=== PATIENT | female | born 1935 | race Caucasian/White ===

== ENCOUNTER 2024-02-26 11:09 | Inpatient (IN) ==
--- OUTSIDE RECORDS SUMMARY | 2024-02-26 11:12 | External Medical Summary | Summary of Care ---
Author Name Unknown Organization [facility] Address [address] [address] Phone [phone] Care Team Providers [facility] Representative Name Role Phone Vik Davies DO Primary Care Provider Reason for Visit * Reason Comments Follow Up Encounter Details Date Type Department Care Team (Late st Contact Info) Description 02/23/2024 10:00 AM EST Office Visit Otolaryngology [facility] [address] [place] [address] Hesham Liu DO [address] [place] [phone] Bilateral impacted cerumen [H61.23]* Allergies Active Allergy Reactions Criticality Noted Date Comments Ciprofloxacin Nausea/vomiting 11/10/2015 Adalimumab Other (Please comment) 09/15/2016 Cellulitis in face- needed hospitalized Sulfa Antibiotics 07/19/2023 documented as of this encounter (statuses as of 02/23/2024) Medications ONETOUCH ULTRA BLUE STRP Test once daily. 0 7 Active Blood Glucose Monitoring Suppl (ONETOUCH ULTRA 2) w/Device KIT daily. 0 7 Active nystatin (NYSTOP) 191969 UNIT/GM powder As needed 2 8 Active Prevail Adj Underwear Large by miscellaneous route Use as directed Active Premarin 0.625 MG/GM Vaginal Cream (Estrogens Conjugated) Apply 0.5 g topically to affected area at bedtime. Three times per week. 42.5 g 6 3 Active Additional Information Patient not taking.Reported on 01/31/2024 Carvedilol 6.25 MG Oral Tablet (Coreg)Indicat ions:HTN, goal below 140/90 Take 1 Tablet by mouth in the morning and 1 Tablet before bedtime. 180 Tablet 3 4 Active Aspirin 81 MG Oral Tablet Delayed Release Take 1 Tablet by mouth in the morning and 1 Tablet before bedtime. 90 Tablet 3 4 Active Additional Information Patient taking differently:81 mg OralDaily(AM), Reported on 10/25/2023 Multivitamin Women 50+ Oral Tablet Take 1 Tablet by mouth every morning. Active Folic Acid 1 MG Oral Tablet Take 1 Tablet by mouth in the morning. In the morning.. 90 Tablet 3 4 Active predniSONE 5 MG Oral Tablet (Deltasone) Take 0.5 Tablets by mouth in the morning and 0.5 Tablets before bedtime. one pill each day. 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 90 Tablet 3 4 Active Methotrexate Sodium 2.5 MG Oral TabletIndicati ons:Rheumatoid arthritis involving multiple sites with positive rheumatoid factor (HCC) TAKE 4 TABLETS BY MOUTH ONCE A WEEK 52 Tablet 1 4 Active Trospium Chloride 20 MG Oral Tablet (Sanctura) Take 1 Tablet by mouth in the morning. 4 Active Furosemide 20 MG Oral Tablet (Lasix) Take 1 tablet alternating with 2 tablets every other day. 120 Tablet 5 4 Active documented as of this encounter (statuses as of 02/23/2024) Active Problems Problem Noted Date Diagnosed Date Localized edema 05/24/2023 Chronic kidney disease, stage 3b 03/21/2023 Overview: Per CKD protocol Type 2 diabetes mellitus wit h stage 3b chronic kidney disease 02/21/2023 Overview: Per CKD protocol History of 2019 novel coronavirus disease (COVID -19) 10/13/2021 Mixed incontinence 07/13/2021 Calculus of kidney 07/13/2021 Urinary tract infection due to Proteus 2 Renal cyst, acquired 07/13/2021 Trigger finger, right little finger 04/13/2021 Nonrheumatic mitral valve regurgitation 08/19/19 21 Statin intolerance 08/18/2020 Dyslipidemia, goal LDL below 70 08/18/2020 Rheumatoid arthritis involvi ng multiple sites with positive rheumatoid factor 02/02/2017 Vitamin D deficiency 02/02/2017 Encounter for long-term (current) use of medicat ions 10/28/2016 Generalized osteoarthritis 10/28/2016 CAD (coronary artery disease) Overview (10/28/2016): s/p stent Diabetes HTN, goal below 140/90 GERD (gastroesophageal reflux disease) documented as of this encounter (statuses as of 02/23/2024) Resolved Problems Problem Noted Date Diagnosed Date Resolved Date Diabetes mellitus with stage 3 chronic kidney disease 01/17/2023 02/24/2023 Overview: Per CKD protocol Rheumatoid arthritis involving multiple sites 10/29/19 17 02/02/2017 Kidney disease, chronic, sta ge III (GFR 30-59 ml/min) 01/20/2023 Overview: Per CKD protocol documented as of this encounter (statuses as of 02/23/2024) Immunizations Name Administration Dates Next Due COVID-19 mRNA, LNP-s, No Pre serve, 2-Dose Series (Moderna) 03/25/2021,06/17/2020,05/13/2020 Pneumococcal Conjugate Vacc, 13 Valent (Prevnar) 05/23/2017 RSV Vac., Recomb, Adjuvant, PF,0.5 Ml (Arexvy) 04/20/2023 Season Influenza, Quad, PF, Adjuvanted, 65+ Yrs, IM (FLUAD) 01/25/2023,01/15/2022 Seasonal Influenza Vac., MDV , IM, 0.5 mL (Fluzone) 01/28/2021,01/14/2021,01/05/2020,2018,01/20/2018,01/09/2018,02/09/2017,1 Seasonal Influenza, High Dos e, Trivalent, PF, IM (Fluzone HD) 01/05/2020,01/12/2017 Seasonal Influenza, Quadriva lent Hd, 65+ Yrs 01/28/2021 Seasonal Influenza, Recombin ant, RIV4, PF, (Flublock) 01/24/2019,01/20/2018 Seasonal Influenza, Trivalen t, Adjuvanted, 65+ YRS, PF, (Fluad) 1936 TDAP (age 10 and older)(Boostrix) 09/21/2023 Zoster Vaccine Recombinant (Shingrix) 04/25/2020 ,02/22/2020 documented as of this encounter Social History Tobacco Use Types Packs/Day Years Used Date Smoking Tobacco: Never Smokeless Tobacco: Never Alcohol Use Standard Drinks/Week Comments No 0 (1 standard drink = 0.6 oz pur e alcohol) PHQ-2 Answer Date Recorded PHQ Adult Total Score 0 09/21/2023 Comments No Sex and Gender Information Value Date Recorded Sex Assigned at Female 09/28/2022 9:33 AM EDT Legal Sex Female 6:04 AM EST Gender Identity Female 09/28/2022 9:33 AM EDT Sexual Orientation Straight 09/28/2022 9: 33 AM EDT documented as of this encounter Last Filed Vital Signs Vital Sign Reading Time Taken Comments Blood Pressure - - Pulse - - Temperature - - Respiratory Rate - - Oxygen Saturation - - Inhaled Oxygen Concentration - - Weight - - Height 152.4 cm (5') 02/23/2024 9:22 AM EST Body Mass Index - - documented in this encounter Progress Notes * Hesham Liu, - 02/23/2024 10:44 AM EST Otolaryngology Head and Neck Surgery 02/23/2024 HPI: patient comes in today for check of her ears. She was seen at the emergency department for an unrelated reason and they noted cerumen impactions. She states she has had decreased hearing for about a month since she had COVID-19. 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) Vitamin D deficiency Nonrheumatic mitral valve regurgitation Statin intolerance Dyslipidemia, goal LDL below 70 Trigger finger, right little finger Mixed incontinence Calculus of kidney Urinary tract infection due to Proteus Renal cyst, acquired History of 2019 novel coronavirus disease (COVID-19) 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) Chronic kidney disease, stage 3b (HCC) Localized edema Past Medical History: Diagnosis Date Arthritis CAD (coronary artery disease) s/p stent Diabetes (HCC) GERD (gastroesophageal reflux disease) Hyperlipidemia Hypertension Kidney disease, chronic, stage III (GFR 30-59 ml/min) ([facility]) Past Surgical History: Procedure Laterality Date ARTHO,SHOUL,W/ROTATOR CUFF CARDIAC STENT PLACEMENT, ATHERECTOMY, 1 VESSEL DELIVERY x 3 COLONOSCOPY, DIAGNOSTIC (RECTUM) 09/15/2016 hyperplastic polyp, diverticulosis/COLONOSCOPY FLEXIBLE PROXIMAL DIAGNOSTIC performed by Luda Armendariz DO at ENDOSCOPY [facility] EGD, FLEXIBLE, DIAGNOSTIC 09/15/2016 gastric ulcers, reflux esophagitis/ESOPHAGOGASTRODUODENOSCOPY (EGD), FLEXIBLE, TRANSORAL, DIAGNOSTIC performed by Luda Armendariz DO at ENDOSCOPY [facility] INJECT DX/THER SUBSTANCE INTERLAMINAR LUMBAR/SACRAL W IMAGE GUIDE 01/20/2017 INJECTION SPINE LUMBAR OR SACRAL performed by Estiven Abbasi DO at OR [facility] INJECT DX/THER SUBSTANCE INTERLAMINAR LUMBAR/SACRAL W IMAGE GUIDE 02/10/2017 INJECTION SPINE LUMBAR OR SACRAL performed by Estiven Abbasi DO at OR [facility] LAPAROSCOPY; CHOLECYSTECTOMY NECK SPINE FUSION (C1-C2) W/GRAFT PARTIAL HYSTERECTOMY SPINAL FUSION, LUMBAR, COMBINED Medications Current Outpatient Medications Medication Sig Dispense Refill Coffee and PowerUCH ULTRA BLUE STRP Test once daily. 0 Blood Glucose Monitoring Suppl (CrambuTOUCH ULTRA 2) w/Device KIT daily. 0 nystatin (NYSTOP) 533397 UNIT/GM powder As needed 2 Prevail Adj Underwear Large by miscellaneous route Use as directed Premarin 0.625 MG/GM Vaginal Cream (Estrogens Conjugated) Apply 0.5 g topically to affected area atbedtime. Three times per week. (Patient not taking: Reported on 01/31/2024) 42.5 g 6 Carvedilol 6.25 MG Oral Tablet (Coreg) Take 1 Tablet by mouth in the morning and 1 Tablet before bedtime. 180 Tablet 3 Aspirin 81 MG Oral Tablet Delayed Release Take 1 Tablet by mouth in the morning and 1 Tablet beforebedtime. (Patient taking differently: Take 1 Tablet by mouth in the morning.) 90 Tablet 3 Multivitamin Women 50+ Oral Tablet Take 1 Tablet by mouth every morning. Folic Acid 1 MG Oral Tablet Take 1 Tablet by mouth in the morning. In the morning.. 90 Tablet 3 predniSONE 5 MG Oral Tablet (Deltasone) Take 0.5 Tablets by mouth in the morning and 0.5 Tablets before bedtime. one pill each day. (Patient taking differently: Take 1 Tablet by mouth in the morning.one pill each day.) 180 Tablet 0 Donepezil HCl 5 MG Oral Tablet (Aricept) Take by mouth daily with the largest meal of the day. 90 Tablet 3 Methotrexate Sodium 2.5 MG Oral Tablet TAKE 4 TABLETS BY MOUTH ONCE A WEEK 52 Tablet 1 Trospium Chloride 20 MG Oral Tablet (Sanctura) Take 1 Tablet by mouth in the morning. Furosemide 20 MG Oral Tablet (Lasix) Take 1 tablet alternating with 2 tablets every other day. 120 Tablet 5 No current facility-administered medications for this visit. Allergies Review of patient's allergies indicates: Allergen Reactions Ciprofloxacin Nausea/vomiting Humira [Adalimumab] Other (Please comment) Cellulitis in face- needed hospitalized Sulfa Antibiotics Family History Family History Problem Relation Name Age of Onset Other (Other) Mother brain bleed after fall Heart disease Father Cancer Sister breast Arthritis Son Arthritis Daughter Social History Social History Tobacco Use Smoking status: Never Smokeless tobacco: Never Substance Use Topics Alcohol use: No Vaping/E-Cigarette Use Vaping/E-Cigarette Use Never User Vaping/E-Cigarette Substances Vaping/E-Cigarette Devices Review of Systems Negative for constitutional, eyes, cardiac, pulmonary, hepatic, renal, digestive, hematologic, epileptic, syncopal, musculo-skeletal, mental health, integumentary, hypertensive, lipid, arthritic, diabetic, thyroid, or neurologic disorders (except as listed in the PMH and Problem List). Physical Examination: Ht 1.524 m (5') | BMI 37.42 kg/m | BSA 1.92 m PHYSICAL EXAM General: This is a healthy appearing female who appears her stated age. The patient is alert and appropriately verbally conversant without hoarseness. Face: The face was inspected and no cutaneous masses or lesions were visualized. There was no erythema or edema noted. Facial movement was symmetric without weakness. No skin lesions were detected. There was no sinus tenderness elicited. The parotid and submandibular glands were normal to palpation. Eyes: Extra-ocular muscle function was intact. No nystagmus was observed. Pupils were equal. Cranial Nerves: Cranial nerves II, III, IV, and were noted to be intact via extra-ocular muscle movement testing. Cranial nerve VII noted to be intact and symmetric by facial movement. Nose: Examination of the nose revealed no masses, polyps, mucopus, or other lesion. The nasal septum was non-obstructing. The turbinates were without abnormality. Ears: Examination of the ears revealed that the auricles were normally formed with no lesions. The external auditory canals were cleaned of any obstructing cerumen. The tympanic membranes were intactand freely mobile to pneumatoscopy. There are no significant retraction pockets. There is no inflammation visualized. No effusions are seen. Procedure: In order to assess ears in further detail, the patient was brought to the microscope room and the ears were evaluated under the operating microscope. The findings are as noted in the above physical exam. Procedure: Cerumen removal Attention directed to the right ear. Under danny-microscopic guidance the impacted cerumen was removed with a suction atraumatically. The tympanic membrane was intact and the middle ear was healthy appearing. The same procedure was performed on the other side. Patient tolerated the procedure well. Assessment: 88-year-old female with bilateral cerumen impactions Plan: - cerumen removed as above. - Follow-up p.r.n. I spent a total of 30 minutes on the date of service in preparation, delivery, and documentation ofthe care provided to the above patient, excluding any time spent on the performance of any procedures or separately billable services. Hesham Liu DO, [facility], Department of Otolaryngology-Head and Neck Surgery [facility], [place] 02/23/2024 10:45 AM documented in this encounter Nursing Notes * Sigrid Seay LPN - 02/23/2024 9:23 AM EST Chief Complaint Patient presents with Follow Up Patient presents today for cerumen removal. Pt states she had covid last month and since then she'sbeen having difficulty hearing. She denies any ear pain or ear drainage. documented in this encounter Plan of Treatment Upcoming Encounters Date Type Department Care Team (Late st Contact Info) Description 02/28/2024 10:00 AM EST Cardiac Studies Cardiac Studies, [facility] [address] [facility] [place] [address] 02/28/2024 1:00 PM EST Imaging Vascular Lab, [facility] [address] [facility], [place] [address] [facility] [place] [address] 02/28/2024 2:00 PM EST Imaging Vascular Lab, [facility] 2nd Floor, [place] [address] [facility] [place] [address] 02/29/2024 1:45 PM EST Office Visit Orthopaedics [facility] [address] [place] [address] Sondra Odonnell MD [address] [place] [address] 03/12/2024 2:30 PM EST Office Visit Cardiology, [facility] [address] [place] [address] Raquel Marquez PA-C [address] [place] [address] 03/22/2024 1:40 PM EST Office Visit Family Practice [facility] [address] [place] [address] Vik Davies DO [address] [place] [address] 07/19/2024 9:00 AM EDT Office Visit Rheumatology [facility] [address] [place] [address] Rubén Zheng MD [address] [place] [address] Health Maintenance Due Date Last Done Comments Adult Wellness Visit 2002 Pneumococcal Vaccine: 65+ Years (2 of 2 - PPSV23 or PCV20) 07/18/2017 05/23/2017 COVID-19 Vaccine ( season) 2023 03/25/2021, 06/17/2020, 05/13/2020 Influenza Vaccine (FLU shot) (#1) 2023 01/25/2023, 01/15/2022, 01/28/2021, Additional history exists CKD PHOS USE SMARTSET 15477 01/14/2024 01/13/2023, 0 06/17/2014 Albumin/Creatinine Ratio 01/15/2024 023, 08/14/2018, 06/03/2017, Additional history exists HbA1c 06/17/2024 12/19/2023, 08/0 11/2023, 01/13/2023, Additional history exists Diabetic Eye Exam 07/24/2024 07/25/2023, , 01/24/2023, Additional history exists Depression Screening 09/20/2024 09/21/2023 Diabetic Foot Exam 09/20/2024 09/21/2023 CKD HGB USE SMARTSET 45496 02/12/202502/12, 02/13/2024, 11/17/2023, Additional history exists DXA Scan 10/20/2028 10/20/2021, 10/20/2021 DTap/Tdap Vaccines (2 - Td or Tdap) 09/20/2033 09/21/2023 Zoster Vaccines Completed 04/25/2020, 02/22/2020 HPV (Gardasil) Vaccine Aged Out No lo nger eligible based on patient's age to complete this topic Hepatitis B Vaccine Aged Out No longe r eligible based on patient's age to complete this topic MENINGOCOCCAL (MENACTRA/MENVEO) Aged Out No longer eligible based on patient's age to complete this topic documented as of this encounter Medical Devices Not on filedocumented as of this encounter Visit Diagnoses Diagnosis Bilateral impacted cerumen [H61.23]- Primary Impacted cerumen documented in this encounter Advance Directives Documents on File Type Date Recorded 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
--- OUTSIDE RECORDS SUMMARY | 2024-02-26 11:12 | External Medical Summary | Summary of Care ---
Author Name Unknown Organization [facility] Address [address] [place] [address] Phone [phone] Care Team Providers Care Rail Track Maintainer Name Role Phone Samson Vik Liuabiel Primary Care Provider Encounter Details Date Type Department Care Team (Latest Contact Info) Description 02/23/2024 10:30 AM EST Office Visit Audiology [facility] [address] [place] [address] Ayala Alamo Au.D. [address] [place] [address] Sensorineural hearing loss, bilateral* Allergies Active Allergy Reactions Criticality Noted Date Comments Ciprofloxacin Nausea/vomiting 11/10/2015 Adalimumab Other (Please comment) 09/15/2016 Cellulitis in face- needed hospitalized Sulfa Antibiotics 07/19/2023 documented as of this encounter (statuses as of 02/23/2024) Medications ONETOUCH ULTRA BLUE STRP Test once daily. 0 7 Active Blood Glucose Monitoring Suppl (ONETOUCH ULTRA 2) w/Device KIT daily. 0 7 Active nystatin (NYSTOP) 183004 UNIT/GM powder As needed 2 8 Active [...] AM EDT documented as of this encounter Progress Notes * Ayala Alamo Au.D. - 02/23/2024 9:54 AM EST Images from the original note were not included. Audiologic evaluation was completed on referral from Otolaryngology clinic. Tympanometry 42746 Right: WNL for static admittance, tympanometric peak pressure, equivalent volume, and tympanic width("Type A") Left: WNL for static admittance, tympanometric peak pressure, equivalent volume, and tympanic width("Type A") Standard audiometric testing 03086 ABSD insert earphones Good reliability Right: sensorineural hearing loss Left: sensorineural hearing loss Speech recognition thresholds were consistent with hearing thresholds. Word recognition scores, obtained via monitored live voice were: right 92%, left 88% Milena Sheehan, CCC-A 02/23/2024 9:54 AM Scan: audiogram, tympanograms documented in this encounter Plan of Treatment Upcoming Encounters Date Type Department Care Team (Late st Contact Info) Description 02/28/2024 10:00 AM EST Cardiac Studies Cardiac Studies, [facility] [address] [place] [address] 02/28/2024 1:00 PM EST Imaging Vascular Lab, [facility] [address] [facility], [place] [address] [facility] [facility] [place] [address] 02/28/2024 2:00 PM EST Imaging Vascular Lab, [facility] [address] [facility], [place] [address] [facility] [facility] [address] 02/29/2024 1:45 PM EST Office Visit Orthopaedics [facility] [address] [place] [address] Sondra Odonnell MD [address] [place] [address] 03/12/2024 2:30 PM EST Office Visit Cardiology, [facility] [address] [place] [address] Raquel Marquez PA-C [address] [place] [address] 03/22/2024 1:40 PM EST Office Visit Family Practice [facility] [address] [place] [address] Vik Davies DO [address] [place] [address] 07/19/2024 9:00 AM EDT Office Visit Rheumatology [facility] [address] [place], [place] [address] Rubén Zheng MD [address] [place] [address] Health Maintenance Due Date Last Done Comments Adult Wellness Visit 2002 Pneumococcal Vaccine: 65+ Years (2 of 2 - PPSV23 or PCV20) 07/18/2017 05/23/2017 COVID-19 Vaccine ( season) 2023 03/25/2021, 06/17/2020, 05/13/2020 Influenza Vaccine (FLU shot) (#1) 2023 01/25/2023, 01/15/2022, 01/28/2021, Additional history exists CKD PHOS USE SMARTSET 92578 01/14/2024 01/13/2023, 0 06/17/2014 Albumin/Creatinine Ratio 01/15/2024 023, 08/14/2018, 06/03/2017, Additional history exists HbA1c 06/17/2024 12/19/2023, 08/0 11/2023, 01/13/2023, Additional history exists Diabetic Eye Exam 07/24/2024 07/25/2023, , 01/24/2023, Additional history exists Depression Screening 09/20/2024 09/21/2023 Diabetic Foot Exam 09/20/2024 09/21/2023 CKD HGB USE SMARTSET 59950 02/12/202502/12, 02/13/2024, 11/17/2023, Additional history exists DXA [...] Not on filedocumented as of this encounter Procedures Procedure Name Priority Date/Time Associated Diagnosis Comments AUDIOMETRIC RESULT 02/23/2024 documented in this encounter Results * AUDIOMETRIC RESULT (02/23/2024) 02/23/2024 us Ayala Abbott [facility] Final Resul t documented in this encounter Visit Diagnoses Diagnosis Sensorineural hearing loss, bilateral- Primary documented in this encounter Advance Directives Documents on File Type Date Recorded Patient Universal Grinder Tool Expl anation Advance Directives and Living Will 12/18/2013 LIVING WILL Power of Air Brake Worker 12/18/2013 POWER OF A TTORNEY DURABLE HEALTH CARE POA Care Teams Rail Track Maintainer Relationship Specialty Start Date End Date Vik Davies DO [address] [place] [address] PCP - General Family Medicine 01/13/23 documented as of this encounter
--- OUTSIDE RECORDS SUMMARY | 2024-02-26 11:13 | External Medical Summary ---
Author Name Unknown Address Unknown Organization K01:LABORATORY [facility] [place] - [address] [place] [address] [address] Laboratory Report Ordering Provider Test Date Status JACKY LIGHT 02/13/2024 14:24:07 Final Reference ranges are for iker nts without prior surgery. Some reference ranges and other method performance specifications have not been established for this fluid. The test results must be integrated into the clinical context for interpretation.

Slide being held for pathologist review.
Observation Date Value Abnormality Reference (Units ) Status Color of Body fluid 02/13/2024 14:24:07 Yellow Straw, Yellow, Colorless Final Clarity of Body fluid 02/13/2024 14:24:07 Clear Clear Final Leukocytes [#/volume] in Synovial fluid 02/13/2024 14:24:07 1351 Above high normal 0-180 (cells/uL) Final Erythrocytes [#/volume] in Synovial fluid 02/13/2024 14:24:07 623 <2000 (cells/uL) Final Performing Location [facility]ORY [facility] [place] - [address] [place] [address]
--- OUTSIDE RECORDS SUMMARY | 2024-02-26 11:13 | External Medical Summary | Summary of Care ---
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 Name Role Phone Vik Davies Primary Care Provider Reason for Visit * Reason Onset Date Comments Test Results 02/14/2024 Encounter Details Date Type Department Care Team (Late st Contact Info) Description 02/14/2024 Telephone Cardiology, [facility] [address] [place] [address] Raquel Marquez, LIBBY [address] [place] [phone] Test Results Allergies Active Allergy Reactions Criticality Noted Date Comments Ciprofloxacin Nausea/vomiting 11/10/2015 Adalimumab Other (Please comment) 09/15/2016 Cellulitis in face- needed hospitalized Sulfa Antibiotics 07/19/2023 documented as of this encounter (statuses as of 02/14/2024) Medications Medication Sig Dispensed Refills Start Date End Date Status ONETOUCH ULTRA BLUE STRP Test once daily. 0 01/10/2017 Active Blood Glucose Monitoring Suppl (ONETOUCH ULTRA 2) w/Device KIT daily. 0 01/10/2017 Active nystatin (NYSTOP) 616042 UNIT/GM powder As needed 2 05/23/2017 Active Prevail Adj Underwear Large by miscellaneous route Use as directed Active Premarin 0.625 MG/GM Vaginal Cream (Estrogens Conjugated) Apply 0.5 g topically to affected area at bedtime. Three times per week. 42.5 g 6 10/25/2022 Active Additional Information Patient not taking.Reported on 01/31/2024 Carvedilol 6.25 MG Oral Tablet (Coreg)Indication s:HTN, goal below 140/90 Take 1 Tablet by mouth in the morning and 1 Tablet before bedtime. 180 Tablet 3 04/15/2023 Active Aspirin 81 MG Oral Tablet Delayed Release Take 1 Tablet by mouth in the morning and 1 Tablet before bedtime. 90 Tablet 3 04/15/2023 Active Additional Information Patient taking differently:81 mg OralDaily(AM), Reported on 10/25/2023 Multivitamin Women 50+ Oral Tablet Take 1 Tablet by mouth every morning. Active Folic Acid 1 MG Oral Tablet Take 1 Tablet by mouth in the morning. In the morning.. 90 Tablet 3 07/19/2023 Active predniSONE 5 MG Oral Tablet (Deltasone) Take 0.5 Tablets by mouth in the morning and 0.5 Tablets before bedtime. one pill each day. 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 90 Tablet 3 10/10/2023 Active Methotrexate Sodium 2.5 MG Oral TabletIndications :Rheumatoid arthritis involving multiple sites with positive rheumatoid factor (HCC) TAKE 4 TABLETS BY MOUTH ONCE A WEEK 52 Tablet 1 12/07/2023 Active Trospium Chloride 20 MG Oral Tablet (Sanctura) Take 1 Tablet by mouth in the morning. 10/24/2023 Active Furosemide 20 MG Oral Tablet (Lasix) Take 1 tablet alternating with 2 tablets every other day. 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 CAD (coronary artery disease) Overview: s/p stent Diabetes HTN, goal below 140/90 GERD (gastroesophageal reflux disease) documented as of this encounter (statuses as of 02/14/2024) Resolved Problems Problem Noted Date Diagnosed Date Resolved Date Diabetes mellitus with stage 3 chronic kidney disease 01/17/2023 02/24/2023 Overview: Per CKD protocol Rheumatoid arthritis involving multiple sites 10/29/19 17 02/02/2017 Kidney disease, chronic, sta ge III (GFR 30-59 ml/min) 01/20/2023 Overview: Per CKD protocol documented as of this encounter (statuses as of 02/14/2024) Immunizations Name Administration Dates Next Due COVID-19 mRNA, LNP-s, No Pre serve, 2-Dose Series (Moderna) 03/25/2021,06/17/2020,05/13/2020 Pneumococcal Conjugate Vacc, 13 Valent (Prevnar) 05/23/2017 RSV Vac., Recomb, Adjuvant, PF,0.5 Ml (Arexvy) 04/20/2023 Seasonal Influenza Vac., MDV , IM, 0.5 mL (Fluzone) 01/28/2021,01/14/2021,01/05/2020,2018,01/20/2018,01/09/2018,02/09/2017,1 Seasonal Influenza, High Dos e, Trivalent, PF, IM (Fluzone HD) 01/05/2020,01/12/2017 Seasonal Influenza, Quadriva lent Hd, 65+ Yrs 01/28/2021 Seasonal Influenza, Recombin ant, RIV4, PF, (Flublock) 01/24/2019,01/20/2018 TDAP (age 10 and older)(Boostrix) 09/21/2023 Zoster Vaccine Recombinant (Shingrix) 04/25/2020 ,02/22/2020 documented as of this encounter Social History Tobacco Use Types Packs/Day Years Used Date Smoking Tobacco: Never Smokeless Tobacco: Never Alcohol Use Standard Drinks/Week Comments No 0 (1 standard drink = 0.6 oz pur e alcohol) PHQ-2 Answer Date Recorded PHQ Adult Total Score 0 09/21/2023 Utilities Answer Date Recorded Do you have trouble paying y our heating, water, or electric bill? (Adult - for ages 18 years and over) Not on file 09/27/2023 Is your family able to pay t he heat, water, or electric bill? (Household - for ages 0-17 years) Not on file 09/27/2023 Does your family have access to good internet? (Household - for ages 0-17 years) Not on file 09/27/2023 Social Connections Answer Date Recorded How often do you feel lonely or isolated from those around you? (Adult - for ages 18 years and over) Not on file 09/27/2023 Sex and Gender Information Value Date Recorded Sex Assigned at Female 09/28/2022 9:33 AM EDT Gender Identity Female 09/28/2022 9:33 AM EDT Sexual Orientation Straight 09/28/2022 9: 33 AM EDT Job Start Date Occupation Industry Not on file Not on file Not on file documented as of this encounter Miscellaneous Notes * Telephone Encounter - Marcia Olivera CMA - 02/14/2024 8:23 AM EST My g sent. * Telephone Encounter - Marcia Olivera CMA - 02/14/2024 8:22 AM EST ----- Message from Raquel Marquez sent at 02/13/2024 5:13 PM EST ----- Labs are stable. See how swelling is doing since increasing her diuretic several weeks ago? documented in this encounter Plan of Treatment Upcoming Encounters Date Type Department Care Team (Late st Contact Info) Description 02/28/2024 10:00 AM EST Cardiac Studies Card[facility], [facility] [address] [place] [address] 02/28/2024 1:00 PM EST Imaging Vascular Lab, [facility] [place] [address] [facility] [place] [address] 02/28/2024 2:00 PM EST Imaging Vascular Lab, [facility] [place] [address] [facility] [place] [address] 02/29/2024 1:45 PM EST Office Visit Orthopaedics [facility] [address] [place] [address] Sondra Odonnell MD [address] [place] [phone] 03/12/2024 2:30 PM EST Office Visit Cardiology, [facility] [address] [place] [address] Raquel Marquez PA-C [address] [place] [address] 03/22/2024 1:40 PM EST Office Visit Family Practice [facility] [address] [place] [address] Vik Davies DO [address] [place] [address] 07/19/2024 9:00 AM EDT Office Visit Rheumatology [facility] [address] [place] [address] Rubén Zheng MD [address] [place] [address] Health Maintenance Due Date Last Done Comments Adult Wellness Visit 2002 Pneumococcal Vaccine: 65+ Years (2 of 2 - PPSV23 or PCV20) 07/18/2017 05/23/2017 COVID-19 Vaccine ( season) 2023 03/25/2021, 06/17/2020, 05/13/2020 Influenza Vaccine (FLU shot) (#1) 2023 01/25/2023, 01/15/2022, 01/28/2021, Additional history exists CKD PHOS USE SMARTSET 80125 01/14/2024 01/13/2023, 0 06/17/2014 Albumin/Creatinine Ratio 01/15/2024 023, 08/14/2018, 06/03/2017, Additional history exists HbA1c 06/17/2024 12/19/2023, 08/0 11/2023, 01/13/2023, Additional history exists Diabetic Eye Exam 07/24/2024 07/25/2023, , 01/24/2023, Additional history exists Depression Screening 09/20/2024 09/21/2023 Diabetic Foot Exam 09/20/2024 09/21/2023 CKD HGB USE SMARTSET 93140 02/12/202502/12, 02/13/2024, 11/17/2023, Additional history exists DXA [...] Not on filedocumented as of this encounter Advance Directives Documents on File Type Date Recorded 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
--- OUTSIDE RECORDS SUMMARY | 2024-02-26 11:13 | External Medical Summary | Summary of Care ---
Author Name Unknown Organization [facility] [address] [address] Phone [phone] Care Team Providers Care Top Lift Scourer Name Role Phone Davies Vik Liuabiel Primary Care Provider Reason for Referral * Precert (Diagnostic Medical) (Within 10 days (routine)) - Authorized Specialty Diagnoses / Procedures Referred By Contac t Referred To Contact Cardiac Studies Diagnoses Leg edema, left Peripheral venous insufficiency Coronary artery disease involving [place] coronary artery of [place] heart without angina pectoris Statin intolerance Localized edema Procedures ECHO, COMPLETE (2D), TRANS-THORACIC Raquel Marquez PA-C [address] [place] [id number] Referral ID Status Reason Start Date Expiration Date V isits Requested Visits Authorized [id number] Authorized Precert 01/31/2024 999 999 Reason for Visit * Reason Comments Follow Up Encounter Details Date Type Department Care Team (Late st Contact Info) Description 01/31/2024 9:00 AM EDT Office Visit Cardiology, [facility] [address] [place] [address] Raquel Marquez PA-C [address] [place] [phone] Leg edema, left*; Peripheral venous insufficiency; Coronary artery disease involving [place] coronary artery of [place] heart without angina pectoris; Statin intolerance; Localized edema Allergies Active Allergy Reactions Criticality Noted Date Comments Ciprofloxacin Nausea/vomiting 11/10/2015 Adalimumab Other (Please comment) 09/15/2016 Cellulitis in face- needed hospitalized Sulfa Antibiotics 07/19/2023 documented as of this encounter (statuses as of 02/08/2024) Medications Medication Sig Dispensed Refills Start Date End Date Status OcscTOUCH ULTRA BLUE STRP Test once daily. 0 7 Active Blood Glucose Monitoring Suppl (OcscTOUCH ULTRA 2) w/Device KIT daily. 0 7 Active nystatin (NYSTOP) 335065 UNIT/GM powder As needed 2 8 Active [...] other day. 120 Tablet 5 4 Active Ipratropium North (ATROVENT) 0.03 % nasal spray Administer 2 Sprays into each nostril 2 times a day as needed for Rhinitis. 30 mL 3 9 01/31/20 24 Discontinued(End of Procedure) Furosemide 20 MG Oral Tablet (Lasix) Take 1 tablet every other morning. May take an additional tablet as needed for increased swelling. 90 Tablet 5 4 01/31/20 24 Discontinued Doxycycline Hyclate 100 MG Oral Capsule Take 1 Capsule by mouth in the morning and 1 Capsule before bedtime. 4 01/31/20 24 Discontinued(End of Procedure) documented as of this encounter (statuses as of 02/08/2024) Active Problems Problem Noted Date Diagnosed Date [...] as of this encounter (statuses as of 02/08/2024) Resolved Problems Problem Noted Date Diagnosed Date Resolved Date Diabetes mellitus with stage 3 chronic kidney disease 01/17/2023 02/24/2023 Overview: Per CKD protocol Rheumatoid arthritis involving multiple sites 10/29/19 17 02/02/2017 Kidney disease, chronic, sta ge III (GFR 30-59 ml/min) 01/20/2023 Overview: Per CKD protocol documented as of this encounter (statuses as of 02/08/2024) Immunizations Name Administration Dates Next Due COVID-19 [...] Date Smoking Tobacco: Never Smokeless Tobacco: Never Tobacco Cessation:Counseling Given: Not Answered Alcohol Use Standard Drinks/Week Comments No 0 [...] on file documented as of this encounter Last Filed Vital Signs Vital Sign Reading Time Taken Comments Blood Pressure 134/70 01/31/2024 8:55 AM EDT Pulse 68 01/31/2024 8:55 AM EDT Temperature - - Respiratory Rate 16 01/31/2024 8:55 AM EDT Oxygen Saturation - - Inhaled Oxygen Concentration - - Weight 86.9 kg (191 lb 8 oz) 01/31/2024 8:55 AM EDT Height - - Body Mass Index 37.4 09/28/2022 2:44 PM EDT documented in this encounter Patient Instructions * Patient Instructions* Raquel Marquez PA-C - 01/31/2024 9:27 AM EDT Increase furosemide to 20 mg - 1 tablet daily, alternating with 2 tablets every other day Blood work in 2 weeks documented in this encounter Progress Notes * Raquel Marquez PA-C - 01/31/2024 9:01 AM EDT Images from the original note were not included. Cardiology F/U: CC: CAD; HTN; Dyslipidemia with statin intolerance; History of Present Illness The patient is an 88-year-old female here today for routine Cardiology follow- up. Last clinic evaluation approximately 3 months ago with the undersigned. She is here today with her and son, who was a prior RN for [facility]. She presents with persistent left leg edema and recent recovery from a severe COVID-19 infection. The COVID-19 infection was severe enough to warrant two emergency room visits and an urgent care visit due to severe coughing and difficulty breathing, particularly at night. The patient was treated with an antibiotic for lung congestion. Despite completing the antibiotic course, the patient continues to experience significant nasal drainage at night, which has been somewhat alleviated with [id number] Jacklyn. The patient's left leg edema is significantly worse than the right, with the swelling even reachingthe knee at times. 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 An orthopedic consultation is scheduled for February. Despite increasing the dose of Lasix, the left leg edema has not improved. She had a venous duplex about 1 month ago that was negative but edema is worse now. The patient has been prescribed Trospium by the urologist to manage urinary leakage. However, thereare concerns that this medication may be causing fluid retention, exacerbating the leg edema. The patient has been taking this medication once daily for the past few days, instead of the prescribed twice daily, due to these concerns. No worsening swelling since initiation however. The patient's blood pressure is well-controlled on current medications, and she has a history of mild bradycardia, which is stable. No dizziness reported. No chest pain reported. History includes: Coronary artery disease with prior stent to the RCA in 2007. She underwent repeat cath in 2011 which demonstrated 40% proximal RCA stenosis, patent stent to the mid RCA, 40% mid RCA stenosis, 30% midLAD stenosis, and 30% proximal diagonal 1 stenosis. Medical management recommended. Hypertension dyslipidemia with multiple statin intolerances, intolerant to Zetia and declined PCSK9 inhib. chronic RA on immunosuppressive therapy with methotrexate and prednisone CKD stage III Mild bradycardia, limiting beta darell dose Review of Systems: See HPI for pertinent positives. All others negative, other than those noted in HPI. Past Medical History: Patient Active Problem List Diagnosis CAD (coronary [...] disease, stage 3b (HCC) Localized edema Past Surgical History: Procedure Laterality Date ARTHO,SHOUL,W/ROTATOR CUFF CARDIAC STENT PLACEMENT, ATHERECTOMY, 1 VESSEL DELIVERY x 3 COLONOSCOPY, DIAGNOSTIC (RECTUM) 09/15/2016 hyperplastic polyp, diverticulosis/COLONOSCOPY FLEXIBLE PROXIMAL DIAGNOSTIC performed by Luda Armendariz DO at ENDOSCOPY [facility] EGD, FLEXIBLE, DIAGNOSTIC 09/15/2016 gastric ulcers, reflux esophagitis/ESOPHAGOGASTRODUODENOSCOPY (EGD), FLEXIBLE, TRANSORAL, DIAGNOSTIC performed by Luda Armendariz DO at ENDOSCOPY [facility] INJECT DX/THER SUBSTANCE INTERLAMINAR LUMBAR/SACRAL W IMAGE GUIDE 01/20/2017 INJECTION SPINE LUMBAR OR SACRAL performed by Estiven Abbasi, DO at OR [facility] INJECT DX/THER SUBSTANCE INTERLAMINAR LUMBAR/SACRAL W IMAGE GUIDE 02/10/2017 INJECTION SPINE LUMBAR OR SACRAL performed by Estiven Abbasi, at OR [facility] LAPAROSCOPY; CHOLECYSTECTOMY NECK SPINE FUSION (C1-C2) W/GRAFT PARTIAL HYSTERECTOMY SPINAL FUSION, LUMBAR, COMBINED Family History: Family History Problem Relation Name Age of Onset Other (Other) Mother brain bleed after fall Heart disease Father Cancer Sister breast Arthritis Son Arthritis Daughter Social History: Social History Tobacco Use Smoking status: Never Smokeless tobacco: Never Vaping Use Vaping status: Never Used Substance Use Topics Alcohol use: No Drug use: No Allergies: Ciprofloxacin, Humira [adalimumab], and Sulfa antibiotics Medications: Current Outpatient Medications Medication Sig Dispense Refill nystatin (NYSTOP) 088504 UNIT/GM powder As needed 2 Prevail Adj Underwear Large by miscellaneous route Use as directed Carvedilol 6.25 MG Oral Tablet (Coreg) Take [...] tablets every other day. 120 Tablet 5 Vannevar TechnologyUCH ULTRA BLUE STRP Test once daily. 0 Blood Glucose Monitoring Suppl (Vannevar TechnologyUCH ULTRA 2) w/Device KIT daily. 0 Premarin 0.625 MG/GM Vaginal Cream (Estrogens Conjugated) Apply 0.5 g topically to affected area atbedtime. Three times per week. (Patient not taking: Reported on 01/31/2024) 42.5 g 6 No current facility-administered medications for this visit. OBJECTIVE/PHYSICAL EXAMINATION: BP 134/70 (BP Site: Left Arm, BP Position: Sitting, BP Cuff Size: Large) | Pulse 68 | Resp 16 | Wt 86.9 kg (191 lb 8 oz) | BMI 37.40 kg/m | BSA 1.92 m Wt Readings from Last 3 Encounters: 01/31/24 86.9 kg (191 lb 8 oz) 01/02/24 85.3 kg (188 lb 1.9 oz) 10/25/23 86.4 kg (190 lb 8 oz) General: no acute distress and stated age Eyes: conjunctiva are pink and non-injected, sclera clear Neck: normal jugular venous pulse, no hepatojugular reflux Chest: normal shape and normal respiratory effort Lungs: clear to auscultation and percussion Cardiac Exam: regular heart sounds, no murmurs, rubs, or gallops Abdomen: abdomen soft, non-tender, no abnormal masses and no hepatosplenomegaly Musculoskeletal: no gait disturbance, no weakness Extremities: 2+ L LE edema, 1+ right Neuro: grossly normal exam Psych: appropriate affect and insight. Data Venous duplex at [facility] reviewed from Jan 14, 2024 - Negative for DVT ZIO report reviewed dated December 28, 2022: Patient had a min HR of 44 bpm, max HR of 132 bpm, and avg HR of 59 bpm. Predominant underlying rhythm was Sinus Rhythm. First Degree AV Block was present. 7 Supraventricular Tachycardia runs occurred, the run with the fastest interval lasting 5 beats with a max rate of 132 bpm, the longest lasting9 beats with an avg rate of 92 bpm. Some episodes of Supraventricular Tachycardia may be possible Atrial Tachycardia with variable block. Isolated SVEs were rare (<1.0%), SVE Couplets were rare (<1.0%), and SVE Triplets were rare (<1.0%). Isolated VEs were rare (<1.0%, 50), VE Triplets were rare (<1.0%, 1), and no VE Couplets were present. Ventricular Trigeminy was present. No patient marker or diary entry submitted Impression: Sinus bradycardia, average rate 59 beats per minute with brief runs of atrial tachycardia. No pauses or profound Jason arrhythmias Echo report reviewed from [facility] dated Dec 2022: Carotid duplex report reviewed from [facility] dated Dec 2022: IMPRESSION: 1. Atherosclerosis without hemodynamically significant stenosis. 2. Normal antegrade vertebral flow bilaterally. EKG performed July 2022: Sinus rhythm with 1st degree AV block Otherwise normal ECG When compared with ECG of 31-JUL-2021 14:00, No significant change was found EKG performed July 2021: Sinus rhythm with 1st degree AV block Otherwise normal ECG When compared with ECG of 28-JUL-2020 11:01, No significant change was found Carotid duplex report reviewed dated July 2021: Impression: Right carotid artery duplex examination indicates evidence of less than 50% stenosis of the internal carotid artery. Left carotid artery duplex examination indicates evidence of less than 50% stenosis of the internalcarotid artery. Echocardiogram report reviewed dated May 2019: LV size is normal with concentric LVH. Ejection fraction 60% consistent with normal LV systolic function. No wall motion abnormalities. Normal RV size and function. Normal left atrial size and normal right atrial size. Thickened mitral valve with mitral annular calcification and mild MR. Tri leaflet aortic valve without significant regurgitation or stenosis. Mild TR. No pericardial effusion. No pulmonary hypertension. Aortic root is normal ascending aorta is normal. Latest Reference Range & Units 01/13/23 15:16 Triglycerides <=174 mg/dL 136 Cholesterol <200 mg/dL 163 Non-HDL Cholesterol <=159 mg/dL 124 HDL Cholesterol >49 mg/dL 39 (L) LDL Cholesterol <=129 mg/dL 97 (L): Data is abnormally low Latest Reference Range & Units 11/17/23 11:20 SODIUM 135 - 146 mmol/L 142 POTASSIUM 3.5 - 5.1 mmol/L 4.0 CHLORIDE 98 - 107 mmol/L 103 CO2 22 - 32 mmol/L 29 BUN 6 - 20 mg/dL 27 (H) CREATININE 0.5 - 1.0 mg/dL 1.5 (H) EGFR >=60 mL/min 35 (L) ANION GAP 7 - 15 mmol/L 10 GLUCOSE 70 - 120 mg/dL 115 CALCIUM 8.4 - 10.2 mg/dL 9.3 Protein 6.0 - 8.3 g/dL 6.2 Estimated Average Glucose <126 mg/dL 151 (H) (H): Data is abnormally high (L): Data is abnormally low Assessment & Plan Left Lower Extremity Edema Noted significant left lower extremity edema, worse than the right. Also, noted severe arthritis inthe left knee which may be contributing to the swelling. -Order venous insufficiency ultrasound and repeat DVT ultrasound for left lower extremity. -Increase Lasix to 20 mg 1 tablet alternating with 2 tablets every other day. -Check renal function and electrolytes in 2 weeks after Lasix adjustment. Urinary Incontinence Recently started on a new anticholinergic medication for urinary incontinence. Concern for possiblefluid retention due to the medication. -Continue the new anticholinergic medication once daily and monitor for worsening edema. Coronary Artery Disease Stable, on aspirin and carvedilol. Intolerant to statins. -Continue aspirin and carvedilol. No changes to current regimen. General Health Maintenance / Follow up Plans -Order repeat echocardiogram to assess cardiac function with increased LE edema. -Follow up after imaging and lab results are available. Patient Instructions Increase furosemide to 20 mg - 1 tablet daily, alternating with 2 tablets every other day Blood work in 2 weeks Patient is being evaluated in the cardiology office for ongoing care/risk management for Edema; HTN; CAD; dyslipidemia I spent a total of 30 minutes on the date of service in preparation, delivery, and documentation ofthe care provided to Adrianna Narayan excluding any time spent in the performance of separately billed services. The patient agrees to the above plan and will call with additional questions or concerns. ER with all emergencies advised. Check-out note: Schedule 2 vascular scans Blood work in 2 weeks Print instructions 6 week f/u Raquel Marquez PA-C Department of Cardiology Text in this note was generated using an ambient documentation service. I discussed the use of a device to record and summarize our discussion today. All persons present during the encounter consented to its use. This chart was completed in part utilizing [employer] Speech Voice Recognition Software. Grammatical errors, random word insertions, prounoun errors, and incomplete sentences are an occasional consequence of this system due to software limitations, ambient noise, and hardware issues. Any formal questions or concerns about the content, text, or information contained within the body of this dictation should be directly addressed to the provider for clarification. documented in this encounter Nursing Notes * Shelly Chase CMA - 01/31/2024 9:08 AM EDT Examination Room: 1 Name: Adrianna Narayan Date of : (1935). Reason for Visit: 3M f/u Interim Hospitalization(s): [facility] ED 01/06 & 01/13 COVID Problems/Concerns: LLE, increased sweating Chest Pain/SOB: denies [facility] Discussed: Not applicable [facility] is a way you can talk to your provider online through e-mail. Would you like to sign up? I can activate it for you? ALREADY ACTIVE Patient was instructed to not get up on the exam table until directed and assisted by their provider; patient is to remain seated in the chair/ wheelchair/ exam table for fall prevention and safety reasons. Patient is aware to have assistance to step down off exam table with personnel. Patient voiced full comprehension of instructions. documented in this encounter Plan of Treatment Upcoming Encounters Date Type Department Care Team (Late st Contact Info) Description 02/13/2024 1:00 PM EST Office Visit Orthopaedics [facility] [address] [place] [phone] Sondra Odonnell MD [address] [place] [address] 02/28/2024 10:00 AM EST Cardiac Studies Cardiac Studies, [facility] [address] [facility] [place] [address] 02/28/2024 1:00 PM EST Imaging Vascular Lab, [facility] [place] [address] 02/28/2024 2:00 PM EST Imaging Vascular Lab, [facility] 2[facility] [place] [address] [facility] [place] [address] 03/12/2024 2:30 PM EST Office Visit Cardiology, [facility] [address] [place] [address] Raquel Marquez, LIBBY [address] [place] [address] 03/22/2024 1:40 PM EST Office Visit Family Practice [facility] [address] [place] [address] Vik Davies DO [address] [place] [address] 07/19/2024 9:00 AM EDT Office Visit Rheumatology [address] [place] [address] Rubén Zheng MD [address] [place] [address] [place] [address] Scheduled Orders Name Type Priority Associated Diagnoses Orde r Schedule VASC DUPLEX VENOUS UE UNILAT Medical Imaging Routine Leg edema, left Peripheral venous insufficiency Expected: 01/31/2024, Expires: 03/02/2025 VASC DUPLEX VENOUS INSUFFICIENCY COMPLETE BILAT LE Medical Imaging Routine Leg edema, left Peripheral venous insufficiency Expected: 01/31/2024, Expires: 03/02/2025 BASIC METABOLIC PANEL Lab Routine Leg edema, left Peripheral venous insufficiency Coronary artery disease involving [place] coronary artery of [place] heart without angina pectoris Statin intolerance Localized edema Expected: 01/31/2024, Expires: 01/30/2025 ECHO, COMPLETE (2D), TRANS-THORACIC Echocardiology Routine Leg edema, left Peripheral venous insufficiency Coronary artery disease involving [place] coronary artery of [place] heart without angina pectoris Statin intolerance Localized edema Expected: 01/31/2024 (Approximate), Expires: 03/02/2026 Health Maintenance Due Date Last Done Comments Adult Wellness Visit 2002 Pneumococcal Vaccine: 65+ Years (2 of 2 - PPSV23 or PCV20) 07/18/2017 05/23/2017 COVID-19 Vaccine ( season) 2023 03/25/2021, 06/17/2020, 05/13/2020 Influenza Vaccine (FLU shot) (#1) 2023 01/25/2023, 01/15/2022, 01/28/2021, Additional history exists CKD PHOS USE SMARTSET 32372 01/14/2024 01/13/2023, 0 06/17/2014 Albumin/Creatinine Ratio 01/15/2024 023, 08/14/2018, 06/03/2017, Additional history exists HbA1c 06/17/2024 12/19/2023, 08/0 11/2023, 01/13/2023, Additional history exists Diabetic Eye Exam 07/24/2024 07/25/2023, , 01/24/2023, Additional history exists Depression Screening 09/20/2024 09/21/2023 Diabetic Foot Exam 09/20/2024 09/21/2023 CKD HGB USE SMARTSET 95596 11/16/202411/16, 11/17/2023, 07/19/2023, Additional history exists DXA Scan 10/20/2028 10/20/2021, [...] as of this encounter Visit Diagnoses Diagnosis Leg edema, left- Primary Edema Peripheral venous insufficiency Unspecified venous (peripheral) insufficiency Coronary artery disease involving [place] coronary artery of [place] heart without angina pectoris Statin intolerance Other drug allergy Localized edema Edema documented in this encounter Advance Directives Documents on File Type Date Recorded 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
--- OUTSIDE RECORDS SUMMARY | 2024-02-26 11:13 | External Medical Summary | Summary of Care ---
Author Name Unknown Organization [facility] [address] [address] Phone [phone] Care Team Providers Care Economic Development Coordinator Name Role Phone Vik Davies Primary Care Provider Encounter Details Date Type Department Care Team (Late st Contact Info) Description 02/17/2024 Telephone Otolaryngology [facility] [address] [place] [phone] Hesham Liu DO [address] [place] [address] Allergies Active Allergy Reactions Criticality Noted Date Comments Ciprofloxacin Nausea/vomiting 11/10/2015 Adalimumab Other (Please comment) 09/15/2016 Cellulitis in face- needed hospitalized Sulfa Antibiotics 07/19/2023 documented as of this encounter (statuses as of 02/17/2024) Medications ONETOUCH ULTRA BLUE STRP Test once daily. 0 7 Active Blood Glucose Monitoring Suppl (ONETOUCH ULTRA 2) w/Device KIT daily. 0 7 Active nystatin (NYSTOP) 507963 UNIT/GM powder As needed 2 8 Active [...] as of this encounter (statuses as of 02/17/2024) Active Problems Problem Noted Date Diagnosed Date [...] as of this encounter (statuses as of 02/17/2024) Resolved Problems Problem Noted Date Diagnosed Date Resolved Date Diabetes mellitus with stage 3 chronic kidney disease 01/17/2023 02/24/2023 Overview: Per CKD protocol Rheumatoid arthritis involving multiple sites 10/29/19 17 02/02/2017 Kidney disease, chronic, sta ge III (GFR 30-59 ml/min) 01/20/2023 Overview: Per CKD protocol documented as of this encounter (statuses as of 02/17/2024) Immunizations Name Administration Dates Next Due COVID-19 [...] years and over) Not on file 09/27/2023 Comments No Sex and Gender Information Value Date Recorded Sex Assigned at Female 09/28/2022 9:33 AM EDT Legal Sex Female 6:04 AM EST Gender Identity Female 09/28/2022 9:33 AM EDT Sexual Orientation Straight 09/28/2022 9: 33 AM EDT documented as of this encounter Miscellaneous Notes * Telephone Encounter - Edna Noriega LPN - 02/17/2024 12:11 PM EST Created in error documented in this encounter Plan of Treatment Upcoming Encounters Date Type Department Care Team (Late st Contact Info) Description 02/23/2024 10:00 AM EST Office Visit Otolaryngology [facility] [address] [place] [phone] Hesham Liu, [address] [place] [id number] 02/28/2024 10:00 AM EST Cardiac Studies Cardiac Studies, [facility] [address] [place] [address] 02/28/2024 1:00 PM EST Imaging Vascular Lab, [facility] 2nd Floor, [place] [address] [facility] [place] [address] 02/28/2024 2:00 PM EST Imaging Vascular Lab, [facility] 2nd Floor, [place] [address] [facility] [place] [address] 02/29/2024 1:45 PM EST Office Visit Orthopaedics [facility] [address] [place] [address] Sondra Odonnell MD [address] [place] [phone] 03/12/2024 2:30 PM EST Office Visit Cardiology, [facility] [address] [facility] [facility] [place] [address] Raquel Marquez PA-C [address] [place] [address] 03/22/2024 1:40 PM EST Office Visit Family Practice [facility] [address] [place] [phone] Vik Davies DO [address] [place] [address] 07/19/2024 9:00 AM EDT [address] [place] [address] Rubén Zheng MD [address] [place] [address] Health Maintenance Due Date Last Done Comments Adult Wellness Visit 2002 Pneumococcal Vaccine: 65+ Years (2 of 2 - PPSV23 or PCV20) 07/18/2017 05/23/2017 COVID-19 Vaccine ( season) 2023 03/25/2021, 06/17/2020, 05/13/2020 Influenza Vaccine (FLU shot) (#1) 2023 01/25/2023, 01/15/2022, 01/28/2021, Additional history exists CKD PHOS USE SMARTSET 88026 01/14/2024 01/13/2023, 0 06/17/2014 Albumin/Creatinine Ratio 01/15/2024 023, 08/14/2018, 06/03/2017, Additional history exists HbA1c 06/17/2024 12/19/2023, 08/0 11/2023, 01/13/2023, Additional history exists Diabetic Eye Exam 07/24/2024 07/25/2023, , 01/24/2023, Additional history exists Depression Screening 09/20/2024 09/21/2023 Diabetic Foot Exam 09/20/2024 09/21/2023 CKD HGB USE SMARTSET 21493 02/12/202502/12, 02/13/2024, 11/17/2023, Additional history exists DXA [...] Documents on File Type Date Recorded 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
--- OUTSIDE RECORDS SUMMARY | 2024-02-26 11:13 | External Medical Summary ---
Author Name Unknown Address Unknown Organization [facility] [address] [place] [address] Laboratory Report Ordering Provider Test Date Status MAIK BRIGGS 02/13/2024 12:27:56 Final Observation Date Value Abnormality Reference (Units ) Status BUN 02/13/2024 12:27:56 31 Above high normal 6-20 (mg/dL) Final Creatinine 02/13/2024 12:27:56 1.5 Above high normal 0.5-1.0 (mg/dL) Final Glomerular filtration rate/1.73 sq M.predicted [Volume Rate/Area] in Serum, Plasma or Blood by Creatinine-based formula (CKD-EPI) 02/13/2024 12:27:56 34 Below low normal >=60 (mL/min) Final eGFR is calculated based on the CKD-EPI 2020 equation. Sodium 02/13/2024 12:27:56 140 135-146 (m mol/L) Final Potassium 02/13/2024 12:27:56 3.8 3.5-5.1 (m mol/L) Final Cl 02/13/2024 12:27:56 100 98-107 (mm ol/L) Final CO2 02/13/2024 12:27:56 28 22-32 (mmo l/L) Final Anion gap 02/13/2024 12:27:56 12 7-15 (mmol /L) Final Glucose 02/13/2024 12:27:56 283 Above high normal 70 -120 (mg/dL) Final Albumin 02/13/2024 12:27:56 3.6 Below low normal 3.8 -5.0 (g/dL) Final AST (Aspartate aminotransferase) 02/13/2024 12:27:56 26 10-35 (U/L) Fin al Alk Phos 02/13/2024 12:27:56 122 35-130 (U/ L) Final Bilirubin, Total 02/13/2024 12:27:56 0.5 <=1 .2 (mg/dL) Final Calcium 02/13/2024 12:27:56 9.3 8.4-10.2 ( mg/dL) Final Protein 02/13/2024 12:27:56 6.2 6.0-8.3 (g /dL) Final ALT (Alanine aminotransferase) 02/13/2024 12:27:56 20 10-35 (U/L) Jaquan monson Performing Location [facility] [address] [place] [address]
--- OUTSIDE RECORDS SUMMARY | 2024-02-26 11:13 | External Medical Summary ---
Author Name Unknown Address Unknown Organization : Laboratory Report Ordering Provider Test Date Status KULDEEPJACKY JENKINS 02/13/2024 14:24:07 Final Observation Date Value Abnormality Reference (Units ) Status Source 02/13/2024 14:24:07 SEE BELOW Final SYNOVIAL FLUID Borrelia sp DNA [Identifier] in Specimen by ROSY with probe detection 02/13/2024 14:24:07 Not Detected Not Detected Final BORRELIA SPP DNA, QL MISC COMMENT 02/13/2024 14:24:07 SEE BELOW Final The Code of Heavenly, Articl e 1 of Chapter 5 of Title
32.1, section 32.1- 137.06, requires that the following
language must be included on every Lyme disease test
report issued by a [place] laboratory:
Patients undergoing a Lyme disease test should be
aware that Lyme disease tests vary and may produce
results that are inaccurate. This means a patient may
not be able to rely on a positive or negative result.
Health care providers are encouraged to discuss Lyme
disease test results with the patient for whom the test
was ordered.
For additional information, please refer to
https://education.Purfresh.EvolveMol/faq/xky479
(This link is being provided for informational/
educational purposes only.)
This test was developed and its analytical performance
characteristics have been determined by [facility] [place], [place]. It has
not been cleared or approved by the U.S. Food and Drug
Administration. This assay has been validated pursuant
to the CLIA regulations and is used for clinical
purposes.

Test Performed at:
[facility]
[address] [facility]
[place] [address]
Etienne Morrissey M.D., Ph.D.,Director of Laboratories Performing Location
--- OUTSIDE RECORDS SUMMARY | 2024-02-26 11:13 | External Medical Summary | Summary of Care ---
Author Name Unknown Organization [facility] Address [address] [facility] [address] Phone [phone] Care Team Providers Care Test Engineering Intern Name Role Phone Bharath Daviesclifton Liuabiel Primary Care Provider Reason for Visit * Reason Comments NEW PATIENT L knee pain, no inju ry noted, swelling from knee to ankle. Xrays in Epic * Evaluate & Treat - Unlimited Visits (Within 10 days (routine)) - Authorized Specialty Diagnoses / Procedures Referred By Contalessandra t Referred To Contact Sports Medicine / Orthopedics Diagnoses Chronic pain of left knee Jesica Sanchez MD [address] [place] [address] Referral ID Status Reason Start Date Expiration Date Visits Requested Visits Authorized [id number] Authorized Specialty Services Required [phone] Encounter Details Date Type Department Care Team (Latest Contact Info) Description 02/13/2024 1:00 PM EST Office Visit Orthopaedics [facility] [address] [address] Sondra Odonnell MD [address] [address] Primary osteoarthritis of left knee*; Effusion of left knee; Chronic pain of left knee [M25.562, G89.29] Allergies Active Allergy Reactions Criticality Noted Date Comments Ciprofloxacin Nausea/vomiting 11/10/2015 Adalimumab Other (Please comment) 09/15/2016 Cellulitis in face- needed hospitalized Sulfa Antibiotics 07/19/2023 documented as of this encounter (statuses as of 02/13/2024) Medications Medication Sig Dispensed Refills Start Date End Date Status ONETOUCH ULTRA BLUE STRP Test once daily. 0 01/10/2017 Active Blood Glucose Monitoring Suppl (Beam.TOUCH ULTRA 2) w/Device KIT daily. 0 01/10/2017 Active nystatin (NYSTOP) 983912 UNIT/GM powder As needed 2 05/23/2017 Active [...] as of this encounter (statuses as of 02/13/2024) Active Problems Problem Noted Date Diagnosed Date [...] as of this encounter (statuses as of 02/13/2024) Resolved Problems Problem Noted Date Diagnosed Date Resolved Date Diabetes mellitus with stage 3 chronic kidney disease 01/17/2023 02/24/2023 Overview: Per CKD protocol Rheumatoid arthritis involving multiple sites 10/29/19 17 02/02/2017 Kidney disease, chronic, sta ge III (GFR 30-59 ml/min) 01/20/2023 Overview: Per CKD protocol documented as of this encounter (statuses as of 02/13/2024) Immunizations Name Administration Dates Next Due COVID-19 [...] - - Weight 86.9 kg (191 lb 9.3 oz) 02/13/2024 12:54 PM EST Height 152.4 cm (5') 02/13/2024 12:54 PM EST Body Mass Index 37.42 02/13/2024 12:54 PM EST documented in this encounter Progress Notes * Sondra Odonnell MD - 02/13/2024 2:43 PM EST Adrianna Narayan is a 88 year old female who [facility] Consult requested by Jesica Sanchez MD. Adrianna Narayan is here with his/her son History: Chief Complaint Patient presents with NEW PATIENT L knee pain, no injury noted, swelling from knee to ankle. Xrays in [facility] Nursing Notes: Julia Funes, Student 02/13/24 1256 Sign at exiting of workspace Chief Complaint Patient presents with NEW PATIENT L knee pain, no injury noted, swelling from knee to ankle. Adrianna Narayan reports that left knee pain has been present for several weeks. A couple of weeks ago the knee was red and visibly swollen. Since then has had some swelling of the lower leg with some weeping of serous fluid. Is being worked up through Cardiology for cause of swelling in her Lasix dose was recently increased but her left leg is significantly more swollen than the right. She did have a couple of visits recently to [facility] related to a COVID infection that caused significant cough and shortness of breath. The ER visits were reviewed and she did have a duplex performed of the left lower extremity on 01/13 that was negative. No locking catching or giving way. No prior injuries or surgeries. Does see Dr. Monk for RA Review of systems: All others negative except those noted above in HPI. Review of patient's allergies indicates: Allergen Reactions Ciprofloxacin Nausea/vomiting Humira [Adalimumab] Other (Please comment) Cellulitis in face- needed hospitalized Sulfa Antibiotics Current Outpatient Medications Medication Sig Dispense Refill UNXUCH ULTRA BLUE STRP Test once daily. 0 Blood Glucose Monitoring Suppl (Beam.TOUCH ULTRA 2) w/Device KIT daily. 0 nystatin (NYSTOP) 781828 UNIT/GM powder As needed 2 Prevail Adj [...] No current facility-administered medications for this visit. Past Medical History: Diagnosis Date Arthritis CAD (coronary artery disease) s/p stent Diabetes ([facility]) GERD (gastroesophageal reflux disease) Hyperlipidemia Hypertension Kidney disease, chronic, stage III (GFR 30-59 ml/min) ([facility]) Patient Active Problem List Diagnosis CAD (coronary artery disease) Diabetes ([facility]) HTN, goal below 140/90 GERD (gastroesophageal reflux [...] performed by Luda Armendariz DO at ENDOSCOPY [facility] EGD, FLEXIBLE, DIAGNOSTIC 09/15/2016 gastric ulcers, reflux esophagitis/ESOPHAGOGASTRODUODENOSCOPY (EGD), FLEXIBLE, TRANSORAL, DIAGNOSTIC performed by Luda Armendariz DO at ENDOSCOPY [facility] INJECT DX/THER SUBSTANCE INTERLAMINAR LUMBAR/SACRAL W IMAGE GUIDE 01/20/2017 INJECTION SPINE LUMBAR OR SACRAL performed by Estiven Abbasi, DO at OR [facility] INJECT DX/THER SUBSTANCE INTERLAMINAR LUMBAR/SACRAL W IMAGE GUIDE 02/10/2017 INJECTION SPINE LUMBAR OR SACRAL performed by Estiven Abbasi, at OR [facility] LAPAROSCOPY; CHOLECYSTECTOMY NECK SPINE FUSION (C1-C2) W/GRAFT PARTIAL HYSTERECTOMY SPINAL FUSION, LUMBAR, COMBINED Social History Socioeconomic History Marital status: Spouse name: Not on file Number of children: Not on file Years of education: Not on file Highest education level: Not on file Occupational History Not on file Tobacco Use Smoking status: Never Smokeless tobacco: Never Vaping Use Vaping status: Never Used Substance and Sexual Activity Alcohol use: No Drug use: No Sexual activity: Not Currently Other Topics Concern Not on file Social History Narrative Not on file Social Determinants of Health Financial Resource Strain: Not on file Food Insecurity: Not on file Transportation Needs: Not on file Social Connections: Unknown (09/27/2023) Social Connections How often do you feel lonely or isolated from those around you? (Adult - for ages 18 years and over): Not on file Housing Stability: Not on file Family History Problem Relation Name Age of Onset Other (Other) Mother brain bleed after fall Heart disease Father Cancer Sister breast Arthritis Son Arthritis Daughter Family History; none relevant to today's HPI Objective: Physical Exam Filed Vitals: 02/13/24 1254 Weight: 86.9 kg (191 lb 9.3 oz) Height: 1.524 m (5') Estimated body mass index is 37.42 kg/m as calculated from the following: Height as of this encounter: 1.524 m (5'). Weight as of this encounter: 86.9 kg (191 lb 9.3 oz). General: generally well-nourished, overweight, and in no acute distress HEENT: normocephalic, atraumatic, sclera anicteric. Psych: mood and affect normal , cooperative Card: Peripheral pulses: normal in affected extremity (s) Resp: equal chest rise, non-tachypneic, non-labored breathing Skin: no rash, normal Neuro: Sensation: normal on affected extremity (s) MSK: Gait/station/stance: Nonantalgic but very unsteady arrived to the office visit in a wheelchair but had difficulty standing from a seated position of the yet into her chair Knee Exam, Bilateral Inspection: No obvious deformity, no redness, warmth, bruising, abrasion. Palpation: tenderness to palpation circumferentially around the knee seemingly focus along the joint line ROM: Flexion/Neutral/Extension: L - 110/0/0, R - 110/0/0 Popliteal Angle (Hamstring Flexibility): 30 Bilateral Strength: R- Strength: Extension - 5/5 Flexion - 5/5 L - Strength: Extension - 5/5 Flexion - 5/5 quadriceps tone is poor Radiology (I have personally reviewed the following films): X-rays performed 01/02/2024 personally reviewed. Agree with Radiology interpretation of [id number] osteoarthritis with fairly preserved joint spaces. Assessment and Plan: ICD-10-CM 1. Primary osteoarthritis of left knee M17.12 2. Effusion of left knee M25.462 88-year-old female seen today for evaluation of left knee pain and swelling and left leg swelling. She does have a fairly significant left knee effusion today. Recommended aspiration for pain relief and also help with diagnosis given that she did have some redness and warmth to the area recently. Risks benefits alternatives were reviewed and written and verbal consent was obtained. See procedure note below. We will send the fluid for analysis to rule out any infection or other cause prior to proceeding with injection. Recommend that she continue with workup for her left lower extremity swelling as she does not have any evidence of Buchanan cyst and I do not suspect that the left knee swelling is causing her leg swelling. She did have a recent duplex done at [facility] in January that was negative. She was another 1 scheduled for February 27. We will temporarily scheduleher for a steroid injection on the as long as that ultrasound is negative for DVT. The above assessment and plan were discussed at length. All questions were answered, and the patient expressed understanding. Sondra Odonnell MD Primary Care Sports Medicine [facility] Orthopaedics [facility] [address] [facility] [address] PROCEDURE NOTE: KNEE ASPIRATION/INJECTION Laterality: Left Time out: Prior to aspiration and injection, a time out was called to confirm the administration of appropriate medicine, patient name, procedure and confirm to the best of our ability and knowledge the presence of any necessary risks and benefits. Patient verbalized understanding. Ultrasound utilized to guide injection. During the procedure, the needle was visualized in plane and was advanced with continuous ultrasound guidance to the appropriate anatomical landmark as described in the procedure. Ultrasound required due to patient size (obese) Sterile technique applied using gloves, chlorhexadine, and alcohol swabs. Ethyl chloride spray for local anesthetic. Knee aspirated at superior-lateral recess using 1.5 inch, 18 gauge needle. 34 mL of straw-colored fluid aspirated. Knee not injected. Patient tolerated procedure with no significant bleeding or adverse reaction. Patient instructed to call or return to clinic for fever, warmth, unusual redness at injection sitefor potential infection. Patient also advised regarding post-procedural pain. Sondra Odonnell MD Sports Medicine Primary Care Orthopaedics [facility] [address] [facility] [address] documented in this encounter Nursing Notes * Julia Funes, Student - 02/13/2024 12:56 PM EST Chief Complaint Patient presents with NEW PATIENT L knee pain, no injury noted, swelling from knee to ankle. documented in this encounter Plan of Treatment Upcoming Encounters Date Type Department Care Team (Late st Contact Info) Description 02/28/2024 10:00 AM EST Cardiac Studies Cardiac Studies, [facility] [address] [place] [address] 02/28/2024 1:00 PM EST Imaging Vascular Lab, [facility] 2nd Floor, [place] [address] [address] 02/28/2024 2:00 PM EST Imaging Vascular Lab, [facility] 2nd [facility], [place] [address] [place] [address] 02/29/2024 1:45 PM EST Office Visit Orthopaedics [facility] [address] [place] [address] Sondra Odonnell MD [address] [place] [address] 03/12/2024 2:30 PM EST Office Visit Cardiology, [facility] [address] [place] [address] Raquel Marquez PA-C [address] [place] [address] 03/22/2024 1:40 PM EST Office Visit Family Practice [facility] [address] [place] [address] Vik Davies DO [address] [place] [address] 07/19/2024 9:00 AM EDT Office Visit Rheumatology [address] [place] [address] Rubén Zheng MD [address] [place] [address] [place] [address] Pending Results Name Type Priority Associated Diagnoses Date /Time BORRELIA SPECIES (LYME) DNA REAL TIME PCR, QUALITATIVE Lab Routine Primary osteoarthritis of left knee Effusion of left knee 02/13/2024 2:24 PM EST CELL COUNT WITH DIFFERENTIAL, SYNOVIAL FLUID Lab Routine Primary osteoarthritis of left knee Effusion of left knee 02/13/2024 2:24 PM EST CRYSTAL ANALYSIS, BODY FLUID Lab Routine Primary osteoarthritis of left knee Effusion of left knee 02/13/2024 2:24 PM EST PROTEIN, BODY FLUID Lab Routine Primary osteoarthritis of left knee Effusion of left knee 02/13/2024 2:24 PM EST GLUCOSE, BODY FLUID Lab Routine Primary osteoarthritis of left knee Effusion of left knee 02/13/2024 2:24 PM EST CULTURE, SYNOVIAL FLUID, AEROBIC AND ANAEROBIC Lab Routine Primary osteoarthritis of left knee Effusion of left knee 02/13/2024 2:24 PM EST CELL COUNT, SYNOVIAL FLUID Lab Routine Primary osteoarthritis of left knee Effusion of left knee 02/13/2024 2:24 PM EST MANUAL DIFFERENTIAL, SYNOVIAL FLUID Lab Routine Primary osteoarthritis of left knee Effusion of left knee 02/13/2024 2:24 PM EST Scheduled Orders Name Type Priority Associated Diagnoses Orde r Schedule BORRELIA SPECIES (LYME) DNA REAL TIME PCR, QUALITATIVE Lab Routine Primary osteoarthritis of left knee Effusion of left knee Expected: 02/13/2024, Expires: 02/12/2025 CELL COUNT WITH DIFFERENTIAL, SYNOVIAL FLUID Lab Routine Primary osteoarthritis of left knee Effusion of left knee Expected: 02/13/2024, Expires: 02/12/2025 CRYSTAL ANALYSIS, BODY FLUID Lab Routine Primary osteoarthritis of left knee Effusion of left knee Expected: 02/13/2024, Expires: 02/12/2025 PROTEIN, BODY FLUID Lab Routine Primary osteoarthritis of left knee Effusion of left knee Expected: 02/13/2024, Expires: 02/12/2025 GLUCOSE, BODY FLUID Lab Routine Primary osteoarthritis of left knee Effusion of left knee Expected: 02/13/2024, Expires: 02/12/2025 CULTURE, SYNOVIAL FLUID, AEROBIC AND ANAEROBIC Lab Routine Primary osteoarthritis of left knee Effusion of left knee Expected: 02/13/2024, Expires: 02/12/2025 Health Maintenance Due Date Last Done Comments Adult Wellness Visit 2002 Pneumococcal Vaccine: 65+ Years (2 of 2 - PPSV23 or PCV20) 07/18/2017 05/23/2017 COVID-19 Vaccine (4 - season) 2023 03/25/2021, 06/17/2020, 05/13/2020 Influenza Vaccine (FLU shot) (#1) 2023 01/25/2023, 01/15/2022, 01/28/2021, Additional history exists CKD PHOS USE SMARTSET 91587 01/14/2024 01/13/2023, 0 06/17/2014 Albumin/Creatinine Ratio 01/15/2024 023, 08/14/2018, 06/03/2017, Additional history exists HbA1c 06/17/2024 12/19/2023, 08/0 11/2023, 01/13/2023, Additional history exists Diabetic Eye Exam 07/24/2024 07/25/2023, , 01/24/2023, Additional history exists Depression Screening 09/20/2024 09/21/2023 Diabetic Foot Exam 09/20/2024 09/21/2023 CKD HGB USE SMARTSET 12043 02/12/202502/12, 02/13/2024, 11/17/2023, Additional history exists DXA [...] as of this encounter Visit Diagnoses Diagnosis Primary osteoarthritis of left knee- Primary Primary localized osteoarthrosis, lower leg Effusion of left knee Effusion of lower leg joint Chronic pain of left knee [M25.562, G89.29] Pain in joint, lower leg documented in this encounter Advance Directives Documents on File Type Date Recorded Patient Rig Manager Expl anation Advance Directives and Living Will 12/18/2013 LIVING WILL Power of Ladle Liner Helper 12/18/2013 POWER OF A TTORNEY DURABLE HEALTH CARE POA Care Teams Test Engineering Intern Relationship Specialty Start Date End Date Vik Davies DO [address] [place] [address] PCP - General Family Medicine 01/13/23 documented as of this encounter
--- OUTSIDE RECORDS SUMMARY | 2024-02-26 11:13 | External Medical Summary ---
Author Name Unknown Address Unknown Organization K01:[facility] - [address] [facility] [address] Laboratory Report Ordering Provider Test Date Status JACKY LIGHT 02/13/2024 14:24:07 Final Reference ranges are for iker nts without prior surgery. Some reference ranges and other method performance specifications have not been established for this fluid. The test results must be integrated into the clinical context for interpretation. Observation Date Value Abnormality Reference (Units ) Status SYNC TOTAL NUCLEATED CELLS, SYNOVIAL 02/13/2024 14:24:07 1351 (cells/uL) Final Segmented neutrophils/100 leukocytes in Synovial fluid 02/13/2024 14:24:07 61 Above high normal 0-25 (%) Final Lymphocytes/100 leukocytes in Synovial fluid 02/13/2024 14:24:07 5 0-78 (%) Final Monocytes/100 leukocytes in Synovial fluid 02/13/2024 14:24:07 32 0-71 (%) Final Synovial lining cells/100 cells in Synovial fluid 02/13/2024 14:24:07 3 (%) Final SEGMENTED NEUTROPHILS (1000/UG) IN SYNOVIAL FLUID ABS 02/13/2024 14:24:07 824.11 (cells/uL) Final LYMPHOCYTES (1000/UG) IN SYNOVIAL FLUID ABS 02/13/2024 14:24:07 67.55 (cells/uL) Final MONOCYTES(1000/UG) IN SYNOVIAL FLUID ABS 02/13/2024 14:24:07 432.32 (cells/uL) Final LINING CELLS IN SYNOVIAL ABS 02/13/2024 14:24:07 40.53 (cells/uL) Final Performing Location [facility] - [address] [place] [address] [place] [address]
--- OUTSIDE RECORDS SUMMARY | 2024-02-26 11:13 | External Medical Summary | Summary of Care ---
Author Name Unknown Organization [facility] Address [address] [address] Phone [phone] Care Team Providers Care Hvac Project Engineer Name Role Phone Bharath Daviesclifton Liuabiel Primary [...] left knee Jesica Sanchez MD [address] [place] [address] Referral ID Status Reason Start Date Expiration Date Visits Requested Visits Authorized [id number] Authorized Specialty Services Required [phone] Encounter Details Date Type Department Care Team (Latest Contact Info) Description 02/13/2024 1:00 PM EST Office Visit Orthopaedics [facility] [address] [address] Sondra Odonnell MD [address] [address] Primary osteoarthritis of left knee*; Effusion of [...] 0 01/10/2017 Active Blood Glucose Monitoring Suppl (Tulip RetailTOUCH ULTRA 2) w/Device KIT daily. 0 01/10/2017 Active nystatin (NYSTOP) 829949 UNIT/GM powder As needed 2 05/23/2017 Active [...] old female who [facility]. Consult requested by Jesica Sanchez MD. Adrianna Narayan is here with his/her son History: Chief Complaint Patient presents with NEW PATIENT L knee pain, no injury noted, swelling from knee to ankle. Xrays in [facility] Nursing Notes: Julia Funes, Student 02/13/24 1256 [...] have a couple of visits recently to [facility] related to a COVID infection that [...] Current Outpatient Medications Medication Sig Dispense Refill ConcentraUCH ULTRA BLUE STRP Test once daily. 0 Blood Glucose Monitoring Suppl (Tulip RetailTOUCH ULTRA 2) w/Device KIT daily. 0 nystatin (NYSTOP) 843710 UNIT/GM powder As needed 2 Prevail Adj [...] CAD (coronary artery disease) s/p stent Diabetes ([facility]) GERD (gastroesophageal reflux disease) Hyperlipidemia Hypertension Kidney disease, chronic, stage III (GFR 30-59 ml/min) ([facility]) Patient Active Problem List Diagnosis CAD (coronary artery disease) Diabetes ([facility]) HTN, goal below 140/90 GERD (gastroesophageal reflux [...] performed by Luda Armendariz DO at ENDOSCOPY [facility] EGD, FLEXIBLE, DIAGNOSTIC 09/15/2016 gastric ulcers, reflux [...] personally reviewed. Agree with Radiology interpretation of [id number] osteoarthritis with fairly preserved joint spaces. Assessment [...] did have a recent duplex done at [facility] in January that was negative. She was another 1 scheduled for February 27. We will temporarily scheduleher for a steroid injection on the as long as that ultrasound is negative for DVT. The above assessment and plan were discussed at length. All questions were answered, and the patient expressed understanding. Sondra Odonnell MD Primary Care Sports Medicine [facility] Orthopaedics [facility] [address] [facility] [address] PROCEDURE NOTE: KNEE ASPIRATION/INJECTION Laterality: Left Time [...] Odonnell MD Sports Medicine Primary Care Orthopaedics [facility] [address] [facility] [address] documented in this encounter Nursing Notes * Julia Funes, Student - 02/13/2024 12:56 PM EST Chief Complaint Patient presents with NEW PATIENT L knee pain, no injury noted, swelling from knee to ankle. documented in this encounter Plan of Treatment Upcoming Encounters Date Type Department Care Team (Late st Contact Info) Description 02/28/2024 10:00 AM EST Cardiac Studies Cardiac Studies, [facility] [address] [place] [address] 02/28/2024 1:00 PM EST Imaging Vascular Lab, [facility] 2nd Floor, [place] [address] [facility] [place] [address] 02/28/2024 2:00 PM EST Imaging Vascular Lab, [facility] 2nd [facility], [place] [address] [place] [address] 02/29/2024 1:45 PM EST Office Visit Orthopaedics [facility] [address] [place] [address] Sondra Odonnell MD [address] [place] [address] 03/12/2024 2:30 PM EST Office Visit Cardiology, [facility] [address] [place] [address] Raquel Marquez PA-C [address] [place] [address] 03/22/2024 1:40 PM EST Office Visit Family Practice [facility] [address] [place] [address] Vik Davies DO [address] [place] [address] 07/19/2024 9:00 AM EDT Office Visit Rheumatology [address] [place] [address] Rubén Zheng MD [address] [place] [address] [place] [address] Pending Results Name Type Priority Associated Diagnoses [...] Additional history exists CKD PHOS USE SMARTSET 86300 01/14/2024 01/13/2023, 0 06/17/2014 Albumin/Creatinine Ratio 01/15/2024 023, 08/14/2018, 06/03/2017, Additional history exists HbA1c 06/17/2024 12/19/2023, 08/0 11/2023, 01/13/2023, Additional history exists Diabetic Eye Exam 07/24/2024 07/25/2023, , 01/24/2023, Additional history exists Depression Screening 09/20/2024 09/21/2023 Diabetic Foot Exam 09/20/2024 09/21/2023 CKD HGB USE SMARTSET 70238 02/12/202502/12, 02/13/2024, 11/17/2023, Additional history exists DXA [...] Documents on File Type Date Recorded Patient Quality Process Auditor Expl anation Advance Directives and Living Will 12/18/2013 LIVING WILL Power of Supervisor White Sugar 12/18/2013 POWER OF A TTORNEY DURABLE HEALTH CARE POA Care Teams Hvac Project Engineer Relationship Specialty Start Date End Date Vik Davies DO [address] [place] [address] PCP - General Family Medicine 01/13/23 documented as of this encounter
--- OUTSIDE RECORDS SUMMARY | 2024-02-26 11:13 | External Medical Summary ---
Author Name Unknown Address Unknown Organization K01:[facility] [place] [address] [place] [address] Laboratory Report Ordering Provider Test Date Status JACKY LIGHT 02/13/2024 14:24:07 Final Observation Date Value Abnormality Reference (Units) Status Color of Body fluid 02/13/2024 14:24:07 Yellow Straw, Yellow, Colorless Final Clarity of Body fluid 02/13/2024 14:24:07 Clear Clear Final Crystals, Synovial Fluid 02/13/2024 14:24:07 Few Calcium Pyrophosphate Dihydrate Crystals Present Abnormal No Crystals Present Final Crystals, Synovial Fluid 02/13/2024 14:24:07 Few Calcium Pyrophosphate Dihydrate Crystals Present Abnormal No Crystals Present Final CELLULAR LOCATION OF CRYSTALS 02/13/2024 14:24:07 Intracellular Crystals Present Abnormal No Crystals Present Final Performing Location [facility] [place] [address] [place] [address]
--- OUTSIDE RECORDS SUMMARY | 2024-02-26 11:13 | External Medical Summary ---
Author Name Unknown Address Unknown Organization K01:[facility] [place] [address] [facility] [address] Laboratory Report Ordering Provider Test Date Status JACKY LIGHT 02/13/2024 14:24:07 Final Synovial fluid Observation Date Value Abnormality Reference (Units ) Status Protein, Body Fluid 02/13/2024 14:24:07 3.4 (g/dL) Final The reference interval(s) an d other method performance specifications may not be available for this body fluid. Comparison of this result with the concentration in the blood, serum, or plasma is recommended. The test result must be integrated into the clinical context for interpretation.

Please refer to test catalog ([email or web address]_[email or web address]) for additional interpretive information.

This test was developed and its performance characteristics determined by [employer]. It has not been cleared or approved by the US Food and Drug Administration. Performing Location [facility] [place] [address] [facility] [address]
--- OUTSIDE RECORDS SUMMARY | 2024-02-26 11:13 | External Medical Summary | Summary of Care ---
Author Name Unknown Organization [facility] Address [address] [address] Phone [phone] Care Team Providers Care Horologist Apprentice Name Role Phone Samson Vik Liuabiel Primary Care Provider Reason for Visit * Reason Comments Outpatient Testing Encounter Details Date Type Department Care Team (Late st Contact Info) Description 02/13/2024 12:20 PM EST Laboratory Laboratory, [facility] [address] [facility] [phone] [facility] [address] [place] [address] Rheumatoid arthritis involving multiple sites with positive rheumatoid factor (HCC); Chronic kidney disease, stage 3b (HCC); Encounter for long-term (current) use of medications; Leg edema, left; Peripheral venous insufficiency; Coronary artery disease involving [facility] ir[place] coronary artery of [facility] heart without angina pectoris; Statin intolerance; Localized [...] KIT daily. 0 01/10/2017 Active nystatin (NYSTOP) 266188 UNIT/GM powder As needed 2 05/23/2017 Active [...] on file documented as of this encounter Plan of Treatment Upcoming Encounters Date Type Department Care Team (Late st Contact Info) Description 02/13/2024 1:00 PM EST Office Visit Orthopaedics [facility] [address] [place] [address] Sondra Odonnell MD [address] [place] [address] Arrived 02/28/2024 10:00 AM EST Cardiac Studies Card[facility] Studies, [facility] [place] [address] 02/28/2024 1:00 PM EST Imaging Vascular Lab, [facility] 2nd Floor, [place] [address] [facility] [place] [address] 02/28/2024 2:00 PM EST Imaging Vascular Lab, [facility] 2nd [facility], [place] [address] [place] [address] 03/12/2024 2:30 PM EST Office Visit Cardiology, [facility] [address] 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, stage 3b (HCC) Encounter for long-term (current) use of medications 02/13/2024 12:27 PM EST Health Maintenance Due Date Last Done Comments Adult Wellness Visit 2002 Pneumococcal Vaccine: 65+ Years (2 of 2 - PPSV23 or PCV20) 07/18/2017 05/23/2017 COVID-19 Vaccine (4 - season) 2023 03/25/2021, 06/17/2020, 05/13/2020 Influenza Vaccine (FLU shot) (#1) 2023 01/25/2023, 01/15/2022, 01/28/2021, Additional history exists CKD PHOS USE SMARTSET 11158 01/14/2024 01/13/2023, 0 06/17/2014 Albumin/Creatinine Ratio 01/15/2024 023, 08/14/2018, 06/03/2017, Additional history exists HbA1c 06/17/2024 12/19/2023, 08/0 11/2023, 01/13/2023, Additional history exists Diabetic Eye Exam 07/24/2024 07/25/2023, , 01/24/2023, Additional history exists Depression Screening 09/20/2024 09/21/2023 Diabetic Foot Exam 09/20/2024 09/21/2023 CKD HGB USE SMARTSET 96788 11/16/202402/12, 02/13/2024, 11/17/2023, Additional history exists DXA Scan [...] Procedure Name Priority Date/Time Associated Diagnosis Comments DIFFERENTIAL, AUTOMATED Routine 02/13/2024 12:27 PM EST 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, stage 3b (HCC) Encounter for long-term (current) use of medications CBC Routine 02/13/2024 12:27 PM EST 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, stage 3b (HCC) Encounter for long-term (current) use of medications CBC Routine 02/13/2024 12:27 PM EST 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, stage 3b (HCC) Encounter for long-term (current) use of medications documented in this encounter Results * (ABNORMAL) DIFFERENTIAL, AUTOMATED (02/13/2024 12:27 PM EST) Pathologist [facility] WBC 8.04 4.00 - 10.80 K/uL 02/13/2024 12:40 PM EST [facility] [place] Neutrophils % 75.9(H) 40.0 - 75.0 % 02/13/2024 12:40 PM EST [facility] [place] [facility]10 Lymphocytes % 19.4 18.0 - 42.0 % 02/13/2024 12:40 PM EST [facility] [place] [facility] Monocytes % 3.4 1.0 - 11.0 % 02/13/2024 12:40 PM EST [facility] [place] [facility]10 Eosinophils % 1.2 0.0 - 6.0 % 02/13/2024 12:40 PM EST [facility] [place] [facility]10 Basophils % 0.1 0.0 - 2.0 % 02/13/2024 12:40 PM EST [facility] [place] [facility]10 Absolute Neutrophils 6.10 1.80 - 7.70 K/uL 02/13/2024 12:40 PM EST [facility] [place] [facility]10 Absolute Lymphocytes 1.56 1.00 - 4.80 K/ul 02/13/2024 12:40 PM EST [facility] [place] [facility] Absolute Monocytes 0.27 0.00 - 1.10 K/uL 02/13/2024 12:40 PM EST [facility] [place] [facility]10 Absolute Eosinophils 0.10 0.00 - 0.70 K/uL 02/13/2024 12:40 PM EST [facility] [place] [facility]10 Absolute Basophils 0.01 0.00 - 0.20 K/uL 02/13/2024 12:40 PM EST [facility] [place] [facility]10 Blood Venous blood specimen / Unknown Venipuncture / Unknown 02/13/2024 12:27 PM EST 02/13/2024 12:27 PM EST Rubén Zheng MD LAB BLOOD ORDERABLE S [facility] [place] [facility] [address] [place] [address] * (ABNORMAL) CBC (02/13/2024 12:27 PM EST) WBC 8.04 4.00 - 10.80 K/uL 02/13/2024 12:[address] [facility] RBC 3.52 3.85 - 5.15 M/uL 02/13/2024 12:[address] [facility] HGB 11.6(L) 12.0 - 15.3 g/dL 02/13/2024 12:[address] [facility] HCT 35.5(L) 36.0 - 45.2 % 02/13/2024 12:[address] [facility] MCV 100.9 81.5 - 97.5 fL 02/13/2024 12:40 PM EST [facility] [place] [facility] MCH 33.0 27.0 - 34.0 pg 02/13/2024 12:40 PM EST [facility] [place] [facility] MCHC 32.7 32.0 - 36.0 g/dL 02/13/2024 12:40 PM EST [facility] [place] [facility]10 RDW 16.5 11.5 - 15.5 % 02/13/2024 12:40 PM EST [facility] [place] [facility]10 PLT 152 140 - 400 K/uL 02/13/2024 12:40 PM EST [facility] [place] [facility]10 MPV 9.4 6.6 - 11.1 fL 02/13/2024 12:40 PM EST LAB[facility]ATORY [place] 57-10 Blood Venous blood specimen / Unknown Venipuncture / Unknown 02/13/2024 12:27 PM EST 02/13/2024 12:27 PM EST Rubén Zheng MD LAB BLOOD ORDERABLE S LAB[facility] [place] 57-10 [address] [place] [address] documented in this encounter Visit Diagnoses Diagnosis 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 michael ira coronary artery of [facility]. michael ira heart without angina pectoris Statin intolerance Other drug allergy Localized edema Edema documented in this encounter Advance Directives Documents on File Type Date Recorded Patient Hands Parter Expl anation Advance Directives and Living Will 12/18/2013 LIVING WILL Power of Manager Etl 12/18/2013 POWER OF A [facility]TORNEY [facility] POA Care Teams Horologist Apprentice Relationship Specialty Start Date End Date Vik Davies DO [address] [place] [address] PCP - General Family Medicine 01/13/23 documented as of this encounter
--- OUTSIDE RECORDS SUMMARY | 2024-02-26 11:13 | External Medical Summary | Summary of Care ---
Author Name Unknown Organization [facility] Address [address] [facility] [place] [address] Phone [phone] Care Team Providers Care Gravel Screener Name Role Phone Vik Daviesabiel Primary Care Provider Encounter Details Date Type Department Care Team (Late st Contact Info) Description 02/07/2024 Orders Only PATIENT PORTAL DO NOT DELETE THIS DEPT USED BY [place] [id number] Allergies Active Allergy Reactions Criticality Noted Date Comments Ciprofloxacin Nausea/vomiting 11/10/2015 Adalimumab Other (Please comment) 09/15/2016 Cellulitis in face- needed hospitalized Sulfa Antibiotics 07/19/2023 documented as of this encounter (statuses as of 02/07/2024) Medications Medication Sig Dispensed Refills Start Date End Date Status ONETOUCH ULTRA BLUE STRP Test once daily. 0 01/10/2017 Active Blood Glucose Monitoring Suppl (ONETOUCH ULTRA 2) w/Device KIT daily. 0 01/10/2017 Active nystatin (NYSTOP) 522514 UNIT/GM powder As needed 2 05/23/2017 Active [...] as of this encounter (statuses as of 02/07/2024) Active Problems Problem Noted Date Diagnosed Date [...] as of this encounter (statuses as of 02/07/2024) Resolved Problems Problem Noted Date Diagnosed Date Resolved Date Diabetes mellitus with stage 3 chronic kidney disease 01/17/2023 02/24/2023 Overview: Per CKD protocol Rheumatoid arthritis involving multiple sites 10/29/19 17 02/02/2017 Kidney disease, chronic, sta ge III (GFR 30-59 ml/min) 01/20/2023 Overview: Per CKD protocol documented as of this encounter (statuses as of 02/07/2024) Immunizations Name Administration Dates Next Due COVID-19 [...] 02/13/2024 1:00 PM EST Office Visit Orthopaedics [facility] [address] [place] [address] Sondra Odonnell MD [address] [place] [address] 02/28/2024 10:00 AM EST Cardiac Studies Cardiac Studies, [facility] [address] [place] [address] 02/28/2024 1:00 PM EST Imaging Vascular Lab, [facility] 2nd [facility] [place] [address] [place] [address] 02/28/2024 2:00 PM EST Imaging Vascular Lab, [facility] 2nd [facility] [place] [address] [place] [address] 03/12/2024 2:30 PM EST Office Visit Cardiology, [facility] [address] [place] [address] Raquel Marquez, [place] [address] [place] [address] 03/22/2024 1:40 PM EST Office Visit Family Practice [facility] [address] [place] [address] Vik Davies DO [address] [facility] [place] [address] 07/19/2024 9:00 AM EDT Office Visit Rheumatology [address] [place], [place] [address] Rubén Zheng MD [address] [place] [address], [place] [address] Health Maintenance Due Date Last Done Comments Adult Wellness Visit 2002 Pneumococcal Vaccine: 65+ Years (2 of 2 - PPSV23 or PCV20) 07/18/2017 05/23/2017 COVID-19 Vaccine ( season) 2023 03/25/2021, 06/17/2020, 05/13/2020 Influenza Vaccine (FLU shot) (#1) 2023 01/25/2023, 01/15/2022, 01/28/2021, Additional history exists CKD PHOS USE SMARTSET 82199 01/14/2024 01/13/2023, 0 06/17/2014 Albumin/Creatinine Ratio 01/15/2024 023, 08/14/2018, 06/03/2017, Additional history exists HbA1c 06/17/2024 12/19/2023, 08/0 11/2023, 01/13/2023, Additional history exists Diabetic Eye Exam 07/24/2024 07/25/2023, , 01/24/2023, Additional history exists Depression Screening 09/20/2024 09/21/2023 Diabetic Foot Exam 09/20/2024 09/21/2023 CKD HGB USE SMARTSET 44141 11/16/202411/16, 11/17/2023, 07/19/2023, Additional history exists DXA [...] Documents on File Type Date Recorded Patient Photovoltaic Fabrication Technician Expl anation Advance Directives and Living Will 12/18/2013 LIVING WILL Power of Adobe Cq Developer 12/18/2013 POWER OF A TTORNEY DURABLE HEALTH CARE POA Care Teams Gravel Screener Relationship Specialty Start Date End Date Vik Davies DO [address] [place] [address] PCP - General Family Medicine 01/13/23 documented as of this encounter
--- OUTSIDE RECORDS SUMMARY | 2024-02-26 11:13 | External Medical Summary | Summary of Care ---
Author Name Unknown Organization [facility] Address [address] [facility] [place] [address] Phone [phone] Care Team Providers Care Air Crew Member Name Role Phone Samson Vik Liuabiel Primary Care Provider Encounter Details Date Type Department Care Team (Latest Contact Info) Description 02/23/2024 10:30 AM EST Office Visit Audiology [facility] [address] [place] [address] Ayala Alamo Au.D. [address] [place] [address] Sensorineural hearing loss, bilateral* Allergies Active Allergy Reactions Criticality Noted Date Comments Ciprofloxacin Nausea/vomiting 11/10/2015 Adalimumab Other (Please comment) 09/15/2016 Cellulitis in face- needed hospitalized Sulfa Antibiotics 07/19/2023 documented as of this encounter (statuses as of 02/23/2024) Medications ONETOUCH ULTRA BLUE STRP Test once daily. 0 7 Active Blood Glucose Monitoring Suppl (ONETOUCH ULTRA 2) w/Device KIT daily. 0 7 Active nystatin (NYSTOP) 048257 UNIT/GM powder As needed 2 8 Active [...] completed on referral from Otolaryngology clinic. Tympanometry 95127 Right: WNL for static admittance, tympanometric peak pressure, equivalent volume, and tympanic width("Type A") Left: WNL for static admittance, tympanometric peak pressure, equivalent volume, and tympanic width("Type A") Standard audiometric testing 58365 ABSD insert earphones Good reliability Right: sensorineural [...] 10:00 AM EST Cardiac Studies Cardiac Studies, [facility] [address] [place] [address] 02/28/2024 1:00 PM EST Imaging Vascular Lab, [facility] 2nd [facility] [place] [address] [facility] [address] 02/28/2024 2:00 PM EST Imaging Vascular Lab, [facility] 2nd [facility] [place] [address] [facility] [address] 02/29/2024 1:45 PM EST Office Visit Orthopaedics [facility] [address] [place] [address] Sondra Odonnell MD [address] [place] [address] 03/12/2024 2:30 PM EST Office Visit Cardiology, [facility] [address] [place] [address] Raquel Marquez PA-C [address] [place] [address] 03/22/2024 1:40 PM EST Office Visit Family Practice [facility] [address] [place] [address] Vik Davies DO [address] [place] [address] 07/19/2024 9:00 AM EDT Office Visit Rheumatology [facility] [address] [place], [place] [address] Rubén Zheng MD [address] [place] [address] Health Maintenance Due Date Last Done Comments Adult Wellness Visit 2002 Pneumococcal Vaccine: 65+ Years (2 of 2 - PPSV23 or PCV20) 07/18/2017 05/23/2017 COVID-19 Vaccine ( season) 2023 03/25/2021, 06/17/2020, 05/13/2020 Influenza Vaccine (FLU shot) (#1) 2023 01/25/2023, 01/15/2022, 01/28/2021, Additional history exists CKD PHOS USE SMARTSET 21147 01/14/2024 01/13/2023, 0 06/17/2014 Albumin/Creatinine Ratio 01/15/2024 023, 08/14/2018, 06/03/2017, Additional history exists HbA1c 06/17/2024 12/19/2023, 08/0 11/2023, 01/13/2023, Additional history exists Diabetic Eye Exam 07/24/2024 07/25/2023, , 01/24/2023, Additional history exists Depression Screening 09/20/2024 09/21/2023 Diabetic Foot Exam 09/20/2024 09/21/2023 CKD HGB USE SMARTSET 49693 02/12/202502/12, 02/13/2024, 11/17/2023, Additional history exists DXA [...] Documents on File Type Date Recorded Patient Local Telephone Operator Expl anation Advance Directives and Living Will 12/18/2013 LIVING WILL Power of Fast Food Team Member 12/18/2013 POWER OF A TTORNEY DURABLE HEALTH CARE POA Care Teams Air Crew Member Relationship Specialty Start Date End Date Vik Davies DO [address] [place] [address] PCP - General Family Medicine 01/13/23 documented as of this encounter
--- OUTSIDE RECORDS SUMMARY | 2024-02-26 11:13 | External Medical Summary ---
Author Name Unknown Address Unknown Organization K01:[facility] [place] - Formerly named [facility] [address] [facility] [address] Laboratory Report Ordering Provider Test Date Status JACKY LIGHT 02/13/2024 14:24:07 Final Synovial fluid Observation Date Value Abnormality Reference (Units ) Status Glucose, Body Fluid 02/13/2024 14:24:07 255 (mg/dL) Final The reference interval(s) an d other method performance specifications may not be available for this body fluid. Comparison of this result with the concentration in the blood, serum, or plasma is recommended. The test result must be integrated into the clinical context for interpretation.

Please refer to test catalog ([email or web address]/body_fluids.cfm) for additional interpretive information.

This test was developed and its performance characteristics determined by [employer]. It has not been cleared or approved by the US Food and Drug Administration. Performing Location LABOR[facility]ORY [facility] [place] - [address] [facility] [address]
--- OUTSIDE RECORDS SUMMARY | 2024-02-26 11:13 | External Medical Summary | Summary of Care ---
Author Name Unknown Organization [facility] Address [address] [facility] [place] [address] Phone [phone] Care Team Providers Care Ocular Pathologist Name Role Phone Vik Davies DO Primary Care Provider Reason for Visit * Reason Onset Date Comments Animal Bite 02/15/2024 Cat bite Encounter Details Date Type Department Care Team (Late st Contact Info) Description 02/15/2024 Telephone Family Practice [facility] [address] [place] [address] Vik Davies DO [address] [facility] [place] [address] Animal Bite (Cat bite) Allergies Active Allergy Reactions Criticality Noted Date Comments Ciprofloxacin Nausea/vomiting 11/10/2015 Adalimumab Other (Please comment) 09/15/2016 Cellulitis in face- needed hospitalized Sulfa Antibiotics 07/19/2023 documented as of this encounter (statuses as of 02/15/2024) Medications Medication Sig Dispensed Refills Start Date End Date Status ONETOUCH ULTRA BLUE STRP Test once daily. 0 01/10/2017 Active Blood Glucose Monitoring Suppl (ONETOUCH ULTRA 2) w/Device KIT daily. 0 01/10/2017 Active nystatin (NYSTOP) 139628 UNIT/GM powder As needed 2 05/23/2017 Active [...] as of this encounter (statuses as of 02/15/2024) Active Problems Problem Noted Date Diagnosed Date [...] as of this encounter (statuses as of 02/15/2024) Resolved Problems Problem Noted Date Diagnosed Date Resolved Date Diabetes mellitus with stage 3 chronic kidney disease 01/17/2023 02/24/2023 Overview: Per CKD protocol Rheumatoid arthritis involving multiple sites 10/29/19 17 02/02/2017 Kidney disease, chronic, sta ge III (GFR 30-59 ml/min) 01/20/2023 Overview: Per CKD protocol documented as of this encounter (statuses as of 02/15/2024) Immunizations Name Administration Dates Next Due COVID-19 [...] encounter Miscellaneous Notes * Telephone Encounter - Sophie Lester LPN - 02/15/2024 1:08 PM EST Myg message sent. Ok per daughter since she check's pts myg messages. * Telephone Encounter - Rashaun Lei MD - 02/15/2024 11:27 AM EST Go to urgent care due to the complexity of the situation please. * Telephone Encounter - Sophie Lester LPN - 02/15/2024 10:34 AM EST Ok to send myg message, because daughter watches her mother's myg messages. Thanks * Telephone Encounter - Sophie Lester LPN - 02/15/2024 10:30 AM EST Daughter comes over from surgical center, mother was bit by her house cat, and now already edematous leg is now red, more swollen and painful. UTD on TDAP, but she thinks maybe she should have abx. Itold her that she she take her to urgent care, she will have her brother do that, BUT wanted me to ask if possible if an abx could be sent in. She wanted to try. documented in this encounter Plan of Treatment Upcoming Encounters Date Type Department Care Team (Late st Contact Info) Description 02/28/2024 10:00 AM EST Cardiac Studies Cardiac Studies, [address] [place] [address] 02/28/2024 1:00 PM EST Imaging Vascular Lab, [facility] 2nd [facility], [address] [place] [address] 02/28/2024 2:00 PM EST Imaging Vascular Lab, [facility] 2nd [facility], [place] [address] [place] [address] 02/29/2024 1:45 PM EST Office Visit Orthopaedics [address] [place] [address] Sondra Odonnell MD [address] [place] [address] 03/12/2024 2:30 PM EST Office Visit Cardiology, [facility] [address] [place] [address] Raquel Marquez PA-C [address] [place] [address] 03/22/2024 1:40 PM EST Office Visit Family Practice [facility] [place] [address] Vik Davies DO [address] [place] [address] 07/19/2024 9:00 AM EDT Office Visit Rheumatology [place] [id number] [place] [address] Rubén Zheng MD [facility] [place] [address] Health Maintenance Due Date Last Done Comments Adult Wellness Visit 2002 Pneumococcal Vaccine: 65+ Years (2 of 2 - PPSV23 or PCV20) 07/18/2017 05/23/2017 COVID-19 Vaccine ( season) 2023 03/25/2021, 06/17/2020, 05/13/2020 Influenza Vaccine (FLU shot) (#1) 2023 01/25/2023, 01/15/2022, 01/28/2021, Additional history exists CKD PHOS USE SMARTSET 01731 01/14/2024 01/13/2023, 0 06/17/2014 Albumin/Creatinine Ratio 01/15/2024 023, 08/14/2018, 06/03/2017, Additional history exists HbA1c 06/17/2024 12/19/2023, 08/0 11/2023, 01/13/2023, Additional history exists Diabetic Eye Exam 07/24/2024 07/25/2023, , 01/24/2023, Additional history exists Depression Screening 09/20/2024 09/21/2023 Diabetic Foot Exam 09/20/2024 09/21/2023 CKD HGB USE SMARTSET 74816 02/12/202502/12, 02/13/2024, 11/17/2023, Additional history exists DXA [...] Documents on File Type Date Recorded Patient 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
--- OUTSIDE RECORDS SUMMARY | 2024-02-26 11:13 | External Medical Summary | Summary of Care ---
Author Name Unknown Organization [facility] Address [address] [facility] [address] Phone [phone] Care Team Providers Care Breakdown Man Name Role Phone Vik Davies DO Primary Care Provider Encounter Details Date Type Department Care Team (Late st Contact Info) Description 02/20/2024 Abstract Family Practice [facility] [address] [facility] [place] [address] Kendal Reddy LPN Allergies Active Allergy Reactions Criticality Noted Date Comments Ciprofloxacin Nausea/vomiting 11/10/2015 Adalimumab Other (Please comment) 09/15/2016 Cellulitis in face- needed hospitalized Sulfa Antibiotics 07/19/2023 documented as of this encounter (statuses as of 02/20/2024) Medications ONETOUCH ULTRA BLUE STRP Test once daily. 0 7 Active Blood Glucose Monitoring Suppl (ONETOUCH ULTRA 2) w/Device KIT daily. 0 7 Active nystatin (NYSTOP) 086809 UNIT/GM powder As needed 2 8 Active [...] as of this encounter (statuses as of 02/20/2024) Active Problems Problem Noted Date Diagnosed Date [...] as of this encounter (statuses as of 02/20/2024) Resolved Problems Problem Noted Date Diagnosed Date Resolved Date Diabetes mellitus with stage 3 chronic kidney disease 01/17/2023 02/24/2023 Overview: Per CKD protocol Rheumatoid arthritis involving multiple sites 10/29/19 17 02/02/2017 Kidney disease, chronic, sta ge III (GFR 30-59 ml/min) 01/20/2023 Overview: Per CKD protocol documented as of this encounter (statuses as of 02/20/2024) Immunizations Name Administration Dates Next Due COVID-19 [...] AM EDT documented as of this encounter Plan of Treatment Upcoming Encounters Date Type Department Care Team (Late st Contact Info) Description 02/23/2024 10:00 AM EST Office Visit Otolaryngology [address] [place] [address] Hesham Liu, DO [address] [place] [address] 02/28/2024 10:00 AM EST Cardiac Studies Cardiac Studies, [facility] [address] [place] [address] 02/28/2024 1:00 PM EST Imaging Vascular Lab, [facility] 2nd Floor, [place] [address] [place] [address] 02/28/2024 2:00 PM EST Imaging Vascular Lab, [facility] 2nd [facility], [place] [address] [place] [place] [address] 02/29/2024 1:45 PM EST Office Visit Orthopaedics [facility] [address] [place] [address] Sondra Odonnell MD [address] [place] [address] 03/12/2024 2:30 PM EST Office Visit Cardiology, [facility] [address] [place] [address] Raquel Marquez PA-C [address] [place] [address] 03/22/2024 1:40 PM EST Office Visit Family Practice [facility] [address] [place] [place] [address] Vik Davies, DO [address] [place] [place] [address] 07/19/2024 9:00 AM EDT Office Visit Rheumatology [address] [place], [place] [address] Rubén Zheng MD [address] [place] [address] [place] [address] Health Maintenance Due Date Last Done Comments Adult Wellness Visit 2002 Pneumococcal Vaccine: 65+ Years (2 of 2 - PPSV23 or PCV20) 07/18/2017 05/23/2017 COVID-19 Vaccine (4 - season) 2023 03/25/2021, 06/17/2020, 05/13/2020 Influenza Vaccine (FLU shot) (#1) 2023 01/25/2023, 01/15/2022, 01/28/2021, Additional history exists CKD PHOS USE SMARTSET 78575 01/14/2024 01/13/2023, 0 06/17/2014 Albumin/Creatinine Ratio 01/15/2024 023, 08/14/2018, 06/03/2017, Additional history exists HbA1c 06/17/2024 12/19/2023, 08/0 11/2023, 01/13/2023, Additional history exists Diabetic Eye Exam 07/24/2024 07/25/2023, , 01/24/2023, Additional history exists Depression Screening 09/20/2024 09/21/2023 Diabetic Foot Exam 09/20/2024 09/21/2023 CKD HGB USE SMARTSET 80915 02/12/202502/12, 02/13/2024, 11/17/2023, Additional history exists DXA [...] Documents on File Type Date Recorded Patient Operating Engineer Apprentice Expl anation Advance Directives and Living Will 12/18/2013 LIVING WILL Power of Bus Repair Supervisor 12/18/2013 POWER OF A TTORNEY DURABLE HEALTH CARE POA Care Teams Breakdown Man Relationship Specialty Start Date End Date Vik Davies DO [address] [place] [address] PCP - General Family Medicine 01/13/23 documented as of this encounter
--- OUTSIDE RECORDS SUMMARY | 2024-02-26 11:13 | External Medical Summary ---
Author Name Unknown Address Unknown Organization [facility] [address] [place] [address] Laboratory Report Ordering Provider Test Date Status MAIK BRIGGS 02/13/2024 12:27:56 Final Observation Date Value Abnormality Reference (Units ) Status SYNC LEUKOCYTES IN BLOOD BY AUTOMATED COUNT 02/13/2024 12:27:56 8.04 4.00-10.80 (K/uL) Final Segs 02/13/2024 12:27:56 75.9 Above high normal 40.0-75.0 (%) Final Lymphs % 02/13/2024 12:27:56 19.4 18.0-42.0 (%) Final Monos 02/13/2024 12:27:56 3.4 1.0-11.0 (%) Final Eosinophils 02/13/2024 12:27:56 1.2 0.0-6.0 (%) Final Basos 02/13/2024 12:27:56 0.1 0.0-2.0 (%) Final Absolute Segs 02/13/2024 12:27:56 6.10 1.80-7.70 (K/uL) Final Lymphs, absolute 02/13/2024 12:27:56 1.56 1.00-4.80 (K/ul) Final Monos, Abs 02/13/2024 12:27:56 0.27 0.00-1.10 (K/uL) Final Eos, Abs 02/13/2024 12:27:56 0.10 0.00-0.70 (K/uL) Final Basos, Abs 02/13/2024 12:27:56 0.01 0.00-0.20 (K/uL) Final Performing Location [facility] [place] [address]
--- OUTSIDE RECORDS SUMMARY | 2024-02-26 11:13 | External Medical Summary ---
Author Name Unknown Address Unknown Organization [facility] [place] [address] [place] [address] Laboratory Report Ordering Provider Test Date Status MAIK BRIGGS 02/13/2024 12:27:56 Final Observation Date Value Abnormality Reference (Units ) Status WBC, Total 02/13/2024 12:27:56 8.04 4.00-10.8 0 (K/uL) Final RBC 02/13/2024 12:27:56 3.52 3.85-5.15 (M/uL) Final Hemoglobin 02/13/2024 12:27:56 11.6 Below low normal 12 .0-15.3 (g/dL) Final HCT 02/13/2024 12:27:56 35.5 Below low normal 36. 0-45.2 (%) Final MCV 02/13/2024 12:27:56 100.9 81.5-97.5 (fL) Final MCH 02/13/2024 12:27:56 33.0 27.0-34.0 (pg) Final MCHC 02/13/2024 12:27:56 32.7 32.0-36.0 (g/dL) Final RDW 02/13/2024 12:27:56 16.5 11.5-15.5 (%) Final Platelets 02/13/2024 12:27:56 152 140-400 (K /uL) Final MPV 02/13/2024 12:27:56 9.4 6.6-11.1 ( fL) Final Performing Location [facility] [place] [address] [place] [address]
[2024-02-26 11:52] LABS: Basophils # (auto) 0.01 K/uL (0.00-0.20); Basophils % (auto) 0.1 %; Eosinophils # (auto) 0.03 K/uL (0.00-0.50); Eosinophils % (auto) 0.4 %; Hematocrit (blood only) 36.3 % (37.0-47.0); Hemoglobin 11.9 g/dl (12.0-16.0); Immature Granulocytes # (auto) 0.04 K/uL (0.01-0.20); Immature Granulocytes % (auto) 0.5 %; Lymphocytes # (auto) 1.63 K/uL (1.20-3.40); Lymphocytes % (auto) 19.9 %; Mean Corpuscular Hemoglobin 32.3 pg (25.0-34.0); Mean Corpuscular Hgb Conc 32.8 g/dL (32.0-36.0); Mean Corpuscular Volume 98.6 fL (80.0-100.0); Mean Platelet Volume 9.9 fL (9.4-12.4); Monocytes # (auto) 0.22 K/uL (0.11-0.59); Monocytes % (auto) 2.7 %; Neutrophils # (auto) 6.26 K/uL (1.40-6.50); Neutrophils % (auto) 76.4 %; Platelet Count 167 K/uL (130-400); RDW Coefficient of Variation 16.5 % (11.5-14.5); RDW Standard Deviation 58.5 fL (36.4-46.3); Red Blood Count 3.68 M/uL (4.20-5.40); White Blood Count 8.19 K/ul (4.8-10.8)
--- NOTE | 2024-02-26 11:55 | Emergency Department Note ---
Impression & Plan Closed hip fracture, Femoral fracture ED Provider Note NAME: MAGDALENO PERALTA AGE: 88 SEX: F : 1935 ARRIVES VIA: Ambulance INFORMANT: Patient, ED PROVIDER(S): Deanne Manzanares MD CHIEF COMPLAINT: Fall HPI: This is a 88-year-old female presenting after a fall. Patient states she was cleaning up after her cat when she was attempting to bend for. She think she fell backward and or onto her right side. She felt a "pop "of her right hip. She is concerned that she may have fractured her hip. She does take Plavix. Also she states she had no head trauma, chest pain abdominal pain ROS: See above HPI for pertinent positives & negatives. A total of 10 systems reviewed and were otherwise negative. PAST MEDICAL HISTORY: See Below PAST SURGICAL HISTORY: See Below FAMILY HISTORY: See Below SOCIAL HISTORY: See Below HOME MEDICATIONS: See Below ALLERGIES: See Below VITALS: See Below PHYSICAL EXAMINATION: General: resting comfortably in no acute distress Head: Normocephalic and atraumatic Eyes: Normal inspection, extraocular muscles intact Ear, nose, throat: Normal external exam Neck: Normal range of motion Respiratory: lungs clear to auscultation bilaterally Cardiovascular: Regular rate/rhythm, no murmur GI: , soft nontender abdomen Extremities: nontender, moves all extremities, R hip pain with range of motion Neuro: The patient awake and alert, appropriately conversive, no focal deficits, symmetric faces Skin: Warm, dry, and intact MEDICAL DECISION MAKING: This is an 88-year-old female presenting after a fall. Will do x-ray of the hip to rule out hip fracture. She does have pain in this region. Will do a chest x-ray for screening purposes both with blood work. -hip x-ray as Independently interpreted by me reveals femoral fracture, displaced, angulated on right -Chest Xray independently interpreted by me showing no pneumothorax, focal opacity, or pleural effusions. -Bloodwork is reviewed showing no significant leukocytosis, anemia, electrolyte or creatinine abnormality -Patient will require admission at this time. Will admit to hospitalist service. -Will give pain control at this time due to uncontrolled pain given IV Dilaudid. Differential diagnosis: Right hip fracture, pelvic fracture ER treatment provided: See below Independent History obtained from: Son including, other family Diagnostics interpreted by me: ECG: None Cardiac Monitoring: An order was placed for continuous cardiac monitoring. The monitor shows a rate of 68 with sinus rhythm. Laboratory studies: As stated above and show below. Imaging studies: See below. Past Med/Surg History Problem List (Updated 02/26/24 @ 19:04 by Deanne Manzanares MD) Femoral fracture (Acute) Closed hip fracture (Acute) Type 2 diabetes mellitus with stage 3 chronic kidney disease, without long-term current use of insulin Fall at home Hip fracture, right COVID-19 (Acute) Kidney stones Urgency incontinence Anemia Encounter for pre-operative examination Local edema Calculus of distal right ureter (Acute) Acute UTI (urinary tract infection) (Acute) HTN (hypertension) Diabetes mellitus History of UTI Syncope CAD (coronary artery disease) [facility] Rheumatoid arthritis Medical History Severe sepsis Hydronephrosis of right kidney Transaminitis Acute kidney injury superimposed on chronic kidney disease Nausea & vomiting Incontinence History of syncope admission [facility] 12/2022. DM type 2 (diabetes mellitus, type 2) HTN (hypertension) Surgical History History of umbilical hernia repair History of hysterectomy History of cervical spinal surgery History of back surgery hardware present History of bladder surgery History of cardiac catheterization "several years ago" -- [facility] -- 1 stent per son's report. H/O section x 3 Family History Other Coronary heart disease Diabetes Social History Smoking Status: Never smoker Tobacco Type: Cigarettes Second Hand Exposure: Yes (hx); Do You Dip or Chew Tobacco: No; Hx Alcohol Use: No Hx Substance Use: No Preferred Language: Greek Communication Ability: Effective Machine Joint Cutter Required: No Beliefs That Will Affect Care: None Current Living Situation: Spouse Feels Safe at Home: Yes Assistive Devices: Cane, Denture - Upper, Denture - Lower, Glasses and Walker Allergies Allergies Allergy/AdvReac Type Severity Reaction Status Date / Time adalimumab [From Humira] Allergy Unknown Verified 02/26/24 14:53 Sulfa (Sulfonamide Allergy Unknown Verified 02/26/24 14:53 Antibiotics) Home Meds Home Medications Medication Instructions Recorded Confirmed aspirin 81 mg capsule 81 mg PO QAM 12/24/22 02/26/24 folic acid 1 mg tablet 1 mg PO QAM 12/24/22 02/26/24 multivitamin 1 tab PO QAM 03/01/23 02/26/24 carvedilol 6.25 mg tablet 0 mg PO BID 02/26/24 02/26/24 donepezil 5 mg tablet 5 mg PO QAM 02/26/24 02/26/24 furosemide 20 mg tablet See Rx Instructions .Route .COMPLEX 02/26/24 02/26/24 mupirocin 2 % topical ointment 1 applic topical TID 02/26/24 02/26/24 prednisone 5 mg tablet 5 mg PO QAM 02/26/24 02/26/24 Previous Rx's Medication Instructions Recorded trospium 20 mg tablet 20 mg PO BID #180 tabs 01/24/24 Results & Data (ED) Vital Signs Vital Signs - 24 hr 02/26/24 11:30 02/26/24 12:46 02/26/24 12:58 Pulse Rate 72 68 Pulse Rate [Right Brachial] 68 Pulse Rhythm Regular Pulse Rhythm [Right Brachial] Regular Pulse Strength Normal Pulse Strength [Right Brachial] Normal Respiratory Rate 20 18 Respiratory Effort / Characteristics Non-Labored Non-Labored Respiratory Depth Normal Normal Respiratory Pattern Regular Blood Pressure 182/79 H Blood Pressure [Right Arm] 170/82 H Blood Pressure Mean 113 Blood Pressure Mean [Right Arm] 111 Blood Pressure Position Lying Blood Pressure Position [Right Arm] Lying Pulse Oximetry 99 96 Oxygen Delivery Method Room Air Room Air Sepsis Recent Fever Within 48 Hours No Sepsis New/Unexplained Change in Mental Status No Sepsis Action Taken by Nursing No Action Required 02/26/24 14:00 02/26/24 15:32 02/26/24 16:00 Pulse Rate 66 Pulse Rate [Right Brachial] 73 69 Pulse Rhythm Pulse Rhythm [Right Brachial] Regular Regular Pulse Strength Pulse Strength [Right Brachial] Normal Normal Respiratory Rate 18 18 Respiratory Effort / Characteristics Non-Labored Non-Labored Respiratory Depth Normal Normal Respiratory Pattern Regular Regular Blood Pressure Blood Pressure [Right Arm] 139/81 127/66 Blood Pressure Mean Blood Pressure Mean [Right Arm] 100 86 Blood Pressure Position Blood Pressure Position [Right Arm] Lying Lying Pulse Oximetry 94 96 Oxygen Delivery Method Room Air Room Air Sepsis Recent Fever Within 48 Hours Sepsis New/Unexplained Change in Mental Status Sepsis Action Taken by Nursing 02/26/24 18:00 Pulse Rate Pulse Rate [Right Brachial] 68 Pulse Rhythm Pulse Rhythm [Right Brachial] Regular Pulse Strength Pulse Strength [Right Brachial] Normal Respiratory Rate 18 Respiratory Effort / Characteristics Non-Labored Respiratory Depth Normal Respiratory Pattern Regular Blood Pressure Blood Pressure [Right Arm] 140/73 Blood Pressure Mean Blood Pressure Mean [Right Arm] 95 Blood Pressure Position Blood Pressure Position [Right Arm] Lying Pulse Oximetry 96 Oxygen Delivery Method Room Air Sepsis Recent Fever Within 48 Hours Sepsis New/Unexplained Change in Mental Status Sepsis Action Taken by Nursing Laboratory Data 02/26/24 11:20 02/26/24 11:20 Lab Results 02/26/24 Range/Units 11:20 WBC 8.19 (4.8-10.8) K/ul RBC 3.68 L (4.20-5.40) M/uL Hgb 11.9 L (12.0-16.0) g/dl Hct 36.3 L (37.0-47.0) % MCV 98.6 (80.0-100.0) fL MCH 32.3 (25.0-34.0) pg MCHC 32.8 (32.0-36.0) g/dL RDW Std Deviation 58.5 H (36.4-46.3) fL RDW Coeff of Prudence 16.5 H (11.5-14.5) % Plt Count 167 (130-400) K/uL MPV 9.9 (9.4-12.4) fL Immature Gran % (Auto) 0.5 % Neut % (Auto) 76.4 % Lymph % (Auto) 19.9 % [place] % (Auto) 2.7 % Eos % (Auto) 0.4 % Baso % (Auto) 0.1 % Neut # (Auto) 6.26 (1.40-6.50) K/uL Lymph # (Auto) 1.63 (1.20-3.40) K/uL [place] # (Auto) 0.22 (0.11-0.59) K/uL Eos # (Auto) 0.03 (0.00-0.50) K/uL Baso # (Auto) 0.01 (0.00-0.20) K/uL Immature Gran # (Auto) 0.04 (0.01-0.20) K/uL Sodium 139 (136-145) mmol/L Potassium 3.5 (3.5-5.1) mmol/L Chloride 101 (98-107) mmol/L Carbon Dioxide 30 (21-32) mmol/L Anion Gap 8 (3-11) BUN 27 H (6-23) mg/dl Creatinine 1.40 H (0.6-1.2) mg/dl Est Cr Clr Drug Dosing Not Reportable eGFR 36.41 BUN/Creatinine Ratio 19.3 (10-20) Glucose 210 H (70-99(Fasting)) mg/dl Calcium 9.2 (8.6-10.3) mg/dl Administered Medications Discontinued Medications Hydromorphone HCl (Hydromorphone Inj 0.5 Mg/0.5 Ml Syr) 0.5 mg IV NOW STA Stop: 02/26/24 14:36 Last Admin: 02/26/24 14:40 Dose: 0.5 mg Documented By: MIGUE Acetaminophen (Ofirmev) 1,000 mg in 100 mls @ 400 mls/hr IV NOW STA Stop: 02/26/24 12:33 Last Infusion: 02/26/24 12:43 Dose: Infused Documented By: Admin: 02/26/24 12:27 Dose: 400 mls/hr Documented By: TERESO Imaging Data Radiologist's Impression: Chest X-Ray 02/26/24 11:36 XR chest 1V portable HISTORY: 88 years-old Female Screening acute chest pain status post fall COMPARISON: 01/14/2024 TECHNIQUE: AP view of the chest FINDINGS: Cardiomediastinal and hilar silhouettes appear normal. Atherosclerosis of the aorta. No pneumothorax, pleural effusion or airspace consolidation. Degenerative changes of the shoulders and line. IMPRESSION: No acute process of the chest. ACT 112: Negative or not required by law. The above report was generated using voice recognition software. It may contain grammatical, syntax or spelling errors. Electronically signed by: Bartolo Samuel M.D. 02/26/2024 1:38 PM Hip/Pelvis X-Ray 02/26/24 11:36 XR hip RT 2V w pelvis HISTORY: 88 years-old Female Hip pain, R acute right hip pain status post fall COMPARISON: CT 02/03/2023 TECHNIQUE: AP view of the pelvis with 2 views the right hip FINDINGS: Moderate osteoarthritis of the hips. Lumbar spinal fusion hardware. There is an acute fracture of the proximal right femur which probably involves the subtrochanteric distribution with possible intertrochanteric extension. There is apex lateral angulation with mild comminution and displacement of 4 cm medially. IMPRESSION: Acute displaced and angulated right femoral fracture as above. ACT 112: Negative or not required by law. The above report was generated using voice recognition software. It may contain grammatical, syntax or spelling errors. Electronically signed by: Bartolo Samuel M.D. 02/26/2024 1:36 PM Discharge Plan Visit Data Chief Complaint: Fall Stated Complaint: FALL, HIP PAIN ED Provider: Deanne Manzanares Discharge Problem: Closed hip fracture, Femoral fracture Forms Stand Alone Forms: [facility] [employer] Prescriptions Prescriptions: No Action trospium 20 mg tablet 20 mg PO BID Qty: 180 2RF Rx Instructions: administer on an empty stomach folic acid 1 mg Tablet 1 mg PO QAM aspirin 81 mg Capsule 81 mg PO QAM multivitamin Tablet 1 tab PO QAM carvedilol 6.25 mg tablet 0 mg PO BID Rx Instructions: Pt says she takes this medication, but showing last filled 09/2023 x90 day supply: Original Directions 6.25mg by mouth twice daily donepezil 5 mg tablet 5 mg PO QAM prednisone 5 mg tablet 5 mg PO QAM mupirocin 2 % ointment 1 applic TOPICAL TID Rx Instructions: Start Date 02/15/24 x14 day supply furosemide 20 mg tablet See Rx Instructions .ROUTE .COMPLEX Rx Instructions: Alternate 20mg between 40mg every other day in the mornings. As of 02/26/24: Pt took 40mg by mouth in the morning Referrals Referrals: Vik Davies, [Primary Care Provider] -
[2024-02-26 12:13] LABS: Anion Gap 8 (3-11); BUN Creatinine Ratio 19.3 (10-20); Blood Urea Nitrogen 27 mg/dl (6-23); Calcium 9.2 mg/dl (8.6-10.3); Carbon Dioxide 30 mmol/L (21-32); Chloride 101 mmol/L (98-107); Glucose 210 mg/dl (70-99(Fasting)); Potassium 3.5 mmol/L (3.5-5.1); Sodium 139 mmol/L (136-145)
[2024-02-26] MEDS: ACETAMINOPHEN 1,000 MG/100 ML VIAL IV STA (12:27)
--- NOTE | 2024-02-26 13:36 | History & Physical Report ---
Date of Service February 26, 2024 Assessment & Plan (1) Hip fracture, right: Plan: N.p.o. after midnight Orthopedics has been consulted Plan is for operative repair tomorrow Hold aspirin (2) Fall at home: Plan: Will need PT and OT consults Care management consult (3) Type 2 diabetes mellitus with stage 3 chronic kidney disease, without long- term current use of insulin: Plan: Sliding scale insulin Trend glucoses Last hemoglobin C A1c was 6.9 in the office on 12/19/2023 (4) HTN (hypertension): Plan: Follow blood pressures Continue carvedilol Patient is on Lasix for increased swelling in her left lower extremity. She states that is helping (5) CAD (coronary artery disease): Plan: Resume aspirin postop (6) Rheumatoid arthritis: Plan: She continues on low-dose prednisone. Follows with Dr. Monk in rheumatology She takes methotrexate 2.5 mg tablets 4 by mouth once a week Plan VTE prophylaxis: SCDs and per surgical team postop Patient is a full code Total time spent in the admission process and care planning for this patient was 77 minutes. History of Present Illness Chief Complaint: Fall, right hip Pain Primary Care Provider: Vik Davies DO Adrianna Narayan is an 88-year-old female with a significant medical hx of RA, DMII with stage 3a CKD, HLD, HTN, GERD, CAD, Stain intolerance and Vi D deficiency who presents post fall at home. Patient states she was cleaning up after her cat when she was attempting to bend forward. She thinks she fell backward and or onto her right side. She felt a "pop "of her right hip. She has an acute displaced and angulated right femoral fracture. Ortho has been notified and plan is for OR tomorrow. She denies head trauma or loss of consciousness with the fall. No visual disturbances. Allergies Allergy/AdvReac Type Severity Reaction Status Date / Time adalimumab [From Humira] Allergy Unknown Verified 02/26/24 14:53 Sulfa (Sulfonamide Allergy Unknown Verified 02/26/24 14:53 Antibiotics) Home Medications Medication Instructions Recorded Confirmed Type aspirin 81 mg capsule 81 mg PO QAM 12/24/22 02/26/24 History folic acid 1 mg tablet 1 mg PO QAM 12/24/22 02/26/24 History multivitamin 1 tab PO QAM 03/01/23 02/26/24 History trospium 20 mg tablet 20 mg PO BID #180 tabs 01/24/24 02/26/24 Rx carvedilol 6.25 mg tablet 0 mg PO BID 02/26/24 02/26/24 History donepezil 5 mg tablet 5 mg PO QAM 02/26/24 02/26/24 History furosemide 20 mg tablet See Rx Instructions .Route .COMPLEX 02/26/24 02/26/24 History mupirocin 2 % topical ointment 1 applic topical TID 02/26/24 02/26/24 History prednisone 5 mg tablet 5 mg PO QAM 02/26/24 02/26/24 History Past Med/Surg History Problem List (Updated 02/26/24 @ 13:43 by Juan Lau DO) Type 2 diabetes mellitus with stage 3 chronic kidney disease, without long-term current use of insulin Fall at home Hip fracture, right COVID-19 (Acute) Kidney stones Urgency incontinence Anemia Encounter for pre-operative examination Local edema Calculus of distal right ureter (Acute) Acute UTI (urinary tract infection) (Acute) HTN (hypertension) Diabetes mellitus History of UTI Syncope CAD (coronary artery disease) [facility] [place] Cardiology Rheumatoid arthritis Medical History (Updated 02/26/24 @ 13:43 by Juan Lau DO) Severe sepsis Hydronephrosis of right kidney Transaminitis Acute kidney injury superimposed on chronic kidney disease Nausea & vomiting Incontinence History of syncope admission [facility] 12/2022. DM type 2 (diabetes mellitus, type 2) HTN (hypertension) Surgical History History of umbilical hernia repair History of hysterectomy History of cervical spinal surgery History of back surgery hardware present History of bladder surgery History of cardiac catheterization "several years ago" -- [facility] -- 1 stent per son's report. H/O section x 3 Family History Other Coronary heart disease Diabetes Social History Smoking Status: Never smoker Tobacco Type: Cigarettes Second Hand Exposure: Yes (hx); Do You Dip or Chew Tobacco: No; Hx Alcohol Use: No Hx Substance Use: No Preferred Language: Greek Communication Ability: Effective Order Booker Required: No Beliefs That Will Affect Care: None Current Living Situation: Spouse Feels Safe at Home: Yes Assistive Devices: Cane, Denture - Upper, Denture - Lower, Glasses and Walker Review of Systems Review of Systems: Constitutional- no fever; Eyes- no acute visual changes ENT- no sinus drainage; no pharyngitis Pulmonary- no cough, no wheezing, no shortness of breath Cardiac- no chest pain, no palpitations, no orthopnea, no dependent edema GI- no nausea, no vomiting, no diarrhea, no melena, no hematochezia - no dysuria, no hematuria Musculoskeletal-has obvious pain in the right hip Hematologic- no unusual bruising, no unusual bleeding Lymphatics- no adenopathy Neuro- no headaches, no focal neurologic symptoms Psych- no anxiety, no depression Physical Exam Physical Exam: General- adult elderly female seen at bedside. Her spouse is present. Head- atraumatic Eyes- PERRL, EOMI, anicteric ENT- oropharynx clear Neck- supple, no JVD, no adenopathy, no thyromegaly; carotids +2/2, no bruits appreciated Lungs- clear to auscultation and percussion Heart- regular rhythm; no murmur, no gallop, no rub appreciated Abdomen- normal bowel sounds, soft, nontender, no masses or hepatosplenomegaly Extremities- no pretibial edema, no calf tenderness; right lower extremity externally rotated Neuro- alert, oriented x 3; PERRL, EOMI; no facial palsy; no dysarthria; Skin- warm & dry Results & Data Results & Data Vital Signs (Past 12 Hours) Vital Signs Pulse Resp BP Pulse Ox O2 Del Method 02/26/24 12:46 68 20 182/79 H 99 Room Air 02/26/24 11:30 72 Diagnostic Findings Laboratory Results WBC 8.19 K/ul (4.8-10.8) 02/26/24 11:20 RBC 3.68 M/uL (4.20-5.40) L 02/26/24 11:20 Hgb 11.9 g/dl (12.0-16.0) L 02/26/24 11:20 Hct 36.3 % (37.0-47.0) L 02/26/24 11:20 MCV 98.6 fL (80.0-100.0) 11/17/24 11:20 MCH 32.3 pg (25.0-34.0) 02/26/24 11:20 MCHC 32.8 g/dL (32.0-36.0) 02/26/24 11:20 RDW Std Deviation 58.5 fL (36.4-46.3) H 02/26/24 11:20 RDW Coeff of Prudence 16.5 % (11.5-14.5) H 02/26/24 11:20 Plt Count 167 K/uL (130-400) 02/26/24 11:20 MPV 9.9 fL (9.4-12.4) 02/26/24 11:20 Immature Gran % (Auto) 0.5 % 02/26/24 11:20 Neut % (Auto) 76.4 % 02/26/24 11:20 Lymph % (Auto) 19.9 % 02/26/24 11:20 Troup % (Auto) 2.7 % 02/26/24 11:20 Eos % (Auto) 0.4 % 02/26/24 11:20 Baso % (Auto) 0.1 % 02/26/24 11:20 Neut # (Auto) 6.26 K/uL (1.40-6.50) 02/26/24 11:20 Lymph # (Auto) 1.63 K/uL (1.20-3.40) 02/26/24 11:20 Troup # (Auto) 0.22 K/uL (0.11-0.59) 02/26/24 11:20 Eos # (Auto) 0.03 K/uL (0.00-0.50) 02/26/24 11:20 Baso # (Auto) 0.01 K/uL (0.00-0.20) 02/26/24 11:20 Immature Gran # (Auto) 0.04 K/uL (0.01-0.20) 02/26/24 11:20 Sodium 139 mmol/L (136-145) 02/26/24 11:20 Potassium 3.5 mmol/L (3.5-5.1) 02/26/24 11:20 Chloride 101 mmol/L (98-107) 02/26/24 11:20 Carbon Dioxide 30 mmol/L (21-32) 02/26/24 11:20 Anion Gap 8 (3-11) 02/26/24 11:20 BUN 27 mg/dl (6-23) H 02/26/24 11:20 Creatinine 1.40 mg/dl (0.6-1.2) H 02/26/24 11:20 Est Cr Clr Drug Dosing Not Reportable 02/26/24 11:20 eGFR 36.41 02/26/24 11:20 BUN/Creatinine Ratio 19.3 (10-20) 02/26/24 11:20 Glucose 210 mg/dl (70-99(Fasting)) H 02/26/24 11:20 Calcium 9.2 mg/dl (8.6-10.3) 02/26/24 11:20 Impressions Chest X-Ray 02/26/24 11:36 XR chest 1V portable HISTORY: 88 years-old Female Screening acute chest pain status post fall COMPARISON: 01/14/2024 TECHNIQUE: AP view of the chest FINDINGS: Cardiomediastinal and hilar silhouettes appear normal. Atherosclerosis of the aorta. No pneumothorax, pleural effusion or airspace consolidation. Degenerative changes of the shoulders and line. IMPRESSION: No acute process of the chest. ACT 112: Negative or not required by law. The above report was generated using voice recognition software. It may contain grammatical, syntax or spelling errors. Electronically signed by: Bartolo Samuel M.D. 02/26/2024 1:38 PM Hip/Pelvis X-Ray 02/26/24 11:36 XR hip RT 2V w pelvis HISTORY: 88 years-old Female Hip pain, R acute right hip pain status post fall COMPARISON: CT 02/03/2023 TECHNIQUE: AP view of the pelvis with 2 views the right hip FINDINGS: Moderate osteoarthritis of the hips. Lumbar spinal fusion hardware. There is an acute fracture of the proximal right femur which probably involves the subtrochanteric distribution with possible intertrochanteric extension. There is apex lateral angulation with mild comminution and displacement of 4 cm medially. IMPRESSION: Acute displaced and angulated right femoral fracture as above. ACT 112: Negative or not required by law. The above report was generated using voice recognition software. It may contain grammatical, syntax or spelling errors. Electronically signed by: Bartolo Samuel M.D. 02/26/2024 1:36 PM
--- NOTE | 2024-02-26 13:39 | XRay Report ---
XR chest 1V portable HISTORY: 88 years-old Female Screening acute chest pain status post fall COMPARISON: 01/14/2024 TECHNIQUE: AP view of the chest FINDINGS: Cardiomediastinal and hilar silhouettes appear normal. Atherosclerosis of the aorta. No pneumothorax, pleural effusion or airspace consolidation. Degenerative changes of the shoulders and line. IMPRESSION: No acute process of the chest. ACT 112: Negative or not required by law. The above report was generated using voice recognition software. It may contain grammatical, syntax o r spelling errors. Electronically signed by: Bartolo Samuel M.D. 02/26/2024 1:38 PM
[2024-02-26] MEDS: HYDROmorphone INJ 0.5 MG/0.5 ML SYR IV STA (14:40)
--- NOTE | 2024-02-26 18:45 | Orthopedic Consultation ---
Date of Service February 26, 2024 Assessment & Plan (1) Hip fracture, right: 88-year-old female with multiple medical comorbidities including some chronic venous stasis changes and lymphedema in the left leg with a right displaced inner troches/subtroches fracture. Plan: The patient has been admitted by the medicine service. She can be medically optimized. The plan will be IM nailing likely tomorrow with medically optimized for the risks Mente this procedure explained to the patient she understands. Will use thigh-high teds and SCDs for DVT prophylaxis and then postoperative aspirin probably. (2) Type 2 diabetes mellitus with stage 3 chronic kidney disease, without long- term current use of insulin: (3) Local edema: (4) HTN (hypertension): (5) Diabetes mellitus: (6) Rheumatoid arthritis: History of Present Illness Reason for Consultation: . Right hip/femur fracture. Requesting Physician: . . Patient is an 88-year-old female who sustained a mechanical fall earlier today. She had acute onset of leg pain and was unable to ambulate. Brought to emergency room where x-rays of displacing her troches/subtalar fracture. She is being mated by the medicine service. Were consulted for evaluation. No significant pre-existing hip pain. Allergies Allergy/AdvReac Type Severity Reaction Status Date / Time adalimumab [From Humira] Allergy Unknown Verified 02/26/24 14:53 Sulfa (Sulfonamide Allergy Unknown Verified 02/26/24 14:53 Antibiotics) Home Medications Medication Instructions Recorded Confirmed Type aspirin 81 mg capsule 81 mg PO QAM 12/24/22 02/26/24 History folic acid 1 mg tablet 1 mg PO QAM 12/24/22 02/26/24 History multivitamin 1 tab PO QAM 03/01/23 02/26/24 History trospium 20 mg tablet 20 mg PO BID #180 tabs 01/24/24 02/26/24 Rx carvedilol 6.25 mg tablet 0 mg PO BID 02/26/24 02/26/24 History donepezil 5 mg tablet 5 mg PO QAM 02/26/24 02/26/24 History furosemide 20 mg tablet See Rx Instructions .Route .COMPLEX 02/26/24 02/26/24 History mupirocin 2 % topical ointment 1 applic topical TID 02/26/24 02/26/24 History prednisone 5 mg tablet 5 mg PO QAM 02/26/24 02/26/24 History Past Med/Surg History Problem List Type 2 diabetes mellitus with stage 3 chronic kidney disease, without long-term current use of insulin Fall at home Hip fracture, right COVID-19 (Acute) Kidney stones Urgency incontinence Anemia Encounter for pre-operative examination Local edema Calculus of distal right ureter (Acute) Acute UTI (urinary tract infection) (Acute) HTN (hypertension) Diabetes mellitus History of UTI Syncope CAD (coronary artery disease) [facility] Cardiology Rheumatoid arthritis Medical History Severe sepsis Hydronephrosis of right kidney Transaminitis Acute kidney injury superimposed on chronic kidney disease Nausea & vomiting Incontinence History of syncope admission [facility] 12/2022. DM type 2 (diabetes mellitus, type 2) HTN (hypertension) Surgical History History of umbilical hernia repair History of hysterectomy History of cervical spinal surgery History of back surgery hardware present History of bladder surgery History of cardiac catheterization "several years ago" -- [facility] -- 1 stent per son's report. H/O section x 3 Family History Other Coronary heart disease Diabetes Social History Smoking Status: Never smoker Tobacco Type: Cigarettes Second Hand Exposure: Yes (hx); Do You Dip or Chew Tobacco: No; Hx Alcohol Use: No Hx Substance Use: No Preferred Language: Cape Verdean Communication Ability: Effective Skip Loader Required: No Beliefs That Will Affect Care: None Current Living Situation: Spouse Feels Safe at Home: Yes Assistive Devices: Cane, Denture - Upper, Denture - Lower, Glasses and Walker Review of Systems All systems reviewed & are unremarkable except as noted in HPI & below. Physical Exam . Physical examination reveals a pleasant elderly female. She is lying in bed looks reasonably comfortable. Examination of the right leg reveals to be slightly shortened. Really not much rotation. She is got no knee effusion. She does have pain with any type of leg motion. She does have some diffuse edema and venous stasis changes distally the left leg actually worse than the right. She is neurologically intact. Results & Data Results & Data Laboratory Results . Diagnostic Findings . X-rays of right femur reviewed. Shows a right displaced and or troches/subtroches fracture. PG Care Time/CCT Total # of Minutes Spent Total Time Spent with Patient: Total time spent is greater than 50% in coordination of care (as documented) at patient's floor/unit and/or counseling patient: Coding Level of Care Code 87201 IN/OBS CONSULT LVL 5,80M (57 - DECISION FOR SURGERY) Diagnoses Hip fracture, right S72.001A Type 2 diabetes mellitus with stage 3 chronic kidney disease, without long-term current use of insulin E11.22; N18.30 Local edema R60.0 HTN (hypertension) I10 Diabetes mellitus E11.9 Rheumatoid arthritis M06.9
[2024-02-26] MEDS ORDERED: GLUCAGON FOR INJ 1 MG VIAL SQ PRN (19:14)
[2024-02-26] MEDS ORDERED: DEXTROSE 50% 50 ML SYRINGE IV PRN (19:14)
[2024-02-26] MEDS ORDERED: GLUCOSE 40% GEL 15 GM TUBE PO PRN (19:14)
[2024-02-26] MEDS ORDERED: GLUCOSE 10 TAB/TUBE PO PRN (19:14)
[2024-02-26] MEDS ORDERED: CARBOHYDRATES FOR HYPOGLYCEMIA PO PRN (19:14)
[2024-02-26] MEDS: HYDROmorphone INJ 0.5 MG/0.5 ML SYR IV PRN (19:36)
[2024-02-26] MEDS: INSULIN ASPART PER UNIT CHARGE SC SCH (19:54)
[2024-02-26] MEDS: MUPIROCIN 2% OINT 22 GM TUBE TOP SCH (19:55)
[2024-02-26] MEDS: carvediloL 6.25 MG TAB PO SCH (19:55)
[2024-02-26] MEDS: ACETAMINOPHEN 325 MG TAB PO SCH (20:03)
[2024-02-26] MEDS: MELATONIN 3 MG TAB PO PRN (20:03)
[2024-02-27 07:52] LABS: Estimated Average Glucose 166 mg/dl; Hemoglobin A1C 7.4 % (4.5-5.6)
[2024-02-27 07:59] LABS: Hematocrit (blood only) 31.9 % (37.0-47.0); Hemoglobin 10.3 g/dl (12.0-16.0); Mean Corpuscular Hemoglobin 32.1 pg (25.0-34.0); Mean Corpuscular Hgb Conc 32.3 g/dL (32.0-36.0); Mean Corpuscular Volume 99.4 fL (80.0-100.0); Mean Platelet Volume 9.8 fL (9.4-12.4); Platelet Count 150 K/uL (130-400); RDW Coefficient of Variation 16.4 % (11.5-14.5); Red Blood Count 3.21 M/uL (4.20-5.40); White Blood Count 8.93 K/ul (4.8-10.8)
[2024-02-27] MEDS: DONEPEZIL HCL 5 MG TAB PO SCH (08:12)
[2024-02-27] MEDS: FUROSEMIDE 20 MG TAB PO SCH (08:12)
[2024-02-27] MEDS: FOLIC ACID 1 MG TAB PO SCH (08:12)
[2024-02-27] MEDS: OXYBUTYNIN CHLORIDE XL 5 MG TABCR PO SCH (08:13)
[2024-02-27] MEDS: MULTIVITAMIN TAB PO SCH (08:13)
[2024-02-27] MEDS: predniSONE 5 MG TAB PO SCH (08:14)
[2024-02-27 08:16] LABS: BUN Creatinine Ratio 18.7 (10-20); Calcium 9.2 mg/dl (8.6-10.3); Creatinine Clr Calc Pharmacy 30.2 ml/min; Potassium 3.7 mmol/L (3.5-5.1)
--- NOTE | 2024-02-27 09:10 | History & Physical Bridge Note ---
Date of Service February 27, 2024 History & Physical Bridge Note I have examined the patient, reviewed the History & Physical and in the interval since the performance of the History & Physical I have noted the following changes of clinical significance: no changes noted
[2024-02-27] MEDS ORDERED: fentaNYL citrate PF 100 MCG/2 ML VIAL IV PRN (09:11)
[2024-02-27] MEDS ORDERED: ONDANSETRON INJ 2 MG/ML 2 ML VIAL IV PRN (09:11)
[2024-02-27] MEDS ORDERED: ATROPINE SULFATE 0.1 MG/ML 10ML SYR IV PRN (09:11)
[2024-02-27] MEDS ORDERED: ePHEDrine sulfate 50 MG/ML AMP IV PRN (09:11)
--- NOTE | 2024-02-27 09:15 | Anesthesiology Consultation ---
Date of Service February 27, 2024 Assessment & Plan (1) Encounter for pre-operative examination: Chart Review Chart Review: Acceptable Risk for Surgery and Patient NOT seen in Pre Admission Testing Consults Requested none History Surgery Operation Date: 02/27/24 13:35 Proposed Procedures p Right Long Troch Nail - Rubén Sanders, Height/Weight Height: 5 ft 1 in Weight: 90 kg Allergies Allergy/AdvReac Type Severity Reaction Status Date / Time ciprofloxacin [From Cipro] Allergy Unknown Verified 02/27/24 09:05 adalimumab [From Humira] Allergy Unknown Verified 02/27/24 09:05 Sulfa (Sulfonamide Allergy Unknown Verified 02/27/24 09:05 Antibiotics) Medications Home Medications Medication Instructions Recorded Confirmed Last Taken aspirin 81 mg capsule 81 mg PO QAM 12/24/22 02/26/24 02/26/24 folic acid 1 mg tablet 1 mg PO QAM 12/24/22 02/26/24 02/26/24 multivitamin 1 tab PO QAM 03/01/23 02/26/24 02/26/24 trospium 20 mg tablet 20 mg PO BID #180 tabs 01/24/24 02/26/24 02/26/24 carvedilol 6.25 mg tablet 0 mg PO BID 02/26/24 02/26/24 02/26/24 donepezil 5 mg tablet 5 mg PO QAM 02/26/24 02/26/24 02/26/24 furosemide 20 mg tablet See Rx Instructions .Route .COMPLEX 02/26/24 02/26/24 02/26/24 mupirocin 2 % topical ointment 1 applic topical TID 02/26/24 02/26/24 02/26/24 prednisone 5 mg tablet 5 mg PO QAM 02/26/24 02/26/24 02/26/24 Active Medications Generic Name Dose Route Start Last Admin Trade Name Freq PRN Reason Stop Dose Admin Acetaminophen 650 mg 02/26/24 21:00 02/27/24 08:16 Acetaminophen 325 Mg Tab PO 03/27/24 20:59 650 mg TID KRISTINE Administration Carvedilol 6.25 mg 02/26/24 21:00 02/27/24 08:11 Carvedilol 6.25 Mg Tab PO 03/27/24 20:59 6.25 mg BID KRISTINE Administration Donepezil HCl 5 mg 02/27/24 09:00 02/27/24 08:12 Donepezil Hcl 5 Mg Tab PO 03/28/24 08:59 5 mg QAM KRISTINE Administration Folic Acid 1 mg 02/27/24 09:00 02/27/24 08:12 Folic Acid 1 Mg Tab PO 03/28/24 08:59 1 mg QAM KRISTINE Administration Furosemide 20 mg 02/27/24 09:00 02/27/24 08:12 Furosemide 20 Mg Tab PO 03/28/24 08:59 20 mg Q48H KRISTINE Administration Hydromorphone HCl 0.5 mg 02/26/24 20:00 02/27/24 02:31 Hydromorphone Inj 0.5 Mg/0.5 Ml Syr IV 03/11/24 19:59 0.5 mg Q6H PRN Administration Pain Insulin Aspart 0 units 02/26/24 19:21 02/27/24 08:31 Insulin Aspart Per Unit Charge SC 03/27/24 19:20 Not Given ACHS KRISTINE Melatonin 3 mg 02/26/24 19:14 02/26/24 20:03 Melatonin 3 Mg Tab PO 03/27/24 19:13 3 mg HS PRN Administration Insomnia Multivitamins 1 tab 02/27/24 09:00 02/27/24 08:13 Multivitamin Tab PO 03/28/24 08:59 1 tab QAM KRISTINE Administration Mupirocin 1 appln 02/26/24 21:00 02/27/24 08:13 Mupirocin 2% Oint 22 Gm Tube TOP 03/27/24 20:59 1 appln TID KRISTINE Administration Oxybutynin Chloride 5 mg 02/27/24 09:00 02/27/24 08:13 Oxybutynin Chloride Xl 5 Mg Tabcr PO 03/28/24 08:59 5 mg DAILY KRISTINE Administration Protocol Prednisone 5 mg 02/27/24 09:00 02/27/24 08:14 Prednisone 5 Mg Tab PO 03/28/24 08:59 5 mg QAM KRISTINE Administration NPO Date Last Intake of Fluids: 02/26/24 Time Last Intake of Fluids: 18:00 Date Last Intake of Solids: 02/26/24 Time Last Intake of Solids: 17:00 Past Medical History Medical History (Updated 02/27/24 @ 09:14 by Júnior Randle MD) Hydronephrosis of right kidney Transaminitis Acute kidney injury superimposed on chronic kidney disease Nausea & vomiting Incontinence History of syncope admission [facility] 12/2022. DM type 2 (diabetes mellitus, type 2) HTN (hypertension) Past Family History Family History Other Coronary heart disease Diabetes Past Surgical History Surgical History History of umbilical hernia repair History of hysterectomy History of cervical spinal surgery History of back surgery hardware present History of bladder surgery History of cardiac catheterization "several years ago" -- [facility] -- 1 stent per son's report. H/O section x 3 Social History Smoking Status: Never smoker Do You Dip or Chew Tobacco: No Hx Alcohol Use: No Hx Substance Use: No substance use type: does not use Physical Exam Vital Signs Last Vital Signs Temp 36.9 C 02/27/24 09:07 Pulse 70 02/27/24 09:07 Resp 16 02/27/24 09:07 BP 182/70 H 02/27/24 09:07 Pulse Ox 97 02/27/24 09:07 O2 Del Method Room Air 02/27/24 09:07 Testing Laboratory Results 02/27/24 07:41 02/27/24 07:41 Hemoglobin A1c 7.4 % (4.5-5.6) H 02/26/24 11:20 Blood Type O Negative 02/26/24 18:31 Antibody Screen NEGATIVE 02/26/24 18:31 02/27/24 08:24 POC Glucose 150 H coags 01/14/24: pt 10.9, inr 1, ptt 24 Electrocardiogram Date: 01/14/24 DICTATED BY: Dami Linton MD Test Reason : Blood Pressure : */* mmHG Vent. Rate : 69 BPM Atrial Rate : 69 BPM P-R Int : 232 ms QRS Dur : 104 ms QT Int : 414 ms P-R-T Axes : 41 -7 0 degrees QTcB Int : 443 ms Sinus rhythm with 1st degree A-V block Minimal voltage criteria for LVH, may be normal variant ( Greg product ) Borderline ECG When compared with ECG of 07-Jan-2024 03:37, Criteria for Septal infarct are no longer Present Nonspecific T wave abnormality now evident in Inferior leads Confirmed by Dami Linton ([id number]) on 01/14/2024 10:41:20 AM Chest X-Ray Date: 02/26/24 XR chest 1V portable HISTORY: 88 years-old Female Screening acute chest pain status post fall COMPARISON: 01/14/2024 TECHNIQUE: AP view of the chest FINDINGS: Cardiomediastinal and hilar silhouettes appear normal. Atherosclerosis of the aorta. No pneumothorax, pleural effusion or airspace consolidation. Degenerative changes of the shoulders and line. IMPRESSION: No acute process of the chest. Echocardiogram Date: 12/26/23 LV cavity is small Moderate LVH LV wall motion is normal EF 60-65% Grade 1 DD No Mild MR No pulmonary hypertension Other Testing Carotid dopplers: US carotid doppler BI CLINICAL HISTORY: 87 years-old Female with syncope. COMPARISON: None TECHNIQUE: Multiple real time sonographic images of the carotid bifurcations were obtained assessing rubalcava scale, color Doppler and spectral wave form appearance FINDINGS: RIGHT CAROTID: The peak systolic velocity measurements in the right ICA is 66 cm/sec. The end diastolic velocity measured 16 cm/sec. The ICA to CCA ratio measured 1.1 which correlates with a stenosis of 0-50%. Moderate atherosclerotic plaque. LEFT CAROTID: The peak systolic velocity measured within the left ICA is 65 cm/sec. The end diastolic velocity measured 11 cm/sec. The ICA to CCA ratio measured 1.0 which correlates with a stenosis of 0-50%. Moderate atherosclerotic plaque. There is normal antegrade vertebral flow bilaterally. IMPRESSION: 1. Atherosclerosis without hemodynamically significant stenosis. 2. Normal antegrade vertebral flow bilaterally.
[2024-02-27] MEDS ORDERED: BUPIVACAINE 0.5 % 5 MG/1 ML PF 10ML VIAL ONE (09:48)
[2024-02-27] MEDS: LACTATED RINGER'S 1,000 ML IV SCH (10:08)
[2024-02-27] MEDS ORDERED: fentaNYL citrate PF 100 MCG/2 ML VIAL ONE ×2 (10:11→12:13)
[2024-02-27] MEDS ORDERED: PHENYLEPHRINE HCL 10 MG/ML VIAL ONE (10:14)
[2024-02-27] MEDS ORDERED: PROPOFOL IV EMULSION 10 MG/ML 20 ML VIAL IV ONE (10:14)
[2024-02-27] MEDS ORDERED: LIDOCAINE 2% 2 ML VIAL/AMP(20MG/ML) INFIL ONE (10:14)
[2024-02-27] MEDS ORDERED: ONDANSETRON INJ 2 MG/ML 2 ML VIAL ONE (10:14)
[2024-02-27] MEDS ORDERED: ROCURONIUM BROMIDE 10 MG/ML 5 ML VIAL IV ONE (10:14)
[2024-02-27] MEDS: ceFAZolin 2000MG 2,000 MG/15 ML SYR IV ONE (10:25)
[2024-02-27] MEDS ORDERED: ALBUTEROL HFA 8 GM INHALER INH ONE (10:47)
[2024-02-27] MEDS ORDERED: SUGAMMADEX SODIUM 200 MG/2 ML VIAL IV ONE (11:25)
[2024-02-27] MEDS ORDERED: ePHEDrine sulfate 50 MG/5 ML SYR ONE (11:25)
--- NOTE | 2024-02-27 12:27 | Operative Report ---
PG Post Operative Report Pre & Post Diagnosis Operation Date: 02/27/24 13:35 Pre-Op Diagnosis: Right subtrochanteric hip fracture Post-Op Diagnosis: Right subtrochanteric hip fracture I identified the patient and participated in the time-out.: Yes Procedure Operation Date: 02/27/24 13:35 Actual Procedures p Right Long Troch Nail(Right) - Rubén Sanders DO Surgeon Rubén Sanders DO Software Development Coordinator Veronica Rose PA-C Estimated Blood Loss 300 Findings Consistent with Post-Op Diagnosis Specimens None Description of Procedure On February 27, 2024 Adrianna was brought in from her hospital room to the preoperative holding area. The operative extremity identified and signed. She is given a preoperative antibiotic. She was taken back the operating room and transferred to the fracture table. She was put under general anesthesia. The right leg was then brought out to traction. Fluoroscopic imaging was done to try to reduce the fracture. Given her large BMI and the character of the fracture, I was unable to get it reduced in a closed fashion. The right hip was then prepped and draped sterile fashion. A timeout was done. The patient and the operative extremity was properly identified. A longitudinal incision was made over the greater trochanter. Dissection was taken down through the fascia. The IT band was identified and split. The fracture was then identified and 2 clamps were placed around the fracture to hold it reduced. Appropriate reduction of the fracture was checked on orthogonal fluoroscopic images. Once the fracture was properly reduced, a guidepin was placed at the tip of the greater trochanter and sent down the femoral canal. Appropriate placement was checked on fluoroscopy. A 17 mm ope levy reamer was used to open the canal. A ball-tipped guidewire was then placed down the canal up to the knee. Sequential reaming up to a size 11.5 reamer was done. A 320 mm x 10 mm Synthes TFN nail was then impacted into place. Appropriate placement was checked on fluoroscopy. A cannula was advanced to the lateral cortex of the femur for the helical blade. A guidepin was placed in the center center position of the femoral head. The lateral cortex was drilled and the helical blade was drilled. The final size 75 mm helical blade was then impacted into place. The screw was then locked. The outrigger was removed. 2 distal locking screws then placed using a perfect ohogamiut technique. All clamps were removed. The large incision was then irrigated with pulse lavage. The deep fascia was closed with #1 Vicryl. The deep fat layer was closed with #1 Vicryl. Skin was closed with 2-0 Vicryl and j luis. She was then placed in a soft dressing. She was then extubated and transferred to a hospital bed. She was taken to the postanesthesia care unit in stable condition. She tolerated the procedure well. Veronica Rose PA-C, was present for the entire procedure. He was critical for patient positioning, prepping, draping, retraction exposure, wound closure and application of sterile dressing. I attest to the content of the Intraoperative Record and any orders documented therein. Any exceptions are noted below.
[2024-02-27] MEDS: BUPIVACAINE/EPINEPHRINE 0.25% 1:200,000 30 ML VIAL ONE (13:03)
--- NOTE | 2024-02-27 13:35 | Fluoroscopy Report ---
FL femur RT 2V CLINICAL HISTORY: RIGHT LONG TROCHNAIL COMPARISON STUDY: Pelvis and right hip radiograph February 26, 2024. FLUOROSCOPY TIME: 2 minutes and 21 seconds. Ka,r: 35.65 mGy FLUOROSCOPIC IMAGES: 6 FINDINGS: Fluoroscopy was provided during open reduction and internal fixation of the subtrochanteric right femoral fracture with possible intertrochanteric extension. Trochanteric nail is in place. Fra cture alignment appears near anatomic. Hardware is intact. IMPRESSION: Fluoroscopy provided during open reduction and internal fixation of the right femoral fr acture. ACT 112: Negative or not required by law. Electronically signed by: Jose Fritz M.D. 02/27/2024 1:34 PM
--- NOTE | 2024-02-27 14:38 | XRay Report ---
XR femur RT 2V routine HISTORY: 88 years-old Female Post-Operative implant position acute fracture of the right femur COMPARISON: 02/26/2024 TECHNIQUE: 2 views of the right femur FINDINGS: Status post placement of an intertrochanteric nail with medullary brennan fixating the acute proximal rig ht femoral fracture, now with near anatomic alignment. 7 mm posterior displacement on the lateral vie w. Lateral skin j luis with expected postoperative soft tissue swelling and deep tissue air. IMPRESSION: Improved alignment of the proximal femoral fracture status post ORIF. ACT 112: Negative or not required by law. The above report was generated using voice recognition software. It may contain grammatical, syntax o r spelling errors. Electronically signed by: Bartolo Samuel M.D. 02/27/2024 2:36 PM
[2024-02-27] MEDS: ONDANSETRON INJ 2 MG/ML 2 ML VIAL IV PRN (15:30)
--- NOTE | 2024-02-27 15:41 | Anesthesiology Progress Note ---
Date of Service February 27, 2024 Anesthesia Post Procedure Vital Signs Vital Signs: Temp Pulse Pulse Pulse Resp BP BP 02/27/24 15:15 73 18 120/68 02/27/24 14:45 71 16 116/72 02/27/24 14:00 36.7 C 72 19 136/72 02/27/24 13:55 72 12 147/74 H 02/27/24 13:45 70 17 147/84 H 02/27/24 13:35 69 12 143/75 H 02/27/24 13:26 36.0 C L 71 14 126/67 02/27/24 09:07 36.9 C 70 16 182/70 H 02/27/24 07:52 36.7 C 70 13 157/78 H 02/27/24 07:25 36.6 C 69 16 154/78 H 02/26/24 19:14 36.6 C 67 18 198/93 H 02/26/24 18:00 68 18 140/73 02/26/24 16:00 69 18 127/66 Pulse Ox O2 Del Method O2 Flow Rate 02/27/24 15:15 94 Room Air 02/27/24 14:45 95 Room Air 02/27/24 14:00 94 Room Air 0 02/27/24 13:55 95 Room Air 0 02/27/24 13:45 100 Oxymask 4 02/27/24 13:35 100 Oxymask 4 02/27/24 13:26 100 Oxymask 8 02/27/24 09:07 97 Room Air 02/27/24 07:52 97 Room Air 02/27/24 07:25 96 Room Air 02/26/24 19:14 98 Room Air 02/26/24 18:00 96 Room Air 02/26/24 16:00 96 Room Air Pain Intensity Right Neck: Pain Intensity: 3 Right Hip: Pain Intensity: 4 Transfer of Care Handoff Completed per policy Notes Mental Status: alert / awake / arousable and participated in evaluation Patient Amnestic to Procedure: Yes Nausea / Vomiting: adequately controlled Pain: adequately controlled Airway Patency, RR, SpO2: stable & adequate BP & HR: stable & adequate Hydration State: stable & adequate Anesthetic Complications: no major complications apparent and Pt Satisfied with anesthetic care
[2024-02-27] MEDS: ceFAZolin 2,000 MG/15 ML IV PUSH IV ONE (15:49)
[2024-02-27] MEDS: COUGH DROP (SUGAR FREE) LOZ 24 LOZ/1 BOX BUCCAL STA (15:51)
--- NOTE | 2024-02-27 16:09 | Cardiology Consultation ---
Date of Consultation February 27, 2024 Assessment & Plan (1) Fall at home: (2) Hip fracture, right: (3) Edema of left lower extremity: (4) Pseudogout: (5) ASCVD (arteriosclerotic cardiovascular disease): (6) HTN (hypertension): (7) Dyslipidemia, goal LDL below 70: Plan Resume Aspirin 81 mg/day when able. Continue carvedilol and furosemide Outpatient venous insufficiency evaluation and resting echocardiography Supervising Physician Co-Signing Physician Notes Attending attestation: Case reviewed with the advanced practitioner. I have personally performed a history and physical examination on the patient. I have reviewed the advanced practitioner's documentation on the date of service referenced in note, and I agree with, and take responsibility for the plan of care. Stephen Raya, DO History of Present Illness Reason for Consultation: "Per family request." Requesting Physician: Dr. Shaila Johnston Attending Physician: Shaila Johnston MD History of Present Illness Adrianna Narayan is a very pleasant 88-year-old female who was cleaning up after her cat when she suffered a mechanical fall, hearing a pop in her right hip on February 26, 2024. Imaging revealed an acute displaced and angulated right femoral fracture with patient undergoing nailing by Dr. Sanders on February 27, 2024 without cardiopulmonary complication. Patient evaluated postoperatively with , son, and [id number] at bedside. Patient notably nauseated with emesis on evaluation. Son, and RN, notes recent issues with left lower extremity peripheral edema. She has a history of severe arthritis of the left knee with recent orthopedic evaluation revealing a left knee effusion, analysis revealing pseudogout. Steroid injection pending. Son notes plans for venous duplex to evaluate for DVT and resting echocardiography to assess heart function. Recent titration of furosemide to 20 mg one day alternating with 40 mg the next day in January 2024 has resulted in some improvement. More recently, earlier this month, patient was bitten by her house cat on the left lower extremity and was treated at urgent care with a 7-day course of doxycycline. No fevers or chills. No chest pain. No palpitations. No new or worsening shortness of breath. No orthopnea or PND. No syncope. Problem List: Coronary artery disease with prior stent to the RCA in 2007. She underwent repeat cath in 2011 which demonstrated 40% proximal RCA stenosis, patent stent to the mid RCA, 40% mid RCA stenosis, 30% mid LAD stenosis, and 30% proximal diagonal 1 stenosis. Medical management recommended. Hypertension Dyslipidemia with multiple statin intolerances, intolerant to Zetia, declining PCSK9 inhibitor therapy. Type 2 diabetes mellitus Stage III chronic kidney disease Chronic RA on immunosuppressive therapy with methotrexate and prednisone CKD stage III Mild bradycardia, limiting beta darell dose GERD Family History: Positive for CAD in father. Social History: Never smoker. No significant alcohol. No illegal drug use. . Son Jesse is a longstanding registered nurse and EMT. Allergies Allergy/AdvReac Type Severity Reaction Status Date / Time ciprofloxacin [From Cipro] Allergy Unknown Verified 02/27/24 09:05 adalimumab [From Humira] Allergy Unknown Verified 02/27/24 09:05 Sulfa (Sulfonamide Allergy Unknown Verified 02/27/24 09:05 Antibiotics) Home Medications Medication Instructions Recorded Confirmed Type aspirin 81 mg capsule 81 mg PO QAM 12/24/22 02/26/24 History folic acid 1 mg tablet 1 mg PO QAM 12/24/22 02/26/24 History multivitamin 1 tab PO QAM 03/01/23 02/26/24 History trospium 20 mg tablet 20 mg PO BID #180 tabs 01/24/24 02/26/24 Rx carvedilol 6.25 mg tablet 0 mg PO BID 02/26/24 02/26/24 History donepezil 5 mg tablet 5 mg PO QAM 02/26/24 02/26/24 History furosemide 20 mg tablet See Rx Instructions .Route .COMPLEX 02/26/24 02/26/24 History mupirocin 2 % topical ointment 1 applic topical TID 02/26/24 02/26/24 History prednisone 5 mg tablet 5 mg PO QAM 02/26/24 02/26/24 History Patient History Medical History Hydronephrosis of right kidney Transaminitis Acute kidney injury superimposed on chronic kidney disease Nausea & vomiting Incontinence History of syncope admission [facility] 12/2022. DM type 2 (diabetes mellitus, type 2) HTN (hypertension) Surgical History History of umbilical hernia repair History of hysterectomy History of cervical spinal surgery History of back surgery hardware present History of bladder surgery History of cardiac catheterization "several years ago" -- [facility] -- 1 stent per son's report. H/O section x 3 Family History Other Coronary heart disease Diabetes Social History Smoking Status: Never smoker Tobacco Type: Cigarettes Second Hand Exposure: Yes (hx); Do You Dip or Chew Tobacco: No; Hx Alcohol Use: No Hx Substance Use: No Preferred Language: Comoran Communication Ability: Effective Bilingual Office Assistant Required: No Beliefs That Will Affect Care: None Current Living Situation: Spouse Current Living Situation Comment: [place] Feels Safe at Home: Yes Assistive Devices: Cane and Walker Review of Systems Review of Systems: Complete Review of Systems is as stated above, negative, or noncontributory. Physical Exam Physical Exam: General: A&Ox3. NAD. HENT: Normocephalic. Atraumatic. Eyes: PER. Conjunctiva pink, sclera clear. Neck: Carotid bruits. No JVD. Heart: RRR. No murmur. No rub. Lungs: Clear to auscultation anteriorly. Abdomen: +BS. Soft. Nontender. No masses or organomegaly. Taylor catheter in place Extremities: 1+ left lower extremity edema. No clubbing. No cyanosis Limited neurological examination is without focal deficits. Pulses: Posterior tibial=1/4. Results & Data Vital Signs (Past 12 Hours) Vital Signs Temp Pulse Pulse Pulse Resp BP BP 02/27/24 15:15 73 18 120/68 02/27/24 14:45 71 16 116/72 02/27/24 14:00 36.7 C 72 19 136/72 02/27/24 13:55 72 12 147/74 H 02/27/24 13:45 70 17 147/84 H 02/27/24 13:35 69 12 143/75 H 02/27/24 13:26 36.0 C L 71 14 126/67 02/27/24 09:07 36.9 C 70 16 182/70 H 02/27/24 07:52 36.7 C 70 13 157/78 H 02/27/24 07:25 36.6 C 69 16 154/78 H Pulse Ox O2 Del Method O2 Flow Rate 02/27/24 15:15 94 Room Air 02/27/24 14:45 95 Room Air 02/27/24 14:00 94 Room Air 0 02/27/24 13:55 95 Room Air 0 02/27/24 13:45 100 Oxymask 4 02/27/24 13:35 100 Oxymask 4 02/27/24 13:26 100 Oxymask 8 02/27/24 09:07 97 Room Air 02/27/24 07:52 97 Room Air 02/27/24 07:25 96 Room Air Laboratory Results CBC 02/27/24 Range/Units 07:41 WBC 8.93 (4.8-10.8) K/ul RBC 3.21 L (4.20-5.40) M/uL Hgb 10.3 L (12.0-16.0) g/dl Hct 31.9 L (37.0-47.0) % Plt Count 150 (130-400) K/uL Comprehensive Metabolic Panel 02/27/24 Range/Units 07:41 Sodium 138 (136-145) mmol/L Potassium 3.7 (3.5-5.1) mmol/L Chloride 101 (98-107) mmol/L Carbon Dioxide 33 H (21-32) mmol/L BUN 25 H (6-23) mg/dl Creatinine 1.34 H (0.6-1.2) mg/dl Glucose 161 H (70-99(Fasting)) mg/dl Calcium 9.2 (8.6-10.3) mg/dl Intake and Output 02/27/24 02/27/24 02/27/24 06:59 14:59 22:59 Intake Total 600 / 600 Output Total 800 / 800 300 / 300 Balance -800 / -700 300 / 300 Intake: IV 0 / 0 Lactated Ringer's 1,000 ml @ 15 0 / 0 mls/hr IV .Q24H [facility] Rx#: [id number] IV Perioperative 600 / 600 Output: Estimated Blood Loss 300 / 300 Urine Amount (Catheter) 800 / 800 Taylor/Indwelling 800 / 800 Other: Other Intake Source npo Weight 90 kg Patient Weight 02/28/24 06:59 Weight 90 kg Diagnostic Findings Telemetry: Nonmonitored bed.
--- NOTE | 2024-02-27 16:27 | Hospitalist Progress Note ---
Date of Service February 27, 2024 Assessment & Plan (1) Edema of left lower extremity: (2) Femoral fracture: (3) Closed hip fracture: Plan Adrianna Narayan is an 88-year-old female with a significant medical hx of RA, DMII with stage 3a CKD, HLD, HTN, GERD, CAD, Statin intolerance and Vit D deficiency who presents post fall at home and was noted to have an acute displaced and angulated right femoral fracture. She is s/p nailing on 02/27/24 with orthopedic surgery. Acute R Femoral Fracture s/p Right Long Troch Nail on 02/27/24 with orthopedic surgery PRN pain control and nausea control Per ortho for DVT prophylaxis, pt currently on Eliquis PT/OT when able, will likely require acute rehab Follow post op H/H Appreciate further recs from Orthopedic Surgery CAD HTN Hyperlipidemia Lower extremity edema Family requesting evaluation by Cardiology Cardiology consulted, appreciate recs DMII On chronic steroid use ISS while hospitalized Continue to monitor Continue other home meds as ordered Diet: HH/DMII DVT prophylaxis: On Eliquis Dispo: PT/OT for further recs once medically stable Admission and Anticipated Discharge Date Admission Date: February 26, 2024 Subjective patient was seen in the p.m. after her surgery was having some nausea not relieved by Zofran, had not yet gotten any Phenergan Per nursing due to nausea has not been able to eat yet Review of Systems Review of Systems: All systems reviewed & are unremarkable except as noted in Subjective Physical Exam Physical Exam: General: Alert, oriented. No acute distress at the time of exam Psych: Appropriate mood and affect Neuro: difficulty with movements in the bed HEENT: NC/AT CV: RRR Resp: Breath sounds clear bilaterally, no increased effort of breathing Abdomen: Soft, nontender Extremities: edema in L>R extremities bilaterally. Results & Data Results & Data Vital Signs (Past 12 Hours) Vital Signs Temp Pulse Pulse Pulse Resp BP BP 02/27/24 16:16 36.7 C 67 16 109/64 02/27/24 15:15 73 18 120/68 02/27/24 14:45 71 16 116/72 02/27/24 14:00 36.7 C 72 19 136/72 02/27/24 13:55 72 12 147/74 H 02/27/24 13:45 70 17 147/84 H 02/27/24 13:35 69 12 143/75 H 02/27/24 13:26 36.0 C L 71 14 126/67 02/27/24 09:07 36.9 C 70 16 182/70 H 02/27/24 07:52 36.7 C 70 13 157/78 H 02/27/24 07:25 36.6 C 69 16 154/78 H Pulse Ox O2 Del Method O2 Flow Rate 02/27/24 16:16 95 Room Air 02/27/24 15:15 94 Room Air 02/27/24 14:45 95 Room Air 02/27/24 14:00 94 Room Air 0 02/27/24 13:55 95 Room Air 0 02/27/24 13:45 100 Oxymask 4 02/27/24 13:35 100 Oxymask 4 02/27/24 13:26 100 Oxymask 8 02/27/24 09:07 97 Room Air 02/27/24 07:52 97 Room Air 02/27/24 07:25 96 Room Air Diagnostic Findings Chest X-Ray 02/26/24 11:36 XR chest 1V portable HISTORY: 88 years-old Female Screening acute chest pain status post fall COMPARISON: 01/14/2024 TECHNIQUE: AP view of the chest FINDINGS: Cardiomediastinal and hilar silhouettes appear normal. Atherosclerosis of the aorta. No pneumothorax, pleural effusion or airspace consolidation. Degenerative changes of the shoulders and line. IMPRESSION: No acute process of the chest. ACT 112: Negative or not required by law. The above report was generated using voice recognition software. It may contain grammatical, syntax or spelling errors. Electronically signed by: Bartolo Samuel M.D. 02/26/2024 1:38 PM Hip/Pelvis X-Ray 02/26/24 11:36 XR hip RT 2V w pelvis HISTORY: 88 years-old Female Hip pain, R acute right hip pain status post fall COMPARISON: CT 02/03/2023 TECHNIQUE: AP view of the pelvis with 2 views the right hip FINDINGS: Moderate osteoarthritis of the hips. Lumbar spinal fusion hardware. There is an acute fracture of the proximal right femur which probably involves the subtrochanteric distribution with possible intertrochanteric extension. There is apex lateral angulation with mild comminution and displacement of 4 cm medially. IMPRESSION: Acute displaced and angulated right femoral fracture as above. ACT 112: Negative or not required by law. The above report was generated using voice recognition software. It may contain grammatical, syntax or spelling errors. Electronically signed by: Bartolo Samuel M.D. 02/26/2024 1:36 PM Femur X-Ray 02/27/24 00:00 FL femur RT 2V CLINICAL HISTORY: RIGHT LONG TROCHNAIL COMPARISON STUDY: Pelvis and right hip radiograph February 26, 2024. FLUOROSCOPY TIME: 2 minutes and 21 seconds. Ka,r: 35.65 mGy FLUOROSCOPIC IMAGES: 6 FINDINGS: Fluoroscopy was provided during open reduction and internal fixation of the subtrochanteric right femoral fracture with possible intertrochanteric extension. Trochanteric nail is in place. Fracture alignment appears near anatomic. Hardware is intact. IMPRESSION: Fluoroscopy provided during open reduction and internal fixation of the right femoral fracture. ACT 112: Negative or not required by law. Electronically signed by: Jose Fritz M.D. 02/27/2024 1:34 PM Femur X-Ray 02/27/24 13:20 XR femur RT 2V routine HISTORY: 88 years-old Female Post-Operative implant position acute fracture of the right femur COMPARISON: 02/26/2024 TECHNIQUE: 2 views of the right femur FINDINGS: Status post placement of an intertrochanteric nail with medullary brennan fixating the acute proximal right femoral fracture, now with near anatomic alignment. 7 mm posterior displacement on the lateral view. Lateral skin j luis with expected postoperative soft tissue swelling and deep tissue air. IMPRESSION: Improved alignment of the proximal femoral fracture status post ORIF. ACT 112: Negative or not required by law. The above report was generated using voice recognition software. It may contain grammatical, syntax or spelling errors. Electronically signed by: Bartolo Samuel M.D. 02/27/2024 2:36 PM
[2024-02-27] MEDS: PROMETHAZINE 6.25 MG/50.25 ML BAG IV PRN (17:32)
[2024-02-27] MEDS: ceFAZolin 2000MG 2,000 MG/15 ML SYR IV SCH (20:45)
[2024-02-27] MEDS: APIXABAN 2.5 MG TAB PO SCH (20:46)
--- NOTE | 2024-02-28 06:01 | Orthopedic Progress Note ---
Date of Service February 28, 2024 Assessment & Plan (1) Status post open reduction with internal fixation of fracture: Overall she is doing fairly well. She is not having too much pain in the right hip. She can be weightbearing as tolerated on the right hip. She will be seen by physical therapy today. She is on Eliquis 2.5 mg twice a day. Will likely keep her on that for 4 to 6 weeks depending on her mobility level. She is orthopedically stable for discharge when medically ready. Full orthopedic dis charge instructions were placed in the discharge summary. Sofia Rodas was seen and examined at bedside this morning. Overall she is doing fairly well. She is not having too much pain in the right hip. She has not been out of bed yet. She has no complaints.. Review of Systems All systems reviewed & are unremarkable except as noted in HPI & below. Physical Exam On physical exam of the right hip, the dressing is clean and dry. Her leg is out full extension. She has active dorsiflexion plantarflexion of her right ankle.. Results & Data Results & Data Laboratory Results . Diagnostic Findings Postoperative x-rays of the right hip show the implant to be in good alignment. The fracture is well reduced.. PG Care Time/CCT Total # of Minutes Spent Total Time Spent with Patient: Total time spent is greater than 50% in coordination of care (as documented) at patient's floor/unit and/or counseling patient: Coding Level of Care Code 64476 Post Operative Follow-Up Diagnoses Status post open reduction with internal fixation of fracture Z98.890; Z87.81
[2024-02-28 06:57] LABS: Hematocrit (blood only) 24.7 % (37.0-47.0); Hemoglobin 8.2 g/dl (12.0-16.0); Mean Corpuscular Hemoglobin 32.5 pg (25.0-34.0); Mean Corpuscular Hgb Conc 33.2 g/dL (32.0-36.0); Nucleated RBC # (auto) 0.02 K/uL (0.00-0.12); Nucleated RBC % (auto) 0.1 %; Platelet Count 150 K/uL (130-400); RDW Coefficient of Variation 16.3 % (11.5-14.5); RDW Standard Deviation 57.1 fL (36.4-46.3); Red Blood Count 2.52 M/uL (4.20-5.40); White Blood Count 14.13 K/ul (4.8-10.8)
[2024-02-28 07:22] LABS: BUN Creatinine Ratio 16.9 (10-20); Calcium 8.6 mg/dl (8.6-10.3); Creatinine Clr Calc Pharmacy 19.6 ml/min; Magnesium 1.7 mg/dl (1.7-2.4); Phosphorus 5.2 mg/dl (2.5-4.9); Potassium 4.3 mmol/L (3.5-5.1)
[2024-02-28] MEDS: FUROSEMIDE 40 MG TAB PO SCH (08:12)
[2024-02-28] MEDS ORDERED: FUROSEMIDE 20 MG TAB PO SCH (09:00)
[2024-02-28] MEDS: ACETAMINOPHEN 1,000 MG/100 ML VIAL IV SCH (10:47)
[2024-02-28] MEDS: LIDOCAINE 5% 1 PATCH TD SCH (10:54)
[2024-02-28] MEDS: SODIUM CHLORIDE 0.9% 500 ML IV SCH (11:26)
--- NOTE | 2024-02-28 12:34 | Hospitalist Progress Note ---
Date of Service February 28, 2024 Assessment & Plan (1) Edema of left lower extremity: (2) Femoral fracture: (3) Closed hip fracture: Plan Adrianna Narayan is an 88-year-old female with a significant medical hx of RA, DMII with stage 3a CKD, HLD, HTN, GERD, CAD, Statin intolerance and Vit D deficiency who presents post fall at home and was noted to have an acute displaced and angulated right femoral fracture. She is s/p nailing on 02/27/24 with orthopedic surgery. Acute R Femoral Fracture s/p Right Long Troch Nail on 02/27/24 with orthopedic surgery PRN pain control and nausea control Per ortho for DVT prophylaxis, pt currently on Eliquis PT/OT when able, will likely require acute rehab Follow post op H/H Appreciate further recs from Orthopedic Surgery Acute on Chronic Kidney Disease Patient with history of stage III CKD Creatinine 1.4 on admission to 1.34 to 2.07 on 02/27 Discussed with Nephrology and Cardiology on 02/27, appreciate recs -holding home Lasix -500mls of NSS Continue to monitor Nausea and vomiting Chronic issue Notes phenergan works better than zofran Consider further workup if persistent Fluids as noted above for one 500mls NSS bag. Sacral ulcer wound care consult CAD HTN Hyperlipidemia Lower extremity edema Family requesting evaluation by Cardiology Cardiology consulted, appreciate recs DMII On chronic steroid use ISS while hospitalized Continue to monitor Continue other home meds as ordered Diet: HH/DMII DVT prophylaxis: On Eliquis Dispo: PT/OT for further recs once medically stable Admission and Anticipated Discharge Date Admission Date: February 26, 2024 Results & Data Results & Data Vital Signs (Past 12 Hours) Vital Signs Temp Pulse Resp BP BP Pulse Ox O2 Del Method 02/28/24 11:03 36.8 C 74 16 111/62 96 Room Air 02/28/24 07:21 37.1 C 77 18 140/63 96 Room Air 02/28/24 02:58 36.8 C 61 18 115/67 93 Room Air
--- NOTE | 2024-02-28 13:13 | Nephrology Consultation ---
Date of Consultation February 28, 2024 Assessment & Plan (1) Acute kidney injury superimposed on chronic kidney disease: nonoliguric stage 1 PRISCA on CKD 3B, baseline creatinine mid ones. came in better than baseline but POD 1, creat up to 2.1. no nsaids, no iv contrast, no hemodynamic instability. did have customary OP lasix dose. orhtostatic sx /w standing. -agree w/ 500 mL NS and holding diuretics -will send UACM for completeness -daily bmp -continue nsaid and IV con for CT avoidance appreciate consult will follow with you. care coordinated multiple times w/ Dr Johnston via tiger text re volume status, diuretics, plans of care; we are in agreement. History of Present Illness Reason for Consultation: Prisca on CKD, need for diuretic Requesting Physician: Dr Johnston Attending Physician: Shaila Johnston MD History of Present Illness 88 y/o F whom I'm asked to see for PRISCA on CKD and diuretic advice was admitted 04/27 with a R hip fracture, s/p operative repair 02/26. PMH rheumatoid arthritis on chronic prednisone, DM2, CAD, CKD3B, HTN, HL, GERD; also w/ nephrolithiasis hx. Baseline creatinine is 1.5, follows for CKD w/ PCP. Follows w/ [facility] for stones. Follows w/ [facility] rheum for RA; s/p R knee tap 02/12 d/t chronic L knee/ LLE edema. Fluid analysis c/w pseudogout. Did also have course of Doxy earlier this month for catbite LLE. her presenting creatinine was 1.4 on 02/25 and 1.3 next day; this AM bumped to 2.1. takes lasix alternating 20 and 40 mg doses on alternate days and has had one dose of each. Cardiology evaluated the pt earlier today and noted orthostatic sx (reported while working w/ PT) > lasix was held and pt receiving 500 mL NS. Son, BERA, at bedside. Pt denies f/c, n/v, tolerating po well; no bm yet but +flatus adn no abd pain, no sob, no orthopnea; no chest pain or palpitations. R hip pain has been well controlled reasonably. she has chronic LLE edema which has improved since arrival w/ SCDs. Allergies Allergy/AdvReac Type Severity Reaction Status Date / Time ciprofloxacin [From Cipro] Allergy Unknown Verified 02/27/24 09:05 adalimumab [From Humira] Allergy Unknown Verified 02/27/24 09:05 Sulfa (Sulfonamide Allergy Unknown Verified 02/27/24 09:05 Antibiotics) Home Medications Medication Instructions Recorded Confirmed Type aspirin 81 mg capsule 81 mg PO QAM 12/24/22 02/26/24 History folic acid 1 mg tablet 1 mg PO QAM 12/24/22 02/26/24 History multivitamin 1 tab PO QAM 03/01/23 02/26/24 History trospium 20 mg tablet 20 mg PO BID #180 tabs 01/24/24 02/26/24 Rx carvedilol 6.25 mg tablet 0 mg PO BID 02/26/24 02/26/24 History donepezil 5 mg tablet 5 mg PO QAM 02/26/24 02/26/24 History furosemide 20 mg tablet See Rx Instructions .Route .COMPLEX 02/26/24 02/26/24 History mupirocin 2 % topical ointment 1 applic topical TID 02/26/24 02/26/24 History prednisone 5 mg tablet 5 mg PO QAM 02/26/24 02/26/24 History Patient History Medical History Hydronephrosis of right kidney Transaminitis Acute kidney injury superimposed on chronic kidney disease Nausea & vomiting Incontinence History of syncope admission [facility] 12/2022. DM type 2 (diabetes mellitus, type 2) HTN (hypertension) Surgical History History of umbilical hernia repair History of hysterectomy History of cervical spinal surgery History of back surgery hardware present History of bladder surgery History of cardiac catheterization "several years ago" -- [facility] -- 1 stent per son's report. H/O section x 3 Family History Other Coronary heart disease Diabetes Social History Smoking Status: Never smoker Tobacco Type: Cigarettes Second Hand Exposure: Yes (hx); Do You Dip or Chew Tobacco: No; Hx Alcohol Use: No Hx Substance Use: No Preferred Language: Omani Communication Ability: Effective Analytics Director Required: No Beliefs That Will Affect Care: None Current Living Situation: Spouse Current Living Situation Comment: [place] Feels Safe at Home: Yes Assistive Devices: Cane and Walker Review of Systems 2 Review of Systems: All systems reviewed & are unremarkable except as noted in HPI & below Physical Exam 2 Constitutional: well developed (lying in bed, HOB 30 degrees), well nourished, + frail appearing and cooperative; no acute distress Eyes: EOM intact bilaterally ENMT: Mouth: + dry oral mucous membranes Neck: no nuchal rigidity Respiratory: normal respiratory effort Auscultation: + diminished lung sounds ((ant exam)) Cardiovascular: Rate/Rhythm: regular rate and regular rhythm Extremities: + edema (2+ L pedal) Gastrointestinal (Abdomen): Inspection/Auscultation: normal bowel sounds P ercussion/Palpation: abdomen soft; abdomen nontender Musculoskeletal: Extremities: strength 5/5 throughout Skin: no rashes, warm and dry (R hip surg dressing c/d/i) Neurologic: gee, fluent speech, no tremor Psychiatric: Orientation: alert, oriented to person, oriented to place and cooperative Speech: normal rate/rhythm/volume of speech Results & Data Vital Signs (Past 12 Hours) Vital Signs Temp Pulse Resp BP BP Pulse Ox O2 Del Method 02/28/24 11:03 36.8 C 74 16 111/62 96 Room Air 02/28/24 07:21 37.1 C 77 18 140/63 96 Room Air 02/28/24 02:58 36.8 C 61 18 115/67 93 Room Air Laboratory Results 02/28/24 06:39 02/28/24 06:39
--- NOTE | 2024-02-28 13:52 | Cardiology Progress Note ---
Date of Service February 28, 2024 Assessment & Plan (1) Fall at home: (2) Hip fracture, right: (3) Edema of left lower extremity: (4) Pseudogout: (5) ASCVD (arteriosclerotic cardiovascular disease): (6) HTN (hypertension): (7) Dyslipidemia, goal LDL below 70: Plan Case discussed with Hospitalist earlier today. Furosemide held. Fluid/volume resuscitation recommended. Supplement magnesium. Recheck labs in AM Admission and Anticipated Discharge Date Admission Date: February 26, 2024 Supervising Physician Co-Signing Physician Notes Attending attestation: Case reviewed with the advanced practitioner. I have personally performed a history and physical examination on the patient. I have reviewed the advanced practitioner's documentation on the date of service referenced in note, and I agree with, and take responsibility for the plan of care. Stephen Raya, DO Subjective Patient seen and examined. Chart, medications, telemetry reviewed. Family (, son (RN), [id number]) at bedside. Nauseated. Feels weak and near syncopal when attempting to stand. AM labs with a hemoglobin of 8.2 (previously 10.3) and a creatinine of 2.07 (previously 1.34) Review of Systems Review of Systems: Complete Review of Systems is as stated above, negative, or noncontributory. Physical Exam Physical Exam: General: Pale. HENT: Normocephalic. Atraumatic. Eyes: PER. Conjunctiva pink, sclera clear. Neck: No JVD. Heart: RRR, 70 bpm. No murmur. Lungs: Clear to auscultation anteriorly. Abdomen: +BS. Soft. Nontender. No masses or organomegaly. Taylor catheter in place Extremities: Chronically with left lower extremity edema, much less today as compared to yesterday. No clubbing. No cyanosis Limited neurological examination is without focal deficits. Pulses: Posterior tibial=1/4. Results & Data Vital Signs (Past 12 Hours) Vital Signs Temp Pulse Resp BP BP Pulse Ox O2 Del Method 02/28/24 11:03 36.8 C 74 16 111/62 96 Room Air 02/28/24 07:21 37.1 C 77 18 140/63 96 Room Air 02/28/24 02:58 36.8 C 61 18 115/67 93 Room Air Laboratory Results CBC 02/28/24 Range/Units 06:39 WBC 14.13 H (4.8-10.8) K/ul RBC 2.52 L (4.20-5.40) M/uL Hgb 8.2 L (12.0-16.0) g/dl Hct 24.7 L (37.0-47.0) % Plt Count 150 (130-400) K/uL Comprehensive Metabolic Panel 02/28/24 Range/Units 06:39 Sodium 137 (136-145) mmol/L Potassium 4.3 (3.5-5.1) mmol/L Chloride 98 (98-107) mmol/L Carbon Dioxide 30 (21-32) mmol/L BUN 35 H (6-23) mg/dl Creatinine 2.07 H D (0.6-1.2) mg/dl Glucose 191 H (70-99(Fasting)) mg/dl Calcium 8.6 (8.6-10.3) mg/dl Intake and Output 02/27/24 02/28/24 02/28/24 22:59 06:59 14:59 Intake Total 50.25 / 650.25 100.000 / 100.000 Output Total 275 / 575 Balance 50.25 / 75.25 -275 / 75.25 100.000 / 100.000 Intake: IV 50.25 / 50.25 100.000 / 100.000 Acetaminophen 1,000 mg In 100 100.000 / 100.000 ml @ 400 mls/hr IV Q8H KRISTINE Rx#: [id number] Promethazine 6.25 mg In 50.25 50.25 / 50.25 ml @ 201 mls/hr IV Q6H PRN Rx#: [id number] Output: Urine Amount (Catheter) 275 / 275 Taylor/Indwelling 275 / 275
[2024-02-28] MEDS: MAGNESIUM SULFATE / D5W 1 GM/100 ML BAG IV SCH (14:15)
[2024-02-28 15:35] LABS: Appearance Urine Clear (Clear); Bilirubin Urine Negative (Negative); Blood Urine Negative (Negative); Color Urine Yellow; Glucose Urine UA Negative (Negative); Ketones Urine Negative (Negative); Leukocyte Esterase Urine Negative (Negative); Nitrite Urine Negative (Negative); Protein Urine Negative (Negative); Specific Gravity Urine 1.008 (1.000-1.030); Urobilinogen Urine Negative (Negative)
[2024-02-29] MEDS: HYDROmorphone INJ 0.5 MG/0.5 ML SYR IV PRN (06:11)
[2024-02-29 06:44] LABS: Hematocrit (blood only) 20.2 % (37.0-47.0); Hemoglobin 6.8 g/dl (12.0-16.0); Mean Corpuscular Hemoglobin 32.7 pg (25.0-34.0); Mean Corpuscular Hgb Conc 33.7 g/dL (32.0-36.0); Mean Corpuscular Volume 97.1 fL (80.0-100.0); Nucleated RBC # (auto) 0.03 K/uL (0.00-0.12); Nucleated RBC % (auto) 0.2 %; Platelet Count 142 K/uL (130-400); RDW Coefficient of Variation 16.6 % (11.5-14.5); Red Blood Count 2.08 M/uL (4.20-5.40); White Blood Count 12.14 K/ul (4.8-10.8)
[2024-02-29 07:08] LABS: BUN Creatinine Ratio 20.8 (10-20); Calcium 8.2 mg/dl (8.6-10.3); Creatinine Clr Calc Pharmacy 18.7 ml/min; Magnesium 2.2 mg/dl (1.7-2.4); Potassium 3.8 mmol/L (3.5-5.1)
[2024-02-29] MEDS ORDERED: SODIUM CHLORIDE 0.9% 100 ML IV PRN (07:09)
[2024-02-29] MEDS ORDERED: SODIUM CHLORIDE 0.9% 50 ML IV PRN (07:09)
--- NOTE | 2024-02-29 07:11 | Communication Note ---
Date of Service: February 29, 2024 Notified of a.m. hemoglobin of 6.8 from 8.2 yesterday. No overt bleeding as per RN. AP Postop anemia Transfuse PRBC to maintain hemoglobin of at least 8 given history CAD Hold Eliquis for now until H&H stable FOBT
[2024-02-29] MEDS: ACETAMINOPHEN 500 MG TAB PO SCH (10:46)
--- NOTE | 2024-02-29 11:06 | Nephrology Progress Note ---
Date of Service February 29, 2024 Assessment & Plan (1) Acute kidney injury superimposed on chronic kidney disease: Plan: nonoliguric stage 1 PRISCA on CKD 3B, baseline creatinine mid ones. came in better than baseline but POD 1, creat up to 2.1 > 2.2 today. no nsaids, no iv contrast, no hemodynamic instability. did have customary OP lasix dose 02/27. orhtostatic sx /w standing 02/27 and had 1/2 L NS. UACM w/o e/o infection or inflammation. hold second unit pRBC > check CXR, hgb and then reeeval need -daily bmp -cont to hold diuretics but would give if doing 2nd unit of blood 20 mg IV lasix > so ordered -continue nsaid and IV con for CT avoidance care coordinated multiple times in person and by phone w/ Dr Marilynn gardner volume status, diuretics, transfusion plan, renal function; we are in agreement. (2) Anemia: Plan: hgb down to 6.8 today from 8.2 yesterday ; getting pRBC; hemodynamically stable; platelets ok >defer to primary service to evaluate further for bleed source >>favor holding off after one unit to reevaluate need for 2nd unit > pt at risk for volume overload; >>suggest lasix 20 mg IV as above Admission and Anticipated Discharge Date Admission Date: February 26, 2024 Subjective hgb dropped overnight; no clear reason. getting pRBC; BP maintained no sob, no chest pain; no source of bleeding; son , DIL, bedside; RLE edema improving Review of Systems 2 Review of Systems: All systems reviewed & are unremarkable except as noted in Subjective Physical Exam 2 Constitutional: well developed (lying in bed, HOB 30 degrees), well nourished, + frail appearing and cooperative; no acute distress Eyes: EOM intact bilaterally ENMT: Mouth: + dry oral mucous membranes Neck: no nuchal rigidity Respiratory: normal respiratory effort Auscultation: + diminished lung sounds and + crackles (L anterior but not posterior) Cardiovascular: Rate/Rhythm: regular rate and regular rhythm Extremities: + edema (trace prox L) Gastrointestinal (Abdomen): Inspection/Auscultation: normal bowel sounds P ercussion/Palpation: abdomen soft; abdomen nontender Musculoskeletal: Extremities: strength 5/5 throughout Skin: no rashes, warm and dry (R hip surg dressing c/d/i) Psychiatric: Orientation: alert, oriented to person, oriented to place and cooperative Speech: normal rate/rhythm/volume of speech Results & Data Vital Signs (Past 12 Hours) Vital Signs Temp Pulse Pulse Resp BP BP Pulse Ox 02/29/24 10:41 36.8 C 66 17 108/61 95 02/29/24 10:16 36.6 C 70 17 124/51 L 97 02/29/24 09:46 36.6 C 68 16 115/64 99 02/29/24 09:31 36.6 C 74 18 103/55 L 94 02/29/24 09:29 36.8 C 68 18 110/63 97 02/29/24 09:18 36.8 C 72 18 116/50 L 97 02/29/24 09:15 36.9 C 70 16 120/61 96 02/29/24 07:09 37.0 C 70 16 105/61 95 O2 Del Method 02/29/24 10:41 02/29/24 10:16 02/29/24 09:46 02/29/24 09:31 02/29/24 09:29 02/29/24 09:18 02/29/24 09:15 02/29/24 07:09 Room Air Laboratory Results 02/29/24 05:25 02/29/24 05:25
--- NOTE | 2024-02-29 12:02 | Cardiology Progress Note ---
Date of Service February 29, 2024 Assessment & Plan (1) Fall at home: (2) Hip fracture, right: (3) Edema of left lower extremity: (4) Pseudogout: (5) ASCVD (arteriosclerotic cardiovascular disease): (6) HTN (hypertension): (7) Dyslipidemia, goal LDL below 70: Plan Agree with transfusion of pRBCs. Continue to hold Furosemide. Continue carvedilol. Admission and Anticipated Discharge Date Admission Date: February 26, 2024 Supervising Physician Co-Signing Physician Notes Attending attestation: Case reviewed with the advanced practitioner. I have personally performed a history and physical examination on the patient. I have reviewed the advanced practitioner's documentation on the date of service referenced in note, and I agree with, and take responsibility for the plan of care. Stephen Raya, DO Subjective Patient seen and examined. Chart, medications, telemetry reviewed. Family (, son (RN), daughter, [id number]) at bedside. Pain with movement. Nausea has improved. No chest pain, palpitations, shortness of breath, orthopnea, or PND, fevers, or chills. Last bowel movement was the day of admission. Passing gas. Hemoglobin 6.8 g/dL, receiving the first unit of pRBC's at present. Review of Systems Review of Systems: Complete Review of Systems is as stated above, negative, or noncontributory. Physical Exam Physical Exam: General: Alert and oriented. In good spirits. Improved complexion. HENT: Normocephalic. Atraumatic. Eyes: PER. Conjunctiva pink, sclera clear. Neck: No JVD. Heart: RRR, 64 bpm. No murmur. Lungs: Clear to auscultation anteriorly. Abdomen: +BS. Taylor catheter in place Extremities: Chronically with left lower extremity edema, mild. No clubbing. No cyanosis Limited neurological examination is without focal deficits. Results & Data Vital Signs (Past 12 Hours) Vital Signs Temp Pulse Pulse Resp BP BP Pulse Ox 02/29/24 11:11 36.8 C 66 17 105/60 96 02/29/24 10:41 36.8 C 66 17 108/61 95 02/29/24 10:16 36.6 C 70 17 124/51 L 97 02/29/24 09:46 36.6 C 68 16 115/64 99 02/29/24 09:31 36.6 C 74 18 103/55 L 94 02/29/24 09:29 36.8 C 68 18 110/63 97 02/29/24 09:18 36.8 C 72 18 116/50 L 97 02/29/24 09:15 36.9 C 70 16 120/61 96 02/29/24 07:09 37.0 C 70 16 105/61 95 O2 Del Method 02/29/24 11:11 02/29/24 10:41 02/29/24 10:16 02/29/24 09:46 02/29/24 09:31 02/29/24 09:29 02/29/24 09:18 02/29/24 09:15 02/29/24 07:09 Room Air Laboratory Results CBC 02/29/24 Range/Units 05:25 WBC 12.14 H (4.8-10.8) K/ul RBC 2.08 L (4.20-5.40) M/uL Hgb 6.8 L* (12.0-16.0) g/dl Hct 20.2 L* (37.0-47.0) % Plt Count 142 (130-400) K/uL Comprehensive Metabolic Panel 02/29/24 Range/Units 05:25 Sodium 135 L (136-145) mmol/L Potassium 3.8 (3.5-5.1) mmol/L Chloride 100 (98-107) mmol/L Carbon Dioxide 27 (21-32) mmol/L BUN 45 H (6-23) mg/dl Creatinine 2.16 H (0.6-1.2) mg/dl Glucose 184 H (70-99(Fasting)) mg/dl Calcium 8.2 L (8.6-10.3) mg/dl Intake and Output 02/28/24 02/29/24 02/29/24 22:59 06:59 14:59 Intake Total 800 / 1000.000 100 / 1000.000 0 / 0 Output Total 625 / 1525 650 / 1525 Balance 175 / -525.000 -550 / -525.000 0 / 0 Intake: IV 800 / 1000.000 100 / 1000.000 Acetaminophen 1,000 mg In 100 100 / 300.000 100 / 300.000 ml @ 400 mls/hr IV Q8H KRISTINE Rx#: [id number] Magnesium Sulfate / D5w 1 gm In 200 / 200 100 ml @ 50 mls/hr IV Q2H KRISTINE Rx#:[id number] Sodium Chloride 0.9% 500 ml @ 500 / 500 80 mls/hr IV .Q6H15M KRISTINE Rx#: [id number] Intake (Blood Product) Amt 0 / 0 Packed Cells, Leukoreduced 0 / 0 Unit [id number] Output: Urine Amount (Catheter) 625 / 1525 650 / 1525 Taylor/Indwelling 625 / 1525 650 / 1525
[2024-02-29] MEDS: PANTOprazole 40 MG TAB PO SCH (12:59)
[2024-02-29 14:49] LABS: Hematocrit (blood only) 24.4 % (37.0-47.0); Hemoglobin 8.3 g/dl (12.0-16.0)
--- NOTE | 2024-02-29 15:13 | XRay Report ---
XR chest 1V portable CLINICAL HISTORY: HF pt w/ some crackles L anterior just got pRBC COMPARISON STUDY: Chest radiograph February 26, 2024. FINDINGS: Lung volumes are normal. Lungs are clear. There is no pneumothorax or pleural effusion. Mil d cardiomegaly is unchanged. Mediastinal contours are normal. There is no evidence for pulmonary gabi a. IMPRESSION: No acute cardiopulmonary findings. No evidence for pulmonary edema. ACT 112: Negative or not required by law. Electronically signed by: Jose Fritz M.D. 02/29/2024 3:11 PM
[2024-02-29] MEDS: FUROSEMIDE INJ 20 MG/2 ML VIAL IV ONE (16:56)
[2024-02-29] MEDS: POLYETHYLENE (MIRALAX) 17 GM PACK PO SCH (21:23)
[2024-02-29] MEDS: SENNA 8.6 MG TAB PO SCH (21:23)
--- NOTE | 2024-03-01 04:49 | Hospitalist Progress Note ---
Date of Service February 29, 2024 Assessment & Plan (1) Edema of left lower extremity: (2) Femoral fracture: (3) Closed hip fracture: Plan Adrianna Narayan is an 88-year-old female with a significant medical hx of RA, DMII with stage 3a CKD, HLD, HTN, GERD, CAD, Statin intolerance and Vit D deficiency who presents post fall at home and was noted to have an acute displaced and angulated right femoral fracture. She is s/p nailing on 02/27/24 with orthopedic surgery. Acute R Femoral Fracture s/p Right Long Troch Nail on 02/27/24 with orthopedic surgery PRN pain control and nausea control Per ortho for DVT prophylaxis, pt currently on Eliquis PT/OT when able, will likely require acute rehab Follow post op H/H Appreciate further recs from Orthopedic Surgery Acute blood loss anemia, postoperative - post-op Hgb 6.8 this AM, 1 unit of pRBC ordered by gómez -Dany on hold Acute on Chronic Kidney Disease Patient with history of stage III CKD Creatinine 1.4 on admission to 1.34 to 2.07 on 02/27 Discussed with Nephrology and Cardiology on 02/27, appreciate recs -holding home Lasix Continue to monitor Nausea and vomiting Chronic issue Notes phenergan works better than zofran Consider further workup if persistent improved now Sacral ulcer wound care consult CAD HTN Hyperlipidemia Lower extremity edema Family requesting evaluation by Cardiology Cardiology consulted, appreciate recs DMII On chronic steroid use ISS while hospitalized Continue to monitor Continue other home meds as ordered Diet: HH/DMII DVT prophylaxis: On Eliquis Dispo: PT/OT for further recs once medically stable Admission and Anticipated Discharge Date Admission Date: February 26, 2024 Subjective Pt seen laying in bed in NAD, family present at the bedside Hgb 6.8, 1 unit of pRBC ordered by gómez Overall pt is feeling well, has some hip pain post surgery No fever, chills, chest pain, shortness of breath, abd. pain + constipation Review of Systems Review of Systems: All systems reviewed & are unremarkable except as noted in Subjective Physical Exam Physical Exam: General: obese, elderly F in NAD HEENT: NC/AT CV: RRR Resp: Breath sounds clear bilaterally, no increased effort of breathing Abdomen: Soft, nontender, obese, + umb. hernia Extremities: edema in L>R extremities bilaterally. Neuro: awake, alert, oriented, speech fluent, answers appropriately, moves extremities Psych: Appropriate mood and affect Results & Data Results & Data Vital Signs (Past 12 Hours) Vital Signs Temp Pulse Resp BP Pulse Ox O2 Del Method Room Air 02/29/24 21:22 37.6 C H 75 18 137/71 97 Room Air Laboratory Results 02/29/24 02/29/24 02/29/24 Range/Units 20:29 16:22 14:35 WBC (4.8-10.8) K/ul RBC (4.20-5.40) M/uL Hgb 8.3 L (12.0-16.0) g/dl Hct 24.4 L (37.0-47.0) % MCV (80.0-100.0) fL MCH (25.0-34.0) pg MCHC (32.0-36.0) g/dL RDW Std Deviation (36.4-46.3) fL RDW Coeff of Prudence (11.5-14.5) % Plt Count (130-400) K/uL MPV (9.4-12.4) fL Absolute Nucleated RBC (0.00-0.12) K/uL Nucleated RBC % (auto) % Sodium (136-145) mmol/L Potassium (3.5-5.1) mmol/L Chloride (98-107) mmol/L Carbon Dioxide (21-32) mmol/L Anion Gap (3-11) BUN (6-23) mg/dl Creatinine (0.6-1.2) mg/dl Est Cr Clr Drug Dosing ml/min eGFR BUN/Creatinine Ratio (10-20) Glucose (70-99(Fasting)) mg/dl POC Glucose 203 H 189 H (70-99) mg/dl Calcium (8.6-10.3) mg/dl Phosphorus (2.5-4.9) mg/dl Magnesium (1.7-2.4) mg/dl Blood Type Blood Type Recheck Antibody Screen Crossmatch 02/29/24 02/29/24 02/29/24 Range/Units 11: 07:21 05:25 WBC 12.14 H (4.8-10.8) K/ul RBC 2.08 L (4.20-5.40) M/uL Hgb 6.8 L* (12.0-16.0) g/dl Hct 20.2 L* (37.0-47.0) % MCV 97.1 (80.0-100.0) fL MCH 32.7 (25.0-34.0) pg MCHC 33.7 (32.0-36.0) g/dL RDW Std Deviation 57.0 H (36.4-46.3) fL RDW Coeff of Prudence 16.6 H (11.5-14.5) % Plt Count 142 (130-400) K/uL MPV 10.0 (9.4-12.4) fL Absolute Nucleated RBC 0.03 (0.00-0.12) K/uL Nucleated RBC % (auto) 0.2 % Sodium 135 L (136-145) mmol/L Potassium 3.8 (3.5-5.1) mmol/L Chloride 100 (98-107) mmol/L Carbon Dioxide 27 (21-32) mmol/L Anion Gap 8 (3-11) BUN 45 H (6-23) mg/dl Creatinine 2.16 H (0.6-1.2) mg/dl Est Cr Clr Drug Dosing 18.7 ml/min eGFR 21.64 BUN/Creatinine Ratio 20.8 H (10-20) Glucose 184 H (70-99(Fasting)) mg/dl POC Glucose 222 H 200 H (70-99) mg/dl Calcium 8.2 L (8.6-10.3) mg/dl Phosphorus 4.0 D (2.5-4.9) mg/dl Magnesium 2.2 (1.7-2.4) mg/dl Blood Type Blood Type Recheck O Negative Antibody Screen Crossmatch 02/26/24 Range/Units 18:31 WBC (4.8-10.8) K/ul RBC (4.20-5.40) M/uL Hgb (12.0-16.0) g/dl Hct (37.0-47.0) % MCV (80.0-100.0) fL MCH (25.0-34.0) pg MCHC (32.0-36.0) g/dL RDW Std Deviation (36.4-46.3) fL RDW Coeff of Prudence (11.5-14.5) % Plt Count (130-400) K/uL MPV (9.4-12.4) fL Absolute Nucleated RBC (0.00-0.12) K/uL Nucleated RBC % (auto) % Sodium (136-145) mmol/L Potassium (3.5-5.1) mmol/L Chloride (98-107) mmol/L Carbon Dioxide (21-32) mmol/L Anion Gap (3-11) BUN (6-23) mg/dl Creatinine (0.6-1.2) mg/dl Est Cr Clr Drug Dosing ml/min eGFR BUN/Creatinine Ratio (10-20) Glucose (70-99(Fasting)) mg/dl POC Glucose (70-99) mg/dl Calcium (8.6-10.3) mg/dl Phosphorus (2.5-4.9) mg/dl Magnesium (1.7-2.4) mg/dl Blood Type O Negative Blood Type Recheck Antibody Screen NEGATIVE Crossmatch See Detail Medications Administered Current Inpatient Medications Acetaminophen (Acetaminophen 500 Mg Tab) 1,000 mg PO Q8H [facility] Stop: 03/30/24 10:59 Last Admin: 03/01/24 02:20 Dose: 1,000 mg Apixaban (Apixaban 2.5 Mg Tab) 2.5 mg PO BID [facility] Stop: 03/28/24 20:59 Last Admin: 02/28/24 21:17 Dose: 2.5 mg Carvedilol (Carvedilol 6.25 Mg Tab) 6.25 mg PO BID [facility] Stop: 03/27/24 20:59 Last Admin: 02/29/24 21:24 Dose: 6.25 mg Dextrose (Dextrose 50% 50 Ml Syringe) 25 - 50 ml IV UD PRN; Protocol PRN Reason: Hypoglycemia Protocol Stop: 03/27/24 19:13 Donepezil HCl (Donepezil Hcl 5 Mg Tab) 5 mg PO QAM [facility] Stop: 03/28/24 08:59 Last Admin: 02/29/24 08:31 Dose: 5 mg Folic Acid (Folic Acid 1 Mg Tab) 1 mg PO QAM [facility] Stop: 03/28/24 08:59 Last Admin: 02/29/24 08:31 Dose: 1 mg Furosemide (Furosemide 20 Mg Tab) 20 mg PO Q48H [facility] Stop: 03/28/24 08:59 Last Admin: 02/27/24 08:12 Dose: 20 mg Furosemide (Furosemide 40 Mg Tab) 40 mg PO Q48H [facility] Stop: 03/29/24 08:59 Last Admin: 02/28/24 08:12 Dose: 40 mg Glucagon (Glucagon For Inj 1 Mg Vial) 1 mg SQ UD PRN; Protocol PRN Reason: Hypoglycemia Protocol Stop: 03/27/24 19:13 Glucose (Glucose 40% Gel 15 Gm Tube) 15 - 30 gm PO UD PRN; Protocol PRN Reason: Hypoglycemia Protocol Stop: 03/27/24 19:13 Glucose (Glucose 10 Tab/Tube) 4 - 8 tab PO UD PRN; Protocol PRN Reason: Hypoglycemia Protocol Stop: 03/27/24 19:13 Hydromorphone HCl (Hydromorphone Inj 0.5 Mg/0.5 Ml Syr) 0.25 mg IV Q4H PRN PRN Reason: Pain Stop: 03/11/24 19:59 Last Admin: 02/29/24 06:11 Dose: 0.25 mg Promethazine HCl (Phenergan) 6.25 mg in 50.25 mls @ 201 mls/hr IV Q6H PRN PRN Reason: Nausea And Vomiting Stop: 03/28/24 16:21 Last Infusion: 02/27/24 18:15 Dose: Infused Insulin Aspart (Insulin Aspart Per Unit Charge) 0 units SC ACHS [facility] Stop: 03/27/24 19:20 Last Admin: 02/29/24 21:24 Dose: 3 units Lidocaine (Lidocaine 5% 1 Patch) 1 patch TD QAM [facility] Stop: 03/29/24 10:44 Last Admin: 02/29/24 08:36 Dose: Not Given Magnesium Hydroxide (Magnesium Hydroxide Susp 30 Ml Udc) 30 ml PO Q6H PRN PRN Reason: Constipation Stop: 03/27/24 19:13 Melatonin (Melatonin 3 Mg Tab) 3 mg PO HS PRN PRN Reason: Insomnia Stop: 03/27/24 19:13 Last Admin: 02/29/24 21:23 Dose: 3 mg Methotrexate (Methotrexate Sodium 2.5 Mg Tab) 2.5 mg PO Fr@0900 [facility] Stop: 04/01/24 08:59 Miscellaneous (Carbohydrates For Hypoglycemia ) 15 - 30 gm PO UD PRN PRN Reason: Hypoglycemia Protocol Stop: 03/27/24 19:13 Miscellaneous (Remove Lidoderm Patch) 1 each N/A DAILY@2100 [facility] Stop: 03/29/24 20:59 Last Admin: 02/29/24 21:27 Dose: 1 each Multivitamins (Multivitamin Tab) 1 tab PO QAM [facility] Stop: 03/28/24 08:59 Last Admin: 02/29/24 08:31 Dose: 1 tab Mupirocin (Mupirocin 2% Oint 22 Gm Tube) 1 appln TOP TID [facility] Stop: 03/27/24 20:59 Last Admin: 02/29/24 21:24 Dose: 1 appln Ondansetron HCl (Ondansetron Inj 2 Mg/Ml 2 Ml Vial) 4 mg IV Q6H PRN PRN Reason: Nausea Stop: 03/27/24 19:13 Last Admin: 02/27/24 15:30 Dose: 4 mg Oxybutynin Chloride (Oxybutynin Chloride Xl 5 Mg Tabcr) 5 mg PO DAILY [facility]; Protocol Stop: 03/28/24 08:59 Last Admin: 02/29/24 08:31 Dose: 5 mg Pantoprazole Sodium (Pantoprazole 40 Mg Tab) 40 mg PO BID [facility] Stop: 03/30/24 11:29 Last Admin: 02/29/24 21:23 Dose: 40 mg Polyethylene Glycol (Polyethylene (Miralax) 17 Gm Pack) 17 gm PO DAILY PRN PRN Reason: Constipation Stop: 03/27/24 19:13 Polyethylene Glycol (Polyethylene (Miralax) 17 Gm Pack) 17 gm PO DAILY [facility] Stop: 03/30/24 19:29 Last Admin: 02/29/24 21:23 Dose: 17 gm Prednisone (Prednisone 5 Mg Tab) 5 mg PO QAM [facility] Stop: 03/28/24 08:59 Last Admin: 02/29/24 08:31 Dose: 5 mg Sennosides (Senna 8.6 Mg Tab) 8.6 mg PO QAM [facility] Stop: 03/30/24 19:29 Last Admin: 02/29/24 21:23 Dose: 8.6 mg
[2024-03-01 07:29] LABS: Mean Corpuscular Hemoglobin 32.4 pg (25.0-34.0); Mean Corpuscular Hgb Conc 33.3 g/dL (32.0-36.0); Mean Corpuscular Volume 97.2 fL (80.0-100.0); Mean Platelet Volume 10.1 fL (9.4-12.4); Nucleated RBC # (auto) 0.02 K/uL (0.00-0.12); Nucleated RBC % (auto) 0.2 %; Platelet Count 110 K/uL (130-400); RDW Coefficient of Variation 18.1 % (11.5-14.5); Red Blood Count 2.47 M/uL (4.20-5.40); White Blood Count 9.12 K/ul (4.8-10.8)
[2024-03-01 07:51] LABS: BUN Creatinine Ratio 26.3 (10-20); Calcium 8.1 mg/dl (8.6-10.3); Creatinine Clr Calc Pharmacy 23.1 ml/min; Magnesium 2.1 mg/dl (1.7-2.4); Phosphorus 2.8 mg/dl (2.5-4.9); Potassium 4.1 mmol/L (3.5-5.1)
--- NOTE | 2024-03-01 10:41 | Cardiology Progress Note ---
Date of Service March 01, 2024 Assessment & Plan (1) Fall at home: (2) Hip fracture, right: (3) Edema of left lower extremity: (4) Pseudogout: (5) ASCVD (arteriosclerotic cardiovascular disease): (6) HTN (hypertension): (7) Dyslipidemia, goal LDL below 70: Plan Continue to hold Furosemide, will likely need to resume in 2-3 days Continue carvedilol. Increase activity as tolerated. ? transfer to inpatient rehab in 1-2 days Admission and Anticipated Discharge Date Admission Date: February 26, 2024 Supervising Physician Co-Signing Physician Notes Attending attestation: Case reviewed with the advanced practitioner. I have personally performed a history and physical examination on the patient. I have reviewed the advanced practitioner's documentation on the date of service referenced in note, and I agree with, and take responsibility for the plan of care. Stephen Raya, DO Subjective Patient seen and examined. Chart, medications, telemetry reviewed. and son at bedside. Up to the bedside chair. Tolerable pain with movement. No chest pain, pa lpitations, shortness of breath, orthopnea, or PND, fevers, or chills. Hemoglobin 8 g/dL following transfusion of one unit of pRBC's on 02/29/2024. Review of Systems Review of Systems: Complete Review of Systems is as stated above, negative, or noncontributory. Physical Exam Physical Exam: General: Alert and oriented. HENT: Normocephalic. Atraumatic. Eyes: PER. Conjunctiva pink, sclera clear. Neck: No JVD. Heart: RRR, 66 bpm. No murmur. Lungs: Clear to auscultation anteriorly. Abdomen: +BS. Taylor catheter in place Extremities: Minimal edema. Stasis changes. No clubbing. No cyanosis Limited neurological examination is without focal deficits. Results & Data Vital Signs (Past 12 Hours) Vital Signs Temp Pulse Resp BP Pulse Ox O2 Del Method 03/01/24 07:20 36.6 C 67 17 106/58 L 97 Room Air 03/01/24 02:04 Room Air Laboratory Results CBC 02/29/24 03/01/24 Range/Units 14:35 06:18 WBC 9.12 (4.8-10.8) K/ul RBC 2.47 L (4.20-5.40) M/uL Hgb 8.3 L 8.0 L (12.0-16.0) g/dl Hct 24.4 L 24.0 L (37.0-47.0) % Plt Count 110 L (130-400) K/uL Comprehensive Metabolic Panel 03/01/24 Range/Units 06:18 Sodium 137 (136-145) mmol/L Potassium 4.1 (3.5-5.1) mmol/L Chloride 103 (98-107) mmol/L Carbon Dioxide 29 (21-32) mmol/L BUN 46 H (6-23) mg/dl Creatinine 1.75 H D (0.6-1.2) mg/dl Glucose 186 H (70-99(Fasting)) mg/dl Calcium 8.1 L (8.6-10.3) mg/dl Intake and Output 02/29/24 03/01/24 03/01/24 22:59 06:59 14:59 Intake Total 300 / 300 Output Total / 1750 / 1750 Balance -700 / -1450 -400 / -1450 Intake: Oral 300 / 300 Output: Urine Amount (Catheter) 1749 700 / 175 Taylor/Indwelling 1749 / 175
--- NOTE | 2024-03-01 12:37 | Nephrology Progress Note ---
Date of Service March 01, 2024 Assessment & Plan (1) Acute kidney injury superimposed on chronic kidney disease: Plan: improving nonoliguric stage 1 PRISCA on CKD 3B, baseline creatinine mid ones. came in better than baseline but POD 1, creat up to 2.1 > 2.2 > 1.8 today. no nsaids, no iv contrast, no hemodynamic instability. did have customary OP lasix dose 02/27. orhtostatic sx /w standing 02/27 and had 1/2 L NS. UACM w/o e/o infection or inflammation. -daily bmp -cont to hold diuretics and may be able to resume in 24-48 hrs -continue nsaid and IV con for CT avoidance care coordinated w/ Dr Subramanian and ZAMZAM Harris re volume status, diuretics, renal function; we are in agreement. (2) Anemia: Plan: hgb down to 6.8 02/28 from 8.2 >> back up to 8 after pRBC hemodynamically stable; platelets ok >defer to primary service to evaluate further for bleed source >>no furhter pRBC needed today ;did have lasix 20 m g IV post trnasfusion Admission and Anticipated Discharge Date Admission Date: February 26, 2024 Subjective did steps to day w/ PT and sat in chair for a few hours. denies sob. quite tired after PT; feels edema remains improved Review of Systems 2 Review of Systems: All systems reviewed & are unremarkable except as noted in Subjective Physical Exam 2 Constitutional: well developed (lying in bed, HOB 30 degrees), well nourished, + frail appearing and cooperative; no acute distress Eyes: EOM intact bilaterally ENMT: Mouth: + dry oral mucous membranes Respiratory: normal respiratory effort Auscultation: + diminished lung sounds; no crackles (anterior exam) Cardiovascular: Rate/Rhythm: regular rate and regular rhythm Extremities: + edema (trace-1+ prox L) Gastrointestinal (Abdomen): Inspection/Auscultation: normal bowel sounds P ercussion/Palpation: abdomen soft; abdomen nontender Musculoskeletal: Extremities: strength 5/5 throughout Skin: no rashes, warm and dry (R hip surg dressing c/d/i) Psychiatric: Orientation: alert, oriented to person, oriented to place and cooperative Speech: normal rate/rhythm/volume of speech Results & Data Vital Signs (Past 12 Hours) Vital Signs Temp Pulse Resp BP Pulse Ox O2 Del Method 03/01/24 07:20 36.6 C 67 17 106/58 L 97 Room Air 03/01/24 02:04 Room Air Laboratory Results 03/01/24 06:18 03/01/24 06:18 Diagnostic Findings cxr yest > no edema
--- NOTE | 2024-03-02 07:11 | Hospitalist Progress Note ---
Date of Service March 01, 2024 Assessment & Plan (1) Edema of left lower extremity: (2) Femoral fracture: (3) Closed hip fracture: Plan Adrianna Narayan is an 88-year-old female with a significant medical hx of RA, DMII with stage 3a CKD, HLD, HTN, GERD, CAD, Statin intolerance and Vit D deficiency who presents post fall at home and was noted to have an acute displaced and angulated right femoral fracture. She is s/p nailing on 02/27/24 with orthopedic surgery. Acute R Femoral Fracture s/p Right Long Troch Nail on 02/27/24 with orthopedic surgery PRN pain control and nausea control Per ortho for DVT prophylaxis, pt on Eliquis - now on hold PT/OT when able, will likely require acute rehab Follow post op H/H Appreciate further recs from Orthopedic Surgery Acute blood loss anemia, postoperative - post-op Hgb 6.8, received 1 unit of pRBC -> current Hgb 8.0 -Eliquis on hold Acute on Chronic Kidney Disease Patient with history of stage III CKD Creatinine 1.4 on admission to 1.34 to 2.07 on 02/27 Discussed with Nephrology and Cardiology on 02/27, appreciate recs -holding home Lasix Continue to monitor Nausea and vomiting Chronic issue Notes phenergan works better than zofran Consider further workup if persistent improved now Sacral ulcer wound care consult CAD HTN Hyperlipidemia Lower extremity edema Family requested evaluation by Cardiology Cardiology consulted, appreciate recs DMII On chronic steroid use ISS while hospitalized Continue to monitor Continue other home meds as ordered Diet: HH/DMII DVT prophylaxis: Eliquis on hold, SCDs Dispo: PT/OT for further recs once medically stable Admission and Anticipated Discharge Date Admission Date: February 26, 2024 Subjective Pt seen sitting up in chair in NAD, daughter present at the bedside Hgb 6.8 yesterday, s/p 1 unit of pRBC , this AM Hgb 8.0, eliquis on hold Overall pt is feeling well, has some hip pain post surgery No fever, chills, chest pain, shortness of breath, abd. pain + constipation Review of Systems Review of Systems: All systems reviewed & are unremarkable except as noted in Subjective Physical Exam Physical Exam: General: obese, elderly F in NAD HEENT: NC/AT CV: RRR Resp: Breath sounds clear bilaterally, no increased effort of breathing Abdomen: Soft, nontender, obese, + umb. hernia Extremities: edema in L>R (per family been evaluated outpt), extremities bilaterally. Neuro: awake, alert, oriented, speech fluent, answers appropriately, moves extremities Psych: Appropriate mood and affect Results & Data Results & Data Vital Signs (Past 12 Hours) Vital Signs Temp Pulse Resp BP Pulse Ox O2 Del Method 03/01/24 20:38 36.9 C 67 15 146/73 H 98 Room Air Laboratory Results 03/01/24 03/01/24 03/01/24 Range/Units 20:35 16:21 11:41 WBC (4.8-10.8) K/ul RBC (4.20-5.40) M/uL Hgb (12.0-16.0) g/dl Hct (37.0-47.0) % MCV (80.0-100.0) fL MCH (25.0-34.0) pg MCHC (32.0-36.0) g/dL RDW Std Deviation (36.4-46.3) fL RDW Coeff of Prudence (11.5-14.5) % Plt Count (130-400) K/uL MPV (9.4-12.4) fL Absolute Nucleated RBC (0.00-0.12) K/uL Nucleated RBC % (auto) % Sodium (136-145) mmol/L Potassium (3.5-5.1) mmol/L Chloride (98-107) mmol/L Carbon Dioxide (21-32) mmol/L Anion Gap (3-11) BUN (6-23) mg/dl Creatinine (0.6-1.2) mg/dl Est Cr Clr Drug Dosing ml/min eGFR BUN/Creatinine Ratio (10-20) Glucose (70-99(Fasting)) mg/dl POC Glucose 176 H 246 H 298 H (70-99) mg/dl Calcium (8.6-10.3) mg/dl Phosphorus (2.5-4.9) mg/dl Magnesium (1.7-2.4) mg/dl 03/01/24 03/01/24 03/01/24 Range/Units 11:40 07:27 06:18 WBC 9.12 (4.8-10.8) K/ul RBC 2.47 L (4.20-5.40) M/uL Hgb 8.0 L (12.0-16.0) g/dl Hct 24.0 L (37.0-47.0) % MCV 97.2 (80.0-100.0) fL MCH 32.4 (25.0-34.0) pg MCHC 33.3 (32.0-36.0) g/dL RDW Std Deviation 60.0 H (36.4-46.3) fL RDW Coeff of Prudence 18.1 H (11.5-14.5) % Plt Count 110 L (130-400) K/uL MPV 10.1 (9.4-12.4) fL Absolute Nucleated RBC 0.02 (0.00-0.12) K/uL Nucleated RBC % (auto) 0.2 % Sodium 137 (136-145) mmol/L Potassium 4.1 (3.5-5.1) mmol/L Chloride 103 (98-107) mmol/L Carbon Dioxide 29 (21-32) mmol/L Anion Gap 5 (3-11) BUN 46 H (6-23) mg/dl Creatinine 1.75 H D (0.6-1.2) mg/dl Est Cr Clr Drug Dosing 23.1 ml/min eGFR 27.86 BUN/Creatinine Ratio 26.3 H (10-20) Glucose 186 H (70-99(Fasting)) mg/dl POC Glucose 309 H* 182 H (70-99) mg/dl Calcium 8.1 L (8.6-10.3) mg/dl Phosphorus 2.8 D (2.5-4.9) mg/dl Magnesium 2.1 (1.7-2.4) mg/dl Medications Administered Current Inpatient Medications Acetaminophen (Acetaminophen 500 Mg Tab) 1,000 mg PO Q8H [facility] Stop: 03/30/24 10:59 Last Admin: 03/02/24 02:09 Dose: 1,000 mg Apixaban (Apixaban 2.5 Mg Tab) 2.5 mg PO BID [facility] Stop: 03/28/24 20:59 Last Admin: 02/28/24 21:17 Dose: 2.5 mg Carvedilol (Carvedilol 6.25 Mg Tab) 6.25 mg PO BID [facility] Stop: 03/27/24 20:59 Last Admin: 03/01/24 21:53 Dose: 6.25 mg Dextrose (Dextrose 50% 50 Ml Syringe) 25 - 50 ml IV UD PRN; Protocol PRN Reason: Hypoglycemia Protocol Stop: 03/27/24 19:13 Donepezil HCl (Donepezil Hcl 5 Mg Tab) 5 mg PO QAM [facility] Stop: 03/28/24 08:59 Last Admin: 03/01/24 08:27 Dose: 5 mg Folic Acid (Folic Acid 1 Mg Tab) 1 mg PO QAM [facility] Stop: 03/28/24 08:59 Last Admin: 03/01/24 08:27 Dose: 1 mg Furosemide (Furosemide 20 Mg Tab) 20 mg PO Q48H [facility] Stop: 03/28/24 08:59 Last Admin: 02/27/24 08:12 Dose: 20 mg Furosemide (Furosemide 40 Mg Tab) 40 mg PO Q48H [facility] Stop: 03/29/24 08:59 Last Admin: 02/28/24 08:12 Dose: 40 mg Glucagon (Glucagon For Inj 1 Mg Vial) 1 mg SQ UD PRN; Protocol PRN Reason: Hypoglycemia Protocol Stop: 03/27/24 19:13 Glucose (Glucose 40% Gel 15 Gm Tube) 15 - 30 gm PO UD PRN; Protocol PRN Reason: Hypoglycemia Protocol Stop: 03/27/24 19:13 Glucose (Glucose 10 Tab/Tube) 4 - 8 tab PO UD PRN; Protocol PRN Reason: Hypoglycemia Protocol Stop: 03/27/24 19:13 Hydromorphone HCl (Hydromorphone Inj 0.5 Mg/0.5 Ml Syr) 0.25 mg IV Q4H PRN PRN Reason: Pain Stop: 03/11/24 19:59 Last Admin: 03/01/24 22:17 Dose: 0.25 mg Promethazine HCl (Phenergan) 6.25 mg in 50.25 mls @ 201 mls/hr IV Q6H PRN PRN Reason: Nausea And Vomiting Stop: 03/28/24 16:21 Last Infusion: 02/27/24 18:15 Dose: Infused Insulin Aspart (Insulin Aspart Per Unit Charge) 0 units SC ACHS [facility] Stop: 03/27/24 19:20 Last Admin: 03/01/24 21:51 Dose: 2 units Lidocaine (Lidocaine 5% 1 Patch) 1 patch TD QAM [facility] Stop: 03/29/24 10:44 Last Admin: 03/01/24 08:29 Dose: 1 patch Magnesium Hydroxide (Magnesium Hydroxide Susp 30 Ml Udc) 30 ml PO Q6H PRN PRN Reason: Constipation Stop: 03/27/24 19:13 Melatonin (Melatonin 3 Mg Tab) 3 mg PO HS PRN PRN Reason: Insomnia Stop: 03/27/24 19:13 Last Admin: 02/29/24 21:23 Dose: 3 mg Methotrexate (Methotrexate Sodium 2.5 Mg Tab) 2.5 mg PO Fr@0900 [facility] Stop: 04/01/24 08:59 Miscellaneous (Carbohydrates For Hypoglycemia ) 15 - 30 gm PO UD PRN PRN Reason: Hypoglycemia Protocol Stop: 03/27/24 19:13 Miscellaneous (Remove Lidoderm Patch) 1 each N/A DAILY@2100 [facility] Stop: 03/29/24 20:59 Last Admin: 03/01/24 22:00 Dose: Not Given Multivitamins (Multivitamin Tab) 1 tab PO QAM [facility] Stop: 03/28/24 08:59 Last Admin: 03/01/24 08:27 Dose: 1 tab Mupirocin (Mupirocin 2% Oint 22 Gm Tube) 1 appln TOP TID [facility] Stop: 03/27/24 20:59 Last Admin: 03/01/24 21:52 Dose: 1 appln Ondansetron HCl (Ondansetron Inj 2 Mg/Ml 2 Ml Vial) 4 mg IV Q6H PRN PRN Reason: Nausea Stop: 03/27/24 19:13 Last Admin: 02/27/24 15:30 Dose: 4 mg Oxybutynin Chloride (Oxybutynin Chloride Xl 5 Mg Tabcr) 5 mg PO DAILY [facility]; Protocol Stop: 03/28/24 08:59 Last Admin: 03/01/24 08:27 Dose: 5 mg Pantoprazole Sodium (Pantoprazole 40 Mg Tab) 40 mg PO BID [facility] Stop: 03/30/24 11:29 Last Admin: 03/01/24 21:53 Dose: 40 mg Polyethylene Glycol (Polyethylene (Miralax) 17 Gm Pack) 17 gm PO DAILY PRN PRN Reason: Constipation Stop: 03/27/24 19:13 Polyethylene Glycol (Polyethylene (Miralax) 17 Gm Pack) 17 gm PO DAILY [facility] Stop: 03/30/24 19:29 Last Admin: 03/01/24 08:32 Dose: 17 gm Prednisone (Prednisone 5 Mg Tab) 5 mg PO [facility] Stop: 03/28/24 08:59 Last Admin: 03/01/24 08:27 Dose: 5 mg Sennosides (Senna 8.6 Mg Tab) 8.6 mg PO [facility] Stop: 03/30/24 19:29 Last Admin: 03/01/24 08:32 Dose: 8.6 mg
--- NOTE | 2024-03-02 07:42 | Hospitalist Progress Note ---
Date of Service March 02, 2024 Assessment & Plan (1) Edema of left lower extremity: (2) Femoral fracture: (3) Closed hip fracture: Plan Adrianna Narayan is an 88-year-old female with a significant medical hx of RA, DMII with stage 3a CKD, HLD, HTN, GERD, CAD, Statin intolerance and Vit D deficiency who presents post fall at home and was noted to have an acute displaced and angulated right femoral fracture. She is s/p nailing on 02/27/24 with orthopedic surgery. Acute R Femoral Fracture Age-related osteoporosis with current pathologic fracture, right femur s/p Right Long Troch Nail on 02/27/24 with orthopedic surgery PRN pain control and nausea control Per ortho for DVT prophylaxis, pt on Eliquis - now on hold PT/OT , will likely require acute rehab Appreciate further recs from Orthopedic Surgery will obtain vit D level Acute blood loss anemia, postoperative - post-op Hgb 6.8, received 1 unit of pRBC -> Hgb 8.0 on 03/01 AM 03/02 Hgb 8.4, stable -> resume Eliquis Acute on Chronic Kidney Disease Patient with history of stage III CKD Creatinine 1.4 on admission to 1.34 to 2.07 on 02/27 Discussed with Nephrology and Cardiology on 02/27, appreciate recs -holding home Lasix, likely to resume tmrw Continue to monitor Nausea and vomiting Chronic issue Notes phenergan works better than zofran Consider further workup if persistent improved now Sacral ulcer wound care consult CAD HTN Hyperlipidemia Lower extremity edema Family requested evaluation by Cardiology Cardiology consulted, appreciate recs DMII On chronic steroid use ISS while hospitalized Continue to monitor Continue other home meds as ordered Diet: HH/DMII DVT prophylaxis: Eliquis on hold, SCDs Dispo: PT/OT for further recs once medically stable Admission and Anticipated Discharge Date Admission Date: February 26, 2024 Subjective Pt seen sitting up in chair in NAD Hgb stable this AM, will resume eliquis Overall pt is feeling well, but has some hip pain post surgery No fever, chills, chest pain, shortness of breath, abd. pain + constipation Pt first seen in the morning Family updated at the bedside in the afternoon Review of Systems Review of Systems: All systems reviewed & are unremarkable except as noted in Subjective Physical Exam Physical Exam: General: obese, elderly F in NAD HEENT: NC/AT CV: RRR Resp: Breath sounds clear bilaterally, no increased effort of breathing Abdomen: Soft, nontender, obese, + umb. hernia Extremities: trace LE edema b/l (significantly improved) Neuro: awake, alert, oriented, speech fluent, answers appropriately, moves extremities Psych: Appropriate mood and affect Results & Data Results & Data Vital Signs (Past 12 Hours) Vital Signs Temp Pulse Resp BP BP Pulse Ox O2 Del Method 03/02/24 07:18 36.9 C 71 16 142/85 H 97 Room Air 03/01/24 20:38 36.9 C 67 15 146/73 H 98 Room Air Laboratory Results 03/02/24 03/02/24 03/02/24 Range/Units 11:32 09:22 07:33 WBC 10.45 (4.8-10.8) K/ul RBC 2.65 L (4.20-5.40) M/uL Hgb 8.4 L (12.0-16.0) g/dl Hct 26.5 L (37.0-47.0) % MCV 100.0 (80.0-100.0) fL MCH 31.7 (25.0-34.0) pg MCHC 31.7 L (32.0-36.0) g/dL RDW Std Deviation 63.2 H (36.4-46.3) fL RDW Coeff of Prudence 18.6 H (11.5-14.5) % Plt Count 157 (130-400) K/uL MPV 10.0 (9.4-12.4) fL Absolute Nucleated RBC 0.02 (0.00-0.12) K/uL Nucleated RBC % (auto) 0.2 % Sodium 139 (136-145) mmol/L Potassium 4.4 (3.5-5.1) mmol/L Chloride 105 (98-107) mmol/L Carbon Dioxide 27 (21-32) mmol/L Anion Gap 7 (3-11) BUN 43 H (6-23) mg/dl Creatinine 1.68 H (0.6-1.2) mg/dl Est Cr Clr Drug Dosing 24.1 ml/min eGFR 29.26 BUN/Creatinine Ratio 25.6 H (10-20) Glucose 188 H (70-99(Fasting)) mg/dl POC Glucose 230 H 158 H (70-99) mg/dl Calcium 8.3 L (8.6-10.3) mg/dl Phosphorus 1.9 L (2.5-4.9) mg/dl Magnesium 2.0 (1.7-2.4) mg/dl Iron 35 (35-150) mcg/dl TIBC 199 L (250-450) mcg/dl Unsaturated IBC 164 (155-355) mcg/dl Transferrin % Sat 18 (15-50) % 03/01/24 03/01/24 Range/Units 20:35 16:21 WBC (4.8-10.8) K/ul RBC (4.20-5.40) M/uL Hgb (12.0-16.0) g/dl Hct (37.0-47.0) % MCV (80.0-100.0) fL MCH (25.0-34.0) pg MCHC (32.0-36.0) g/dL RDW Std Deviation (36.4-46.3) fL RDW Coeff of Prudence (11.5-14.5) % Plt Count (130-400) K/uL MPV (9.4-12.4) fL Absolute Nucleated RBC (0.00-0.12) K/uL Nucleated RBC % (auto) % Sodium (136-145) mmol/L Potassium (3.5-5.1) mmol/L Chloride (98-107) mmol/L Carbon Dioxide (21-32) mmol/L Anion Gap (3-11) BUN (6-23) mg/dl Creatinine (0.6-1.2) mg/dl Est Cr Clr Drug Dosing ml/min eGFR BUN/Creatinine Ratio (10-20) Glucose (70-99(Fasting)) mg/dl POC Glucose 176 H 246 H (70-99) mg/dl Calcium (8.6-10.3) mg/dl Phosphorus (2.5-4.9) mg/dl Magnesium (1.7-2.4) mg/dl Iron (35-150) mcg/dl TIBC (250-450) mcg/dl Unsaturated IBC (155-355) mcg/dl Transferrin % Sat (15-50) % Medications Administered Current Inpatient Medications Acetaminophen (Acetaminophen 500 Mg Tab) 1,000 mg PO Q8H [facility] Stop: 03/30/24 10:59 Last Admin: 03/02/24 12:08 Dose: 1,000 mg Apixaban (Apixaban 2.5 Mg Tab) 2.5 mg PO BID [facility] Stop: 03/28/24 20:59 Last Admin: 02/28/24 21:17 Dose: 2.5 mg Carvedilol (Carvedilol 6.25 Mg Tab) 6.25 mg PO BID [facility] Stop: 03/27/24 20:59 Last Admin: 03/02/24 07:48 Dose: 6.25 mg Dextrose (Dextrose 50% 50 Ml Syringe) 25 - 50 ml IV UD PRN; Protocol PRN Reason: Hypoglycemia Protocol Stop: 03/27/24 19:13 Donepezil HCl (Donepezil Hcl 5 Mg Tab) 5 mg PO QAM [facility] Stop: 03/28/24 08:59 Last Admin: 03/02/24 07:48 Dose: 5 mg Folic Acid (Folic Acid 1 Mg Tab) 1 mg PO QAM [facility] Stop: 03/28/24 08:59 Last Admin: 03/02/24 07:48 Dose: 1 mg Furosemide (Furosemide 20 Mg Tab) 20 mg PO Q48H [facility] Stop: 03/28/24 08:59 Last Admin: 02/27/24 08:12 Dose: 20 mg Furosemide (Furosemide 40 Mg Tab) 40 mg PO Q48H [facility] Stop: 03/29/24 08:59 Last Admin: 02/28/24 08:12 Dose: 40 mg Glucagon (Glucagon For Inj 1 Mg Vial) 1 mg SQ UD PRN; Protocol PRN Reason: Hypoglycemia Protocol Stop: 03/27/24 19:13 Glucose (Glucose 40% Gel 15 Gm Tube) 15 - 30 gm PO UD PRN; Protocol PRN Reason: Hypoglycemia Protocol Stop: 03/27/24 19:13 Glucose (Glucose 10 Tab/Tube) 4 - 8 tab PO UD PRN; Protocol PRN Reason: Hypoglycemia Protocol Stop: 03/27/24 19:13 Glycerin (Glycerin Adult 12 Supp/Box Supp) 1 supp [place] NOW ONE Stop: 03/02/24 15:38 Hydromorphone HCl (Hydromorphone Inj 0.5 Mg/0.5 Ml Syr) 0.25 mg IV Q4H PRN PRN Reason: Pain Stop: 03/11/24 19:59 Last Admin: 03/02/24 10:24 Dose: 0.25 mg Promethazine HCl (Phenergan) 6.25 mg in 50.25 mls @ 201 mls/hr IV Q6H PRN PRN Reason: Nausea And Vomiting Stop: 03/28/24 16:21 Last Infusion: 02/27/24 18:15 Dose: Infused Insulin Aspart (Insulin Aspart Per Unit Charge) 0 units SC ACHS [facility] Stop: 03/27/24 19:20 Last Admin: 03/02/24 12:09 Dose: 8 units Lidocaine (Lidocaine 5% 1 Patch) 1 patch TD QAM [facility] Stop: 03/29/24 10:44 Last Admin: 03/02/24 07:49 Dose: 1 patch Magnesium Hydroxide (Magnesium Hydroxide Susp 30 Ml Udc) 30 ml PO Q6H PRN PRN Reason: Constipation Stop: 03/27/24 19:13 Melatonin (Melatonin 3 Mg Tab) 3 mg PO HS PRN PRN Reason: Insomnia Stop: 03/27/24 19:13 Last Admin: 02/29/24 21:23 Dose: 3 mg Methotrexate (Methotrexate Sodium 2.5 Mg Tab) 2.5 mg PO Fr@0900 [facility] Stop: 04/01/24 08:59 Last Admin: 03/02/24 07:49 Dose: 2.5 mg Miscellaneous (Carbohydrates For Hypoglycemia ) 15 - 30 gm PO UD PRN PRN Reason: Hypoglycemia Protocol Stop: 03/27/24 19:13 Miscellaneous (Remove Lidoderm Patch) 1 each N/A DAILY@2100 [facility] Stop: 03/29/24 20:59 Last Admin: 03/01/24 22:00 Dose: Not Given Multivitamins (Multivitamin Tab) 1 tab PO QAM [facility] Stop: 03/28/24 08:59 Last Admin: 03/02/24 07:48 Dose: 1 tab Mupirocin (Mupirocin 2% Oint 22 Gm Tube) 1 appln TOP TID [facility] Stop: 03/27/24 20:59 Last Admin: 03/02/24 13:03 Dose: 1 appln Ondansetron HCl (Ondansetron Inj 2 Mg/Ml 2 Ml Vial) 4 mg IV Q6H PRN PRN Reason: Nausea Stop: 03/27/24 19:13 Last Admin: 03/02/24 10:24 Dose: 4 mg Oxybutynin Chloride (Oxybutynin Chloride Xl 5 Mg Tabcr) 5 mg PO DAILY [facility]; Protocol Stop: 03/28/24 08:59 Last Admin: 03/02/24 07:48 Dose: 5 mg Oxycodone HCl (Oxycodone Hcl Ir 5 Mg Tab (Immediate Release)) 5 mg PO Q4H PRN PRN Reason: Pain Stop: 03/16/24 10:32 Last Admin: 03/02/24 10:41 Dose: 5 mg Pantoprazole Sodium (Pantoprazole 40 Mg Tab) 40 mg PO BID [facility] Stop: 03/30/24 11:29 Last Admin: 03/02/24 07:48 Dose: 40 mg Polyethylene Glycol (Polyethylene (Miralax) 17 Gm Pack) 17 gm PO DAILY PRN PRN Reason: Constipation Stop: 03/27/24 19:13 Polyethylene Glycol (Polyethylene (Miralax) 17 Gm Pack) 17 gm PO DAILY [facility] Stop: 03/30/24 19:29 Last Admin: 03/02/24 07:49 Dose: 17 gm Prednisone (Prednisone 5 Mg Tab) 5 mg PO QAM [facility] Stop: 03/28/24 08:59 Last Admin: 03/02/24 07:48 Dose: 5 mg Sennosides (Senna 8.6 Mg Tab) 8.6 mg PO QAM [facility] Stop: 03/30/24 19:29 Last Admin: 03/02/24 07:53 Dose: 8.6 mg
[2024-03-02] MEDS: metHOTREXate sodium 2.5 MG TAB PO SCH (07:49)
[2024-03-02 10:07] LABS: Hematocrit (blood only) 26.5 % (37.0-47.0); Hemoglobin 8.4 g/dl (12.0-16.0); Mean Corpuscular Hemoglobin 31.7 pg (25.0-34.0); Mean Corpuscular Hgb Conc 31.7 g/dL (32.0-36.0); Nucleated RBC # (auto) 0.02 K/uL (0.00-0.12); Nucleated RBC % (auto) 0.2 %; Platelet Count 157 K/uL (130-400); RDW Coefficient of Variation 18.6 % (11.5-14.5); RDW Standard Deviation 63.2 fL (36.4-46.3); Red Blood Count 2.65 M/uL (4.20-5.40); White Blood Count 10.45 K/ul (4.8-10.8)
[2024-03-02 10:15] LABS: BUN Creatinine Ratio 25.6 (10-20); Calcium 8.3 mg/dl (8.6-10.3); Creatinine Clr Calc Pharmacy 24.1 ml/min; Phosphorus 1.9 mg/dl (2.5-4.9); Potassium 4.4 mmol/L (3.5-5.1)
--- NOTE | 2024-03-02 10:24 | Nephrology Progress Note ---
Date of Service March 02, 2024 Assessment & Plan (1) Acute kidney injury superimposed on chronic kidney disease: Plan: slowly improving nonoliguric stage 1 PRISCA on CKD 3B, baseline creatinine mid ones. came in better than baseline but POD 1, creat up to 2.1 > 2.2 > 1.8>1.7 today. no nsaids, no iv contrast, no hemodynamic instability. did have customary OP lasix dose 02/27. orthostatic sx /w standing 02/27 and had 1/2 L NS. UACM w/o e/o infection or inflammation. -daily bmp -suggest resume diuretics tomorrow or day after -continue nsaid and IV con for CT avoidance care coordinated w/ Dr Subramanian re volume status, diuretics, renal function, iron therapy indications; we are in agreement. will sign off no OP nephro f/u needed suggest PCP check BMP, CBC at hospital d/c visit >if pending transferrin saturation <25%, suggest IV iron 300 mg x 3 doses; would avoid po to minimize GI complications and pill burden here, though could consider (2) Anemia: Plan: hgb down to 6.8 02/28 from 8.2 >> back up to 8 after pRBC 1 unit; hemodynamically stable; platelets ok >defer to primary service to evaluate further for bleed source if needed >>added iron panel to today's labs Admission and Anticipated Discharge Date Admission Date: February 26, 2024 Subjective Complains of significant nausea and uncontrolled pain in her hip, though pain improved somewhat she tells me with moving from the chair to the bed. Tells me nursing has recently repositioned her. No shortness of breath. Continues to feel edema improved. Review of Systems 2 Review of Systems: All systems reviewed & are unremarkable except as noted in Subjective Physical Exam 2 Constitutional: well developed (lying in bed, HOB 30 degrees), well nourished, + acute distress (Resting quietly when I enter but mild distress with nausea), + frail appearing and cooperative Eyes: EOM intact bilaterally ENMT: Mouth: + dry oral mucous membranes Respiratory: normal respiratory effort Auscultation: + diminished lung sounds; no crackles (anterior exam) Cardiovascular: Rate/Rhythm: regular rate and regular rhythm Extremities: + edema (trace) Gastrointestinal (Abdomen): Inspection/Auscultation: normal bowel sounds P ercussion/Palpation: abdomen soft; abdomen nontender Musculoskeletal: Extremities: strength 5/5 throughout Skin: no rashes, warm and dry (R hip surg dressing c/d/i) Psychiatric: Orientation: alert, oriented to person, oriented to place and cooperative Speech: normal rate/rhythm/volume of speech Results & Data Vital Signs (Past 12 Hours) Vital Signs Temp Pulse Resp BP Pulse Ox O2 Del Method 03/02/24 07:18 36.9 C 71 16 142/85 H 97 Room Air Laboratory Results 03/02/24 09:22 03/02/24 09:22
[2024-03-02] MEDS: oxyCODONE HCL IR 5 MG TAB (IMMEDIATE RELEASE) PO PRN (10:41)
[2024-03-02] MEDS: APIXABAN 2.5 MG TAB PO ONE (12:13)
--- NOTE | 2024-03-02 16:40 | Orthopedic Progress Note ---
Date of Service March 02, 2024 Assessment & Plan (1) Status post open reduction with internal fixation of fracture: Overall she is doing fairly well. She is not having too much pain in the right hip. She has been trying to ambulate some with physical therapy. She is on Eliquis for DVT prophylaxis. She is orthopedically stable for discharge when medically ready. The nursing staff can do daily dry dressing changes. She will follow-up in our office in 2 weeks. Full orthopedic discharge instructions were placed in the discharge summary. Sofia Rodas was seen and examined at bedside this morning. Overall she is doing fairly well. She is not having too much pain in the right hip. She has been standing some with physical therapy. She has no other complaints.. Review of Systems All systems reviewed & are unremarkable except as noted in HPI & below. Physical Exam On physical exam of the right hip, the dressing has a little bit of ser osanguineous drainage. There is no signs of infection. Her leg lengths are equal.. Results & Data Results & Data Laboratory Results . Diagnostic Findings . PG Care Time/CCT Total # of Minutes Spent Total Time Spent with Patient: Total time spent is greater than 50% in coordination of care (as documented) at patient's floor/unit and/or counseling patient: Coding Level of Care Code 11399 Post Operative Follow-Up Diagnoses Status post open reduction with internal fixation of fracture Z98.890; Z87.81
[2024-03-02] MEDS: GLYCERIN ADULT 12 SUPP/BOX SUPP PR ONE (17:33)
[2024-03-03 07:30] LABS: Hematocrit (blood only) 25.8 % (37.0-47.0); Hemoglobin 8.2 g/dl (12.0-16.0); Mean Corpuscular Hemoglobin 31.7 pg (25.0-34.0); Mean Corpuscular Hgb Conc 31.8 g/dL (32.0-36.0); Mean Corpuscular Volume 99.6 fL (80.0-100.0); Mean Platelet Volume 9.7 fL (9.4-12.4); Platelet Count 159 K/uL (130-400); RDW Coefficient of Variation 18.6 % (11.5-14.5); RDW Standard Deviation 62.3 fL (36.4-46.3); Red Blood Count 2.59 M/uL (4.20-5.40); White Blood Count 9.02 K/ul (4.8-10.8)
[2024-03-03 07:59] LABS: BUN Creatinine Ratio 25.4 (10-20); Calcium 8.3 mg/dl (8.6-10.3); Creatinine Clr Calc Pharmacy 21.9 ml/min; Phosphorus 2.7 mg/dl (2.5-4.9); Potassium 4.8 mmol/L (3.5-5.1)
[2024-03-03] MEDS: IRON SUCROSE 300 MG in SODIUM CHLORIDE 0.9% 250 ML IV SCH (09:17)
--- NOTE | 2024-03-03 10:30 | Hospitalist Progress Note ---
Date of Service March 03, 2024 Assessment & Plan (1) Edema of left lower extremity: (2) Femoral fracture: (3) Closed hip fracture: Plan Adrianna Narayan is an 88-year-old female with a significant medical hx of RA, DMII with stage 3a CKD, HLD, HTN, GERD, CAD, Statin intolerance and Vit D deficiency who presents post fall at home and was noted to have an acute displaced and angulated right femoral fracture. She is s/p nailing on 02/27/24 with orthopedic surgery. Acute R Femoral Fracture Age-related osteoporosis with current pathologic fracture, right femur s/p Right Long Troch Nail on 02/27/24 with orthopedic surgery PRN pain control and nausea control Per ortho for DVT prophylaxis, pt on Eliquis - resumed, cont. PT/OT , will likely require acute rehab Appreciate further recs from Orthopedic Surgery Hypovitaminosis D vit D level 17.7 - start vit D supplement 50,000 unit weekly Acute blood loss anemia, postoperative - post-op Hgb 6.8, received 1 unit of pRBC -> Hgb 8.0 on 03/01 AM 03/02 Hgb 8.4, stable -> resumed Eliquis - hgb stable at 8.2 Acute on Chronic Kidney Disease Patient with history of stage III CKD Creatinine 1.4 on admission to 1.34 to 2.07 on 02/27 Discussed with Nephrology and Cardiology on 02/27, appreciate recs -holding home Lasix, likely to resume tmrw Continue to monitor Constipation - cont. bowel regimen, give suppository Nausea and vomiting Chronic issue Notes phenergan works better than zofran Consider further workup if persistent improved now Sacral ulcer wound care consult CAD HTN Hyperlipidemia Lower extremity edema Family requested evaluation by Cardiology Cardiology consulted, appreciate recs DMII On chronic steroid use ISS while hospitalized Continue to monitor Continue other home meds as ordered Diet: HH/DMII DVT prophylaxis: Antione Saenz Dispo: PT/OT for further recs once medically stable Admission and Anticipated Discharge Date Admission Date: February 26, 2024 Subjective Pt seen laying in bed in NAD, resting Family at the bedside, say she just took the pain pill Hgb stable this AM, will cont. eliquis No fever, chills, chest pain, shortness of breath, abd. pain + constipation will give IV iron, start vit. D supplement plan for rehab - [facility] possibly over the weekend Review of Systems Review of Systems: All systems reviewed & are unremarkable except as noted in Subjective Physical Exam Physical Exam: General: obese, elderly F in NAD HEENT: NC/AT CV: RRR Resp: Breath sounds clear bilaterally, no increased effort of breathing Abdomen: Soft, nontender, obese, + umb. hernia Extremities: trace LE edema b/l (significantly improved) Neuro: sleepy after taking pain med, speech fluent, answers appropriately, moves extremities Psych: Appropriate mood and affect Results & Data Results & Data Vital Signs (Past 12 Hours) Vital Signs Temp Pulse Resp BP Pulse Ox O2 Del Method 03/03/24 07:36 36.9 C 73 16 157/75 H 97 Room Air Laboratory Results 03/03/24 03/03/24 03/02/24 Range/Units 07:28 06:28 20:33 WBC 9.02 (4.8-10.8) K/ul RBC 2.59 L (4.20-5.40) M/uL Hgb 8.2 L (12.0-16.0) g/dl Hct 25.8 L (37.0-47.0) % MCV 99.6 (80.0-100.0) fL MCH 31.7 (25.0-34.0) pg MCHC 31.8 L (32.0-36.0) g/dL RDW Std Deviation 62.3 H (36.4-46.3) fL RDW Coeff of Prudence 18.6 H (11.5-14.5) % Plt Count 159 (130-400) K/uL MPV 9.7 (9.4-12.4) fL Sodium 139 (136-145) mmol/L Potassium 4.8 (3.5-5.1) mmol/L Chloride 105 (98-107) mmol/L Carbon Dioxide 27 (21-32) mmol/L Anion Gap 7 (3-11) BUN 47 H (6-23) mg/dl Creatinine 1.85 H (0.6-1.2) mg/dl Est Cr Clr Drug Dosing 21.9 ml/min eGFR 26.06 BUN/Creatinine Ratio 25.4 H (10-20) Glucose 136 H (70-99(Fasting)) mg/dl POC Glucose 148 H 143 H (70-99) mg/dl Calcium 8.3 L (8.6-10.3) mg/dl Phosphorus 2.7 (2.5-4.9) mg/dl Magnesium 2.0 (1.7-2.4) mg/dl Iron (35-150) mcg/dl TIBC (250-450) mcg/dl Unsaturated IBC (155-355) mcg/dl Transferrin % Sat (15-50) % 25-OH Vitamin D Total (30-100) ng/ml 03/02/24 03/02/24 03/02/24 Range/Units 16:27 15:40 11:32 WBC (4.8-10.8) K/ul RBC (4.20-5.40) M/uL Hgb (12.0-16.0) g/dl Hct (37.0-47.0) % MCV (80.0-100.0) fL MCH (25.0-34.0) pg MCHC (32.0-36.0) g/dL RDW Std Deviation (36.4-46.3) fL RDW Coeff of Prudence (11.5-14.5) % Plt Count (130-400) K/uL MPV (9.4-12.4) fL Sodium (136-145) mmol/L Potassium (3.5-5.1) mmol/L Chloride (98-107) mmol/L Carbon Dioxide (21-32) mmol/L Anion Gap (3-11) BUN (6-23) mg/dl Creatinine (0.6-1.2) mg/dl Est Cr Clr Drug Dosing ml/min eGFR BUN/Creatinine Ratio (10-20) Glucose (70-99(Fasting)) mg/dl POC Glucose 242 H 230 H (70-99) mg/dl Calcium (8.6-10.3) mg/dl Phosphorus (2.5-4.9) mg/dl Magnesium (1.7-2.4) mg/dl Iron (35-150) mcg/dl TIBC (250-450) mcg/dl Unsaturated IBC (155-355) mcg/dl Transferrin % Sat (15-50) % 25-OH Vitamin D Total 17.7 L (30-100) ng/ml 03/02/24 Range/Units 09:22 WBC (4.8-10.8) K/ul RBC (4.20-5.40) M/uL Hgb (12.0-16.0) g/dl Hct (37.0-47.0) % MCV (80.0-100.0) fL MCH (25.0-34.0) pg MCHC (32.0-36.0) g/dL RDW Std Deviation (36.4-46.3) fL RDW Coeff of Prudence (11.5-14.5) % Plt Count (130-400) K/uL MPV (9.4-12.4) fL Sodium (136-145) mmol/L Potassium (3.5-5.1) mmol/L Chloride (98-107) mmol/L Carbon Dioxide (21-32) mmol/L Anion Gap (3-11) BUN (6-23) mg/dl Creatinine (0.6-1.2) mg/dl Est Cr Clr Drug Dosing ml/min eGFR BUN/Creatinine Ratio (10-20) Glucose (70-99(Fasting)) mg/dl POC Glucose (70-99) mg/dl Calcium (8.6-10.3) mg/dl Phosphorus (2.5-4.9) mg/dl Magnesium (1.7-2.4) mg/dl Iron 35 (35-150) mcg/dl TIBC 199 L (250-450) mcg/dl Unsaturated IBC 164 (155-355) mcg/dl Transferrin % Sat 18 (15-50) % 25-OH Vitamin D Total (30-100) ng/ml Medications Administered Current Inpatient Medications Acetaminophen (Acetaminophen 500 Mg Tab) 1,000 mg PO Q8H [facility] Stop: 03/30/24 10:59 Last Admin: 03/03/24 03:40 Dose: 1,000 mg Apixaban (Apixaban 2.5 Mg Tab) 2.5 mg PO BID [facility] Stop: 03/28/24 20:59 Last Admin: 03/03/24 08:06 Dose: 2.5 mg Carvedilol (Carvedilol 6.25 Mg Tab) 6.25 mg PO BID [facility] Stop: 03/27/24 20:59 Last Admin: 03/03/24 08:06 Dose: 6.25 mg Dextrose (Dextrose 50% 50 Ml Syringe) 25 - 50 ml IV UD PRN; Protocol PRN Reason: Hypoglycemia Protocol Stop: 03/27/24 19:13 Donepezil HCl (Donepezil Hcl 5 Mg Tab) 5 mg PO QAM [facility] Stop: 03/28/24 08:59 Last Admin: 03/03/24 08:06 Dose: 5 mg Ergocalciferol (Ergocalciferol 1250 Mcg (50,000 Units) Cap) 1,250 mcg PO Q7D [facility] Stop: 04/02/24 09:59 Folic Acid (Folic Acid 1 Mg Tab) 1 mg PO QAM [facility] Stop: 03/28/24 08:59 Last Admin: 03/03/24 08:06 Dose: 1 mg Furosemide (Furosemide 20 Mg Tab) 20 mg PO Q48H [facility] Stop: 03/28/24 08:59 Last Admin: 02/27/24 08:12 Dose: 20 mg Furosemide (Furosemide 40 Mg Tab) 40 mg PO Q48H [facility] Stop: 03/29/24 08:59 Last Admin: 02/28/24 08:12 Dose: 40 mg Glucagon (Glucagon For Inj 1 Mg Vial) 1 mg SQ UD PRN; Protocol PRN Reason: Hypoglycemia Protocol Stop: 03/27/24 19:13 Glucose (Glucose 40% Gel 15 Gm Tube) 15 - 30 gm PO UD PRN; Protocol PRN Reason: Hypoglycemia Protocol Stop: 03/27/24 19:13 Glucose (Glucose 10 Tab/Tube) 4 - 8 tab PO UD PRN; Protocol PRN Reason: Hypoglycemia Protocol Stop: 03/27/24 19:13 Hydromorphone HCl (Hydromorphone Inj 0.5 Mg/0.5 Ml Syr) 0.25 mg IV Q4H PRN PRN Reason: Pain Stop: 03/11/24 19:59 Last Admin: 03/02/24 20:01 Dose: 0.25 mg Promethazine HCl (Phenergan) 6.25 mg in 50.25 mls @ 201 mls/hr IV Q6H PRN PRN Reason: Nausea And Vomiting Stop: 03/28/24 16:21 Last Infusion: 02/27/24 18:15 Dose: Infused Insulin Aspart (Insulin Aspart Per Unit Charge) 0 units SC ACHS [facility] Stop: 03/27/24 19:20 Last Admin: 03/03/24 08:11 Dose: 5 units Lidocaine (Lidocaine 5% 1 Patch) 1 patch TD QAM [facility] Stop: 03/29/24 10:44 Last Admin: 03/03/24 08:08 Dose: 1 patch Magnesium Hydroxide (Magnesium Hydroxide Susp 30 Ml Udc) 30 ml PO Q6H PRN PRN Reason: Constipation Stop: 03/27/24 19:13 Melatonin (Melatonin 3 Mg Tab) 3 mg PO HS PRN PRN Reason: Insomnia Stop: 03/27/24 19:13 Last Admin: 02/29/24 21:23 Dose: 3 mg Methotrexate (Methotrexate Sodium 2.5 Mg Tab) 2.5 mg PO Fr@0900 [facility] Stop: 04/01/24 08:59 Last Admin: 03/02/24 07:49 Dose: 2.5 mg Miscellaneous (Carbohydrates For Hypoglycemia ) 15 - 30 gm PO UD PRN PRN Reason: Hypoglycemia Protocol Stop: 03/27/24 19:13 Miscellaneous (Remove Lidoderm Patch) 1 each N/A DAILY@2100 [facility] Stop: 03/29/24 20:59 Last Admin: 03/02/24 20:31 Dose: 1 each Multivitamins (Multivitamin Tab) 1 tab PO QAM [facility] Stop: 03/28/24 08:59 Last Admin: 03/03/24 08:06 Dose: 1 tab Mupirocin (Mupirocin 2% Oint 22 Gm Tube) 1 appln TOP TID [facility] Stop: 03/27/24 20:59 Last Admin: 03/03/24 08:08 Dose: 1 appln Ondansetron HCl (Ondansetron Inj 2 Mg/Ml 2 Ml Vial) 4 mg IV Q6H PRN PRN Reason: Nausea Stop: 03/27/24 19:13 Last Admin: 03/02/24 10:24 Dose: 4 mg Oxybutynin Chloride (Oxybutynin Chloride Xl 5 Mg Tabcr) 5 mg PO DAILY [facility]; Protocol Stop: 03/28/24 08:59 Last Admin: 03/03/24 08:07 Dose: 5 mg Oxycodone HCl (Oxycodone Hcl Ir 5 Mg Tab (Immediate Release)) 5 mg PO Q4H PRN PRN Reason: Pain Stop: 03/16/24 10:32 Last Admin: 03/03/24 09:16 Dose: 5 mg Pantoprazole Sodium (Pantoprazole 40 Mg Tab) 40 mg PO BID [facility] Stop: 03/30/24 11:29 Last Admin: 03/03/24 08:07 Dose: 40 mg Polyethylene Glycol (Polyethylene (Miralax) 17 Gm Pack) 17 gm PO DAILY PRN PRN Reason: Constipation Stop: 03/27/24 19:13 Polyethylene Glycol (Polyethylene (Miralax) 17 Gm Pack) 17 gm PO DAILY [facility] Stop: 03/30/24 19:29 Last Admin: 03/03/24 08:07 Dose: 17 gm Prednisone (Prednisone 5 Mg Tab) 5 mg PO QAM [facility] Stop: 03/28/24 08:59 Last Admin: 03/03/24 08:07 Dose: 5 mg Sennosides (Senna 8.6 Mg Tab) 8.6 mg PO QAM [facility] Stop: 03/30/24 19:29 Last Admin: 03/03/24 08:06 Dose: 8.6 mg
[2024-03-03] MEDS: ERGOCALCIFEROL 1250 MCG (50,000 UNITS) CAP PO SCH (11:28)
[2024-03-03] MEDS: GLYCERIN ADULT 12 SUPP/BOX SUPP PR ONE (15:56)
[2024-03-04 06:25] LABS: Hematocrit (blood only) 24.9 % (37.0-47.0)
[2024-03-04] MEDS: MAGNESIUM HYDROXIDE SUSP 30 ML UDC PO PRN (06:28)
[2024-03-04 06:51] LABS: BUN Creatinine Ratio 27.6 (10-20); Calcium 8.3 mg/dl (8.6-10.3); Creatinine Clr Calc Pharmacy 26.6 ml/min; Potassium 4.8 mmol/L (3.5-5.1)
--- NOTE | 2024-03-04 07:37 | Hospitalist Progress Note ---
Date of Service March 04, 2024 Assessment & Plan (1) Edema of left lower extremity: (2) Femoral fracture: (3) Closed hip fracture: Plan Adrianna Narayan is an 88-year-old female with a significant medical hx of RA, DMII with stage 3a CKD, HLD, HTN, GERD, CAD, Statin intolerance and Vit D deficiency who presents post fall at home and was noted to have an acute displaced and angulated right femoral fracture. She is s/p nailing on 02/27/24 with orthopedic surgery. Acute R Femoral Fracture Age-related osteoporosis with current pathologic fracture, right femur s/p Right Long Troch Nail on 02/27/24 with orthopedic surgery PRN pain control and nausea control Per ortho for DVT prophylaxis, pt on Eliquis - resumed, cont. PT/OT , will likely require acute rehab Appreciate further recs from Orthopedic Surgery Hypovitaminosis D - vit D level 17.7 - vit D supplement 50,000 unit weekly Acute blood loss anemia, postoperative - post-op Hgb 6.8, received 1 unit of pRBC -> Hgb 8.0 on 03/01 AM 03/02 Hgb 8.4, stable -> resumed Eliquis - hgb stable at 8.2 Acute on Chronic Kidney Disease Patient with history of stage III CKD Creatinine 1.4 on admission to 1.34 to 2.07 on 02/27 Discussed with Nephrology and Cardiology on 02/27, appreciate recs -holding home Lasix, will resume Continue to monitor Constipation - cont. bowel regimen, give suppository Nausea and vomiting Chronic issue Notes phenergan works better than zofran Consider further workup if persistent improved now Sacral ulcer wound care consult CAD HTN Hyperlipidemia Lower extremity edema Family requested evaluation by Cardiology Cardiology consulted, appreciate recs DMII On chronic steroid use ISS while hospitalized Continue to monitor Continue other home meds as ordered Diet: HH/DMII DVT prophylaxis: Antione Saezn Dispo: PT/OT for further recs once medically stable Admission and Anticipated Discharge Date Admission Date: February 26, 2024 Subjective Pt seen laying in bed in NAD, resting at the bedside Hgb stable this AM, will cont. eliquis No fever, chills, chest pain, shortness of breath, abd. pain + constipation -> increase miralax to TID , give suppository gave IV iron yesterday, and started vit. D supplement plan for rehab - [facility] possibly tmrw Review of Systems Review of Systems: All systems reviewed & are unremarkable except as noted in Subjective Physical Exam Physical Exam: General: obese, elderly F in NAD HEENT: NC/AT CV: RRR Resp: Breath sounds clear bilaterally, no increased effort of breathing Abdomen: Soft, nontender, obese, + umb. hernia Extremities: trace LE edema b/l (significantly improved) Neuro: sleepy after taking pain med, speech fluent, answers appropriately, moves extremities Psych: Appropriate mood and affect Results & Data Results & Data Vital Signs (Past 12 Hours) Vital Signs Temp Pulse Resp BP BP Pulse Ox O2 Del Method 03/04/24 07:26 36.7 C 74 18 175/72 H 97 Room Air 03/03/24 20:05 36.7 C 69 18 170/76 H 99 Room Air Laboratory Results 03/04/24 03/04/24 03/03/24 Range/Units 07:33 06:00 21:01 Hgb 8.0 L (12.0-16.0) g/dl Hct 24.9 L (37.0-47.0) % Sodium 138 (136-145) mmol/L Potassium 4.8 (3.5-5.1) mmol/L Chloride 106 (98-107) mmol/L Carbon Dioxide 28 (21-32) mmol/L Anion Gap 4 (3-11) BUN 42 H (6-23) mg/dl Creatinine 1.52 H D (0.6-1.2) mg/dl Est Cr Clr Drug Dosing 26.6 ml/min eGFR 32.99 BUN/Creatinine Ratio 27.6 H (10-20) Glucose 126 H (70-99(Fasting)) mg/dl POC Glucose 167 H 171 H (70-99) mg/dl Calcium 8.3 L (8.6-10.3) mg/dl Phosphorus (2.5-4.9) mg/dl Magnesium (1.7-2.4) mg/dl 03/03/24 03/03/24 03/03/24 Range/Units 16:23 11:13 06:28 Hgb (12.0-16.0) g/dl Hct (37.0-47.0) % Sodium 139 (136-145) mmol/L Potassium 4.8 (3.5-5.1) mmol/L Chloride 105 (98-107) mmol/L Carbon Dioxide 27 (21-32) mmol/L Anion Gap 7 (3-11) BUN 47 H (6-23) mg/dl Creatinine 1.85 H (0.6-1.2) mg/dl Est Cr Clr Drug Dosing 21.9 ml/min eGFR 26.06 BUN/Creatinine Ratio 25.4 H (10-20) Glucose 136 H (70-99(Fasting)) mg/dl POC Glucose 199 H 182 H (70-99) mg/dl Calcium 8.3 L (8.6-10.3) mg/dl Phosphorus 2.7 (2.5-4.9) mg/dl Magnesium 2.0 (1.7-2.4) mg/dl Medications Administered Current Inpatient Medications Acetaminophen (Acetaminophen 500 Mg Tab) 1,000 mg PO Q8H [facility] Stop: 03/30/24 10:59 Last Admin: 03/04/24 03:57 Dose: Not Given Apixaban (Apixaban 2.5 Mg Tab) 2.5 mg PO BID [facility] Stop: 03/28/24 20:59 Last Admin: 03/03/24 20:56 Dose: 2.5 mg Carvedilol (Carvedilol 6.25 Mg Tab) 6.25 mg PO BID [facility] Stop: 03/27/24 20:59 Last Admin: 03/03/24 20:56 Dose: 6.25 mg Dextrose (Dextrose 50% 50 Ml Syringe) 25 - 50 ml IV UD PRN; Protocol PRN Reason: Hypoglycemia Protocol Stop: 03/27/24 19:13 Donepezil HCl (Donepezil Hcl 5 Mg Tab) 5 mg PO QAM [facility] Stop: 03/28/24 08:59 Last Admin: 03/03/24 08:06 Dose: 5 mg Ergocalciferol (Ergocalciferol 1250 Mcg (50,000 Units) Cap) 1,250 mcg PO Q7D [facility] Stop: 04/02/24 09:59 Last Admin: 03/03/24 11:28 Dose: 1,250 mcg Folic Acid (Folic Acid 1 Mg Tab) 1 mg PO QAM [facility] Stop: 03/28/24 08:59 Last Admin: 03/03/24 08:06 Dose: 1 mg Furosemide (Furosemide 20 Mg Tab) 20 mg PO Q48H [facility] Stop: 03/28/24 08:59 Last Admin: 02/27/24 08:12 Dose: 20 mg Furosemide (Furosemide 40 Mg Tab) 40 mg PO Q48H [facility] Stop: 03/29/24 08:59 Last Admin: 02/28/24 08:12 Dose: 40 mg Glucagon (Glucagon For Inj 1 Mg Vial) 1 mg SQ UD PRN; Protocol PRN Reason: Hypoglycemia Protocol Stop: 03/27/24 19:13 Glucose (Glucose 40% Gel 15 Gm Tube) 15 - 30 gm PO UD PRN; Protocol PRN Reason: Hypoglycemia Protocol Stop: 03/27/24 19:13 Glucose (Glucose 10 Tab/Tube) 4 - 8 tab PO UD PRN; Protocol PRN Reason: Hypoglycemia Protocol Stop: 03/27/24 19:13 Glycerin (Glycerin Adult 12 Supp/Box Supp) 1 supp IA NOW ONE Stop: 03/04/24 07:36 Hydromorphone HCl (Hydromorphone Inj 0.5 Mg/0.5 Ml Syr) 0.25 mg IV Q4H PRN PRN Reason: Pain Stop: 03/11/24 19:59 Last Admin: 03/03/24 15:54 Dose: 0.25 mg Promethazine HCl (Phenergan) 6.25 mg in 50.25 mls @ 201 mls/hr IV Q6H PRN PRN Reason: Nausea And Vomiting Stop: 03/28/24 16:21 Last Infusion: 02/27/24 18:15 Dose: Infused Insulin Aspart (Insulin Aspart Per Unit Charge) 0 units SC ACHS [facility] [place] Stop: 03/27/24 19:20 Last Admin: 03/03/24 21:23 Dose: 2 units Lidocaine (Lidocaine 5% 1 Patch) 1 patch TD QAM [facility] [place] Stop: 03/29/24 10:44 Last Admin: 03/03/24 08:08 Dose: 1 patch Magnesium Hydroxide (Magnesium Hydroxide Susp 30 Ml Udc) 30 ml PO Q6H PRN PRN Reason: Constipation Stop: 03/27/24 19:13 Last Admin: 03/04/24 06:28 Dose: 30 ml Melatonin (Melatonin 3 Mg Tab) 3 mg PO HS PRN PRN Reason: Insomnia Stop: 03/27/24 19:13 Last Admin: 02/29/24 21:23 Dose: 3 mg Methotrexate (Methotrexate Sodium 2.5 Mg Tab) 2.5 mg PO Fr@0900 [facility] [place] Stop: 04/01/24 08:59 Last Admin: 03/02/24 07:49 Dose: 2.5 mg Miscellaneous (Carbohydrates For Hypoglycemia ) 15 - 30 gm PO UD PRN PRN Reason: Hypoglycemia Protocol Stop: 03/27/24 19:13 Miscellaneous (Remove Lidoderm Patch) 1 each N/A DAILY@2100 [facility] [place] Stop: 03/29/24 20:59 Last Admin: 03/03/24 20:56 Dose: 1 each Multivitamins (Multivitamin Tab) 1 tab PO QAM [facility] [place] Stop: 03/28/24 08:59 Last Admin: 03/03/24 08:06 Dose: 1 tab Mupirocin (Mupirocin 2% Oint 22 Gm Tube) 1 appln TOP TID [facility] [place] Stop: 03/27/24 20:59 Last Admin: 03/03/24 20:55 Dose: Not Given Ondansetron HCl (Ondansetron Inj 2 Mg/Ml 2 Ml Vial) 4 mg IV Q6H PRN PRN Reason: Nausea Stop: 03/27/24 19:13 Last Admin: 03/02/24 10:24 Dose: 4 mg Oxybutynin Chloride (Oxybutynin Chloride Xl 5 Mg Tabcr) 5 mg PO DAILY [facility] [place]; Protocol Stop: 03/28/24 08:59 Last Admin: 03/03/24 08:07 Dose: 5 mg Oxycodone HCl (Oxycodone Hcl Ir 5 Mg Tab (Immediate Release)) 5 mg PO Q4H PRN PRN Reason: Pain Stop: 03/16/24 10:32 Last Admin: 03/03/24 19:22 Dose: 5 mg Pantoprazole Sodium (Pantoprazole 40 Mg Tab) 40 mg PO BID [facility] [place] Stop: 03/30/24 11:29 Last Admin: 03/03/24 20:56 Dose: 40 mg Polyethylene Glycol (Polyethylene (Miralax) 17 Gm Pack) 17 gm PO DAILY PRN PRN Reason: Constipation Stop: 03/27/24 19:13 Polyethylene Glycol (Polyethylene (Miralax) 17 Gm Pack) 17 gm PO TID [facility] [place] Stop: 04/03/24 08:59 Prednisone (Prednisone 5 Mg Tab) 5 mg PO QAM [facility] [place] Stop: 03/28/24 08:59 Last Admin: 03/03/24 08:07 Dose: 5 mg Sennosides ([facility]enna 8.6 Mg Tab) [facility] [place]: 03/30/24 19:29 Last Admin: 03/03/24 08:06 Dose: 8.6 mg
[2024-03-04] MEDS: POLYETHYLENE (MIRALAX) 17 GM PACK PO SCH (07:39)
[2024-03-04] MEDS: GLYCERIN ADULT 12 SUPP/BOX SUPP PR ONE (07:45)
[2024-03-05 06:06] LABS: Hematocrit (blood only) 24.9 % (37.0-47.0); Hemoglobin 7.9 g/dl (12.0-16.0)
[2024-03-05 06:33] LABS: BUN Creatinine Ratio 21.2 (10-20); Calcium 8.4 mg/dl (8.6-10.3); Creatinine Clr Calc Pharmacy 21.4 ml/min; Magnesium 2.1 mg/dl (1.7-2.4)
[2024-03-05] MEDS: IRON SUCROSE 300 MG in SODIUM CHLORIDE 0.9% 250 ML IV ONE (09:36)
[2024-03-05] MEDS: GLYCERIN ADULT 12 SUPP/BOX SUPP PR ONE (15:34)
--- NOTE | 2024-03-05 18:12 | Hospitalist Progress Note ---
Date of Service March 05, 2024 Assessment & Plan (1) Edema of left lower extremity: (2) Femoral fracture: (3) Closed hip fracture: Plan Adrianna Narayan is an 88-year-old female with a significant medical hx of RA, DMII with stage 3a CKD, HLD, HTN, GERD, CAD, Statin intolerance and Vit D deficiency who presents post fall at home and was noted to have an acute displaced and angulated right femoral fracture. She is s/p nailing on 02/27/24 with orthopedic surgery. Acute R Femoral Fracture Age-related osteoporosis with current pathologic fracture, right femur s/p Right Long Troch Nail on 02/27/24 with orthopedic surgery PRN pain control and nausea control Per ortho for DVT prophylaxis, pt on Eliquis - resumed, cont. PT/OT , will likely require acute rehab Appreciate further recs from Orthopedic Surgery Hypovitaminosis D - vit D level 17.7 - vit D supplement 50,000 unit weekly Acute blood loss anemia, postoperative - post-op Hgb 6.8, received 1 unit of pRBC -> Hgb 8.0 on 03/01 AM 03/02 Hgb 8.4, stable -> resumed Eliquis - hgb stable at 8.2 Acute on Chronic Kidney Disease Patient with history of stage III CKD Creatinine 1.4 on admission to 1.34 to 2.07 on 02/27 Discussed with Nephrology and Cardiology on 02/27, appreciate recs -held home Lasix, resumed Continue to monitor Constipation - cont. bowel regimen, including suppository - give relistor 6 (d/t renal function) - discussed w/ pharmacy Nausea and vomiting Chronic issue Notes phenergan works better than zofran Consider further workup if persistent improved now Sacral ulcer wound care consult CAD HTN Hyperlipidemia Lower extremity edema Family requested evaluation by Cardiology Cardiology consulted, appreciate recs DMII On chronic steroid use ISS while hospitalized Continue to monitor Continue other home meds as ordered Diet: HH/DMII DVT prophylaxis: Antione Saenz Dispo: PT/OT for further recs once medically stable Admission and Anticipated Discharge Date Admission Date: February 26, 2024 Subjective Pt seen laying in bed in NAD, resting Family at the bedside No fever, chills, chest pain, shortness of breath, abd. pain + persistent constipation -> will give relistor gave IV iron, and started vit. D supplement plan for rehab - [facility] possibly tmrw Review of Systems Review of Systems: All systems reviewed & are unremarkable except as noted in Subjective Physical Exam Physical Exam: General: obese, elderly F in NAD HEENT: NC/AT CV: RRR Resp: Breath sounds clear bilaterally, no increased effort of breathing Abdomen: Soft, nontender, obese, + umb. hernia Extremities: trace LE edema b/l (significantly improved) Neuro: awake, alert, oriented, answers appropriately, speech fluent, moves extremities Psych: Appropriate mood and affect Results & Data Results & Data Vital Signs (Past 12 Hours) Vital Signs Temp Pulse Resp BP Pulse Ox O2 Del Method 03/05/24 16:48 36.7 C 61 18 135/67 98 Room Air Laboratory Results 03/05/24 03/05/24 03/05/24 Range/Units 16:44 11:50 07:31 Hgb (12.0-16.0) g/dl Hct (37.0-47.0) % Sodium (136-145) mmol/L Potassium (3.5-5.1) mmol/L Chloride (98-107) mmol/L Carbon Dioxide (21-32) mmol/L Anion Gap (3-11) BUN (6-23) mg/dl Creatinine (0.6-1.2) mg/dl Est Cr Clr Drug Dosing ml/min eGFR BUN/Creatinine Ratio (10-20) Glucose (70-99(Fasting)) mg/dl POC Glucose 228 H 229 H 175 H (70-99) mg/dl Calcium (8.6-10.3) mg/dl Magnesium (1.7-2.4) mg/dl 03/05/24 03/04/24 Range/Units 05:37 20:30 Hgb 7.9 L (12.0-16.0) g/dl Hct 24.9 L (37.0-47.0) % Sodium 139 (136-145) mmol/L Potassium 5.0 (3.5-5.1) mmol/L Chloride 107 (98-107) mmol/L Carbon Dioxide 29 (21-32) mmol/L Anion Gap 3 (3-11) BUN 40 H (6-23) mg/dl Creatinine 1.89 H D (0.6-1.2) mg/dl Est Cr Clr Drug Dosing 21.4 ml/min eGFR 25.40 BUN/Creatinine Ratio 21.2 H (10-20) Glucose 133 H (70-99(Fasting)) mg/dl POC Glucose 166 H (70-99) mg/dl Calcium 8.4 L (8.6-10.3) mg/dl Magnesium 2.1 (1.7-2.4) mg/dl Medications Administered Current Inpatient Medications Acetaminophen (Acetaminophen 500 Mg Tab) 1,000 mg PO Q8H [facility] Stop: 03/30/24 10:59 Last Admin: 03/05/24 18:05 Dose: 1,000 mg Apixaban (Apixaban 2.5 Mg Tab) 2.5 mg PO BID [facility] Stop: 03/28/24 20:59 Last Admin: 03/05/24 09:32 Dose: 2.5 mg Carvedilol (Carvedilol 6.25 Mg Tab) 6.25 mg PO BID [facility] Stop: 03/27/24 20:59 Last Admin: 03/05/24 09:32 Dose: 6.25 mg Dextrose (Dextrose 50% 50 Ml Syringe) 25 - 50 ml IV UD PRN; Protocol PRN Reason: Hypoglycemia Protocol Stop: 03/27/24 19:13 Donepezil HCl (Donepezil Hcl 5 Mg Tab) 5 mg PO QAM [facility] Stop: 03/28/24 08:59 Last Admin: 03/05/24 09:32 Dose: 5 mg Ergocalciferol (Ergocalciferol 1250 Mcg (50,000 Units) Cap) 1,250 mcg PO Q7D [facility] Stop: 04/02/24 09:59 Last Admin: 03/03/24 11:28 Dose: 1,250 mcg Folic Acid (Folic Acid 1 Mg Tab) 1 mg PO QAM [facility] Stop: 03/28/24 08:59 Last Admin: 03/05/24 09:32 Dose: 1 mg Furosemide (Furosemide 20 Mg Tab) 20 mg PO Q48H [facility] Stop: 03/28/24 08:59 Last Admin: 02/27/24 08:12 Dose: 20 mg Furosemide (Furosemide 40 Mg Tab) 40 mg PO Q48H [facility] Stop: 03/29/24 08:59 Last Admin: 03/05/24 10:41 Dose: 40 mg Glucagon (Glucagon For Inj 1 Mg Vial) 1 mg SQ UD PRN; Protocol PRN Reason: Hypoglycemia Protocol Stop: 03/27/24 19:13 Glucose (Glucose 40% Gel 15 Gm Tube) 15 - 30 gm PO UD PRN; Protocol PRN Reason: Hypoglycemia Protocol Stop: 03/27/24 19:13 Glucose (Glucose 10 Tab/Tube) 4 - 8 tab PO UD PRN; Protocol PRN Reason: Hypoglycemia Protocol Stop: 03/27/24 19:13 Hydromorphone HCl (Hydromorphone Inj 0.5 Mg/0.5 Ml Syr) 0.25 mg IV Q4H PRN PRN Reason: Pain Stop: 03/11/24 19:59 Last Admin: 03/03/24 15:54 Dose: 0.25 mg Promethazine HCl (Phenergan) 6.25 mg in 50.25 mls @ 201 mls/hr IV Q6H PRN PRN Reason: Nausea And Vomiting Stop: 03/28/24 16:21 Last Infusion: 02/27/24 18:15 Dose: Infused Insulin Aspart (Insulin Aspart Per Unit Charge) 0 units SC ACHS [facility] Stop: 03/27/24 19:20 Last Admin: 03/05/24 17:22 Dose: 6 units Lidocaine (Lidocaine 5% 1 Patch) 1 patch TD QAM [facility] Stop: 03/29/24 10:44 Last Admin: 03/05/24 09:33 Dose: 1 patch Magnesium Hydroxide (Magnesium Hydroxide Susp 30 Ml Udc) 30 ml PO Q6H PRN PRN Reason: Constipation Stop: 03/27/24 19:13 Last Admin: 03/04/24 06:28 Dose: 30 ml Melatonin (Melatonin 3 Mg Tab) 3 mg PO HS PRN PRN Reason: Insomnia Stop: 03/27/24 19:13 Last Admin: 03/04/24 21:36 Dose: 3 mg Methotrexate (Methotrexate Sodium 2.5 Mg Tab) 2.5 mg PO Fr@0900 [facility] Stop: 04/01/24 08:59 Last Admin: 03/02/24 07:49 Dose: 2.5 mg Miscellaneous (Carbohydrates For Hypoglycemia ) 15 - 30 gm PO UD PRN PRN Reason: Hypoglycemia Protocol Stop: 03/27/24 19:13 Miscellaneous (Remove Lidoderm Patch) 1 each N/A DAILY@2100 [facility] Stop: 03/29/24 20:59 Last Admin: 03/04/24 21:47 Dose: 1 each Multivitamins (Multivitamin Tab) 1 tab PO QAM [facility] Stop: 03/28/24 08:59 Last Admin: 03/05/24 09:32 Dose: 1 tab Mupirocin (Mupirocin 2% Oint 22 Gm Tube) 1 appln TOP TID [facility] Stop: 03/27/24 20:59 Last Admin: 03/05/24 14:55 Dose: 1 appln Ondansetron HCl (Ondansetron Inj 2 Mg/Ml 2 Ml Vial) 4 mg IV Q6H PRN PRN Reason: Nausea Stop: 03/27/24 19:13 Last Admin: 03/04/24 10:11 Dose: 4 mg Oxybutynin Chloride (Oxybutynin Chloride Xl 5 Mg Tabcr) 5 mg PO DAILY [facility]; Protocol Stop: 03/28/24 08:59 Last Admin: 03/05/24 09:32 Dose: 5 mg Oxycodone HCl (Oxycodone Hcl Ir 5 Mg Tab (Immediate Release)) 5 mg PO Q4H PRN PRN Reason: Pain Stop: 03/16/24 10:32 Last Admin: 03/05/24 16:29 Dose: 5 mg Pantoprazole Sodium (Pantoprazole 40 Mg Tab) 40 mg PO BID [facility] Stop: 03/30/24 11:29 Last Admin: 03/05/24 09:32 Dose: 40 mg Polyethylene Glycol (Polyethylene (Miralax) 17 Gm Pack) 17 gm PO DAILY PRN PRN Reason: Constipation Stop: 03/27/24 19:13 Polyethylene Glycol (Polyethylene (Miralax) 17 Gm Pack) 17 gm PO TID [facility] Stop: 04/03/24 08:59 Last Admin: 03/05/24 14:55 Dose: 17 gm Prednisone (Prednisone 5 Mg Tab) 5 mg PO QAM [facility] Stop: 03/28/24 08:59 Last Admin: 03/05/24 09:32 Dose: 5 mg Sennosides (Senna 8.6 Mg Tab) 8.6 mg PO QAM [facility] Stop: 03/30/24 19:29 Last Admin: 03/05/24 10:01 Dose: 8.6 mg
[2024-03-05] MEDS: METHYLNALTREXONE BROMIDE 12 MG/0.6 ML VIAL SQ ONE (19:35)
--- NOTE | 2024-03-06 07:35 | Hospitalist Progress Note ---
Date of Service March 06, 2024 Assessment & Plan (1) Edema of left lower extremity: (2) Femoral fracture: (3) Closed hip fracture: Plan Adrianna Narayan is an 88-year-old female with a significant medical hx of RA, DMII with stage 3a CKD, HLD, HTN, GERD, CAD, Statin intolerance and Vit D deficiency who presents post fall at home and was noted to have an acute displaced and angulated right femoral fracture. She is s/p nailing on 02/27/24 with orthopedic surgery. Acute R Femoral Fracture Age-related osteoporosis with current pathologic fracture, right femur s/p Right Long Troch Nail on 02/27/24 with orthopedic surgery PRN pain control and nausea control Per ortho for DVT prophylaxis, pt on Eliquis - resumed, cont. PT/OT , will likely require acute rehab Appreciate further recs from Orthopedic Surgery + light drainage from incision - dressings with light yellow and green color noticed. No drainage noted directly at incision during my exam - Dr. Sanders (surgeon) notified and saw the pt this AM - started ppx abx As per his note: I did start her on cefadroxil twice a day and I gave her a prescription to continue it for 10 days after she is discharged. I just want to give a little bit of extra prophylaxis to make sure no infection occurs. She is orthopedically stable for discharge. She will follow-up orthopedics about 2 weeks from her date of surgery. Hypovitaminosis D - vit D level 17.7 - vit D supplement 50,000 unit weekly Acute blood loss anemia, postoperative - post-op Hgb 6.8, received 1 unit of pRBC -> Hgb 8.0 on 03/01 AM 03/02 Hgb 8.4, stable -> resumed Eliquis - hgb stable, currently at 8.5 Acute on Chronic Kidney Disease Patient with history of stage III CKD Creatinine 1.4 on admission to 1.34 to 2.07 on 02/27 Discussed with Nephrology and Cardiology on 02/27, appreciate recs -held home Lasix, resumed Continue to monitor Constipation - cont. bowel regimen, including suppository - 03/05 s/p relistor 6 (d/t renal function) - discussed w/ pharmacy - 03/06 will give tap water enema Nausea and vomiting Chronic issue Notes phenergan works better than zofran Consider further workup if persistent improved now Sacral ulcer wound care consult CAD HTN Hyperlipidemia Lower extremity edema Family requested evaluation by Cardiology Cardiology consulted, appreciate recs DMII On chronic steroid use ISS while hospitalized Continue to monitor Continue other home meds as ordered Diet: HH/DMII DVT prophylaxis: Antione Saenz Dispo: PT/OT for further recs once medically stable Admission and Anticipated Discharge Date Admission Date: February 26, 2024 Subjective Pt seen laying in bed in NAD, resting Family at the bedside No fever, chills, chest pain, shortness of breath, abd. pain + persistent constipation -> gave relistor yesterday, will give tap water enema gave IV iron, and started vit. D supplement plan for rehab - [facility] possibly tmrw Hgb stable + light drainage from incision - dressings with light yellow and green color noticed. No drainage noted directly at incision during my exam - Dr. Sanders (surgeon) notified and saw the pt this AM - started ppx abx Review of Systems Review of Systems: All systems reviewed & are unremarkable except as noted in Subjective Physical Exam Physical Exam: General: obese, elderly F in NAD HEENT: NC/AT CV: RRR Resp: Breath sounds clear bilaterally, no increased effort of breathing Abdomen: Soft, nontender, obese, + umb. hernia Extremities: trace LE edema b/l (significantly improved) Neuro: awake, alert, oriented, answers appropriately, speech fluent, moves extremities Psych: Appropriate mood and affect Results & Data Results & Data Vital Signs (Past 12 Hours) Vital Signs Temp Pulse Resp BP BP Pulse Ox O2 Del Method 03/06/24 07:23 36.8 C 68 16 127/72 96 Room Air 03/05/24 21:10 62 138/58 L Laboratory Results 03/06/24 03/06/24 03/06/24 Range/Units 11:42 09:08 07:50 WBC 9.88 (4.8-10.8) K/ul RBC 2.62 L (4.20-5.40) M/uL Hgb 8.5 L (12.0-16.0) g/dl Hct 26.8 L (37.0-47.0) % MCV 102.3 H (80.0-100.0) fL MCH 32.4 (25.0-34.0) pg MCHC 31.7 L (32.0-36.0) g/dL RDW Std Deviation 68.9 H (36.4-46.3) fL RDW Coeff of Prudence 19.6 H (11.5-14.5) % Plt Count 216 (130-400) K/uL MPV 9.3 L (9.4-12.4) fL Absolute Nucleated RBC 0.03 (0.00-0.12) K/uL Nucleated RBC % (auto) 0.3 % Sodium 136 (136-145) mmol/L Potassium 4.4 (3.5-5.1) mmol/L Chloride 103 (98-107) mmol/L Carbon Dioxide 27 (21-32) mmol/L Anion Gap 6 (3-11) BUN 41 H (6-23) mg/dl Creatinine 1.50 H D (0.6-1.2) mg/dl Est Cr Clr Drug Dosing 27.0 ml/min eGFR 33.52 BUN/Creatinine Ratio 27.3 H (10-20) Glucose 207 H (70-99(Fasting)) mg/dl POC Glucose 137 H 151 H (70-99) mg/dl Calcium 8.3 L (8.6-10.3) mg/dl Phosphorus 3.1 (2.5-4.9) mg/dl Magnesium 1.9 (1.7-2.4) mg/dl 03/05/24 03/05/24 Range/Units 19:59 16:44 WBC (4.8-10.8) K/ul RBC (4.20-5.40) M/uL Hgb (12.0-16.0) g/dl Hct (37.0-47.0) % MCV (80.0-100.0) fL MCH (25.0-34.0) pg MCHC (32.0-36.0) g/dL RDW Std Deviation (36.4-46.3) fL RDW Coeff of Prudence (11.5-14.5) % Plt Count (130-400) K/uL MPV (9.4-12.4) fL Absolute Nucleated RBC (0.00-0.12) K/uL Nucleated RBC % (auto) % Sodium (136-145) mmol/L Potassium (3.5-5.1) mmol/L Chloride (98-107) mmol/L Carbon Dioxide (21-32) mmol/L Anion Gap (3-11) BUN (6-23) mg/dl Creatinine (0.6-1.2) mg/dl Est Cr Clr Drug Dosing ml/min eGFR BUN/Creatinine Ratio (10-20) Glucose (70-99(Fasting)) mg/dl POC Glucose 187 H 228 H (70-99) mg/dl Calcium (8.6-10.3) mg/dl Phosphorus (2.5-4.9) mg/dl Magnesium (1.7-2.4) mg/dl Medications Administered Current Inpatient Medications Acetaminophen (Acetaminophen 500 Mg Tab) 1,000 mg PO Q8H KRISTINE Stop: 03/30/24 10:59 Last Admin: 03/06/24 03:20 Dose: 1,000 mg Apixaban (Apixaban 2.5 Mg Tab) 2.5 mg PO BID KRISTINE Stop: 03/28/24 20:59 Last Admin: 03/05/24 21:12 Dose: 2.5 mg Carvedilol (Carvedilol 6.25 Mg Tab) 6.25 mg PO BID KRISTINE Stop: 03/27/24 20:59 Last Admin: 03/05/24 21:11 Dose: 6.25 mg Dextrose (Dextrose 50% 50 Ml Syringe) 25 - 50 ml IV UD PRN; Protocol PRN Reason: Hypoglycemia Protocol Stop: 03/27/24 19:13 Donepezil HCl (Donepezil Hcl 5 Mg Tab) 5 mg PO QAM KRISTINE Stop: 03/28/24 08:59 Last Admin: 03/05/24 09:32 Dose: 5 mg Ergocalciferol (Ergocalciferol 1250 Mcg (50,000 Units) Cap) 1,250 mcg PO Q7D KRISTINE Stop: 04/02/24 09:59 Last Admin: 03/03/24 11:28 Dose: 1,250 mcg Folic Acid (Folic Acid 1 Mg Tab) 1 mg PO QAM KRISTINE Stop: 03/28/24 08:59 Last Admin: 03/05/24 09:32 Dose: 1 mg Furosemide (Furosemide 20 Mg Tab) 20 mg PO Q48H KRISTINE Stop: 03/28/24 08:59 Last Admin: 02/27/24 08:12 Dose: 20 mg Furosemide (Furosemide 40 Mg Tab) 40 mg PO Q48H KRISTINE Stop: 03/29/24 08:59 Last Admin: 03/05/24 10:41 Dose: 40 mg Glucagon (Glucagon For Inj 1 Mg Vial) 1 mg SQ UD PRN; Protocol PRN Reason: Hypoglycemia Protocol Stop: 03/27/24 19:13 Glucose (Glucose 40% Gel 15 Gm Tube) 15 - 30 gm PO UD PRN; Protocol PRN Reason: Hypoglycemia Protocol Stop: 03/27/24 19:13 Glucose (Glucose 10 Tab/Tube) 4 - 8 tab PO UD PRN; Protocol PRN Reason: Hypoglycemia Protocol Stop: 03/27/24 19:13 Hydromorphone HCl (Hydromorphone Inj 0.5 Mg/0.5 Ml Syr) 0.25 mg IV Q4H PRN PRN Reason: Pain Stop: 03/11/24 19:59 Last Admin: 03/03/24 15:54 Dose: 0.25 mg Promethazine HCl (Phenergan) 6.25 mg in 50.25 mls @ 201 mls/hr IV Q6H PRN PRN Reason: Nausea And Vomiting Stop: 03/28/24 16:21 Last Infusion: 02/27/24 18:15 Dose: Infused Insulin Aspart (Insulin Aspart Per Unit Charge) 0 units SC ACHS KRISTINE Stop: 03/27/24 19:20 Last Admin: 03/05/24 21:19 Dose: 2 units Lidocaine (Lidocaine 5% 1 Patch) 1 patch TD QAM KRISTINE Stop: 03/29/24 10:44 Last Admin: 03/05/24 09:33 Dose: 1 patch Magnesium Hydroxide (Magnesium Hydroxide Susp 30 Ml Udc) 30 ml PO Q6H PRN PRN Reason: Constipation Stop: 03/27/24 19:13 Last Admin: 03/04/24 06:28 Dose: 30 ml Melatonin (Melatonin 3 Mg Tab) 3 mg PO HS PRN PRN Reason: Insomnia Stop: 03/27/24 19:13 Last Admin: 03/04/24 21:36 Dose: 3 mg Methotrexate (Methotrexate Sodium 2.5 Mg Tab) 2.5 mg PO Fr@0900 KRISTINE Stop: 04/01/24 08:59 Last Admin: 03/02/24 07:49 Dose: 2.5 mg Miscellaneous (Carbohydrates For Hypoglycemia ) 15 - 30 gm PO UD PRN PRN Reason: Hypoglycemia Protocol Stop: 03/27/24 19:13 Miscellaneous (Remove Lidoderm Patch) 1 each N/A DAILY@2100 [facility] Stop: 03/29/24 20:59 Last Admin: 03/05/24 21:12 Dose: 1 each Multivitamins (Multivitamin Tab) 1 tab PO QAM [facility] Stop: 03/28/24 08:59 Last Admin: 03/05/24 09:32 Dose: 1 tab Ondansetron HCl (Ondansetron Inj 2 Mg/Ml 2 Ml Vial) 4 mg IV Q6H PRN PRN Reason: Nausea Stop: 03/27/24 19:13 Last Admin: 03/04/24 10:11 Dose: 4 mg Oxybutynin Chloride (Oxybutynin Chloride Xl 5 Mg Tabcr) 5 mg PO DAILY [facility]; Protocol Stop: 03/28/24 08:59 Last Admin: 03/05/24 09:32 Dose: 5 mg Oxycodone HCl (Oxycodone Hcl Ir 5 Mg Tab (Immediate Release)) 5 mg PO Q4H PRN PRN Reason: Pain Stop: 03/16/24 10:32 Last Admin: 03/05/24 16:29 Dose: 5 mg Pantoprazole Sodium (Pantoprazole 40 Mg Tab) 40 mg PO BID [facility] Stop: 03/30/24 11:29 Last Admin: 03/05/24 21:11 Dose: 40 mg Polyethylene Glycol (Polyethylene (Miralax) 17 Gm Pack) 17 gm PO DAILY PRN PRN Reason: Constipation Stop: 03/27/24 19:13 Polyethylene Glycol (Polyethylene (Miralax) 17 Gm Pack) 17 gm PO TID [facility] Stop: 04/03/24 08:59 Last Admin: 03/05/24 14:55 Dose: 17 gm Prednisone (Prednisone 5 Mg Tab) 5 mg PO QAM [facility] Stop: 03/28/24 08:59 Last Admin: 03/05/24 09:32 Dose: 5 mg Sennosides (Senna 8.6 Mg Tab) 8.6 mg PO QAM [facility] Stop: 03/30/24 19:29 Last Admin: 03/05/24 10:01 Dose: 8.6 mg
--- NOTE | 2024-03-06 07:59 | Orthopedic Progress Note ---
Date of Service March 06, 2024 Assessment & Plan (1) Status post open reduction with internal fixation of fracture: She can be weightbearing as tolerated on the right hip but I am not surprised it is taking her a little while to recover. It may be several weeks before she feels more comfortable putting full weight on it. With regards to her incision I see a little bit of drainage which is consistent with what I see from patient is on Eliquis. She needs to be on the Eliquis because she is not progressing with her ambulation quite yet. I did start her on cefadroxil twice a day and I gave her a prescription to continue it for 10 days after she is discharged. I just want to give a little bit of extra prophylaxis to make sure no infection occurs. She is orthopedically stable for discharge. She will follow-up orthopedics about 2 weeks from her date of surgery.. Full orthopedic discharge instructions were placed in the discharge summary. Sofia Rodas was seen and examined at bedside this morning. Unfortunately she is still struggling some with the right hip. She is having a lot of pain and she has been slow to ambulate. This is not unexpected. She is also having a little bit of sanguinous drainage from her incision. She has no other complaints.. Review of Systems All systems reviewed & are unremarkable except as noted in HPI & below. Physical Exam On physical exam of the right hip, the dressing was removed there is a little bit of sanguinous drainage from it. There is no signs of infection. This is the type of drainage I see from someone on Eliquis.. Results & Data Results & Data Laboratory Results . Diagnostic Findings . PG Care Time/CCT Total # of Minutes Spent Total Time Spent with Patient: Total time spent is greater than 50% in coordination of care (as documented) at patient's floor/unit and/or counseling patient: Coding Level of Care Code 43264 Post Operative Follow-Up Diagnoses Status post open reduction with internal fixation of fracture Z98.890; Z87.81
[2024-03-06 09:55] LABS: Hematocrit (blood only) 26.8 % (37.0-47.0); Hemoglobin 8.5 g/dl (12.0-16.0); Mean Corpuscular Hemoglobin 32.4 pg (25.0-34.0); Mean Corpuscular Hgb Conc 31.7 g/dL (32.0-36.0); Mean Corpuscular Volume 102.3 fL (80.0-100.0); Mean Platelet Volume 9.3 fL (9.4-12.4); Nucleated RBC # (auto) 0.03 K/uL (0.00-0.12); Nucleated RBC % (auto) 0.3 %; Platelet Count 216 K/uL (130-400); RDW Coefficient of Variation 19.6 % (11.5-14.5); RDW Standard Deviation 68.9 fL (36.4-46.3); Red Blood Count 2.62 M/uL (4.20-5.40); White Blood Count 9.88 K/ul (4.8-10.8)
[2024-03-06] MEDS: cefaDROXiL 500 MG CAP PO SCH (10:08)
--- NOTE | 2024-03-06 10:13 | XRay Report ---
KUB CLINICAL HISTORY: Persistent constipation. COMPARISON STUDY: CT of the abdomen and pelvis February 03, 2023. FINDINGS: Cholecystectomy clips, right femoral internal fixation hardware and lumbar spine decompress ion and fusion are incidentally noted. The bowel gas pattern is normal. There is a moderate amount of stool within the colon and rectum. IMPRESSION: 1. No evidence for a bowel obstruction. 2. Moderate amount of stool within the colon and rectum. ACT 112: Negative or not required by law. Electronically signed by: Jose Fritz M.D. 03/06/2024 10:12 AM
[2024-03-06 10:15] LABS: BUN Creatinine Ratio 27.3 (10-20); Calcium 8.3 mg/dl (8.6-10.3); Magnesium 1.9 mg/dl (1.7-2.4); Phosphorus 3.1 mg/dl (2.5-4.9); Potassium 4.4 mmol/L (3.5-5.1)
[2024-03-07] MEDS: POLYETHYLENE (MIRALAX) 17 GM PACK PO PRN (08:33)
--- NOTE | 2024-03-07 12:40 | Hospitalist Progress Note ---
Date of Service March 07, 2024 Assessment & Plan (1) Edema of left lower extremity: (2) Femoral fracture: (3) Closed hip fracture: Plan per Dr. Subramanian's notes with addendum: Adrianna Narayan is an 88-year-old female with a significant medical hx of RA, DMII with stage 3a CKD, HLD, HTN, GERD, CAD, Statin intolerance and Vit D deficiency who presents post fall at home and was noted to have an acute displaced and angulated right femoral fracture. She is s/p nailing on 02/27/24 with orthopedic surgery. Acute R Femoral Fracture Age-related osteoporosis with current pathologic fracture, right femur s/p Right Long Troch Nail on 02/27/24 with orthopedic surgery PRN pain control and nausea control Per ortho for DVT prophylaxis, pt on Eliquis - resumed, cont. PT/OT , will likely require acute rehab Appreciate further recs from Orthopedic Surgery + light drainage from incision - dressings with light yellow and green color noticed. No drainage noted directly at incision during my exam - Dr. Sanders (surgeon) notified and saw the pt this AM - started ppx abx As per his note: I did start her on cefadroxil twice a day and I gave her a prescription to continue it for 10 days after she is discharged. I just want to give a little bit of extra prophylaxis to make sure no infection occurs. She is orthopedically stable for discharge. She will follow-up orthopedics about 2 weeks from her date of surgery. - stable overall continue Cefadroxil Hypovitaminosis D - vit D level 17.7 - vit D supplement 50,000 unit weekly Acute blood loss anemia, postoperative - post-op Hgb 6.8, received 1 unit of pRBC -> Hgb 8.0 on 03/01 AM 03/02 Hgb 8.4, stable -> resumed Eliquis - hgb stable, currently at 8.5 Acute on Chronic Kidney Disease Patient with history of stage III CKD Creatinine 1.4 on admission to 1.34 to 2.07 on 02/27 Discussed with Nephrology and Cardiology on 02/27, appreciate recs -held home Lasix, resumed Continue to monitor Constipation - cont. bowel regimen, including suppository - 03/05 s/p relistor 6 (d/t renal function) - discussed w/ pharmacy - 03/06 will give tap water enema 03/07 fleet enema, lactulose ordered monitor closely Nausea and vomiting Chronic issue Notes phenergan works better than zofran Consider further workup if persistent 03/07 resolved Sacral ulcer wound care consult CAD HTN Hyperlipidemia Lower extremity edema Family requested evaluation by Cardiology Cardiology consulted, appreciate recs DMII On chronic steroid use ISS while hospitalized Continue to monitor Continue other home meds as ordered Diet: HH/DMII DVT prophylaxis: Antione Saenz Dispo: PT/OT for further recs once medically stable Admission and Anticipated Discharge Date Admission Date: February 26, 2024 Subjective ff up for s/p R hip surgery, etc seen resting in bed, comfortable states she feels fine overall denies pain over R hip no BM yet, but no abdominal pain, nausea no fever/chills no chest pain, dyspnea, palpitations, dizziness no other symptoms Review of Systems Review of Systems: all noted and negative except for above Physical Exam Physical Exam: General- oriented x 3, not in distress, speaks in sentences with no effort or accessory muscle use Eyes- anicteric Neck- no JVD Lungs- clear breath sounds bilaterally, no rales/wheezes Heart- normal rate, regular rhythm; no murmurs Abdomen- normal bowel sounds, nondistended, soft, nontender Extremities- no pretibial edema, no calf tenderness R hip: dressing in place, no bleeding/discharge no surrounding erythema/tenderness/warmth Neuro- alert, oriented x 3; no gross focal neurologic deficits Skin- warm & dry Results & Data Results & Data Vital Signs (Past 12 Hours) Vital Signs Temp Pulse Resp BP Pulse Ox O2 Del Method 03/07/24 07:20 Room Air 03/07/24 07:15 36.8 C 61 20 134/72 98 Room Air all noted and reviewed including below
[2024-03-07] MEDS ORDERED: LACTULOSE SYRUP 20 GM/30 ML UDC PO PRN (12:47)
[2024-03-07] MEDS: LACTULOSE SYRUP 20 GM/30 ML UDC PO ONE (13:45)
[2024-03-07] MEDS: SOD PHOSPHATE/SOD BIPHOSPHATE ENEMA 132 ML BTL PR STA (17:00)
[2024-03-07] MEDS: ACETAMINOPHEN 325 MG TAB PO SCH (18:35)
[2024-03-08] MEDS: traMADol HCL 50 MG TABLET PO STA (10:53)
--- NOTE | 2024-03-08 16:05 | Hospitalist Progress Note ---
Date of Service March 08, 2024 Assessment & Plan (1) Edema of left lower extremity: (2) Femoral fracture: (3) Closed hip fracture: Plan per Dr. Subramanian's notes with addendum: Adrianna Narayan is an 88-year-old female with a significant medical hx of RA, DMII with stage 3a CKD, HLD, HTN, GERD, CAD, Statin intolerance and Vit D deficiency who presents post fall at home and was noted to have an acute displaced and angulated right femoral fracture. She is s/p nailing on 02/27/24 with orthopedic surgery. Acute R Femoral Fracture Age-related osteoporosis with current pathologic fracture, right femur s/p Right Long Troch Nail on 02/27/24 with orthopedic surgery PRN pain control and nausea control Per ortho for DVT prophylaxis, pt on Eliquis - resumed, cont. PT/OT , will likely require acute rehab Appreciate further recs from Orthopedic Surgery + light drainage from incision - dressings with light yellow and green color noticed. No drainage noted directly at incision during my exam - Dr. Sanders (surgeon) notified and saw the pt this AM - started ppx abx As per his note: I did start her on cefadroxil twice a day and I gave her a prescription to continue it for 10 days after she is discharged. I just want to give a little bit of extra prophylaxis to make sure no infection occurs. She is orthopedically stable for discharge. She will follow-up orthopedics about 2 weeks from her date of surgery. - continue pain control- Tramadol PRN added, PT/OT continue Cefadroxil - awaiting acceptance to Acute Rehab Hypovitaminosis D - vit D level 17.7 - vit D supplement 50,000 unit weekly Acute blood loss anemia, postoperative - post-op Hgb 6.8, received 1 unit of pRBC -> Hgb 8.0 on 03/01 AM 03/02 Hgb 8.4, stable -> resumed Eliquis -> hgb stable, currently at 8.5 Acute on Chronic Kidney Disease Patient with history of stage III CKD Creatinine 1.4 on admission to 1.34 to 2.07 on 02/27 Discussed with Nephrology and Cardiology on 02/27, appreciate recs -held home Lasix, resumed Continue to monitor Constipation - cont. bowel regimen, including suppository - 11/25 s/p relistor 6 (d/t renal function) - discussed w/ pharmacy - 03/06 will give tap water enema 03/07 fleet enema, lactulose ordered monitor closely 03/08 (+) BM Nausea and vomiting Chronic issue Notes phenergan works better than zofran Consider further workup if persistent 03/07 resolved Sacral ulcer wound care consult CAD HTN Hyperlipidemia Lower extremity edema Family requested evaluation by Cardiology Cardiology consulted, appreciate recs DMII On chronic steroid use ISS while hospitalized Continue to monitor Continue other home meds as ordered Diet: HH/DMII DVT prophylaxis: Antione Saenz Dispo: PT/OT for further recs once medically stable Admission and Anticipated Discharge Date Admission Date: February 26, 2024 Subjective ff up for s/p R hip surgery, etc seen resting in chair having significant pain on the R hip- feels it is positional repositioned- pain seemed to have improved (+) BM yesterday and this morning no other new symptoms Review of Systems Review of Systems: all noted and negative except for above Physical Exam Physical Exam: General- oriented x 3, not in distress, speaks in sentences with no effort or accessory muscle use Eyes- anicteric Neck- no JVD Lungs- clear breath sounds bilaterally, no rales/wheezes Heart- normal rate, regular rhythm; no murmurs Abdomen- normal bowel sounds, nondistended, soft, nontender Extremities-R hip: dressing in place- no bleeding or discharge no pretibial edema, no calf tenderness Neuro- alert, oriented x 3; no gross focal neurologic deficits Skin- warm & dry Results & Data Results & Data Vital Signs (Past 12 Hours) Vital Signs Temp Pulse Resp BP Pulse Ox O2 Del Method 03/08/24 14:55 36.6 C 69 16 121/65 96 Room Air 03/08/24 07:24 36.6 C 65 16 121/67 96 Room Air all noted and reviewed including below
[2024-03-08 19:37] VITALS: O2SAT 98
[2024-03-08] MEDS: traMADol HCL 50 MG TABLET PO PRN (19:49)
--- NOTE | 2024-03-09 11:22 | Discharge Summary ---
Discharge Summary Date of Service March 09, 2024 Principal Dx & Hospital Course #1 = Principal Diagnosis (1) Edema of left lower extremity: (2) Femoral fracture: (3) Closed hip fracture: Plan per Dr. Subramanian's notes with addendum: Adrianna Narayan is an 88-year-old female with a significant medical hx of RA, DMII with stage 3a CKD, HLD, HTN, GERD, CAD, Statin intolerance and Vit D deficiency who presents post fall at home and was noted to have an acute displaced and angulated right femoral fracture. She is s/p nailing on 02/27/24 with orthopedic surgery. Acute R Femoral Fracture Age-related osteoporosis with current pathologic fracture, right femur s/p Right Long Troch Nail on 02/27/24 with orthopedic surgery PRN pain control and nausea control Per ortho for DVT prophylaxis, pt on Eliquis - resumed, cont. PT/OT , will likely require acute rehab Appreciate further recs from Orthopedic Surgery + light drainage from incision - dressings with light yellow and green color noticed. No drainage noted directly at incision during my exam - Dr. Sanders (surgeon) notified and saw the pt this AM - started ppx abx As per his note: I did start her on cefadroxil twice a day and I gave her a prescription to continue it for 10 days after she is discharged. I just want to give a little bit of extra prophylaxis to make sure no infection occurs. She is orthopedically stable for discharge. She will follow-up orthopedics about 2 weeks from her date of surgery. - continue pain control- Tramadol PRN added, PT/OT continue Cefadroxil x 7 more days - follow up with Ortho Dr. Rubén Sanders in 1 week transition to [facility] Hypovitaminosis D - vit D level 17.7 - vit D supplement 50,000 unit weekly Acute blood loss anemia, postoperative - post-op Hgb 6.8, received 1 unit of pRBC -> Hgb 8.0 on 03/01 AM 03/02 Hgb 8.4, stable -> resumed Eliquis -> hgb stable, currently at 8.5 Acute on Chronic Kidney Disease Patient with history of stage III CKD Creatinine 1.4 on admission to 1.34 to 2.07 on 02/27 Discussed with Nephrology and Cardiology on 02/27, appreciate recs -held home Lasix, resumed Continue to monitor Constipation - cont. bowel regimen, including suppository - 03/05 s/p relistor 6 (d/t renal function) - discussed w/ pharmacy - 03/06 will give tap water enema 03/07 fleet enema, lactulose ordered monitor closely 03/08 (+) BMs continue Miralax, Sennokot S Nausea and vomiting Chronic issue Notes phenergan works better than zofran Consider further workup if persistent 03/09 resolved Sacral ulcer wound care consulted discharge recommendations: Clean and dry wound on right buttocks, apply Optifoam to buttocks wound, change every 3 days and as needed Frequent repositioning follow closely CAD HTN Hyperlipidemia Lower extremity edema Family requested evaluation by Cardiology Cardiology consulted, appreciate recs DMII On chronic steroid use ISS while hospitalized Continue to monitor Continue other home meds as ordered Diet: HH/DMII DVT prophylaxis: Antione Saenz Dispo: transition to [facility] Notes For Next Care Provider Medication Changes From Visit Please refer to medical reconciliation section Admission HPI Per Admitting Provider Adrianna Narayan is an 88-year-old female with a significant medical hx of RA, DMII with stage 3a CKD, HLD, HTN, GERD, CAD, Stain intolerance and Vi D deficiency who presents post fall at home. Patient states she was cleaning up after her cat when she was attempting to bend forward. She thinks she fell backward and or onto her right side. She felt a "pop "of her right hip. She has an acute displaced and angulated right femoral fracture. Ortho has been notified and plan is for OR tomorrow. She denies head trauma or loss of consciousness with the fall. No visual disturbances. Admission Exam Per Admitting Provider General- adult elderly female seen at bedside. Her spouse is present. Head- atraumatic Eyes- PERRL, EOMI, anicteric ENT- oropharynx clear Neck- supple, no JVD, no adenopathy, no thyromegaly; carotids +2/2, no bruits appreciated Lungs- clear to auscultation and percussion Heart- regular rhythm; no murmur, no gallop, no rub appreciated Abdomen- normal bowel sounds, soft, nontender, no masses or hepatosplenomegaly Extremities- no pretibial edema, no calf tenderness; right lower extremity externally rotated Neuro- alert, oriented x 3; PERRL, EOMI; no facial palsy; no dysarthria; Skin- warm & dry Discharge Exam General- oriented x 3, not in distress, speaks in sentences with no effort or accessory muscle use Eyes- anicteric Neck- no JVD Lungs- clear breath sounds bilaterally, no rales/wheezes Heart- normal rate, regular rhythm; no murmurs Abdomen- normal bowel sounds, nondistended, soft, nontender Extremities-R hip: dressing in place- no bleeding or discharge no pretibial edema, no calf tenderness Neuro- alert, oriented x 3; no gross focal neurologic deficits Skin- warm & dry Updated Medication List Medication Instructions Recorded Confirmed Type aspirin 81 mg capsule 81 mg PO QAM 12/24/22 02/26/24 History furosemide 20 mg tablet See Rx Instructions .Route .COMPLEX 02/26/24 02/26/24 History mupirocin 2 % topical ointment 1 applic topical TID 02/26/24 02/26/24 History prednisone 5 mg tablet 5 mg PO QAM 02/26/24 02/26/24 History apixaban 2.5 mg tablet (Eliquis) 2.5 mg PO BID 30 days #60 tabs 03/09/24 Rx carvedilol 6.25 mg tablet 6.25 mg PO BID 30 days #60 tabs 03/09/24 Rx cefadroxil 500 mg capsule 500 mg PO Q24H 7 days #7 caps 03/09/24 Rx donepezil 5 mg tablet 5 mg PO QAM 30 days #30 tabs 03/09/24 Rx ergocalciferol (vitamin D2) 1,250 1,250 mcg PO Q7D 30 days #5 caps 03/09/24 Rx mcg (50,000 unit) capsule folic acid 1 mg tablet 1 mg PO QAM 30 days #30 tabs 03/09/24 Rx furosemide 20 mg tablet 20 mg PO Q48H 30 days #15 tabs 03/09/24 Rx furosemide 40 mg tablet 40 mg PO Q48H 30 days #15 tabs 03/09/24 Rx lidocaine 5 % topical patch 1 patch transdermal QAM 30 days 03/09/24 Rx #30 ea methotrexate sodium 2.5 mg tablet 2.5 mg PO Q7D 30 days #4 tabs 03/09/24 Rx multivitamin 1 tab PO QAM 30 days #30 tabs 03/09/24 Rx polyethylene glycol 3350 17 gram 17 g PO DAILY 30 days #30 ea 03/09/24 Rx oral powder packet (Miralax) sennosides 8.6 mg tablet (Senokot) 8.6 mg PO QAM 30 days #30 tabs 03/09/24 Rx tramadol 50 mg tablet 50 mg PO Q8H PRN pain #21 tabs 03/09/24 Rx trospium 20 mg tablet 20 mg PO BID 30 days #180 tabs 03/09/24 Rx Hospital Stay Data Consultations 02/26/24 14:02 ED Decision to Admit Stat 02/26/24 16:21 Consult Orthopedic Surgery Stat 02/27/24 13:26 Consult Cardiology Routine 02/28/24 09:14 Consult Nephrology Routine Procedures Performed Operation Date: 02/27/24 13:35 Actual Procedures p Right Long Troch Nail(Right) - Rubén Sanders, Diagnostic Imagining Performed 02/27/24 FL femur RT 2V Routine Pending Results Patient Have Any Pending Studies at Discharge: No Discharge Instructions Given to Patient (Per Discharging Provider) Please refer to Ortho discharge instructions below. Please refer to accompanying hospital discharge summary for further details. Total Time Total Time Spent Total Time Spent (In Minutes): 60 minutes
[2024-03-09 14:44] VITALS: RESP 16; TEMP 98.1
[2024-03-09 14:46] VITALS: BP 104/59; PULSE 74
--- NOTE | 2024-03-12 16:27 | Coding Query ---
PRESSURE ULCER DOCUMENTATION To promote full compliance with coding requirements relating to patient care, physician participation is requested in all cases of linoleum layer helper uncertainty. Please assist us with the question(s) below: Please specify the known or suspected type by placing an "X" within the parenthesis (x). A pressure ulcer of the (AUTOMOTIVE GLASS SPECIALIST INSERT SITE) Wound Care Consult Note stated right buttock pressure ulcer present on admission If possible, please check the box that provides the specific stage of the pressure ulcer ( ) Stage I ( ) Stage II ( ) Stage III ( ) Stage IV ( ) Unstageable Was the pressure ulcer present on admission? Please check the appropriate box for the pressure ulcer: ( ) Present on admission ( ) Not present on admission ( ) Unable to be clinically determined Thank you VIPIN Neely [facility]
--- NOTE | 2024-03-23 13:57 | Coding Query ---
PRESSURE ULCER DOCUMENTATION To promote full compliance with coding requirements relating to patient care, physician participation is requested in all cases of public health specialist uncertainty. Please assist us with the question(s) below: Please specify the known or suspected type by placing an "X" within the parenthesis (x). A pressure ulcer of the (LENS GENERATOR INSERT SITE) Wound Care Consult Note stated Right Buttock Ulcer Present on Admission .. If possible, please check the box that provides the specific stage of the pressure ulcer ( ) Stage I ( ) Stage II ( ) Stage III ( ) Stage IV ( ) Unstageable Was the pressure ulcer present on admission? Please check the appropriate box for the pressure ulcer: ( ) Present on admission ( ) Not present on admission ( ) Unable to be clinically determined Thank you VIPIN Neely [facility]
--- NOTE | 2024-03-29 05:22 | Coding Query ---
PRESSURE ULCER DOCUMENTATION To promote full compliance with coding requirements relating to patient care, physician participation is requested in all cases of corporate learning consultant uncertainty. Please assist us with the question(s) below: Please specify the known or suspected type by placing an "X" within the parenthesis (x). A pressure ulcer of the RIGHT BUTTOCK was documented in the Wound Care Consult Note, POA. If possible, please check the box that provides the specific stage of the pressure ulcer ( ) Stage I ( ) Stage II ( ) Stage III ( ) Stage IV (X ) Unstageable Was the pressure ulcer present on admission? Please check the appropriate box for the pressure ulcer: ( ) Present on admission ( ) Not present on admission ( X) Unable to be clinically determined Thank you VIPIN Neely [facility]
== END 2024-03-09 15:23 | DRG 481 ==
LOC: ED 11:09 → SUATTDRO 16:21 → 3E 16:21

== ENCOUNTER 2025-01-10 06:34 | Inpatient (IN) ==
--- NOTE | 2025-01-10 07:10 | Emergency Department Note ---
Impression & Plan Sepsis, Acute UTI (urinary tract infection), Cellulitis, Elevated troponin I level, Acidosis, lactic ED Provider Note NAME: MAGDALENO PERALTA AGE: 89 SEX: F : 1935 ARRIVES VIA: Ambulance INFORMANT: Patient, EMS, the patient's son ED PROVIDER(S): Tato Santana DO CHIEF COMPLAINT: Fever HPI: The patient is an 89-year-old female who presented to the emergency department with a febrile illness. The patient started having symptoms over the last 48 hours. The patient does live in a personal-[facility] but her son had her sent to the emergency department because she has a history of urosepsis. The patient has nausea. The patient denies having any cough or other illnesses. She denies having any back pain. ROS: See above HPI for pertinent positives & negatives. A total of 10 systems reviewed and were otherwise negative. PAST MEDICAL HISTORY: See Below PAST SURGICAL HISTORY: See Below FAMILY HISTORY: See Below SOCIAL HISTORY: See Below HOME MEDICATIONS: See Below ALLERGIES: See Below VITALS: See Below PHYSICAL EXAMINATION: GENERAL: Patient is awake alert in no acute distress patient is resting comfortably and showing no signs of anxiety EYES: The conjunctivae are clear. The pupils are round and reactive. EARS, NOSE, MOUTH AND THROAT: The nose is without any evidence of any deformity. NECK: The neck is nontender and supple. RESPIRATORY: Normal respiratory effort is noted there is no evidence of wheezing rhonchi or rales CARDIOVASCULAR: Regular rate and rhythm noted there no murmurs rubs or gallops normal S1 normal S2. GASTROINTESTINAL: The abdomen is soft. Abdomen is nontender. MUSCULOSKELETAL/EXTREMITIES: There is no evidence of gross deformity full range of motion is noted in the hips and shoulders. SKIN: Pedal edema was noted bilaterally. Erythema and symmetric swelling was noted in the right lower extremity. She also has what appears to be an erythematous region over the right flank and hip. NEUROLOGIC: The patient is awake alert and oriented to person and place. She recognizes her son. Strength is symmetric but diminished. MEDICAL DECISION MAKING: The patient is an 89-year-old female who presented to the emergency department for an evaluation of rigors. The patient has a history of urosepsis in the past. She was treated with IV fluids and IV antibiotics in the emergency department. She was reevaluated multiple times. Vital signs were initially reassuring. I discussed the patient's laboratory and radiographic studies with her and her son. The patient was not felt to be a good candidate for outpatient management. She was found have an elevated troponin. For this reason further radiographic studies including CT of the chest abdomen pelvis were obtained. There may be a age-indeterminate pulmonary embolus. I will defer this to the admitting team as far as whether or not anticoagulation will be required in this patient. She was also found to have redness and swelling in the right leg. This does have the appearance of some superficial cellulitis. Vancomycin was added to her antibiotic regimen. I discussed this with the admitting team. She continues to have an elevated lactate level. I would wonder if there is an infectious source that is not completely being addressed with her workup in the emergency department. A CT of the lower extremity was ordered by the admitting team. I did discuss the patient's leg findings with the admitting team a second time. Triage Nursing notes reviewed. Prior medical records reviewed Vital Signs: reviewed and remarkable for tachycardia and fever. Differential diagnosis: Viral syndrome, otitis, pharyngitis, pneumonia, influenza, meningitis, urinary tract infection, sepsis, bacteremia, as well as other pathologies. ER treatment provided: See below Diagnostics interpreted by me: ECG: EKG was obtained in the emergency department. My interpretation is sinus rhythm at 97 bpm. An interventricular conduction delay was noted. Nonspecific ST abnormalities were noted. This was compared to a tracing from January 14, 2024. No changes were noted. Cardiac Monitoring: An order was placed for continuous cardiac monitoring. The monitor shows a rate of 95 bpm with sinus rhythm. Laboratory studies: As stated above and show below. Imaging studies: See below. Radiographic imaging was reviewed by myself Consultation(s): I discussed this case with Roz who is on-call for the [facility] hospitalist group. ED COURSE: Procedures: none Critical Care: I have personally spent greater than 45 minutes of critical care time in the direct management of this patient. This includes bedside care, interpretation of diagnostic studies, and testing, discussion with consultants, patient, and family members, and other required patient management activities. This 45 minutes is in excess of all separately billable procedures. Past Med/Surg History Problem List (Updated 01/10/25 @ 13:31 by Tato Santana DO) Acidosis, lactic (Acute) Elevated troponin I level (Acute) Cellulitis (Acute) Acute UTI (urinary tract infection) (Acute) Sepsis (Acute) Elevated troponin Wound of right buttock UTI (urinary tract infection) Cellulitis of right leg Severe sepsis Status post open reduction with internal fixation of fracture Dyslipidemia, goal LDL below 70 Type 2 diabetes mellitus with stage 3 chronic kidney disease, without long-term current use of insulin Urgency incontinence Anemia HTN (hypertension) CAD (coronary artery disease) [facility] Cardiology Rheumatoid arthritis Medical History (Updated 01/10/25 @ 13:31 by Tato Santana DO) History of syncope admission [facility] 12/2022. DM type 2 (diabetes mellitus, type 2) HTN (hypertension) Surgical History History of umbilical hernia repair History of hysterectomy History of cervical spinal surgery History of back surgery hardware present History of bladder surgery History of cardiac catheterization "several years ago" -- [facility] -- 1 stent per son's report. H/O section x 3 Family History Other Coronary heart disease Diabetes Social History Smoking Status: Never smoker Tobacco Type: Cigarettes Second Hand Exposure: Yes (hx); Do You Dip or Chew Tobacco: No; Hx Alcohol Use: No Hx Substance Use: No Preferred Language: Kiswahili Communication Ability: Effective Development Administrator Required: No Beliefs That Will Affect Care: None Current Living Situation: Spouse Current Living Situation Comment: condo Feels Safe at Home: Yes Assistive Devices: Cane and Walker Allergies Allergies Allergy/AdvReac Type Severity Reaction Status Date / Time ciprofloxacin [From Cipro] Allergy Unknown Verified 02/27/24 09:05 adalimumab [From Humira] Allergy Unknown Verified 02/27/24 09:05 Sulfa (Sulfonamide Allergy Unknown Verified 02/27/24 09:05 Antibiotics) Home Meds Home Medications Medication Instructions Recorded Confirmed prednisone 5 mg tablet 5 mg PO QAM 02/26/24 01/10/25 aspirin 81 mg tablet,delayed 81 mg PO DAILY 01/10/25 01/10/25 release cranberry fruit concentrate 400 1 cap PO DAILY 01/10/25 01/10/25 mg-ascorbate calcium 30 mg capsule (Cranberry-Vit C (ascorbate calcium)) ferrous sulfate 325 mg (65 mg 325 mg PO DAILY 01/10/25 01/10/25 iron) tablet furosemide 20 mg tablet 20 mg PO UD 01/10/25 01/10/25 lidocaine 5 % topical patch 1 patch topical DAILY 01/10/25 01/10/25 metformin 500 mg tablet,extended 500 mg PO DAILY 01/10/25 01/10/25 release 24 hr methotrexate sodium 2.5 mg tablet 10 mg PO Q7D 01/10/25 01/10/25 sennosides 8.6 mg tablet (Senokot) 8.6 mg PO DAILY 01/10/25 01/10/25 trospium 20 mg tablet 20 mg PO DAILY 01/10/25 01/10/25 Previous Rx's Medication Instructions Recorded carvedilol 6.25 mg tablet 6.25 mg PO BID 30 days #60 tabs 03/09/24 donepezil 5 mg tablet 5 mg PO QAM 30 days #30 tabs 03/09/24 folic acid 1 mg tablet 1 mg PO QAM 30 days #30 tabs 03/09/24 multivitamin 1 tab PO QAM 30 days #30 tabs 03/09/24 Results & Data (ED) Vital Signs Vital Signs - 24 hr 01/10/25 06:43 01/10/25 07:10 01/10/25 07:10 Temperature 38.6 C H Temperature Source Oral Pulse Rate 91 H 95 H Pulse Rate [Apical] 95 H Pulse Rhythm Regular Pulse Rhythm [Apical] Regular Pulse Strength Normal Pulse Strength [Apical] Normal Respiratory Rate 20 24 24 Respiratory Effort / Characteristics Non-Labored Spontaneous Spontaneous Respiratory Depth Normal Respiratory Pattern Regular Regular Blood Pressure 148/59 H Blood Pressure [Left Arm] 152/66 H Blood Pressure Mean 88 Blood Pressure Mean [Left Arm] 94 Blood Pressure Position Lying Blood Pressure Position [Left Arm] Sitting Pulse Oximetry 96 91 91 Oxygen Delivery Method Room Air Room Air Oxygen Flow Rate Sepsis Recent Fever Within 48 Hours No Sepsis New/Unexplained Change in Mental Status N/A Sepsis Action Taken by Nursing No Action Required 01/10/25 08:16 01/10/25 08:30 01/10/25 08:45 Temperature Temperature Source Pulse Rate Pulse Rate [Apical] 107 H 101 H 90 Pulse Rhythm Pulse Rhythm [Apical] Regular Regular Pulse Strength Pulse Strength [Apical] Normal Respiratory Rate 23 21 22 Respiratory Effort / Characteristics Spontaneous Non-Labored Spontaneous Spontaneous Respiratory Depth Normal Normal Respiratory Pattern Regular Regular Regular Blood Pressure Blood Pressure [Left Arm] 145/65 H 137/69 137/69 Blood Pressure Mean Blood Pressure Mean [Left Arm] 91 91 91 Blood Pressure Position Blood Pressure Position [Left Arm] Sitting Sitting Lying Pulse Oximetry 98 99 99 Oxygen Delivery Method Nasal Cannula Nasal Cannula Nasal Cannula Oxygen Flow Rate 2 2 2 Sepsis Recent Fever Within 48 Hours Sepsis New/Unexplained Change in Mental Status Sepsis Action Taken by Nursing 01/10/25 10:00 Temperature Temperature Source Pulse Rate Pulse Rate [Apical] 89 Pulse Rhythm Pulse Rhythm [Apical] Pulse Strength Pulse Strength [Apical] Respiratory Rate 22 Respiratory Effort / Characteristics Spontaneous Respiratory Depth Respiratory Pattern Blood Pressure Blood Pressure [Left Arm] 121/65 Blood Pressure Mean Blood Pressure Mean [Left Arm] 83 Blood Pressure Position Blood Pressure Position [Left Arm] Lying Pulse Oximetry 99 Oxygen Delivery Method Nasal Cannula Oxygen Flow Rate 2 Sepsis Recent Fever Within 48 Hours Sepsis New/Unexplained Change in Mental Status Sepsis Action Taken by Long Term Medications Current Medication List: was personally reviewed by me Laboratory Data Attestation: I reviewed the patient's lab results. 01/10/25 07:50 01/10/25 07:50 Lab Results 01/10/25 01/10/25 01/10/25 Range/Units 06:52 07:50 08:21 WBC 11.74 H (4.8-10.8) K/ul RBC 3.88 L (4.20-5.40) M/uL Hgb 12.9 (12.0-16.0) g/dl Hct 39.5 (37.0-47.0) % MCV 101.8 H (80.0-100.0) fL MCH 33.2 (25.0-34.0) pg MCHC 32.7 (32.0-36.0) g/dL RDW Std Deviation 58.7 H (36.4-46.3) fL RDW Coeff of Prudence 16.4 H (11.5-14.5) % Plt Count 115 L (130-400) K/uL MPV 9.7 (9.4-12.4) fL Immature Gran % (Auto) 1.3 % Neut % (Auto) 85.2 % Lymph % (Auto) 8.9 % Mercer % (Auto) 3.6 % Eos % (Auto) 0.7 % Baso % (Auto) 0.3 % Neut # (Auto) 10.01 H (1.40-6.50) K/uL Lymph # (Auto) 1.05 L (1.20-3.40) K/uL Mercer # (Auto) 0.42 (0.11-0.59) K/uL Eos # (Auto) 0.08 (0.00-0.50) K/uL Baso # (Auto) 0.03 (0.00-0.20) K/uL Immature Gran # (Auto) 0.15 (0.01-0.20) K/uL Absolute Nucleated RBC 0.02 (0.00-0.12) K/uL Nucleated RBC % (auto) 0.2 % PT 11.4 (9.0-12.0) Seconds INR 1.1 (0.9-1.1) APTT 20 L (21-31) Seconds PTT Ratio 0.7 VBG pH 7.40 (7.36-7.41) VBG pCO2 48 (38-50) mmHg VBG pO2 38 mmHg VBG HCO3 30 mmol/L VBG O2 Saturation 68.1 % VBG Base Excess 4.0 mEq/L Sodium 141 (136-145) mmol/L Potassium 3.5 (3.5-5.1) mmol/L Chloride 99 (98-107) mmol/L Carbon Dioxide 31 (21-32) mmol/L Anion Gap 11 (3-11) BUN 28 H (6-23) mg/dl Creatinine 1.53 H (0.6-1.2) mg/dl Est Cr Clr Drug Dosing Not Reportable eGFR 32.53 BUN/Creatinine Ratio 18.3 (10-20) Glucose 193 H (70-99(Fasting)) mg/dl Lactate 3.8 H* (0.4-2.0) mmol/L Calcium 9.2 (8.6-10.3) mg/dl Magnesium 1.5 L (1.7-2.4) mg/dl Total Bilirubin 0.7 (0.2-1.0) mg/dl Direct Bilirubin 0.1 (0-0.2) mg/dl AST 23 (13-39) U/L ALT 20 (7-52) U/L Alkaline Phosphatase 100 (34-104) U/L Troponin I High Sens 213.9 H* (0-14) pg/ml Total Protein 6.5 (6.0-8.3) gm/dl Albumin 3.7 (3.4-5.0) gm/dl Procalcitonin 10.40 H (0-0.5) ng/ml Urine Color Yellow Urine Appearance Cloudy A (Clear) Urine pH 7.0 (4.5-7.5) Ur Specific [place] 1.016 (1.000-1.030) Urine Protein 2+ H (Negative) Urine Glucose (UA) Negative (Negative) Urine Ketones Negative (Negative) Urine Blood 1+ H (Negative) Urine Nitrite Positive A (Negative) Urine Bilirubin Negative (Negative) Urine Urobilinogen Negative (Negative) Ur Leukocyte Esterase 3+ H (Negative) Urine WBC (Auto) >50 H (0-5) /hpf Urine RBC (Auto) 6-10 H (0-2) /hpf U Hyaline Cast (Auto) 11-20 H (0-2) /lpf U Epithel Cells (Auto) 0-2 (0-2) /hpf Urine Bacteria (Auto) 4+ H (None Seen) Urine Comment SARS-CoV-2 (PCR) (Negative) Influenza Type A (PCR) (Neg) Influenza Type B (PCR) (Neg) RSV (RT-PCR) (Neg) 01/10/25 01/10/25 01/10/25 Range/Units 08:50 09:32 09:34 WBC (4.8-10.8) K/ul RBC (4.20-5.40) M/uL Hgb (12.0-16.0) g/dl Hct (37.0-47.0) % MCV (80.0-100.0) fL MCH (25.0-34.0) pg MCHC (32.0-36.0) g/dL RDW Std Deviation (36.4-46.3) fL RDW Coeff of Prudence (11.5-14.5) % Plt Count (130-400) K/uL MPV (9.4-12.4) fL Immature Gran % (Auto) % Neut % (Auto) % Lymph % (Auto) % Mercer % (Auto) % Eos % (Auto) % Baso % (Auto) % Neut # (Auto) (1.40-6.50) K/uL Lymph # (Auto) (1.20-3.40) K/uL Mercer # (Auto) (0.11-0.59) K/uL Eos # (Auto) (0.00-0.50) K/uL Baso # (Auto) (0.00-0.20) K/uL Immature Gran # (Auto) (0.01-0.20) K/uL Absolute Nucleated RBC (0.00-0.12) K/uL Nucleated RBC % (auto) % PT (9.0-12.0) Seconds INR (0.9-1.1) APTT (21-31) Seconds PTT Ratio VBG pH (7.36-7.41) VBG pCO2 (38-50) mmHg VBG pO2 mmHg VBG HCO3 mmol/L VBG O2 Saturation % VBG Base Excess mEq/L Sodium (136-145) mmol/L Potassium (3.5-5.1) mmol/L Chloride (98-107) mmol/L Carbon Dioxide (21-32) mmol/L Anion Gap (3-11) BUN (6-23) mg/dl Creatinine (0.6-1.2) mg/dl Est Cr Clr Drug Dosing eGFR BUN/Creatinine Ratio (10-20) Glucose (70-99(Fasting)) mg/dl Lactate 4.2 H* (0.4-2.0) mmol/L Calcium (8.6-10.3) mg/dl Magnesium (1.7-2.4) mg/dl Total Bilirubin (0.2-1.0) mg/dl Direct Bilirubin (0-0.2) mg/dl AST (13-39) U/L ALT (7-52) U/L Alkaline Phosphatase (34-104) U/L Troponin I High Sens 332.4 H* D (0-14) pg/ml Total Protein (6.0-8.3) gm/dl Albumin (3.4-5.0) gm/dl Procalcitonin (0-0.5) ng/ml Urine Color Urine Appearance (Clear) Urine pH (4.5-7.5) Ur Specific [place] (1.000-1.030) Urine Protein (Negative) Urine Glucose (UA) (Negative) Urine Ketones (Negative) Urine Blood (Negative) Urine Nitrite (Negative) Urine Bilirubin (Negative) Urine Urobilinogen (Negative) Ur Leukocyte Esterase (Negative) Urine WBC (Auto) (0-5) /hpf Urine RBC (Auto) (0-2) /hpf U Hyaline Cast (Auto) (0-2) /lpf U Epithel Cells (Auto) (0-2) /hpf Urine Bacteria (Auto) (None Seen) Urine Comment SARS-CoV-2 (PCR) NEGATIVE (Negative) Influenza Type A (PCR) Negative (Neg) Influenza Type B (PCR) Negative (Neg) RSV (RT-PCR) Negative (Neg) Administered Medications Magnesium Sulfate/Dextrose (Magnesium Sulfate / D5w) 1 gm in 100 mls @ 50 mls/hr IV Q2H KRISTINE Stop: 01/10/25 14:44 Last Admin: 01/10/25 12:34 Dose: 50 mls/hr Documented By: MARIAH Discontinued Medications Acetaminophen (Ofirmev) 1,000 mg in 100 mls @ 400 mls/hr IV NOW STA Stop: 01/10/25 07:04 Last Infusion: 01/10/25 08:34 Dose: Infused Documented By: ginette Admin: 01/10/25 07:56 Dose: 400 mls/hr Documented By: DEMARCUS Piperacillin Sod/Tazobactam Sod (Zosyn) 4.5 gm in 100 mls @ 200 mls/hr IV NOW ONE; Protocol Stop: 01/10/25 07:19 Last Infusion: 01/10/25 09:08 Dose: Infused Documented By: coyb Admin: 01/10/25 08:32 Dose: 200 mls/hr Documented By: ginette Sodium Chloride (Nss) 1,000 mls @ 999 mls/hr IV .Q1H1M ONE Stop: 01/10/25 09:41 Last Infusion: 01/10/25 12:37 Dose: Infused Documented By: Admin: 01/10/25 09:11 Dose: 999 mls/hr Documented By: ginette Sodium Chloride (Nss) 500 mls @ 999 mls/hr IV .Q31M ONE Stop: 01/10/25 09:11 Last Infusion: 01/10/25 12:37 Dose: Infused Documented By: Admin: 01/10/25 09:12 Dose: 999 mls/hr Documented By: ginette Vancomycin HCl 2,000 mg/ (Sodium Chloride) 540 mls @ 200 mls/hr IV NOW ONE Stop: 01/10/25 12:41 Last Admin: 01/10/25 11:13 Dose: 200 mls/hr Documented By: ginette Ioversol (Optiray 320 125ml) 112 ml IV ONCE ONE Stop: 01/10/25 09:55 Last Admin: 01/10/25 09:55 Dose: 112 ml Documented By: JODEE Ondansetron HCl (Ondansetron Inj 2 Mg/Ml 2 Ml Vial) 4 mg IV NOW STA Stop: 01/10/25 07:07 Last Admin: 01/10/25 07:56 Dose: 4 mg Documented By: DEMARCUS Imaging Data Attestation: I personally reviewed and interpreted this imaging study as follows: My Impression: 1 view chest x-ray was obtained in the emergency department. My interpretation is no free air, possible infiltrate at the right base was noted, final report below. Radiologist's Impression: Chest X-Ray 01/10/25 06:49 EXAM: XR chest 1V portable CLINICAL HISTORY: Sepsis TECHNIQUE: A radiograph of the chest was acquired. 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 The left costophrenic angle is blunted, with the possibility of pleural effusion or pleural thickening. The remainder of both lungs is clear. The cardiomediastinal silhouette is within normal limits. No acute osseous abnormality is identified. IMPRESSION: Subtle ground-glass opacities are noted in the right lower zone, which could represent focal pneumonitis. This is a new finding. The left costophrenic angle is blunted, with the possibility of pleural effusion or pleural thickening. This finding is stable. Electronically signed by Iraj Barger 01-10-2025 07:55 AM Venous Doppler Study 01/10/25 07:53 RIGHT LOWER EXTREMITY VENOUS DOPPLER CLINICAL HISTORY: Right lower extremity swelling. COMPARISON STUDY: No previous studies for comparison. TECHNIQUE: Sonography of the deep venous system of the right lower extremity was performed. Compression and augmentation were evaluated. FINDINGS: Evaluation was difficult given lower extremity edema and difficulty positioning. The right common femoral, superficial femoral and popliteal veins were compressible. Augmentation was normal. Flow was shown within the deep calf vessels. IMPRESSION: Technically difficult exam but no evidence of deep venous thrombus within the right lower extremity. ACT 112: Negative or not required by law. Electronically signed by: Jose Fritz M.D. 01/10/2025 10:44 AM Abdomen/Pelvis CT 01/10/25 09:30 CT SCAN OF THE ABDOMEN AND PELVIS WITH IV CONTRAST CLINICAL HISTORY: Fever. Urinary tract infection. COMPARISON STUDY: CT of the abdomen and pelvis February 03, 2023. TECHNIQUE: Following the IV administration of 112 cc of Optiray 320, CT scan of the abdomen and pelvis is performed from the lung bases to the proximal femora. Images are reviewed in the axial, sagittal, and coronal planes. IV contrast was administered without complication. A dose lowering technique was utilized adhering to the principles of ALARA. FINDINGS: A small age indeterminate segmental right lower lobe pulmonary embolus on image 41 is noted. This was obscured on the chest CT due to respiratory motion. No pneumatosis, free air or portal venous gas is present. There is no biliary ductal dilatation status post cholecystectomy. There are no hepatic lesions. Spleen, adrenal glands and pancreas are unremarkable. There is no evidence for a bowel obstruction. Colonic diverticulosis. No evidence for acute diverticulitis. Images of the pelvis are mildly degraded by streak artifact from a right femoral internal fixation. Moderate bladder wall thickening with mild adjacent stranding is noted. There is mucosal hyperemia of the bladder. There is urothelial thickening of the right renal collecting system. There is no CT evidence for pyelonephritis. Low-attenuation bilateral renal lesions favor cysts. A few subcentimeter renal lesions are too small to categorize. Punctate left renal calculus is present. There are no ureteral calculi. There is no hydronephrosis. There is moderate to marked bilateral renal cortical thinning. IMPRESSION: 1. Bladder wall thickening with mucosal hyperemia. The findings suggest cystitis. Right renal collecting system urothelial thickening is nonspecific although could represent pyelitis. No CT evidence for acute pyelonephritis. 2. Punctate left renal calculus. No ureteral calculi. No hydronephrosis. Moderate to marked bilateral renal cortical thinning. 3. Small age indeterminate segmental right lower lobe pulmonary embolus, as described above. ACT 112: Negative or not required by law Electronically signed by: Jose Fritz M.D. 01/10/2025 10:42 AM Chest CTA 01/10/25 09:30 CT ANGIOGRAM OF THE CHEST CLINICAL HISTORY: Fever. Evaluate for pneumonia or pulmonary embolus. COMPARISON STUDY: Chest radiograph performed earlier today. Chest radiograph February 29, 2024. TECHNIQUE: Following the IV administration of 112 cc of Optiray 320, CT angiogram of the chest was performed from the upper abdomen to the thoracic inlet utilizing the pulmonary embolus protocol. Images are reviewed in the axial, sagittal, and coronal planes. 3-D MIPS images are created and assessed. IV contrast was administered without complication. A dose lowering technique was utilized adhering to the principles of ALARA. CT DOSE: 2311.47 mGy.cm FINDINGS: No pulmonary emboli are identified although subsegmental vessels are suboptimally assessed due to respiratory motion. There is no thoracic aortic dissection. No thoracic lymphadenopathy is present. There is moderate cardiomegaly and coronary artery calcification. Lungs are suboptimally assessed due to respiratory motion. There is no consolidation to suggest pneumonia. Several pulmonary nodules are noted. The largest is an 8 mm right lower lobe nodule on image 74. This is unchanged since abdominal CT of January 30, 2023 and is likely benign. Subpleural lung densities represent atelectasis. The abdomen and pelvis CT will be reported separately. A 1.8 cm right lobe thyroid nodule is incidentally noted. IMPRESSION: 1. No pulmonary emboli identified although subsegmental vessels suboptimally assessed. 2. No consolidation to suggest pneumonia. 3. Moderate cardiomegaly. ACT 112: Negative or not required by law. Electronically signed by: Jose Fritz M.D. 01/10/2025 10:28 AM Discharge Plan Visit Data Chief Complaint: Urinary Symptoms Stated Complaint: UTI ED Provider: Tato Santana Discharge Problem: Sepsis, Acute UTI (urinary tract infection), Cellulitis, Elevated troponin I level, Acidosis, lactic Patient Disposition: Being Evaluated by Hospitalist Condition: Fair Discharge Instructions Interventions: ED Discharge Assessment Last Done: 01/10/25 12:48
[2025-01-10 07:51] LABS: Appearance Urine Cloudy (Clear); Bacteria Urine Automated 4+ (None Seen); Epithelial Cell Urine Auto 0-2 /hpf (0-2); Glucose Urine UA Negative (Negative); WBC Urine Automated >50 /hpf (0-5)
[2025-01-10] MEDS: ACETAMINOPHEN 1,000 MG/100 ML VIAL IV STA (07:56)
[2025-01-10] MEDS: ONDANSETRON INJ 2 MG/ML 2 ML VIAL IV STA (07:56)
--- NOTE | 2025-01-10 07:56 | XRay Report ---
EXAM: XR chest 1V portable CLINICAL HISTORY: Sepsis TECHNIQUE: A radiograph of the chest was acquired. 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 The left costophrenic angle is blunted, with the possibility of pleural effusion or pleural thickening. The remainder of both lungs is clear. The cardiomediastinal silhouette is within normal limits. No acute osseous abnormality is identified. IMPRESSION: Subtle ground-glass opacities are noted in the right lower zone, which could represent focal pneumonitis. This is a new finding. The left costophrenic angle is blunted, with the possibility of pleural effusion or pleural thickening. This finding is stable. Electronically signed by Iraj Barger 01-10-2025 07:55 AM
[2025-01-10 08:17] LABS: Hematocrit (blood only) 39.5 % (37.0-47.0); Hemoglobin 12.9 g/dl (12.0-16.0); Immature Granulocytes # (auto) 0.15 K/uL (0.01-0.20); Immature Granulocytes % (auto) 1.3 %; Mean Corpuscular Hemoglobin 33.2 pg (25.0-34.0); Mean Corpuscular Volume 101.8 fL (80.0-100.0); Platelet Count 115 K/uL (130-400); RDW Standard Deviation 58.7 fL (36.4-46.3); Red Blood Count 3.88 M/uL (4.20-5.40); White Blood Count 11.74 K/ul (4.8-10.8)
[2025-01-10 08:29] LABS: Base Excess VBG 4.0 mEq/L; HCO3 VBG 30 mmol/L; Oxygen Saturation VBG 68.1 %; PCO2 VBG 48 mmHg (38-50); PO2 VBG 38 mmHg; pH VBG 7.40 (7.36-7.41)
[2025-01-10] MEDS: PIPERACILLIN/TAZOBACTAM 4.5 GM/100 ML BAG IV ONE (08:32)
[2025-01-10 08:36] LABS: Alanine Aminotransferase 20 U/L (7-52); Albumin Level 3.7 gm/dl (3.4-5.0); Alkaline Phosphatase 100 U/L (34-104); Anion Gap 11 (3-11); Bilirubin,Total 0.7 mg/dl (0.2-1.0); Blood Urea Nitrogen 28 mg/dl (6-23); Calcium 9.2 mg/dl (8.6-10.3); Carbon Dioxide 31 mmol/L (21-32); Chloride 99 mmol/L (98-107); Glucose 193 mg/dl (70-99(Fasting)); Magnesium 1.5 mg/dl (1.7-2.4); Potassium 3.5 mmol/L (3.5-5.1); Sodium 141 mmol/L (136-145); Total Protein 6.5 gm/dl (6.0-8.3)
[2025-01-10 08:43] LABS: INR 1.1 (0.9-1.1); Partial Thromboplastin Time 20 Seconds (21-31); Prothrombin Time 11.4 Seconds (9.0-12.0)
[2025-01-10] MEDS: SODIUM CHLORIDE 0.9% 1,000 ML IV ONE (09:11)
[2025-01-10] MEDS: SODIUM CHLORIDE 0.9% 500 ML IV ONE (09:12)
[2025-01-10] MEDS ORDERED: VANCOMYCIN CONSULT ACTIVE PRN (09:39)
[2025-01-10] MEDS ORDERED: VANCOMYCIN HCL 2,500 MG in SODIUM CHLORIDE 0.9% 500 ML IV ONE (09:39)
[2025-01-10] MEDS: OPTIRAY 320 125ml IV ONE (09:55)
[2025-01-10 10:01] LABS: Influenza A virus by PCR Negative (Neg); Influenza B virus by PCR Negative (Neg); SARS CoV2 RNA(COVID-19) Ceph NEGATIVE (Negative)
--- NOTE | 2025-01-10 10:23 | History & Physical Report ---
Date of Service January 10, 2025 Assessment & Plan (1) Severe sepsis: (2) UTI (urinary tract infection): Plan: This is an 89-year-old female with a PMH of RA, DM II, CKD III, HLD, HTN, GERD, CAD, statin intolerance localized edema, mixed incontinence and other problems listed below who presents from [facility] with chills and urinary symptoms with findings consistent with severe sepsis 2/2 UTI. 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 CTA chest negative for PE -> continue IV heparin as above (7) Localized edema: Plan: Follows with cardiology outpatient for BLE - on lasix. Holding for now given sepsis above, fluid resuscitation. Echo pending (8) Type 2 diabetes mellitus with stage 3 chronic kidney disease, without long- term current use of insulin: Plan: A1c 7.4 in August 2024, repeat ordered Hold home agents SSI while in-patient BSG AC HS (9) Rheumatoid arthritis: Plan: Hold methotrexate and prednisone. Will stress dose with hydrocortisone for now given severe illness, borderline BP (10) Urgency incontinence: Plan: Continue trospium DVT Ppx: SQ heparin Code status: DNR/DNI PCP: Samson Dispo: Admitted to U Patient seen in collaboration with Dr. Sosa. Please see addendum. I spent a total of 75 minutes coordinating, documenting, and providing care for this patient excluding time spent in the performance of separately billed services or time spent by another provider/QHP. History of Present Illness Chief Complaint: urinary symptoms, chills Primary Care Provider: Vik Davies DO This is an 89-year-old female with a PMH of RA, DM II, CKD III, HLD, HTN, GERD, CAD, statin intolerance localized edema, mixed incontinence and other problems listed below who presents from [facility] with chills and urinary symptoms. Patient's son is a nurse and called EMS this morning after he found her to have chills. Has a history of urosepsis and was concerned for that again. Patient developed shaking chills overnight and notes some burning with urination. Also had a few minutes of burning in her epigastrium for a few minutes prior to her CT scan that is since resolved. Denies any lightheadedness, headache, palpitations, shortness of breath, nausea, vomiting, abdominal pain, hematuria, diarrhea or constipation. Son noted redness to lower right leg today. Unclear how long that has been there but redness has spread up overlying her right hip, where she had a fracture repair with hardware last year. Also has a wound on her right gluteus which was being managed by wound care coming into personal care facility. Allergies Allergy/AdvReac Type Severity Reaction Status Date / Time ciprofloxacin [From Cipro] Allergy Unknown Verified 02/27/24 09:05 adalimumab [From Humira] Allergy Unknown Verified 02/27/24 09:05 Sulfa (Sulfonamide Allergy Unknown Verified 02/27/24 09:05 Antibiotics) Home Medications Medication Instructions Recorded Confirmed Type prednisone 5 mg tablet 5 mg PO QAM 02/26/24 01/10/25 History carvedilol 6.25 mg tablet 6.25 mg PO BID 30 days #60 tabs 03/09/24 01/10/25 Rx donepezil 5 mg tablet 5 mg PO QAM 30 days #30 tabs 03/09/24 01/10/25 Rx folic acid 1 mg tablet 1 mg PO QAM 30 days #30 tabs 03/09/24 01/10/25 Rx multivitamin 1 tab PO QAM 30 days #30 tabs 03/09/24 01/10/25 Rx aspirin 81 mg tablet,delayed 81 mg PO DAILY 01/10/25 01/10/25 History release cranberry fruit concentrate 400 1 cap PO DAILY 01/10/25 01/10/25 History mg-ascorbate calcium 30 mg capsule (Cranberry-Vit C (ascorbate calcium)) ferrous sulfate 325 mg (65 mg 325 mg PO DAILY 01/10/25 01/10/25 History iron) tablet furosemide 20 mg tablet 20 mg PO UD 01/10/25 01/10/25 History lidocaine 5 % topical patch 1 patch topical DAILY 01/10/25 01/10/25 History metformin 500 mg tablet,extended 500 mg PO DAILY 01/10/25 01/10/25 History release 24 hr methotrexate sodium 2.5 mg tablet 10 mg PO Q7D 01/10/25 01/10/25 History sennosides 8.6 mg tablet (Senokot) 8.6 mg PO DAILY 01/10/25 01/10/25 History trospium 20 mg tablet 20 mg PO DAILY 01/10/25 01/10/25 History Past Med/Surg History Problem List (Updated 01/10/25 @ 16:03 by Roz Nuno PA-C) Localized edema Pulmonary embolism of right lung Acidosis, lactic (Acute) Elevated troponin I level (Acute) Cellulitis (Acute) Acute UTI (urinary tract infection) (Acute) Sepsis (Acute) Elevated troponin Wound of right buttock UTI (urinary tract infection) Cellulitis of right leg Severe sepsis Status post open reduction with internal fixation of fracture Dyslipidemia, goal LDL below 70 Type 2 diabetes mellitus with stage 3 chronic kidney disease, without long-term current use of insulin Urgency incontinence Anemia HTN (hypertension) CAD (coronary artery disease) [facility] Cardiology Rheumatoid arthritis Medical History History of syncope admission [facility] 12/2022. DM type 2 (diabetes mellitus, type 2) HTN (hypertension) Surgical History History of umbilical hernia repair History of hysterectomy History of cervical spinal surgery History of back surgery hardware present History of bladder surgery History of cardiac catheterization "several years ago" -- [facility] -- 1 stent per son's report. H/O section x 3 Family History Other Coronary heart disease Diabetes Social History Smoking Status: Never smoker Tobacco Type: Cigarettes Second Hand Exposure: Yes (hx); Do You Dip or Chew Tobacco: No; Hx Alcohol Use: No Hx Substance Use: No Preferred Language: Bulgarian Communication Ability: Effective Retail Sales Advisor Required: No Beliefs That Will Affect Care: None Current Living Situation: Spouse Current Living Situation Comment: [facility] Feels Safe at Home: Yes Assistive Devices: Cane and Walker Review of Systems Review of Systems: At least ten systems reviewed and negative except as noted in the HPI. Physical Exam Physical Exam: General Appearance: WD/WN, vitals as above, NAD, sitting up in bed, conversing easily Head: normocephalic, atraumatic Eyes: normal inspection, PERRL ENT: external ear and nose normal, oropharynx normal Neck: normal visual inspection Respiratory: normal respiratory effort, lungs clear to auscultation, no wheeze, rales, rhonchi. No accessory muscle use Cardiovascular: regular rate, rhythm, normal peripheral pulses, 1-2+ BLE edema. Vessels: no JVD Chest: normal inspection of chest Abdomen/GI: normal bowel sounds, soft, nontender, no hepatosplenomegaly Extremities/Musculoskeletal: no cyanosis or clubbing, extremities motor strength 5/5 Neurologic: PERRL, EOMI, accommodation nl, no face palsy, no dysarthria, CN's II-XI intact bilaterally and moves all extremities Psychiatric: A+Ox3, euthymic affect Skin: no rashes, normal color, warm/dry, + RLE erythematous and warmth exten ding from R foot up to lateral R hip with purplish discoloration and edema noted on lateral aspect of hip. No TTP. Also note AVIATION PROGRAM MANAGER open dime-sized wound on R glute with serous drainage Results & Data Results & Data Vital Signs (Past 12 Hours) Vital Signs Temp Pulse Pulse Resp BP BP Pulse Ox 01/10/25 08:45 90 22 137/69 99 01/10/25 08:30 101 H 21 137/69 99 01/10/25 08:16 107 H 23 145/65 H 98 01/10/25 07:10 95 H 24 91 01/10/25 07:10 95 H 24 152/66 H 91 01/10/25 06:43 38.6 C H 91 H 20 148/59 H 96 O2 Del Method O2 Flow Rate 01/10/25 08:45 Nasal Cannula 2 01/10/25 08:30 Nasal Cannula 2 01/10/25 08:16 Nasal Cannula 2 01/10/25 07:10 01/10/25 07:10 Room Air 01/10/25 06:43 Room Air Laboratory Results Short CBC 01/10/25 Range/Units 07:50 WBC 11.74 H (4.8-10.8) K/ul Hgb 12.9 (12.0-16.0) g/dl Hct 39.5 (37.0-47.0) % Plt Count 115 L (130-400) K/uL BMP 01/10/25 07:50 Sodium 141 Potassium 3.5 Chloride 99 Carbon Dioxide 31 BUN 28 H Creatinine 1.53 H Glucose 193 H Calcium 9.2 Liver Function 01/10/25 Range/Units 07:50 Total Bilirubin 0.7 (0.2-1.0) mg/dl Direct Bilirubin 0.1 (0-0.2) mg/dl AST 23 (13-39) U/L ALT 20 (7-52) U/L Alkaline Phosphatase 100 (34-104) U/L Albumin 3.7 (3.4-5.0) gm/dl Urine 01/10/25 Range/Units 06:52 Urine Color Yellow Urine Appearance Cloudy A (Clear) Urine pH 7.0 (4.5-7.5) Ur Specific [place] 1.016 (1.000-1.030) Urine Protein 2+ H (Negative) Urine Glucose (UA) Negative (Negative) Diagnostic Findings Chest X-Ray 01/10/25 06:49 EXAM: XR chest 1V portable CLINICAL HISTORY: Sepsis TECHNIQUE: A radiograph of the chest was acquired. COMPARISON: 13:07:04 PHLEBOTOMIST LAB ASSISTANT FINDINGS: Subtle ground-glass opacities are noted in the right lower zone, which could represent focal pneumonitis. The left costophrenic angle is blunted, with the possibility of pleural effusion or pleural thickening. The remainder of both lungs is clear. The cardiomediastinal silhouette is within normal limits. No acute osseous abnormality is identified. IMPRESSION: Subtle ground-glass opacities are noted in the right lower zone, which could represent focal pneumonitis. This is a new finding. The left costophrenic angle is blunted, with the possibility of pleural effusion or pleural thickening. This finding is stable. Electronically signed by Iraj Barger 01-10-2025 07:55 AM Venous Doppler Study 01/10/25 07:53 RIGHT LOWER EXTREMITY VENOUS DOPPLER CLINICAL HISTORY: Right lower extremity swelling. COMPARISON STUDY: No previous studies for comparison. TECHNIQUE: Sonography of the deep venous system of the right lower extremity was performed. Compression and augmentation were evaluated. FINDINGS: Evaluation was difficult given lower extremity edema and difficulty positioning. The right common femoral, superficial femoral and popliteal veins were compressible. Augmentation was normal. Flow was shown within the deep calf vessels. IMPRESSION: Technically difficult exam but no evidence of deep venous thrombus within the right lower extremity. ACT 112: Negative or not required by law. Electronically signed by: Jose Fritz M.D. 01/10/2025 10:44 AM Abdomen/Pelvis CT 01/10/25 09:30 CT SCAN OF THE ABDOMEN AND PELVIS WITH IV CONTRAST CLINICAL HISTORY: Fever. Urinary tract infection. COMPARISON STUDY: CT of the abdomen and pelvis February 03, 2023. TECHNIQUE: Following the IV administration of 112 cc of Optiray 320, CT scan of the abdomen and pelvis is performed from the lung bases to the proximal femora. Images are reviewed in the axial, sagittal, and coronal planes. IV contrast was administered without complication. A dose lowering technique was utilized adhering to the principles of ALARA. FINDINGS: A small age indeterminate segmental right lower lobe pulmonary embolus on image 41 is noted. This was obscured on the chest CT due to respiratory motion. No pneumatosis, free air or portal venous gas is present. There is no biliary ductal dilatation status post cholecystectomy. There are no hepatic lesions. Spleen, adrenal glands and pancreas are unremarkable. There is no evidence for a bowel obstruction. Colonic diverticulosis. No evidence for acute diverticulitis. Images of the pelvis are mildly degraded by streak artifact from a right femoral internal fixation. Moderate bladder wall thickening with mild adjacent stranding is noted. There is mucosal hyperemia of the bladder. There is urothelial thickening of the right renal collecting system. There is no CT evidence for pyelonephritis. Low-attenuation bilateral renal lesions favor cysts. A few subcentimeter renal lesions are too small to categorize. Punctate left renal calculus is present. There are no ureteral calculi. There is no hydronephrosis. There is moderate to marked bilateral renal cortical thinning. IMPRESSION: 1. Bladder wall thickening with mucosal hyperemia. The findings suggest cystitis. Right renal collecting system urothelial thickening is nonspecific although could represent pyelitis. No CT evidence for acute pyelonephritis. 2. Punctate left renal calculus. No ureteral calculi. No hydronephrosis. Mo derate to marked bilateral renal cortical thinning. 3. Small age indeterminate segmental right lower lobe pulmonary embolus, as described above. ACT 112: Negative or not required by law Electronically signed by: Jose Fritz M.D. 01/10/2025 10:42 AM Chest CTA 01/10/25 09:30 CT ANGIOGRAM OF THE CHEST CLINICAL HISTORY: Fever. Evaluate for pneumonia or pulmonary embolus. COMPARISON STUDY: Chest radiograph performed earlier today. Chest radiograph February 29, 2024. TECHNIQUE: Following the IV administration of 112 cc of Optiray 320, CT angiog jhoana of the chest was performed from the upper abdomen to the thoracic inlet utilizing the pulmonary embolus protocol. Images are reviewed in the axial, sagittal, and coronal planes. 3-D MIPS images are created and assessed. IV contrast was administered without complication. A dose lowering technique was utilized adhering to the principles of ALARA. CT DOSE: 2311.47 mGy.cm FINDINGS: No pulmonary emboli are identified although subsegmental vessels are suboptimally assessed due to respiratory motion. There is no thoracic aortic dissection. No thoracic lymphadenopathy is present. There is moderate cardiomegaly and coronary artery calcification. Lungs are suboptimally assessed due to respiratory motion. There is no consolidation to suggest pneumonia. Several pulmonary nodules are noted. The largest is an 8 mm right lower lobe nodule on image 74. This is unchanged since abdominal CT of January 30, 2023 and is likely benign. Subpleural lung densities represent atelectasis. The abdomen and pelvis CT will be reported separately. A 1.8 cm right lobe thyroid nodule is incidentally noted. IMPRESSION: 1. No pulmonary emboli identified although subsegmental vessels suboptimally assessed. 2. No consolidation to suggest pneumonia. 3. Moderate cardiomegaly. ACT 112: Negative or not required by law. Electronically signed by: Jose Fritz M.D. 01/10/2025 10:28 AM
--- NOTE | 2025-01-10 10:29 | CT Scan Report ---
CT ANGIOGRAM OF THE CHEST CLINICAL HISTORY: Fever. Evaluate for pneumonia or pulmonary embolus. COMPARISON STUDY: Chest radiograph performed earlier today. Chest radiograph February 29, 2024. TECHNIQUE: Following the IV administration of 112 cc of Optiray 320, CT angiogram of the chest was pe rformed from the upper abdomen to the thoracic inlet utilizing the pulmonary embolus protocol. Images are reviewed in the axial, sagittal, and coronal planes. 3-D MIPS images are created and assessed. I V contrast was administered without complication. A dose lowering technique was utilized adhering to the principles of ALARA. CT DOSE: 2311.47 mGy.cm FINDINGS: No pulmonary emboli are identified although subsegmental vessels are suboptimally assessed due to respiratory motion. There is no thoracic aortic dissection. No thoracic lymphadenopathy is pre sent. There is moderate cardiomegaly and coronary artery calcification. Lungs are suboptimally assess ed due to respiratory motion. There is no consolidation to suggest pneumonia. Several pulmonary nodul es are noted. The largest is an 8 mm right lower lobe nodule on image 74. This is unchanged since abd ominal CT of January 30, 2023 and is likely benign. Subpleural lung densities represent atelectasis. The abdomen and pelvis CT will be reported separately. A 1.8 cm right lobe thyroid nodule is incident ally noted. IMPRESSION: 1. No pulmonary emboli identified although subsegmental vessels suboptimally assessed. 2. No consolidation to suggest pneumonia. 3. Moderate cardiomegaly. ACT 112: Negative or not required by law. Electronically signed by: Jose Fritz M.D. 01/10/2025 10:28 AM
--- NOTE | 2025-01-10 10:45 | Ultrasound Report ---
RIGHT LOWER EXTREMITY VENOUS DOPPLER CLINICAL HISTORY: Right lower extremity swelling. COMPARISON STUDY: No previous studies for comparison. TECHNIQUE: Sonography of the deep venous system of the right lower extremity was performed. Compress ion and augmentation were evaluated. FINDINGS: Evaluation was difficult given lower extremity edema and difficulty positioning. The right common femoral, superficial femoral and popliteal veins were compressible. Augmentation was normal. Flow was shown within the deep calf vessels. IMPRESSION: Technically difficult exam but no evidence of deep venous thrombus within the right lower extremity. ACT 112: Negative or not required by law. Electronically signed by: Jose Fritz M.D. 01/10/2025 10:44 AM
--- NOTE | 2025-01-10 10:45 | CT Scan Report ---
CT SCAN OF THE ABDOMEN AND PELVIS WITH IV CONTRAST CLINICAL HISTORY: Fever. Urinary tract infection. COMPARISON STUDY: CT of the abdomen and pelvis February 03, 2023. TECHNIQUE: Following the IV administration of 112 cc of Optiray 320, CT scan of the abdomen and pelv is is performed from the lung bases to the proximal femora. Images are reviewed in the axial, sagitta l, and coronal planes. IV contrast was administered without complication. A dose lowering technique w as utilized adhering to the principles of ALARA. FINDINGS: A small age indeterminate segmental right lower lobe pulmonary embolus on image 41 is noted . This was obscured on the chest CT due to respiratory motion. No pneumatosis, free air or portal dc ous gas is present. There is no biliary ductal dilatation status post cholecystectomy. There are no h epatic lesions. Spleen, adrenal glands and pancreas are unremarkable. There is no evidence for a scott l obstruction. Colonic diverticulosis. No evidence for acute diverticulitis. Images of the pelvis are mildly degraded by streak artifact from a right femoral internal fixation. Moderate bladder wall thi ckening with mild adjacent stranding is noted. There is mucosal hyperemia of the bladder. There is ur othelial thickening of the right renal collecting system. There is no CT evidence for pyelonephritis. Low-attenuation bilateral renal lesions favor cysts. A few subcentimeter renal lesions are too small to categorize. Punctate left renal calculus is present. There are no ureteral calculi. There is no h ydronephrosis. There is moderate to marked bilateral renal cortical thinning. IMPRESSION: 1. Bladder wall thickening with mucosal hyperemia. The findings suggest cystitis. Right renal collect ing system urothelial thickening is nonspecific although could represent pyelitis. No CT evidence for acute pyelonephritis. 2. Punctate left renal calculus. No ureteral calculi. No hydronephrosis. Moderate to marked bilateral renal cortical thinning. 3. Small age indeterminate segmental right lower lobe pulmonary embolus, as described above. ACT 112: Negative or not required by law Electronically signed by: Jose Fritz M.D. 01/10/2025 10:42 AM
[2025-01-10] MEDS: VANCOMYCIN HCL 2,000 MG in SODIUM CHLORIDE 0.9% 500 ML IV ONE (11:13)
--- NOTE | 2025-01-10 12:26 | Communication Note ---
Date of Service: January 10, 2025 Attending Addendum: Case reviewed with the advanced practitioner. I have personally performed a history and physical examination on the patient. I have reviewed the advanced practitioner's documentation on the date of service referenced in note, and I agree with, and take responsibility for the plan of care. please refer to her notes for full details patient seen and examined, records reviewed by myself as well on exam, patient seen resting in bed, not in distress on 2 L NC states she feels very cold otherwise feels ok denies abdominal, flank pain reports R lower extremity progressive swelling and mild discomfort reports burning sensation on her chest this morning, resolved, no nausea/vomiting, shortness of breath, dizziness, palpitations no other symptoms VS noted and reviewed oriented x 3, not in distress, speaks in sentences with no effort nor accessory muscle use normal rate, regular rhythm, no murmurs clear breath sounds bilaterally non distended, soft, nontender R lower extremity: moderate edema, moderate erythema, mild warmth, no tenderness no gross neuro deficits all labs, imaging noted and reviewed ASSESSMENT AND PLAN> SEVERE SEPSIS, LIKELY SECONDARY TO: URINARY TRACT INFECTION BP ok lactic acid 3--> 4--> 3rd set pending IV fluids ff up urine culture empiric Vanco + Zosyn RIGHT BUTTOCK ULCER WITH CELLULITIS, RIGHT LOWER EXTREMITY CELLULITIS CT R hip and femur ordered wound culture ordered blood culture pending Doppler US: no DVT IV antibiotics per above Wound care consult IMMUNOCOMPROMISED STATE- CHRONIC PREDNISONE AND METHOREXATE FOR RHEUMATOID ARTHRITIS POSSIBLE NSTEMI HISTORY OF CAD (+) chest burning sensation this morning, now resolved trop 200s--> 300s EKG: no sign of acute ischemia echo ordered if CT R LE negative for hematoma, start low dose heparin continue usual Carvedilol, ASA Cardiology consult Other chronic medical problems: DM 2 HTN CKD 3 CHRONIC LOWER EXTREMITY EDEMA other diagnoses and plan of care as per advanced practitioner's notes I spent a total of 45 minutes coordinating, documenting, and providing care for this patient, excluding time spent in the performance of separately billed services or time spent by another provider/QHP. Arturo Sosa MD
[2025-01-10] MEDS: MAGNESIUM SULFATE / D5W 1 GM/100 ML BAG IV SCH (12:34)
--- NOTE | 2025-01-10 13:23 | CT Scan Report ---
CT hip RT wo con HISTORY: 89 years-old Female erythema, h/o pros joint acute right hip and thigh pain COMPARISON: CT abdomen and pelvis and CT right hip studies of same day, pelvis and right hip [facility] 02/26/2024 TECHNIQUE: Multiple axial CT images of the right hip were obtained without IV contrast. A dose loweri ng technique was used consistent with the principals of ALARA. FINDINGS: Demineralized appearance of the bones. Moderate degeneration of the right SI joint. Study is motion d egraded. No acute fracture or dislocation. Moderate osteoarthritis of the right hip. There is incompl ete bony healing involving the chronic subtrochanteric right femoral fracture which is fixated with i ntertrochanteric nail and medullary brennan. Nonspecific borderline enlarged right inguinal chain lymph n odes with mild adjacent inflammatory stranding. Colonic diverticulosis. Scarring within the lateral r ight upper thigh tissues. IMPRESSION: 1. Moderate osteoarthritis without acute fracture or dislocation. 2. Incomplete bony healing involves the chronic fixated subtrochanteric right femoral fracture. 3. Nonspecific lateral subcutaneous edema appears postsurgical. No postoperative fluid collections. 4. Mild nonspecific stranding is noted adjacent to borderline enlarged right inguinal chain lymph nod es. ACT 112: Negative or not required by law. The above report was generated using voice recognition software. It may contain grammatical, syntax o r spelling errors. Electronically signed by: Bartolo Samuel M.D. 01/10/2025 1:21 PM
--- NOTE | 2025-01-10 13:42 | CT Scan Report ---
CT femur RT wo con CLINICAL HISTORY: erythema and edema, h/o pros joint COMPARISON STUDY: X-ray of 02/27/2024 FINDINGS: Right femoral gamma nail is present with no hardware complication seen. There is an incompl etely healed oblique fracture proximal shaft of the right femur. No acute fracture or dislocation see n. 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 No evidence of osteomyelitis see n. There is mild lateral subcutaneous stranding and edema. No significant soft tissue hematoma or abs cess seen. IMPRESSION: Right femur as described. ACT 112: Negative or not required by law. Electronically signed by: Roberto Mendes M.D. 01/10/2025 1:41 PM
[2025-01-10] MEDS ORDERED: POLYETHYLENE (MIRALAX) 17 GM PACK PO PRN (13:46)
[2025-01-10] MEDS ORDERED: GLUCAGON FOR INJ 1 MG VIAL SQ PRN (13:46)
[2025-01-10] MEDS ORDERED: GLUCOSE 40% GEL 15 GM TUBE PO PRN (13:46)
[2025-01-10] MEDS ORDERED: CARBOHYDRATES FOR HYPOGLYCEMIA PO PRN (13:46)
[2025-01-10] MEDS ORDERED: DEXTROSE 50% 50 ML SYRINGE IV PRN (13:46)
[2025-01-10] MEDS ORDERED: GLUCOSE 10 TAB/TUBE PO PRN (13:46)
--- NOTE | 2025-01-10 13:52 | Cardiology Consultation ---
Date of Consultation January 10, 2025 Assessment & Plan (1) Sepsis: (2) Acute UTI (urinary tract infection): (3) Wound of right buttock: (4) Elevated troponin: (5) CAD (coronary artery disease): (6) HTN (hypertension): (7) Dyslipidemia, goal LDL below 70: Plan Assessment: 89 year old female presented from her personal care facility febrile with chills. UA positive, culture pending. Elevated lactate and Procalcitonin suggestive of sepsis. Blood cultures pending. wound culture pending from right buttock wound. Troponin with mild elevation, cardiology has been consulted given patient's prior history of coronary disease for further evaluation. Plan: 1. Sepsis 2. Acute UTI 3. wound of right buttock/erythema of right hip region 4. Elevated troponin 5. CAD -Patient with troponin elevation in the setting of sepsis, source of infection is unclear at this time as patient has an active buttocks wound, and a UTI. -Wound culture, urine culture and blood cultures pending. -Troponin elevation likely demand ischemia in the setting of sepsis. Known CAD with prior stent and otherwise diffuse medically managed disease. Echocardiogram shows hyperdynamic function (expected in setting of sepsis) with no wall motion abnormalities and no significant valvular disease. -BP controlled -Review of telemetry shows SR with 1st degree AV block. -Monitor on telemetry -Continue with IV antibiotic course as managed by primary team, cultures pending. -Continue to trend troponin to peak -Heparin gtt has been started as there is an incidental finding noted on the CT of the ABD/Pelvis suggestive of a PE, age undetermined subsegmental of the RLL. CTA chest negative for PE. -Serum mag low--currently receiving IV supplemental. Goal serum Mag > 2.0. -continue ASA 81mg, and Coreg. -History of dyslipidemia, not on statin therapy s/t intolerance. Case has been discussed with Dr. Coto. Further recommendations regarding plan of care as per his assessment. I spent a total of 50 minutes on the date of service in preparation, delivery, documentation of the care provided to the patient excluding any time spent in the performance of separately billed services. SALLY Santos [facility] Supervising Physician Co-Signing Physician Notes Patient was seen and personally examined. Full assessment and plan as outlined by advanced provider as above. Care and management discussed and personally endorsed. 89-year-old female presenting with at least 1 weeks history of generalized weakness malaise and chills. Prior history of recurrent urinary tract infections increasing erythema right leg tenderness right hip. Presenting findings consistent with sepsis. Elevated lactate present. No cardiac complaints but broad laboratory screening reflected elevated troponin with normal EKG. Echocardiogram 01/10/2025 Mild left ventricular prophy with hyperdynamic LV function and no wall motion abnormality EF greater than 70% Impression: Elevated troponin secondary to demand issues of acute sepsis without evidence of myocardial injury by EKG or cardiac enzyme. Patient with known coronary disease. Recommendations continue aspirin, beta-darell. Heparin drip initiated for possible pulmonary embolus which will also aid in possible myocardial ischemia. Treat underlying offending illness History of Present Illness Reason for Consultation: NSTEMI in the setting of sepsis Requesting Physician: Kenn lucero Attending Physician: Arturo Sosa MD History of Present Illness HPI: Patient is a 89 year old female with PMHx as outlined below that presents from personal senior living with chills and UTI symptoms. patient also with a known right buttock wound that she has been seeing wound care for in the outpatient setting. History includes: 1. Coronary artery disease with prior stent to the RCA in 2007. She underwent repeat cath in 2011 which demonstrated 40% proximal RCA stenosis, patent stent to the mid RCA, 40% mid RCA stenosis, 30% mid LAD stenosis, and 30% proximal diagonal 1 stenosis. Medical management recommended. 2. Hypertension 3. dyslipidemia with multiple statin intolerances, intolerant to Zetia and declined PCSK9 inhib. 4. chronic RA on immunosuppressive therapy with methotrexate and prednisone 5. CKD stage III 6. Mild bradycardia, limiting beta darell dose EKG on admission demonstrates SR with 1st degree AV block, nonspecific T wave abnormality noted on prior studies. RAte 97bpm, QTC 441ms Chest xray today: IMPRESSION: Subtle ground-glass opacities are noted in the right lower zone, which could represent focal pneumonitis. This is a new finding. The left costophrenic angle is blunted, with the possibility of pleural effusion or pleural thickening. This finding is stable. Venous duplex RLE: Negative for DVT CT ABD/PELVIS:IMPRESSION: 1. Bladder wall thickening with mucosal hyperemia. The findings suggest cystit is. Right renal collecting system urothelial thickening is nonspecific although could represent pyelitis. No CT evidence for acute pyelonephritis. 2. Punctate left renal calculus. No ureteral calculi. No hydronephrosis. Moderate to marked bilateral renal cortical thinning. 3. Small age indeterminate segmental right lower lobe pulmonary embolus, as described above. CT chest: IMPRESSION: 1. No pulmonary emboli identified although subsegmental vessels suboptimally assessed. 2. No consolidation to suggest pneumonia. 3. Moderate cardiomegaly. WBC 11.74, Lactate 4.8, Procalcitonin 10.40. Febrile 37.2C High sensitivity troponin: 213.9/ 332.4 Echocardiogram pending. Upon seeing patient today she is resting comfortably in bed without acute cardiac concerns. Patient denies any chest pain, pressure or palpitations. Denies any shortness of breath, PND, pre-syncope, or syncope. Endorses bilateral lower extremity edema, but feels this has been her norm. She states that she has been dealing with a wound to her buttocks for quite some time, and that the nursing staff at her [facility] became very concerned. She states the biggest symptom that she had was she was taking chills and could not get warm. She denies any urinary symptoms such as dysuria or increased urgency. She reports that she has always had to go every 2 hours. BP stable Review of telemetry shows SR with 1st degree AVB rates 80's. No acute events noted. Allergies Allergy/AdvReac Type Severity Reaction Status Date / Time ciprofloxacin [From Cipro] Allergy Unknown Verified 02/27/24 09:05 adalimumab [From Humira] Allergy Unknown Verified 02/27/24 09:05 Sulfa (Sulfonamide Allergy Unknown Verified 02/27/24 09:05 Antibiotics) Home Medications Medication Instructions Recorded Confirmed Type prednisone 5 mg tablet 5 mg PO QAM 02/26/24 01/10/25 History carvedilol 6.25 mg tablet 6.25 mg PO BID 30 days #60 tabs 03/09/24 01/10/25 Rx donepezil 5 mg tablet 5 mg PO QAM 30 days #30 tabs 03/09/24 01/10/25 Rx folic acid 1 mg tablet 1 mg PO QAM 30 days #30 tabs 03/09/24 01/10/25 Rx multivitamin 1 tab PO QAM 30 days #30 tabs 03/09/24 01/10/25 Rx aspirin 81 mg tablet,delayed 81 mg PO DAILY 01/10/25 01/10/25 History release cranberry fruit concentrate 400 1 cap PO DAILY 01/10/25 01/10/25 History mg-ascorbate calcium 30 mg capsule (Cranberry-Vit C (ascorbate calcium)) ferrous sulfate 325 mg (65 mg 325 mg PO DAILY 01/10/25 01/10/25 History iron) tablet furosemide 20 mg tablet 20 mg PO UD 01/10/25 01/10/25 History lidocaine 5 % topical patch 1 patch topical DAILY 01/10/25 01/10/25 History metformin 500 mg tablet,extended 500 mg PO DAILY 01/10/25 01/10/25 History release 24 hr methotrexate sodium 2.5 mg tablet 10 mg PO Q7D 01/10/25 01/10/25 History sennosides 8.6 mg tablet (Senokot) 8.6 mg PO DAILY 01/10/25 01/10/25 History trospium 20 mg tablet 20 mg PO DAILY 01/10/25 01/10/25 History Patient History Medical History History of syncope admission [facility] 12/2022. DM type 2 (diabetes mellitus, type 2) HTN (hypertension) Surgical History History of umbilical hernia repair History of hysterectomy History of cervical spinal surgery History of back surgery hardware present History of bladder surgery History of cardiac catheterization "several years ago" -- [facility] -- 1 stent per son's report. H/O section x 3 Family History Other Coronary heart disease Diabetes Social History Smoking Status: Never smoker Tobacco Type: Cigarettes Second Hand Exposure: Yes (hx); Do You Dip or Chew Tobacco: No; Hx Alcohol Use: No Hx Substance Use: No Preferred Language: Frisian Communication Ability: Effective [employer] Required: No Beliefs That Will Affect Care: None Current Living Situation: Spouse Current Living Situation Comment: condo Feels Safe at Home: Yes Assistive Devices: Cane and Walker Review of Systems Review of Systems: All systems reviewed & are unremarkable except as noted in HPI & below Physical Exam Constitutional: well developed, well nourished, + ill appearing and + overweight; no acute distress Neck: normal visual inspection and trachea midline Respiratory: normal respiratory effort, lungs clear to auscultation Cardiovascular: Rate/Rhythm: regular rate and regular rhythm Heart Sounds: normal S1 and normal S2; no murmur Vessels: dorsalis pedis pulses present; no JVD Extremities: + edema (+1 BLE ) Skin: normal turgor and + wound (Right buttocks. DSG in place ) Psychiatric: A+Ox3, euthymic affect Results & Data Vital Signs (Past 12 Hours) Vital Signs Temp Pulse Pulse Resp BP BP Pulse Ox 01/10/25 12:48 01/10/25 12:29 95 H 24 115/60 93 01/10/25 10:46 37.2 C 01/10/25 10:45 90 21 115/55 L 98 01/10/25 10:00 89 22 121/65 99 01/10/25 08:45 90 22 137/69 99 01/10/25 08:30 101 H 21 137/69 99 01/10/25 08:16 107 H 23 145/65 H 98 01/10/25 07:10 95 H 24 91 01/10/25 07:10 95 H 24 152/66 H 91 01/10/25 06:43 38.6 C H 91 H 20 148/59 H 96 O2 Del Method O2 Flow Rate 01/10/25 12:48 Room Air 01/10/25 12:29 Room Air 01/10/25 10:46 01/10/25 10:45 Nasal Cannula 2 01/10/25 10:00 Nasal Cannula 2 01/10/25 08:45 Nasal Cannula 2 01/10/25 08:30 Nasal Cannula 2 01/10/25 08:16 Nasal Cannula 2 01/10/25 07:10 01/10/25 07:10 Room Air 01/10/25 06:43 Room Air Laboratory Results Cardiac Enzymes 01/10/25 01/10/25 Range/Units 07:50 09:32 AST 23 (13-39) U/L Troponin I High Sens 213.9 H* 332.4 H* D (0-14) pg/ml Coagulation 01/10/25 Range/Units 07:50 PT 11.4 (9.0-12.0) Seconds APTT 20 L (21-31) Seconds CBC 01/10/25 Range/Units 07:50 WBC 11.74 H (4.8-10.8) K/ul RBC 3.88 L (4.20-5.40) M/uL Hgb 12.9 (12.0-16.0) g/dl Hct 39.5 (37.0-47.0) % Plt Count 115 L (130-400) K/uL Neut # (Auto) 10.01 H (1.40-6.50) K/uL Lymph # (Auto) 1.05 L (1.20-3.40) K/uL [place] # (Auto) 0.42 (0.11-0.59) K/uL Eos # (Auto) 0.08 (0.00-0.50) K/uL Baso # (Auto) 0.03 (0.00-0.20) K/uL Comprehensive Metabolic Panel 01/10/25 Range/Units 07:50 Sodium 141 (136-145) mmol/L Potassium 3.5 (3.5-5.1) mmol/L Chloride 99 (98-107) mmol/L Carbon Dioxide 31 (21-32) mmol/L BUN 28 H (6-23) mg/dl Creatinine 1.53 H (0.6-1.2) mg/dl Glucose 193 H (70-99(Fasting)) mg/dl Calcium 9.2 (8.6-10.3) mg/dl Direct Bilirubin 0.1 (0-0.2) mg/dl AST 23 (13-39) U/L ALT 20 (7-52) U/L Alkaline Phosphatase 100 (34-104) U/L Total Protein 6.5 (6.0-8.3) gm/dl Albumin 3.7 (3.4-5.0) gm/dl Intake and Output 01/10/25 01/10/25 01/10/25 06:59 14:59 22:59 Intake Total 1700 / 1700 Balance 1700 / 1700 Intake: IV 1700 / 1700 Acetaminophen 1,000 mg In 100 100 / 100 ml @ 400 mls/hr IV NOW STA Rx#: [id number] Piperacillin/Tazobactam 4.5 gm 100 / 100 In 100 ml @ 200 mls/hr IV NOW ONE Rx#:[id number] Sodium Chloride 0.9% 500 ml @ 1500 / 1500 999 mls/hr IV .Q31M ONE Rx#: [id number] Other: Weight 92 kg Patient Weight 01/11/25 06:59 Weight 92 kg Diagnostic Findings Echocardiogram today 01/10/25 LV normal in size Mild concentric LVH LV wall motion is normal LV hyperdynamic LVEF> 70% Grade I diastolic dysfunction Mild mitral annular calcification trace MR no other valvular disease. PG Care Time/CCT Total # of Minutes Spent Total Time Spent with Patient: Total time spent is greater than 50% in coordination of care (as documented) at patient's floor/unit and/or counseling patient: [place] [address] IN/OBS CONSULT LVL 4,60M Patient Type New Medical Decision Making High Complexity Diagnoses Sepsis A41.9 Acute UTI (urinary tract infection) N39.0 Wound of right buttock S31.819A Elevated troponin R79.89 CAD (coronary artery disease) I25.10 HTN (hypertension) I10 Dyslipidemia, goal LDL below 70 E78.5 Time Spent (min) 50
[2025-01-10] MEDS: Patient's HEIGHT &/or WEIGHT Needed STA (14:20)
--- NOTE | 2025-01-10 14:31 | Pharmacy Report ---
Pharmacy PK ABX Note - Date of Service January 10, 2025 - Assessment and Plan Assessment 89 year old F receiving Vancomycin and Zosyn for treatment of sepsis secondary to UTI, R buttock wound cellulitis, and R lower extremity cellulitis. * Day #1 of antimicrobial therapy. PMHx significant for elevated BMI, T2DM and Rheumatoid Arthritis on chronic prednisone and methotrexate. * Febrile at 38.6oC. Mild leukocytosis at 11.7k. SCr at 1.53 mg/dL (baseline fatimah ears to be around 1.4 mg/dL). Procal elevated at 10.4, and Lactate has been increasing as well (3.8--4.2--4.8). * Blood and urine cultures pending. Covid/Flu/RSV screen negative. Plan Vancomycin * Loading dose: 2000 mg IV x 1 * NO maintenance dose at this time as Q24H dosing interval is suspected given renal function. * Random level ordered for: 01/11/25 Zosyn * 4.5 g IV every 8 hours Pharmacy will continue to follow and will adjust dose/frequency as necessary. Thank you. Pharmacy has transitioned to AUC monitoring for vancomycin. AUC/PHAN is the preferred PK/PD target and is associated with decreased risk of nephrotoxicity compared to traditional trough targets.
[2025-01-10] MEDS: PIPERACILLIN/TAZOBACTAM 4.5 GM/100 ML BAG IV SCH (15:09)
[2025-01-10] MEDS: SODIUM CHLORIDE 0.9% 1,000 ML IV SCH (15:11)
[2025-01-10] MEDS: HEPARIN 25000 UNIT/500 ML D5W 25,000 UNITS/500 ML BAG IV SCH (15:14)
[2025-01-10] MEDS: Heparin IV Adult Wt-Based Low-Dose *NO* INITIAL Bolus Protocol IV STA (16:22)
[2025-01-10] MEDS: HYDROCORTISONE SOD 50 MG in SYRINGE 0 ML IV SCH (17:18)
[2025-01-10] MEDS: ONDANSETRON INJ 2 MG/ML 2 ML VIAL IV PRN (17:18)
[2025-01-10] MEDS: ACETAMINOPHEN 325 MG TAB PO PRN (17:18)
[2025-01-10] MEDS: INSULIN ASPART PER UNIT CHARGE SC SCH (17:45)
--- NOTE | 2025-01-10 18:16 | Electrocardiogram Report ---
Test Reason : Blood Pressure : */* mmHG Vent. Rate : 97 BPM Atrial Rate : 97 BPM P-R Int : 226 ms QRS Dur : 98 ms QT Int : 348 ms P-R-T Axes : 99 -31 76 degrees QTcB Int : 441 ms Sinus rhythm with 1st degree A-V block Left axis deviation Nonspecific ST abnormality Abnormal ECG When compared with ECG of 14-Jan-2024 03:41, Nonspecific T wave abnormality no longer evident in Inferior leads Confirmed by Hal Lindsay [id number]) on 01/10/2025 6:15:46 PM Referred By: REFERRED SELF Confirmed By: Hal Lindsay
--- NOTE | 2025-01-10 20:43 | Ultrasound Report ---
Exam(s): US VENOUS LEFT LOWER EXTREMITY EXAM: US Duplex Left Lower Extremity Veins CLINICAL HISTORY: Reason for exam: eval for dvt. TECHNIQUE: Real-time duplex ultrasound scan of the left lower extremity veins integrating B-mode two-dimensional vascular structure, Doppler spectral analysis, color flow Doppler imaging and compression. COMPARISON: No relevant prior studies available. FINDINGS: Deep veins: Unremarkable. No DVT in the visualized common femoral, femoral, proximal deep femoral or popliteal veins. The veins demonstrate normal color flow, are normally compressible, with normal phasic flow and/or augmentation response. Superficial veins: Unremarkable. No thrombus in the visualized great saphenous vein. Soft tissues: No acute findings. No popliteal cyst. IMPRESSION: No DVT Electronically signed by: Damien Fuentes MD 01/10/25 20:42 PM
[2025-01-10 21:27] LABS: ANTI-Xa, UFH(UnfractionatedHep 0.30 IU/ml (0.3-0.7)
[2025-01-10] MEDS: LACTATED RINGER'S 1,000 ML IV ONE (21:39)
[2025-01-10] MEDS: REMOVE LIDODERM PATCH SCH (21:44)
[2025-01-10] MEDS: MICONAZOLE NITRATE POWDER 85 GM EXT SCH (21:50)
[2025-01-11 00:13] LABS: Anion Gap 10.0 (3-11); Blood Urea Nitrogen 28.0 mg/dl (6-23); Calcium 8.0 mg/dl (8.6-10.3); Carbon Dioxide 25.0 mmol/L (21-32); Chloride 102.0 mmol/L (98-107); Creatinine Clr Calc Pharmacy 22.5 ml/min; Glucose 197.0 mg/dl (70-99(Fasting)); Potassium 3.9 mmol/L (3.5-5.1); Sodium 137.0 mmol/L (136-145)
[2025-01-11] MEDS: LACTATED RINGER'S 1,000 ML IV ONE (03:11)
[2025-01-11 04:01] LABS: Hematocrit (blood only) 34.5 % (37.0-47.0); Hemoglobin 11.6 g/dl (12.0-16.0); Mean Corpuscular Hemoglobin 34.6 pg (25.0-34.0); Mean Corpuscular Volume 103.0 fL (80.0-100.0); Platelet Count 98 K/uL (130-400); RDW Standard Deviation 61.6 fL (36.4-46.3); Red Blood Count 3.35 M/uL (4.20-5.40); White Blood Count 21.83 K/ul (4.8-10.8)
[2025-01-11 04:16] LABS: Anion Gap 10.0 (3-11); Blood Urea Nitrogen 27.0 mg/dl (6-23); Calcium 8.0 mg/dl (8.6-10.3); Carbon Dioxide 26.0 mmol/L (21-32); Chloride 101.0 mmol/L (98-107); Creatinine Clr Calc Pharmacy 23.9 ml/min; Glucose 198.0 mg/dl (70-99(Fasting)); Magnesium 1.9 mg/dl (1.7-2.4); Potassium 3.8 mmol/L (3.5-5.1); Sodium 137.0 mmol/L (136-145)
[2025-01-11 04:22] LABS: ANTI-Xa, UFH(UnfractionatedHep 0.39 IU/ml (0.3-0.7)
[2025-01-11 08:16] LABS: Hemoglobin A1C 7.8 % (4.5-5.6)
[2025-01-11] MEDS ORDERED: [UNRECOGNIZED DRUG - OTHER] PO SCH (09:00)
[2025-01-11] MEDS: SENNA 8.6 MG TAB PO SCH (09:07)
[2025-01-11] MEDS: OXYBUTYNIN CHLORIDE XL 5 MG TABCR PO SCH (09:07)
[2025-01-11] MEDS: ASPIRIN 81 MG ECTAB PO SCH (09:08)
[2025-01-11] MEDS: FERROUS SULFATE 325 MG TAB PO SCH (09:08)
[2025-01-11] MEDS: FOLIC ACID 1 MG TAB PO SCH (09:08)
[2025-01-11] MEDS: MULTIVITAMIN TAB PO SCH (09:08)
[2025-01-11] MEDS: DONEPEZIL HCL 5 MG TAB PO SCH (09:08)
--- NOTE | 2025-01-11 09:08 | Hospitalist Progress Note ---
Date of Service January 11, 2025 Assessment & Plan (1) Severe sepsis: (2) UTI (urinary tract infection): (3) Cellulitis of right leg: (4) Wound of right buttock: (5) Elevated troponin: (6) Pulmonary embolism of right lung: (7) Localized edema: (8) Type 2 diabetes mellitus with stage 3 chronic kidney disease, without long- term current use of insulin: (9) Rheumatoid arthritis: (10) Urgency incontinence: Plan This is an 89-year-old female with a PMH of RA, DM II, CKD III, HLD, HTN, GERD, CAD, statin intolerance localized edema, mixed incontinence and other problems listed below who presents from [facility] with chills and urinary symptoms with findings consistent with severe sepsis 2/2 UTI. Severe sepsisimproving Urinary tract infection Lactic acid initially elevatedpeaked at 4.8 with elevated procalcitonin, now trending down UA grossly positive, continue IV Vanco/Zosyn, urine and blood cultures pending Continue IV fluids for today; monitor fever curve, leukocytosis worsening at 21 today Cellulitis of right leg: History of fracture with hardware placed on repair 03/04: RLE with erythema extending to lateral right hip Right buttock wound present prior to arrival, wound care consulted Ultrasound negative for DVT Elevated troponin Suspected NSTEMI type II Troponin peak at 457, continue to trend, NSTEMI likely secondary to severe sepsis/demand ischemia Continue aspirin/beta-blockerecho showed hyperdynamic function with no wall motion abnormalities/valvular disease Heparin drip continues for now, PE ruled out Hx of RA: Immunosuppressed on methotrexate and prednisone Remains on stress dose steroids with severe sepsis presentation Hx DM 2: Hold home agents, recheck A1c SSI, sugar acceptable, CTM and adjust I spent a total of 45 minutes coordinating, documenting, and providing care for this patient excluding time spent in the performance of separately billed services or time spent by another provider/QHP. DVT Ppx: SQ heparin Code status: DNR/DNI PCP: [facility] Admission and Anticipated Discharge Date Admission Date: January 10, 2025 Supervising Physician Co-Signing Physician Notes 89-year-old female with a PMH of RA, DM II, CKD III, HLD, HTN, GERD, CAD, statin intolerance localized edema, mixed incontinence presented 10/2 from [facility] with chills and urinary symptoms with findings consistent with severe sepsis 2/2 UTI. Severe sepsis 2/2 complicated UTI: immunocompromised patient, on prednisone 5 mg QAM at home. cw vanc and zosyn, f/u blood and urine cultures. s/p ivf, lactate downtrended. WBC up likely d/t hydrocortisone use, taper to bid from catracho. c/w gentle ivf today. RLE cellulitis: c/w atb as above. no open wound. Rle venous doppler neg for DVT. Elevated trop/?NSTEMI: trop uptrended, ro ACS. pt reports chest pain few days [employer], not now. likely demand iso sepsis. cardio on board, on hep drip. f/u echo Concern of PE RLL in CTAP: CTA chest No pulmonary emboli identified although subsegmental vessels suboptimally assessed. Will need curbside d/w pulm to see if true PE?? Decubitus ulcer POA, superficial. wocn consult On exam: alert Ox 3, RLE warmth, tender, erythema noted; rest of exam as above. Total time spent independently: 23 min I have seen and examined the patient and have discussed the case with the provider above. I agree with the assessment and plan as stated. Subjective Patient seen and examined. No apparent distress. Reports feeling better today. Denies any shortness of breath. Reports her chest pain is now resolved. Reports subjective fever overnight reports better after Tylenol. Denies any abdominal pain. Review of Systems Review of Systems: All systems reviewed & are unremarkable except as noted in HPI & below Physical Exam Physical Exam: General Appearance: WD/WN, vitals as above, NAD, sitting up in bed, conversing easily Head: normocephalic, atraumatic Eyes: normal inspection, PERRL ENT: external ear and nose normal, oropharynx normal Neck: normal visual inspection Respiratory: normal respiratory effort, lungs clear to auscultation, no wheeze, rales, rhonchi. No accessory muscle use Cardiovascular: regular rate, rhythm, normal peripheral pulses, 1-2+ BLE edema. Vessels: no JVD Chest: normal inspection of chest Abdomen/GI: normal bowel sounds, soft, nontender, no hepatosplenomegaly Extremities/Musculoskeletal: no cyanosis or clubbing, extremities motor strength 5/5 Neurologic: PERRL, EOMI, accommodation nl, no face palsy, no dysarthria, CN's II-XI intact bilaterally and moves all extremities Psychiatric: A+Ox3, euthymic affect Skin: no rashes, normal color, warm/dry, + RLE erythematous and warmth extending from R foot up to lateral R hip with purplish discoloration and edema noted on lateral aspect of hip. No TTP. Also note BOOKY open dime-sized wound on R glute with serous drainage Results & Data Results & Data Vital Signs (Past 12 Hours) Vital Signs Temp Pulse Pulse Resp BP BP Pulse Ox 01/11/25 07: 36.9 C 77 16 129/62 99 01/11/25 04:36 37.5 C 78 18 110/58 L 96 01/10/25 22:53 37.2 C 79 18 97/54 L 96 01/10/25 22:48 76 O2 Del Method 01/11/25 07:25 Room Air 01/11/25 04:36 Room Air 01/10/25 22:53 Nasal Cannula 01/10/25 22:48 Diagnostic Findings Laboratory Results WBC 21.83 K/ul (4.8-10.8) H D 01/11/25 03:31 RBC 3.35 M/uL (4.20-5.40) L 01/11/25 03:31 Hgb 11.6 g/dl (12.0-16.0) L 01/11/25 03:31 Hct 34.5 % (37.0-47.0) L 01/11/25 03:31 MCV 103.0 fL (80.0-100.0) H 01/11/25 03:31 MCH 34.6 pg (25.0-34.0) H 01/11/25 03:31 MCHC 33.6 g/dL (32.0-36.0) 01/11/25 03:31 RDW Std Deviation 61.6 fL (36.4-46.3) H 01/11/25 03:31 RDW Coeff of Prudence 16.4 % (11.5-14.5) H 01/11/25 03:31 Plt Count 98 K/uL (130-400) L 01/11/25 03:31 MPV 9.7 fL (9.4-12.4) 01/11/25 03:31 Immature Gran % (Auto) 1.3 % 01/10/25 07:50 Neut % (Auto) 85.2 % 01/10/25 07:50 Lymph % (Auto) 8.9 % 01/10/25 07:50 [place] % (Auto) 3.6 % 01/10/25 07:50 Eos % (Auto) 0.7 % 01/10/25 07:50 Baso % (Auto) 0.3 % 01/10/25 07:50 Neut # (Auto) 10.01 K/uL (1.40-6.50) H 01/10/25 07:50 Lymph # (Auto) 1.05 K/uL (1.20-3.40) L 01/10/25 07:50 [place] # (Auto) 0.42 K/uL (0.11-0.59) 01/10/25 07:50 Eos # (Auto) 0.08 K/uL (0.00-0.50) 01/10/25 07:50 Baso # (Auto) 0.03 K/uL (0.00-0.20) 01/10/25 07:50 Immature Gran # (Auto) 0.15 K/uL (0.01-0.20) 01/10/25 07:50 Absolute Nucleated RBC 0.02 K/uL (0.00-0.12) 01/10/25 07:50 Nucleated RBC % (auto) 0.2 % 01/10/25 07:50 PT 11.4 Seconds (9.0-12.0) 01/10/25 07:50 INR 1.1 (0.9-1.1) 01/10/25 07:50 APTT 20 Seconds (21-31) L 01/10/25 07:50 PTT Ratio 0.7 01/10/25 07:50 Heparin Anti-Xa, Unfract 0.39 IU/ml (0.3-0.7) 01/11/25 03:31 VBG pH 7.40 (7.36-7.41) 01/10/25 08:21 VBG pCO2 48 mmHg (38-50) 01/10/25 08:21 VBG pO2 38 mmHg 01/10/25 08:21 VBG HCO3 30 mmol/L 01/10/25 08:21 VBG O2 Saturation 68.1 % 01/10/25 08:21 VBG Base Excess 4.0 mEq/L 01/10/25 08:21 Sodium 137 mmol/L (136-145) 01/11/25 03:31 Potassium 3.8 mmol/L (3.5-5.1) 01/11/25 03:31 Chloride 101 mmol/L (98-107) 01/11/25 03:31 Carbon Dioxide 26 mmol/L (21-32) 01/11/25 03:31 Anion Gap 10 (3-11) 01/11/25 03:31 BUN 27 mg/dl (6-23) H 01/11/25 03:31 Creatinine 1.68 mg/dl (0.6-1.2) H 01/11/25 03:31 Est Cr Clr Drug Dosing 23.9 ml/min 01/11/25 03:31 eGFR 29.08 01/11/25 03:31 BUN/Creatinine Ratio 16.1 (10-20) 01/11/25 03:31 Glucose 198 mg/dl (70-99(Fasting)) H 01/11/25 03:31 POC Glucose 236 mg/dl (70-99) H 01/11/25 07:23 Estimat Average Glucose 177 mg/dl 01/11/25 03:31 Hemoglobin A1c 7.8 % (4.5-5.6) H 01/11/25 03:31 Lactate 3.0 mmol/L (0.4-2.0) H* 01/11/25 03:31 Calcium 8.0 mg/dl (8.6-10.3) L 01/11/25 03:31 Magnesium 1.9 mg/dl (1.7-2.4) 01/11/25 03:31 Total Bilirubin 0.7 mg/dl (0.2-1.0) 01/10/25 07:50 Direct Bilirubin 0.1 mg/dl (0-0.2) 01/10/25 07:50 AST 23 U/L (13-39) 01/10/25 07:50 ALT 20 U/L (7-52) 01/10/25 07:50 Alkaline Phosphatase 100 U/L (34-104) 01/10/25 07:50 Troponin I High Sens 452.7 pg/ml (0-14) H* 01/10/25 21:05 Total Protein 6.5 gm/dl (6.0-8.3) 01/10/25 07:50 Albumin 3.7 gm/dl (3.4-5.0) 01/10/25 07:50 Procalcitonin 10.40 ng/ml (0-0.5) H 01/10/25 07:50 Urine Color Yellow 01/10/25 06:52 Urine Appearance Cloudy (Clear) A 01/10/25 06:52 Urine pH 7.0 (4.5-7.5) 01/10/25 06:52 Ur Specific [place] 1.016 (1.000-1.030) 01/10/25 06:52 Urine Protein 2+ (Negative) H 01/10/25 06:52 Urine Glucose (UA) Negative (Negative) 01/10/25 06:52 Urine Ketones Negative (Negative) 01/10/25 06:52 Urine Blood 1+ (Negative) H 01/10/25 06:52 Urine Nitrite Positive (Negative) A 01/10/25 06:52 Urine Bilirubin Negative (Negative) 01/10/25 06:52 Urine Urobilinogen Negative (Negative) 01/10/25 06:52 Ur Leukocyte Esterase 3+ (Negative) H 01/10/25 06:52 Urine WBC (Auto) >50 /hpf (0-5) H 01/10/25 06:52 Urine RBC (Auto) 6-10 /hpf (0-2) H 01/10/25 06:52 U Hyaline Cast (Auto) 11-20 /lpf (0-2) H 01/10/25 06:52 U Epithel Cells (Auto) 0-2 /hpf (0-2) 01/10/25 06:52 Urine Bacteria (Auto) 4+ (None Seen) H 01/10/25 06:52 Urine Comment 01/10/25 06:52 Random Vancomycin 13.0 mcg/ml (10-20) 01/11/25 03:31 SARS-CoV-2 (PCR) NEGATIVE (Negative) 01/10/25 08:50 Influenza Type A (PCR) Negative (Neg) 01/10/25 08:50 Influenza Type B (PCR) Negative (Neg) 01/10/25 08:50 RSV (RT-PCR) Negative (Neg) 01/10/25 08:50 Impressions Chest X-Ray 01/10/25 06:49 EXAM: XR chest 1V portable CLINICAL HISTORY: Sepsis TECHNIQUE: A radiograph of the chest was acquired. COMPARISON: 13:07:04 AGENCY SERVICE REPRESENTATIVE FINDINGS: Subtle ground-glass opacities are noted in the right lower zone, which could represent focal pneumonitis. The left costophrenic angle is blunted, with the possibility of pleural effusion or pleural thickening. The remainder of both lungs is clear. The cardiomediastinal silhouette is within normal limits. No acute osseous abnormality is identified. IMPRESSION: Subtle ground-glass opacities are noted in the right lower zone, which could represent focal pneumonitis. This is a new finding. The left costophrenic angle is blunted, with the possibility of pleural effusion or pleural thickening. This finding is stable. Electronically signed by Iraj Barger 01-10-2025 07:55 AM Abdomen/Pelvis CT 01/10/25 09:30 CT SCAN OF THE ABDOMEN AND PELVIS WITH IV CONTRAST CLINICAL HISTORY: Fever. Urinary tract infection. COMPARISON STUDY: CT of the abdomen and pelvis February 03, 2023. TECHNIQUE: Following the IV administration of 112 cc of Optiray 320, CT scan of the abdomen and pelvis is performed from the lung bases to the proximal femora. Images are reviewed in the axial, sagittal, and coronal planes. IV contrast was administered without complication. A dose lowering technique was utilized adhering to the principles of ALARA. FINDINGS: A small age indeterminate segmental right lower lobe pulmonary embolus on image 41 is noted. This was obscured on the chest CT due to respiratory motion. No pneumatosis, free air or portal venous gas is present. There is no biliary ductal dilatation status post cholecystectomy. There are no hepatic lesions. Spleen, adrenal glands and pancreas are unremarkable. There is no evidence for a bowel obstruction. Colonic diverticulosis. No evidence for acute diverticulitis. Images of the pelvis are mildly degraded by streak artifact from a right femoral internal fixation. Moderate bladder wall thickening with mild adjacent stranding is noted. There is mucosal hyperemia of the bladder. There is urothelial thickening of the right renal collecting system. There is no CT evidence for pyelonephritis. Low-attenuation bilateral renal lesions favor cysts. A few subcentimeter renal lesions are too small to categorize. Punctate left renal calculus is present. There are no ureteral calculi. There is no hydronephrosis. There is moderate to marked bilateral renal cortical thinning. IMPRESSION: 1. Bladder wall thickening with mucosal hyperemia. The findings suggest cy stitis. Right renal collecting system urothelial thickening is nonspecific although could represent pyelitis. No CT evidence for acute pyelonephritis. 2. Punctate left renal calculus. No ureteral calculi. No hydronephrosis. Moderate to marked bilateral renal cortical thinning. 3. Small age indeterminate segmental right lower lobe pulmonary embolus, as described above. ACT 112: Negative or not required by law Electronically signed by: Jose Fritz M.D. 01/10/2025 10:42 AM Chest CTA 01/10/25 09:30 CT ANGIOGRAM OF THE CHEST CLINICAL HISTORY: Fever. Evaluate for pneumonia or pulmonary embolus. COMPARISON STUDY: Chest radiograph performed earlier today. Chest radiograph February 29, 2024. TECHNIQUE: Following the IV administration of 112 cc of Optiray 320, CT angiogram of the chest was performed from the upper abdomen to the thoracic inlet utilizing the pulmonary embolus protocol. Images are reviewed in the axial, sagittal, and coronal planes. 3-D MIPS images are created and assessed. IV contrast was administered without complication. A dose lowering technique was utilized adhering to the principles of ALARA. CT DOSE: 2311.47 mGy.cm FINDINGS: No pulmonary emboli are identified although subsegmental vessels are suboptimally assessed due to respiratory motion. There is no thoracic aortic dissection. No thoracic lymphadenopathy is present. There is moderate cardiomegaly and coronary artery calcification. Lungs are suboptimally assessed due to respiratory motion. There is no consolidation to suggest pneumonia. Several pulmonary nodules are noted. The largest is an 8 mm right lower lobe nodule on image 74. This is unchanged since abdominal CT of January 30, 2023 and is likely benign. Subpleural lung densities represent atelectasis. The abdomen and pelvis CT will be reported separately. A 1.8 cm right lobe thyroid nodule is incidentally noted. IMPRESSION: 1. No pulmonary emboli identified although subsegmental vessels suboptimally assessed. 2. No consolidation to suggest pneumonia. 3. Moderate cardiomegaly. ACT 112: Negative or not required by law. Electronically signed by: Jose Fritz M.D. 01/10/2025 10:[address] 01/10/25 11:38 CT femur RT wo con CLINICAL HISTORY: erythema and edema, h/o pros joint COMPARISON STUDY: X-ray of 02/27/2024 FINDINGS: Right femoral gamma nail is present with no hardware complication seen. There is an incompletely healed oblique fracture proximal shaft of the right femur. No acute fracture or dislocation seen. 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 No evidence of osteomyelitis seen. There is mild lateral subcutaneous stranding and edema. No significant soft tissue hematoma or abscess seen. IMPRESSION: Right femur as described. ACT 112: Negative or not required by law. Electronically signed by: Roberto Mendes M.D. 01/10/2025 1:[address] 01/10/25 11:38 CT hip RT wo con HISTORY: 89 years-old Female erythema, h/o pros joint acute right hip and thigh pain COMPARISON: CT abdomen and pelvis and CT right hip studies of same day, pelvis and right hip radiographs 02/26/2024 TECHNIQUE: Multiple axial CT images of the right hip were obtained without IV contrast. A dose lowering technique was used consistent with the principals of ALARA. FINDINGS: Demineralized appearance of the bones. Moderate degeneration of the right SI joint. Study is motion degraded. No acute fracture or dislocation. Moderate osteoarthritis of the right hip. There is incomplete bony healing involving the chronic subtrochanteric right femoral fracture which is fixated with intertrochanteric nail and medullary brennan. Nonspecific borderline enlarged right inguinal chain lymph nodes with mild adjacent inflammatory stranding. Colonic diverticulosis. Scarring within the lateral right upper thigh tissues. IMPRESSION: 1. Moderate osteoarthritis without acute fracture or dislocation. 2. Incomplete bony healing involves the chronic fixated subtrochanteric right femoral fracture. 3. Nonspecific lateral subcutaneous edema appears postsurgical. No postoperative fluid collections. 4. Mild nonspecific stranding is noted adjacent to borderline enlarged right inguinal chain lymph nodes. ACT 112: Negative or not required by law. The above report was generated using voice recognition software. It may contain grammatical, syntax or spelling errors. Electronically signed by: Bartolo Samuel M.D. 01/10/2025 1:21 PM Venous Doppler Study 01/10/25 17:57 Exam(s): US VENOUS LEFT LOWER EXTREMITY EXAM: US Duplex Left Lower Extremity Veins CLINICAL HISTORY: Reason for exam: eval for dvt. TECHNIQUE: Real-time duplex ultrasound scan of the left lower extremity veins integrating B-mode two-dimensional vascular structure, Doppler spectral analysis, color flow Doppler imaging and compression. COMPARISON: No relevant prior studies available. FINDINGS: Deep veins: Unremarkable. No DVT in the visualized common femoral, femoral, proximal deep femoral or popliteal veins. The veins demonstrate normal color flow, are normally compressible, with normal phasic flow and/or augmentation response. Superficial veins: Unremarkable. No thrombus in the visualized great saphenous vein. Soft tissues: No acute findings. No popliteal cyst. IMPRESSION: No DVT Electronically signed by: Damien Fuentes MD 01/10/25 20:42 PM
[2025-01-11] MEDS: LIDOCAINE 5% 1 PATCH TD SCH (09:10)
[2025-01-11 09:35] LABS: ANTI-Xa, UFH(UnfractionatedHep 0.32 IU/ml (0.3-0.7)
--- NOTE | 2025-01-11 09:56 | Pharmacy Report ---
Pharmacy PK ABX Note - Date of Service January 11, 2025 - Assessment and Plan Assessment 01/11 * Random vancomycin level this AM was ~13 mcg/ml - t 1/2 >24 hours so will dose based upon levels. Will give vancomycin 1250 mg x 1 now and order another random level in AM to assess further dosing. Awaiting final cultures. 01/10 * 89 year old F receiving Vancomycin and Zosyn for treatment of sepsis secondary to UTI, R buttock wound cellulitis, and R lower extremity cellulitis. * Day #1 of antimicrobial therapy. PMHx significant for elevated BMI, T2DM and Rheumatoid Arthritis on chronic prednisone and methotrexate. * Febrile at 38.6oC. Mild leukocytosis at 11.7k. SCr at 1.53 mg/dL (baseline appears to be around 1.4 mg/dL). Procal elevated at 10.4, and Lactate has been increasing as well (3.8--4.2--4.8). * Blood and urine cultures pending. Covid/Flu/RSV screen negative. Plan Vancomycin * 1250 mg iv x 1 - will order random level in AM to assist with further dosing. Zosyn * 4.5 g IV every 8 hours Pharmacy will continue to follow and will adjust dose/frequency as necessary. Thank you. Pharmacy has transitioned to AUC monitoring for vancomycin. AUC/PHAN is the preferred PK/PD target and is associated with decreased risk of nephrotoxicity compared to traditional trough targets.
--- NOTE | 2025-01-11 10:36 | Cardiology Progress Note ---
Date of Service January 11, 2025 Assessment & Plan (1) Sepsis: (2) Acute UTI (urinary tract infection): (3) Wound of right buttock: (4) Elevated troponin: (5) CAD (coronary artery disease): (6) HTN (hypertension): (7) Dyslipidemia, goal LDL below 70: Plan Assessment: 89 year old female presented from her personal care facility febrile with chills. UA positive, culture pending. Elevated lactate and Procalcitonin suggestive of sepsis. Blood cultures pending. wound culture pending from right buttock wound. Troponin with mild elevation, cardiology has been consulted given patient's prior history of coronary disease for further evaluation. Plan: 1. Sepsis 2. Acute UTI 3. wound of right buttock/erythema of right hip region 4. Elevated troponin 5. CAD -Patient with troponin elevation in the setting of sepsis, source of infection is unclear at this time as patient has an active buttocks wound, and a UTI. -Wound culture, and blood cultures pending. Urine culture positive E.coli. -Troponin elevation likely demand ischemia in the setting of sepsis. Known CAD with prior stent and otherwise diffuse medically managed disease. Echocardiogram shows hyperdynamic function (expected in setting of sepsis) with no wall motion abnormalities and no significant valvular disease. -BP remains well controlled. -Renal function and electrolytes are stable. Patient's home diuretic remains on hold in the setting of sepsis. Would recommend strict I&O, daily weights and close lab monitoring, may need to restart pending fluid status. -Review of telemetry shows SR with 1st degree AV block. Brief episode of Mobitz I in the setting of a choking episode at dinner. Resolved within seconds and no recurrence. -Monitor on telemetry -Continue with IV antibiotic course as managed by primary team, cultures pending as noted above. -Heparin gtt has been started as there is an incidental finding noted on the CT of the ABD/Pelvis suggestive of a PE, age undetermined subsegmental of the RLL. CTA chest negative for PE. -Right lower extremity duplex negative for DVT -continue ASA 81mg, and Coreg. -History of dyslipidemia, not on statin therapy s/t intolerance. Case has been discussed with Dr. Coto. Further recommendations regarding plan of care as per his assessment. I spent a total of 35 minutes on the date of service in preparation, delivery, documentation of the care provided to the patient excluding any time spent in the performance of separately billed services. SALLY Santos [facility] Admission and Anticipated Discharge Date Admission Date: January 10, 2025 Supervising Physician Co-Signing Physician Notes Patient seen and personally examined. Care and management outlined by advanced provider as above. Discussed and personally endorsed. 89-year-old female presented with signs and symptoms of acute sepsis. Clinicall y improved today following antibiotic therapies. Transient troponin elevation without wall motion normality or EKG abnormality secondary to type II demand ischemia of acute illness, possible pulmonary emboli. Plan as outlined above Anticoagulation has been added due to pulmonary embolus. Continue carvedilol, aspirin No further cardiac recommendation Contact with questions Subjective 01/11/2025: Patient seen and examined in follow up today. Feeling well from a cardiac perspective. offers no acute concerns. No chest pain, pressure, palpitat ions, no shortness of breath, no PND, pre-syncope, syncope. Endorses ongoing right lower extremity edema and erythema. Labs, vitals, diagnostics, telemetry and documentation reviewed. Telemetry reviewed showing SR with 1st degree AV Block. Review of telemetry does show that patient had a "choking" episode at 1705 last evening. she Entered a brief Mobitz I with spontaneous resolution in seconds and no recurrence. Patient's son and [id number] were updated on patient status upon their arrival today. Review of Systems Review of Systems: All systems reviewed & are unremarkable except as noted in HPI & below Physical Exam Constitutional: well developed, well nourished, + ill appearing and + overweight; no acute distress Neck: normal visual inspection and trachea midline Respiratory: normal respiratory effort, lungs clear to auscultation Cardiovascular: Rate/Rhythm: regular rate and regular rhythm Heart Sounds: normal S1 and normal S2; no murmur Vessels: dorsalis pedis pulses present; no JVD Extremities: + edema (+1 BLE Right> Left ) Skin: normal turgor, + wound (Right buttocks. DSG in place ) and + erythema (right lateral hip and right anterior portion of lower leg ) Psychiatric: A+Ox3, euthymic affect Results & Data Vital Signs (Past 12 Hours) Vital Signs Temp Pulse Pulse Resp BP BP Pulse Ox 01/11/25 09:52 72 01/11/25 07:25 36.9 C 77 16 129/62 99 01/11/25 04:36 37.5 C 78 18 110/58 L 96 01/10/25 22:53 37.2 C 79 18 97/54 L 96 01/10/25 22:48 76 O2 Del Method 01/11/25 09:52 01/11/25 07:25 Room Air 01/11/25 04:36 Room Air 01/10/25 22:53 Nasal Cannula 01/10/25 22:48 Laboratory Results Cardiac Enzymes 01/10/25 01/10/25 Range/Units 14:57 21:05 Troponin I High Sens 416.2 H* D 452.7 H* (0-14) pg/ml CBC 01/11/25 Range/Units 03:31 WBC 21.83 H D (4.8-10.8) K/ul RBC 3.35 L (4.20-5.40) M/uL Hgb 11.6 L (12.0-16.0) g/dl Hct 34.5 L (37.0-47.0) % Plt Count 98 L (130-400) K/uL Comprehensive Metabolic Panel 01/10/25 01/11/25 Range/Units 23:43 03:31 Sodium 137 137 (136-145) mmol/L Potassium 3.9 3.8 (3.5-5.1) mmol/L Chloride 102 101 (98-107) mmol/L Carbon Dioxide 25 26 (21-32) mmol/L BUN 28 H 27 H (6-23) mg/dl Creatinine 1.79 H 1.68 H (0.6-1.2) mg/dl Glucose 197 H 198 H (70-99(Fasting)) mg/dl Calcium 8.0 L 8.0 L (8.6-10.3) mg/dl Intake and Output 01/10/25 01/11/25 01/11/25 22:59 06:59 14:59 Intake Total 1200 / 4851.2 1311.2 / 4851.2 1100 / 1100 Balance 1200 / 4851.2 1311.2 / 4851.2 1100 / 1100 Intake: IV 1200 / 4851.2 1311.2 / 4851.2 1100 / 1100 Heparin 20561 Unit/500 ml D5w 211.2 / 211.2 25,000 units In 500 ml @ 800 UNITS/HR 16 mls/hr IV .Q24H [facility] Rx#:[id number] Lactated Ringer's 1,000 ml @ 1000 / 1000 1000 / 1000 200 mls/hr IV .Q5H ONE Rx#: [id number] Magnesium Sulfate / D5w 1 gm In 100 / 200 100 ml @ 50 mls/hr IV Q2H [facility] Rx#:[id number] Piperacillin/Tazobactam 4.5 gm 100 / 200 100 / 200 100 / 100 In 100 ml @ 25 mls/hr IV Q8H [facility] Rx#:[id number] Sodium Chloride 0.9% 1,000 ml @ 1000 / 1000 100 mls/hr IV .Q10H [facility] Rx#: [id number] Other: Weight 97.8 kg Weight Measurement Method Built in [facility] Care Time/CCT Total # of Minutes Spent Total Time Spent with Patient: Total time spent is greater than 50% in coordination of care (as documented) at patient's floor/unit and/or counseling patient: Coding [place] [address] SUB INP/OBS CARE 3/50MIN Patient Type Established Diagnoses Sepsis A41.9 Acute UTI (urinary tract infection) N39.0 Wound of right buttock S31.819A Elevated troponin R79.89 CAD (coronary artery disease) I25.10 HTN (hypertension) I10 Dyslipidemia, goal LDL below 70 E78.5 Time Spent (min) 35
[2025-01-11] MEDS: VANCOMYCIN HCL 1,250 MG in SODIUM CHLORIDE 0.9% 250 ML IV ONE (12:07)
[2025-01-11 15:08] LABS: Cdiff Toxin B Gene (2yr or >) Negative Cdiff Gene (Neg)
--- NOTE | 2025-01-11 18:47 | Electrocardiogram Report ---
Test Reason : Blood Pressure : */* mmHG Vent. Rate : 73 BPM Atrial Rate : 73 BPM P-R Int : 256 ms QRS Dur : 106 ms QT Int : 472 ms P-R-T Axes : 89 -27 15 degrees QTcB Int : 519 ms Sinus rhythm with 1st degree A-V block Prolonged QT Abnormal ECG When compared with ECG of 10-Jan-2025 07:33, Non-specific change in ST segment in Lateral leads QT has lengthened Confirmed by Hal Lindsay ([id number]) on 01/11/2025 6:47:02 PM Referred By: REFERRED SELF Confirmed By: Hal Lindsay
[2025-01-12 06:41] LABS: Hematocrit (blood only) 33.7 % (37.0-47.0); Hemoglobin 11.4 g/dl (12.0-16.0); Immature Granulocytes # (auto) 0.39 K/uL (0.01-0.20); Immature Granulocytes % (auto) 1.8 %; Mean Corpuscular Hemoglobin 34.1 pg (25.0-34.0); Mean Corpuscular Volume 100.9 fL (80.0-100.0); Platelet Count 112 K/uL (130-400); RDW Standard Deviation 59.9 fL (36.4-46.3); Red Blood Count 3.34 M/uL (4.20-5.40); White Blood Count 21.60 K/ul (4.8-10.8)
[2025-01-12 07:09] LABS: Alanine Aminotransferase 15.0 U/L (7-52); Albumin Globulin Ratio 1.1 (0.9-2); Albumin Level 2.9 gm/dl (3.4-5.0); Alkaline Phosphatase 69.0 U/L (34-104); Anion Gap 9.0 (3-11); Bilirubin,Total 0.6 mg/dl (0.2-1.0); Blood Urea Nitrogen 33.0 mg/dl (6-23); Calcium 8.1 mg/dl (8.6-10.3); Carbon Dioxide 26.0 mmol/L (21-32); Chloride 103.0 mmol/L (98-107); Creatinine Clr Calc Pharmacy 21.7 ml/min; Globulin 2.7 gm/dl (2.5-4.0); Glucose 162.0 mg/dl (70-99(Fasting)); Magnesium 2.0 mg/dl (1.7-2.4); Potassium 3.2 mmol/L (3.5-5.1); Sodium 138.0 mmol/L (136-145); Total Protein 5.6 gm/dl (6.0-8.3)
--- NOTE | 2025-01-12 08:02 | Hospitalist Progress Note ---
Date of Service January 12, 2025 Assessment & Plan (1) Severe sepsis: (2) UTI (urinary tract infection): (3) Acute kidney injury superimposed on CKD: (4) Cellulitis of right leg: (5) Wound of right buttock: (6) Elevated troponin: (7) CAD (coronary artery disease): (8) Type 2 diabetes mellitus with stage 3 chronic kidney disease, without long- term current use of insulin: (9) Rheumatoid arthritis: Plan This is an 89-year-old female with a PMH of RA, DM II, CKD III, HLD, HTN, GERD, CAD s/p stent (2007), statin intolerance, localized edema, mixed incontinence who presented on 01/10/2025 from [facility] with chills and urinary symptoms with findings consistent with severe sepsis secondary to UTI. Severe sepsis secondary to UTI Patient met criteria for severe sepsis on admission with fever, tachycardia, leukocytosis, elevated lactate and procalcitonin Lactate peaked at 4.9 and trended down with IVF CTAP revealed cystitis and possible pyelitis, no pyelonephritis Urine culture positive E coli Blood culture prelim no growth Initially on IV vanco and zosyn -> de-escalated to ceftriaxone today (+doxy for RLE cellulitis) IV steroids de-escalated to daily dosing today Leukocytosis 21 - vitals stable, afebrile since 01/10, steroids likely contributo ry PRISCA on CKD Baseline creat appears to be around 1.4 Creat uptrending from 1.53 on admission to 1.9 today Likely secondary to severe sepsis, UTI, and vancomycin Vanco discontinued today Avoid nephrotoxic agents as able Monitor BMP Consider nephrology consult if continues to worsen Cellulitis of right leg History of right femur fracture with hardware placed on repair 03/04 RLE with erythema extending to lateral right hip CT hip and femur revealed no soft tissue hematoma or abscess Ultrasound negative for DVT Initially on IV vanco and zosyn -> de-escalated to ceftriaxone and doxycycline today Wound of right buttock Present prior to admission Wound culture pending WOCN consulted Turn and reposition q2hr Elevated troponin Suspected NSTEMI type II CAD s/p stent Troponin peak at 457 NSTEMI likely secondary to severe sepsis/demand ischemia Echo showed hyperdynamic function with no wall motion abnormalities/valvular disease Continue baby aspirin and carvedilol, statin intolerant RA Immunosuppressed on methotrexate and prednisone Stress dose steroids initiated for severe sepsis -> transitioned to daily today DM 2 A1C 7.8 Home agents on hold BSG ACHS and SSI while inpatient DVT Prophylaxis: SQ Heparin Code Status: DNR/DNI PCP: Vik Davies Disposition: return to [facility] with home PT when medically stable Patient seen in collaboration with Dr. Issa. Please see addendum. I spent a total of 60 minutes coordinating, documenting and providing care for this patient excluding time spent in the performance of separately billed services or time spent by another provider/QHP. Admission and Anticipated Discharge Date Admission Date: January 10, 2025 Supervising Physician Co-Signing Physician Notes 89-year-old female with a PMH of RA, DM II, CKD III, HLD, HTN, GERD, CAD, statin intolerance localized edema, mixed incontinence presented 10/ from [facility] with c hills and urinary symptoms with findings consistent with severe sepsis 2/2 UTI. Severe sepsis 2/2 complicated UTI: immunocompromised patient, on prednisone 5 mg QAM at home. de-escalate to rocephin and doxy, f/u blood and urine cultures (UCx w/ E coli). s/p ivf, lactate downtrended. WBC up likely d/t hydrocortisone use, taper to daily. dc ivf. RLE cellulitis: c/w atb as above. no open wound. Rle venous doppler neg for DVT. Elevated trop/?NSTEMI: trop uptrended, ro ACS. 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 likely demand iso sepsis. cardio on board, on hep drip. f/u echo Concern of PE RLL in CTAP: CTA chest No pulmonary emboli identified although subsegmental vessels suboptimally assessed. case was d/w pulm, no concern for PE, no anticoagulation need. Decubitus ulcer POA, superficial. wocn consult On exam: alert Ox 3, RLE warmth, tender, erythema improving; rest of exam as above. Total time spent independently: 20 min I have seen and examined the patient and have discussed the case with the provider above. I agree with the assessment and plan as stated. Subjective Patient seen sitting up in chair Reports she is feeling better today Notes continued RLE erythema and edema Denies chest pain, SOB, abdominal pain, N/V Review of Systems Review of Systems: All systems reviewed & are unremarkable except as noted in HPI & below Physical Exam Physical Exam: General/Psych: obese, sitting up in chair, NAD, conversing easily Head: normocephalic, atraumatic Eyes: normal inspection, PERRL, conjunctivae pink ENT: external ear and nose normal, oropharynx normal Neck: normal visual inspection, trachea midline Respiratory: normal respiratory effort, lungs clear to auscultation, no wheeze/rales/rhonchi, no accessory muscle use Cardiovascular: regular rate and rhythm, no murmur/rub/gallop Extremities: no cyanosis or clubbing, normal peripheral pulses, 2+ RLE edema, trace LLE edema Abdomen/GI: normal bowel sounds, soft, nontender Neurologic/MSK: A+Ox3, motor strength 5/5, moves all extremities Skin: no rashes, normal color, warm and dry Results & Data Results & Data Vital Signs (Past 12 Hours) Vital Signs Temp Pulse Pulse Resp BP BP Pulse Ox 01/12/25 07:20 36.9 C 71 18 144/80 H 98 01/12/25 02:54 36.7 C 71 18 144/79 H 95 01/11/25 23:50 36.9 C 77 17 105/62 95 01/11/25 21:43 79 O2 Del Method 01/12/25 07:20 Room Air 01/12/25 02:54 Room Air 01/11/25 23:50 Room Air 01/11/25 21:43 Laboratory Results Short CBC 01/12/25 Range/Units 05:58 WBC 21.60 H (4.8-10.8) K/ul Hgb 11.4 L (12.0-16.0) g/dl Hct 33.7 L (37.0-47.0) % Plt Count 112 L (130-400) K/uL BMP 01/12/25 05:58 Sodium 138 Potassium 3.2 L Chloride 103 Carbon Dioxide 26 BUN 33 H Creatinine 1.90 H Glucose 162 H Calcium 8.1 L Liver Function 01/12/25 Range/Units 05:58 Total Bilirubin 0.6 (0.2-1.0) mg/dl AST 16 (13-39) U/L ALT 15 (7-52) U/L Alkaline Phosphatase 69 (34-104) U/L Albumin 2.9 L (3.4-5.0) gm/dl I have independently reviewed and interpreted patient's labs including CBC and CMP Medications Administered Current Inpatient Medications Acetaminophen (Acetaminophen 325 Mg Tab) 650 mg PO Q4H PRN PRN Reason: Pain or Fever Stop: 02/09/25 15:59 Last Admin: 01/11/25 21:14 Dose: 650 mg Aspirin (Aspirin 81 Mg Ectab) 81 mg PO DAILY [facility] Stop: 02/10/25 08:59 Last Admin: 01/12/25 08:04 Dose: 81 mg Carvedilol (Carvedilol 6.25 Mg Tab) 6.25 mg PO BID [facility] Stop: 02/10/25 08:59 Last Admin: 01/12/25 08:03 Dose: 6.25 mg Dextrose (Dextrose 50% 50 Ml Syringe) 25 - 50 ml IV UD PRN; Protocol PRN Reason: Hypoglycemia Protocol Stop: 02/09/25 13:45 Donepezil HCl (Donepezil Hcl 5 Mg Tab) 5 mg PO QAM [facility] Stop: 02/10/25 08:59 Last Admin: 01/12/25 08:04 Dose: 5 mg Doxycycline Hyclate (Doxycycline Hyclate 100 Mg Cap) 100 mg PO BID [facility] Stop: 01/19/25 11:59 Last Admin: 01/12/25 11:48 Dose: 100 mg Ferrous Sulfate (Ferrous Sulfate 325 Mg Tab) 325 mg PO DAILY@1200 [facility] Stop: 02/10/25 08:59 Folic Acid (Folic Acid 1 Mg Tab) 1 mg PO QAM [facility] Stop: 02/10/25 08:59 Last Admin: 01/12/25 08:04 Dose: 1 mg Glucagon (Glucagon For Inj 1 Mg Vial) 1 mg SQ UD PRN; Protocol PRN Reason: Hypoglycemia Protocol Stop: 02/09/25 13:45 Glucose (Glucose 40% Gel 15 Gm Tube) 15 - 30 gm PO UD PRN; Protocol PRN Reason: Hypoglycemia Protocol Stop: 02/09/25 13:45 Glucose (Glucose 10 Tab/Tube) 4 - 8 tab PO UD PRN; Protocol PRN Reason: Hypoglycemia Protocol Stop: 02/09/25 13:45 Heparin Sodium (Porcine) (Heparin Sod 5,000 Unit/0.5 Ml Vial) 5,000 units SQ Q12 [facility] Stop: 02/11/25 08:59 Last Admin: 01/12/25 08:06 Dose: 5,000 units Hydrocortisone Sodium (Succinate 50 mg/ Syringe) 1 mls @ 4 mls/min IV Q24H [facility] Stop: 02/11/25 07:59 Last Admin: 01/12/25 08:38 Dose: 4 mls/min Ceftriaxone Sodium (Rocephin) 2,000 mg in 50 mls @ 100 mls/hr IV Q24H [facility] Stop: 01/17/25 11:59 Last Admin: 01/12/25 11:46 Dose: 100 mls/hr Insulin Aspart (Insulin Aspart Per Unit Charge) 0 units SC ACHS [facility] Stop: 02/09/25 16:29 Last Admin: 01/12/25 12:07 Dose: 9 units Lidocaine (Lidocaine 5% 1 Patch) 1 patch TD DAILY [facility] Stop: 02/10/25 08:59 Last Admin: 01/12/25 08:06 Dose: 1 patch Miconazole Nitrate (Miconazole Nitrate Powder 85 Gm) 1 appln EXT BID [facility] Stop: 02/09/25 20:59 Last Admin: 01/12/25 08:07 Dose: 1 appln Miscellaneous (Remove Lidoderm Patch) 1 each N/A DAILY@2100 [facility] Stop: 02/09/25 20:59 Last Admin: 01/11/25 21:16 Dose: 1 each Miscellaneous (Carbohydrates For Hypoglycemia ) 15 - 30 gm PO UD PRN PRN Reason: Hypoglycemia Protocol Stop: 02/09/25 13:45 Multivitamins (Multivitamin Tab) 1 tab PO QAM [facility] Stop: 02/10/25 08:59 Last Admin: 01/12/25 08:04 Dose: 1 tab Ondansetron HCl (Ondansetron Inj 2 Mg/Ml 2 Ml Vial) 4 mg IV Q6H PRN PRN Reason: Nausea Stop: 02/09/25 13:45 Last Admin: 01/10/25 17:18 Dose: 4 mg Oxybutynin Chloride (Oxybutynin Chloride Xl 5 Mg Tabcr) 5 mg PO DAILY [facility] Stop: 02/10/25 08:59 Last Admin: 01/12/25 08:04 Dose: 5 mg Polyethylene Glycol (Polyethylene (Miralax) 17 Gm Pack) 17 gm PO DAILY PRN PRN Reason: Constipation Stop: 02/09/25 13:45 Sennosides (Senna 8.6 Mg Tab) 8.6 mg PO DAILY [facility] Stop: 02/10/25 08:59 Last Admin: 01/12/25 08:03 Dose: 8.6 mg
[2025-01-12] MEDS: POTASSIUM CHLORIDE CRTAB 20 MEQ TABCR PO ONE (08:03)
[2025-01-12] MEDS: HEPARIN SOD 5,000 UNIT/0.5 ML VIAL SQ SCH (08:06)
[2025-01-12] MEDS: HYDROCORTISONE SOD 50 MG in SYRINGE 0 ML IV SCH (08:38)
[2025-01-12] MEDS: VANCOMYCIN HCL / NSS 1,000 MG/270 ML BAG IV ONE (10:06)
[2025-01-12] MEDS: cefTRIAXone SODIUM 2,000 MG/50 ML BAG IV SCH (11:46)
[2025-01-12] MEDS: DOXYCYCLINE HYCLATE 100 MG CAP PO SCH (11:48)
[2025-01-13 06:46] LABS: Anion Gap 6.0 (3-11); Blood Urea Nitrogen 33.0 mg/dl (6-23); Calcium 8.3 mg/dl (8.6-10.3); Carbon Dioxide 28.0 mmol/L (21-32); Chloride 105.0 mmol/L (98-107); Creatinine Clr Calc Pharmacy 25.0 ml/min; Glucose 111.0 mg/dl (70-99(Fasting)); Potassium 3.0 mmol/L (3.5-5.1); Sodium 139.0 mmol/L (136-145)
[2025-01-13] MEDS: POTASSIUM CHLORIDE CRTAB 20 MEQ TABCR PO STA ×2 (08:08→12:23)
[2025-01-13] MEDS: FERROUS SULFATE 325 MG TAB PO SCH (11:49)
--- NOTE | 2025-01-13 12:21 | Hospitalist Progress Note ---
Date of Service January 13, 2025 Assessment & Plan (1) Severe sepsis: (2) UTI (urinary tract infection): (3) Acute kidney injury superimposed on CKD: (4) Cellulitis of right leg: (5) Wound of right buttock: (6) Elevated troponin: (7) CAD (coronary artery disease): (8) Type 2 diabetes mellitus with stage 3 chronic kidney disease, without long- term current use of insulin: (9) Rheumatoid arthritis: Plan This is an 89-year-old female with a PMH of RA, DM II, CKD III, HLD, HTN, GERD, CAD s/p stent (2007), statin intolerance, localized edema, mixed incontinence who presented on 01/10/[address] [facility] with chills and urinary symptoms with findings consistent with severe sepsis secondary to UTI. Severe sepsis secondary to UTI Patient met criteria for severe sepsis on admission with fever, tachycardia, leukocytosis, elevated lactate and procalcitonin Lactate peaked at 4.9 and trended down with IVF CTAP revealed cystitis and possible pyelitis, no pyelonephritis Urine culture positive E coli Blood culture prelim no growth Initially on IV vanco and zosyn -> c/w ceftriaxone dc iv steroid, resume home dose from [place] Leukocytosis 21 - vitals stable, afebrile since 01/10, steroids likely contributory CKD IV: baseline Cr around 1.5 to 1.8, Cr peaked to 1.9, donot qualify for PRISCA diagnosis. Monitor BMP. Cellulitis of right leg History of right femur fracture with hardware placed on repair 03/04 RLE with erythema extending to lateral right hip -- improving. CT hip and femur revealed no soft tissue hematoma or abscess Ultrasound negative for DVT Initially on IV vanco and zosyn -> de-escalated to ceftriaxone and doxycycline 01/12 LIkely will need prolong atb Rx given slow improvement will do FR and daily furosemide (to improve swelling, pt takes prn lasix at home) Keep RLE elevated as much as possible. Wound of right buttock Present prior to admission, doens't look infected on exam, no purulence, no streaking erythema, non tender. Wound culture pending WOCN consulted Turn and reposition q2hr Elevated troponin Suspected NSTEMI type II CAD s/p stent Troponin peak at 457 NSTEMI likely secondary to severe sepsis/demand ischemia Echo showed hyperdynamic function with no wall motion abnormalities/valvular disease Continue baby aspirin and carvedilol, statin intolerant RA Immunosuppressed on methotrexate and prednisone Stress dose steroids initiated for severe sepsis -> transitioned to daily today DM 2 A1C 7.8 Home agents on hold BSG ACHS and SSI while inpatient DVT Prophylaxis: SQ Heparin Code Status: DNR/DNI PCP: Vik Davies Disposition: return to [facility] with home PT when transport is arranged for. Admission and Anticipated Discharge Date Admission Date: January 10, 2025 Subjective Patient seen lying in bed, Reports she is feeling better today Notes continued RLE erythema and edema Denies chest pain, SOB, abdominal pain, N/V Physical Exam Physical Exam: General/Psych: obese, sitting up in chair, NAD, conversing easily Head: normocephalic, atraumatic Eyes: normal inspection, PERRL, conjunctivae pink ENT: external ear and nose normal, oropharynx normal Neck: normal visual inspection, trachea midline Respiratory: normal respiratory effort, lungs clear to auscultation, no wheeze/rales/rhonchi, no accessory muscle use Cardiovascular: regular rate and rhythm, no murmur/rub/gallop Extremities: no cyanosis or clubbing, normal peripheral pulses, 1- 2+ RLE edema, trace LLE edema. RLE erythema and warmth improving. Abdomen/GI: normal bowel sounds, soft, nontender Neurologic/MSK: A+Ox3, motor strength 5/5, moves all extremities Skin: no rashes, normal color, warm and dry Results & Data Results & Data Vital Signs (Past 12 Hours) Vital Signs Temp Pulse Pulse Resp BP BP Pulse Ox 01/13/25 11:30 37.2 C 77 20 161/82 H 95 01/13/25 07:38 68 01/13/25 04:29 36.6 C 69 17 175/78 H 98 O2 Del Method 01/13/25 11:30 Room Air 01/13/25 07:38 01/13/25 04:29 Room Air
[2025-01-13] MEDS: FUROSEMIDE 20 MG TAB PO SCH (12:28)
[2025-01-13] MEDS: LACTOBACILLUS ACIDOPHILUS 1 GM PACK PO SCH (21:03)
[2025-01-13] MEDS: LOPERAMIDE HCL 2 MG CAP PO PRN (21:03)
[2025-01-14 07:13] LABS: Hematocrit (blood only) 33.3 % (37.0-47.0); Hemoglobin 10.6 g/dl (12.0-16.0); Mean Corpuscular Hemoglobin 32.9 pg (25.0-34.0); Mean Corpuscular Volume 103.4 fL (80.0-100.0); Platelet Count 159 K/uL (130-400); RDW Standard Deviation 62.3 fL (36.4-46.3); Red Blood Count 3.22 M/uL (4.20-5.40); White Blood Count 9.65 K/ul (4.8-10.8)
[2025-01-14 07:34] LABS: Anion Gap 6.0 (3-11); Blood Urea Nitrogen 30.0 mg/dl (6-23); Calcium 8.4 mg/dl (8.6-10.3); Carbon Dioxide 28.0 mmol/L (21-32); Chloride 107.0 mmol/L (98-107); Creatinine Clr Calc Pharmacy 27.2 ml/min; Glucose 102.0 mg/dl (70-99(Fasting)); Potassium 3.6 mmol/L (3.5-5.1); Sodium 141.0 mmol/L (136-145)
--- NOTE | 2025-01-14 10:33 | Discharge Summary ---
Discharge Summary Date of Service January 14, 2025 Principal Dx & Hospital Course #1 = Principal Diagnosis (1) Severe sepsis: (2) UTI (urinary tract infection): (3) Cellulitis of right leg: (4) Wound of right buttock: (5) Elevated troponin: (6) CAD (coronary artery disease): (7) Type 2 diabetes mellitus with stage 3 chronic kidney disease, without long- term current use of insulin: (8) Rheumatoid arthritis: Plan Patient is an 89-year-old female with past medical history significant for rheumatoid arthritis on chronic immunosuppression therapy with methotrexate and prednisone, DM type II, CKD stage IIIb, HLD, HTN, GERD, CAD with prior stent to the RCA in 2007, mild bradycardia (limiting beta-darell dose), statin intolerance, chronic BLE edema and mixed urinary incontinence who presented to the ED on 01/10/2025 with chills and urinary symptoms with findings consistent with severe sepsis secondary to UTI and RLE cellulitis. Patient was managed for the following: Severe sepsis 2/2 UTI and RLE cellulitis Met severe sepsis criteria on admission with fever, tachycardia, leukocytosis, elevated lactate/procalcitonin. Lactate peaked at 4.9 and trended down appropriately s/p IVF. CTAP revealed cystitis and possible pyelitis, no CT evidence for acute pyelonephritis. Right hip and femur CT imaging revealed no soft tissue hematoma or abscess formation. Urine culture grew E. coli, blood cultures with no growth. Initially on IV vancomycin and Zosyn, transitioned to IV Rocephin and doxycycline on 01/12/2025. Leukocytosis resolved, plan for discharge on p.o. doxycycline and cefpodoxime to be continued through 01/23/2025 to complete full 14-day ABX course. RLE remains with mild erythema extending from right hip to right anterior gonzalez at time of discharge, however is slowly improving. Chronic BLE edema History of right femur fracture s/p surgical repair with hardware placed in February 2024 BLE venous Doppler ultrasound negative for DVT. Continue daily 1.8L fluid restriction, Lasix 20mg every morning on discharge. Elevated troponin Type II demand ischemia CAD with history of RCA stent placement in 2007 Troponin elevation, EKG abnormality 2/2 type II demand ischemia in setting of severe sepsis. Telemetry grossly benign; TTE showed hyperdynamic function with no wall motion abnormalities/valvular disease. Continue ASA and carvedilol. Not on statin therapy due to intolerance. Abnormal CTAP finding of small age-indeterminate segmental RLL pulmonary embolus Previous provider discussed the possibility of PE with Dr. Laguna, pulmonology. Was initially placed on IV heparin drip in regards to this. Patient has no complaint suggestive of PE, incidental finding in the CTAP. Chest CTA was negative for PE. No DVT noted on ultrasound as per above. There is no indication for anticoagulation from pulmonary standpoint. Heparin drip was discontinued on 01/11/2025. Also no indication for anticoagulation per cardiology. Wound of right buttock -- POA Present prior to admission. Wound care evaluated: most likely chronic r/t moisture and chronic pressure, no evidence of infection on exam. Wound culture grossly unremarkable. Wound care discharge instructions included in patient handout. CKD stage IIIb Creatinine around baseline at time of discharge. Baseline creatinine around 1.5-1.8; continue to avoid nephrotoxic agents as possible. Rheumatoid arthritis On chronic immunosuppression therapy with methotrexate and prednisone. Initially administered stress dose steroids for severe sepsis. Transitioned to [employer] prednisone dosing on 01/13/2025, continue on discharge. DMII Hemoglobin A1c 7.8% this admission. Can resume metformin on discharge; patient's son inquired regarding increasing metformin dose, deferred to PCP. PCP: Vik Davies, Disposition: Patient is being discharged back to [facility] ([facility]) in stable condition with close PCP follow-up on 01/16/2025. Patient's son, Boy, updated over the phone on the above plans of care. All questions were answered to the best of my ability. Agreeable with discharge. Patient seen in collaboration with Dr. Issa. Please see addendum. I spent a total of 60 minutes coordinating, documenting, and providing care for this patient excluding time spent in the performance of separately billed services or time spent by another provider/QHP. This included personally reviewing all current laboratories and imaging studies, medical reconciliation, outpatient chart review and discussion with specialists. This chart was completed in part utilizing Speech Voice Recognition Software. Grammatical errors, random word insertions, pronoun errors, and incomplete sentences are an occasional consequence of this system due to software limitations, ambient noise, and hardware issues. Any formal questions or concerns about the content, text, or information contained within the body of this dictation should be directly addressed to the provider for clarification. Notes For Next Care Provider Ms. Narayan was admitted to [facility] from 01/10/2025-01/14/2025 with severe sepsis 2/2 UTI and RLE cellulitis. Set to complete 14-day antibiotic course on 01/23/2025, prescribed doxycycline and cefpodoxime on discharge. Medication Changes From Visit Doxycycline, cefpodoxime for UTI and RLE cellulitis Admission HPI Per Admitting Provider This is an 89-year-old female with a PMH of RA, DM II, CKD III, HLD, HTN, GERD, CAD, statin intolerance localized edema, mixed incontinence and other problems listed below who presents from [facility] with chills and urinary symptoms. Patient's son is a nurse and called EMS this morning after he found her to have chills. Has a history of urosepsis and was concerned for that again. Patient developed shaking chills overnight and notes some burning with urination. Also had a few minutes of burning in her epigastrium for a few minutes prior to her CT scan that is since resolved. Denies any lightheadedness, headache, palpitations, shortness of breath, nausea, vomiting, abdominal pain, hematuria, diarrhea or constipation. Son noted redness to lower right leg today. Unclear how long that has been there but redness has spread up overlying her right hip, where she had a fracture repair with hardware last year. Also has a wound on her right gluteus which was being managed by wound care coming into personal care facility. Admission Exam Per Admitting Provider General Appearance: WD/WN, vitals as above, NAD, sitting up in bed, conversing easily Head: normocephalic, atraumatic Eyes: normal inspection, PERRL ENT: external ear and nose normal, oropharynx normal Neck: normal visual inspection Respiratory: normal respiratory effort, lungs clear to auscultation, no wheeze, rales, rhonchi. No accessory muscle use Cardiovascular: regular rate, rhythm, normal peripheral pulses, 1-2+ BLE edema. Vessels: no JVD Chest: normal inspection of chest Abdomen/GI: normal bowel sounds, soft, nontender, no hepatosplenomegaly Extremities/Musculoskeletal: no cyanosis or clubbing, extremities motor strength 5/5 Neurologic: PERRL, EOMI, accommodation nl, no face palsy, no dysarthria, CN's II-XI intact bilaterally and moves all extremities Psychiatric: A+Ox3, euthymic affect Skin: no rashes, normal color, warm/dry, + RLE erythematous and warmth extending from R foot up to lateral R hip with purplish discoloration and edema noted on lateral aspect of hip. No TTP. Also note [employer] open dime-sized wound on R glute with serous drainage Discharge Exam General/Psych: obese, sitting up in chair, NAD, conversing easily Head: normocephalic, atraumatic Eyes: normal inspection, PERRL, conjunctivae pink ENT: external ear and nose normal, oropharynx normal Neck: normal visual inspection, trachea midline Respiratory: normal respiratory effort, CTAB, no wheeze/rales/rhonchi, no accessory muscle use Cardiovascular: regular rate and rhythm, no murmur/rub/gallop Extremities: no cyanosis or clubbing, normal peripheral pulses, 1-2+ RLE edema, trace LLE edema, RLE erythema and warmth improving Abdomen/GI: normal bowel sounds, soft, nontender Neurologic/MSK: A+Ox3, motor strength 5/5 in all extremities, moves all extremities Skin: no rashes, normal color, warm and dry Updated Medication List Medication Instructions Recorded Confirmed Type prednisone 5 mg tablet 5 mg PO QAM 02/26/24 01/10/25 History carvedilol 6.25 mg tablet 6.25 mg PO BID 30 days #60 tabs 03/09/24 01/10/25 Rx donepezil 5 mg tablet 5 mg PO QAM 30 days #30 tabs 03/09/24 01/10/25 Rx folic acid 1 mg tablet 1 mg PO QAM 30 days #30 tabs 03/09/24 01/10/25 Rx multivitamin 1 tab PO QAM 30 days #30 tabs 03/09/24 01/10/25 Rx aspirin 81 mg tablet,delayed 81 mg PO DAILY 01/10/25 01/10/25 History release cranberry fruit concentrate 400 1 cap PO DAILY 01/10/25 01/10/25 History mg-ascorbate calcium 30 mg capsule (Cranberry-Vit C (ascorbate calcium)) ferrous sulfate 325 mg (65 mg 325 mg PO DAILY 01/10/25 01/10/25 History iron) tablet furosemide 20 mg tablet 20 mg PO UD 01/10/25 01/10/25 History lidocaine 5 % topical patch 1 patch topical DAILY 01/10/25 01/10/25 History metformin 500 mg tablet,extended 500 mg PO DAILY 01/10/25 01/10/25 History release 24 hr methotrexate sodium 2.5 mg tablet 10 mg PO Q7D 01/10/25 01/10/25 History sennosides 8.6 mg tablet (Senokot) 8.6 mg PO DAILY 01/10/25 01/10/25 History trospium 20 mg tablet 20 mg PO DAILY 01/10/25 01/10/25 History Lactobacillus acidophilus, 1 packet PO TIDM #12 ea 01/14/25 Rx bulgaricus 100 million cell granules packet (Floranex) cefpodoxime 200 mg tablet 400 mg (2 x 200 mg) PO BID 9 days 01/14/25 Rx #36 tabs doxycycline hyclate 100 mg capsule 100 mg PO BID #19 caps 01/14/25 Rx miconazole nitrate 2 % topical 1 applic EXT BID #85 grams 01/14/25 Rx powder (Desenex) Hospital Stay Data Consultations 01/10/25 09:57 ED Decision to Admit Stat 01/10/25 13:35 Consult Cardiology Routine Diagnostic Imagining Performed 01/10/25 07:53 US venous doppler LE RT Stat 01/10/25 09:30 CT abd pelvis IV con only Stat CT angio chest PE protocol Stat 01/10/25 11:38 CT femur RT wo con Stat CT hip RT wo con Stat 01/10/25 17:57 US venous doppler LE LT Routine Pending Results Patient Have Any Pending Studies at Discharge: No Discharge Instructions Given to Patient (Per Discharging Provider) Jamee, you were admitted to [facility] due to sepsis secondary to urinary tract infection (UTI) and right lower extremity cellulitis. You are being discharged back to your personal-snf. Please continue taking the antibiotics as prescribed in order to treat your infections. MEDICATION CHANGES: 1. Doxycycline 100mg twice a day through 01/23/2025 2. Cefpodoxime for 400mg once daily through 01/23/2025 RECOMMENDATIONS FOR FOLLOW-UP: Please attend your PCP and cardiology follow-up appointments as outlined below. Date & Time: 01/16/2025 @ 11:40 AM Provider: Monica Lopez CRNP Location: Family [facility] Date & Time: 01/28/2025 @ 11:0 AM Provider: Raquel Marquez PA-C Location: Cardiology, [facility] Seek medical attention if you have: * temperature above 101F * chest pain or trouble breathing * abdominal pain, nausea, vomiting * diarrhea, dark stools or bloody stools * any unanswered questions or concerns Call 911 if symptoms are severe. Please take good care of yourself. It has been a pleasure taking care of you. If you have any questions regarding your recent hospitalization please contact [facility] and request yu Hospitalist @ [phone]. Total Time Total Time Spent Total Time Spent (In Minutes): 60 Supervising Physician Co-Signing Physician Notes 89-year-old female with a PMH of RA, DM II, CKD III, HLD, HTN, GERD, CAD, statin intolerance localized edema, mixed incontinence presented / from [facility] with chills and urinary symptoms with findings consistent with severe sepsis 2/2 UTI. Severe sepsis 2/2 complicated UTI: immunocompromised patient, on prednisone 5 mg QAM at home. de-escalated to rocephin and doxy, f/u blood and urine cultures (UCx w/ E coli). s/p ivf, lactate downtrended. WBC nl, pt feels better. To po atb on dc to complete 14 d Rx. RLE cellulitis: c/w atb as above. no open wound. Rle venous doppler neg for DVT. Elevated trop/?NSTEMI: trop uptrended, ro ACS. 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 likely demand iso sepsis. cardio on board, on hep drip. reviewed echo Concern of PE RLL in CTAP: CTA chest No pulmonary emboli identified although subsegmental vessels suboptimally assessed. case was d/w pulm, no concern for PE, no anticoagulation need. Decubitus ulcer POA, superficial. wocn consult On exam: alert Ox 3, RLE warmth, tender, erythema improving; rest of exam as above. Total time spent independently: 20 min I have seen and examined the patient and have discussed the case with the provider above. I agree with the assessment and plan as stated.
[2025-01-14] MEDS: cefTRIAXone SODIUM 2,000 MG/50 ML BAG IV STA (10:58)
[2025-01-14 11:45] VITALS: PULSE 65; RESP 18; TEMP 98.6; O2SAT 95
[2025-01-14 12:15] VITALS: BP 136/68
== END 2025-01-14 14:43 | disposition home or self-care (01) | DRG 871 ==
LOC: ED 06:34 → EDINP 10:44 → SUATTDRO 10:44 → 2S 12:48

== ENCOUNTER 2025-01-17 21:25 | Inpatient (IN) ==
[2025-01-17] MEDS ORDERED: VANCOMYCIN CONSULT ACTIVE PRN (22:03)
[2025-01-17 22:12] LABS: Hematocrit (blood only) 36.2 % (37.0-47.0); Hemoglobin 11.5 g/dl (12.0-16.0); Mean Corpuscular Hemoglobin 32.8 pg (25.0-34.0); Mean Corpuscular Volume 103.1 fL (80.0-100.0); Platelet Count 206 K/uL (130-400); RDW Standard Deviation 62.1 fL (36.4-46.3); Red Blood Count 3.51 M/uL (4.20-5.40); White Blood Count 13.28 K/ul (4.8-10.8)
[2025-01-17 22:33] LABS: Immature Granulocytes # (auto) 0.91 K/uL (0.01-0.20); Immature Granulocytes % (auto) 6.9 %
--- NOTE | 2025-01-17 22:35 | Emergency Department Note ---
Impression & Plan Cellulitis of right leg ED Provider Note Provider: Danilo Stephen MD CHIEF COMPLAINT: Worsening right leg infection and redness HISTORY OF PRESENT ILLNESS: Patient is a 89-year-old female extensive past medical history including CKD, recent admission for sepsis related to cellulitis of the leg and UTI, type 2 diabetes, hypertension, and CAD presenting here today from her rehab facility. Patient has been taking doxycycline and cefpodoxime but since discharge on Tuesday her last 3 to 4 days has experience worsening redness to the right lower extremity now extending to the right inner thigh as well as the right lateral thigh more. Some pain here. No falls. No fevers. Denies abdominal pain or difficulty breathing. Prior right hip surgical repair and was recently hospitalized and evaluated no evidence of infection here at that time but has been on antibiotics for a skin infection/cellulitis of the right lower extremity. PAST MEDICAL HISTORY: As noted above MEDICATIONS: Reviewed medication list from the facility, history of immunosuppression on methotrexate SOCIAL HISTORY: Currently residing at [facility] for rehab. PHYSICAL EXAM: GENERAL: alert and oriented in no acute distress on stretcher Head: normocephalic and atraumatic EYES: No injection, discharge or icterus. NECK: Trachea midline. ENT: Mucous membranes pink and moist. LUNGS: Airway patent. No retractions. Breath sounds clear HEART: Regular rate and rhythm. No chest wall tenderness ABDOMEN: Soft and non-tender, without guarding or rebound. SKIN: Acyanotic, warm, dry, without rashes EXTREMITIES: Trace edema of the left lower extremity without redness or tenderness. The right lower extremity with 2+ edema and redness prickly in the right medial and lateral thigh sparing the anterior and posterior surfaces. Well-healed right surgical scar over the greater trochanteric region without dehiscence, swelling, or fluctuance. Redness extends to the right lower leg with significant stasis changes without weeping. Mildly diffusely tender without crepitus. NEUROLOGICAL:No aphasia. No facial droop or slurred speech. Normal strength and tone in the extremities. Sensation to gross touch normal EK bpm sinus rhythm first-degree heart block. No acute ST segment elevation or depression rhythm to baseline artifact. QTc 461. CONTINUOUS CARDIAC MONITORING: was ordered and showed a heart rate of 80s bpm in sinus rhythm first-degree heart block Patient's laboratory studies and imaging reviewed. Differential includes Cellulitis, abscess, MRSA infection, DVT, necrotizing fasciitis, dermatitis, drug eruption, allergic reaction, as well as other pathologies. IMPRESSION/MEDICAL DECISION MAKING: Patient recent mission for sepsis. Reviewed discharge summary and prior microbiology. Patient upon arrival afebrile but with worsening redness of the leg. Blood work and cultures sent here. Worsening leukocytosis 13 today from 9 at discharge with a mildly elevated lactate of 3.1 and a procalcitonin of 3.65 this is lower than prior presentation. Not hypotensive here actually hypertensive. Afebrile upon arrival. I do not believe this represents necrotizing fasciitis. I doubt this represents DVT. X-ray obtained of the hip but I do not believe this is a deeper infection seems superficial. Will attempt to obtain urine sample again will cover broadly with vancomycin and Zosyn. Was previously have improvement on these antibiotic regimen prior to discharge switch to oral medications. Discussed with patient and her son at bedside. Did discuss with the [facility] hospitalist team for further inpatient care. Patient possibly benefit from ID consultation given her worsening on oral antibiotic regimen that would seem appropriate. Hold off on further IV fluids as she is hypertensive and with findings of some leg swelling as I want to avoid any additional fluid overload that could worsen the infection. DIAGNOSIS: Right lower leg cellulitis DISPOSITION: Hospitalist will evaluate Patient was agreeable with this plan. Past Med/Surg History Problem List (Updated 01/17/25 @ 23:07 by Danilo Stephen M.D.) Acute kidney injury superimposed on CKD Localized edema Pulmonary embolism of right lung Acidosis, lactic (Acute) Elevated troponin I level (Acute) Cellulitis (Acute) Acute UTI (urinary tract infection) (Acute) Sepsis (Acute) Elevated troponin Wound of right buttock UTI (urinary tract infection) Cellulitis of right leg (Acute) Severe sepsis Status post open reduction with internal fixation of fracture Dyslipidemia, goal LDL below 70 Type 2 diabetes mellitus with stage 3 chronic kidney disease, without long-term current use of insulin Urgency incontinence Anemia HTN (hypertension) CAD (coronary artery disease) [facility] Cardiology Rheumatoid arthritis Medical History History of syncope admission [facility] 12/2022. DM type 2 (diabetes mellitus, type 2) HTN (hypertension) Surgical History History of umbilical hernia repair History of hysterectomy History of cervical spinal surgery History of back surgery hardware present History of bladder surgery History of cardiac catheterization "several years ago" -- [facility] -- 1 stent per son's report. H/O section x 3 Family History Other Coronary heart disease Diabetes Social History Smoking Status: Never smoker Tobacco Type: Cigarettes Second Hand Exposure: No; Do You Dip or Chew Tobacco: No; Hx Alcohol Use: No Hx Substance Use: No Preferred Language: Tongan Communication Ability: Effective Senior Quality Analyst Required: No Beliefs That Will Affect Care: None Current Living Situation: [facility] Current Living Situation Comment: condo Feels Safe at Home: Yes Assistive Devices: Lift Chair and Walker Allergies Allergies Allergy/AdvReac Type Severity Reaction Status Date / Time Sulfa (Sulfonamide Allergy Unknown CAN'T Verified 01/17/25 22:15 Antibiotics) REMEMBER adalimumab [From Humira] AdvReac Severe CELLULITIS Verified 01/17/25 22:15 IN FACE-HOSPITALIZED ciprofloxacin [From Cipro] AdvReac Intermediate NAUSEA/VOMI Verified 01/17/25 22:15 TING Home Meds Home Medications Medication Instructions Recorded Confirmed prednisone 5 mg tablet 5 mg PO QAM 02/26/24 01/10/25 aspirin 81 mg tablet,delayed 81 mg PO DAILY 01/10/25 01/10/25 release cranberry fruit concentrate 400 1 cap PO DAILY 01/10/25 01/10/25 mg-ascorbate calcium 30 mg capsule (Cranberry-Vit C (ascorbate calcium)) ferrous sulfate 325 mg (65 mg 325 mg PO DAILY 01/10/25 01/10/25 iron) tablet lidocaine 5 % topical patch 1 patch topical DAILY 01/10/25 01/10/25 metformin 500 mg tablet,extended 500 mg PO DAILY 01/10/25 01/10/25 release 24 hr methotrexate sodium 2.5 mg tablet 10 mg PO Q7D 01/10/25 01/10/25 sennosides 8.6 mg tablet (Senokot) 8.6 mg PO DAILY 01/10/25 01/10/25 trospium 20 mg tablet 20 mg PO DAILY 01/10/25 01/10/25 Previous Rx's Medication Instructions Recorded carvedilol 6.25 mg tablet 6.25 mg PO BID 30 days #60 tabs 03/09/24 donepezil 5 mg tablet 5 mg PO QAM 30 days #30 tabs 03/09/24 folic acid 1 mg tablet 1 mg PO QAM 30 days #30 tabs 03/09/24 multivitamin 1 tab PO QAM 30 days #30 tabs 03/09/24 Lactobacillus acidophilus, 1 packet PO TIDM #12 ea 01/14/25 bulgaricus 100 million cell granules packet (Floranex) cefpodoxime 200 mg tablet 400 mg (2 x 200 mg) PO QAM 9 days 01/14/25 #18 tabs doxycycline hyclate 100 mg capsule 100 mg PO BID #19 caps 01/14/25 furosemide 20 mg tablet 20 mg PO QAM #0 tabs 01/14/25 miconazole nitrate 2 % topical 1 applic EXT BID #85 grams 01/14/25 powder (Desenex) Results & Data (ED) Vital Signs Vital Signs - 24 hr 01/17/25 21:41 01/17/25 21:41 01/17/25 21:46 Temperature 37.0 C Temperature Source Oral Pulse Rate 87 86 Pulse Rhythm Regular Pulse Strength Normal Respiratory Rate 20 Respiratory Effort / Characteristics Non-Labored Spontaneous Respiratory Depth Normal Respiratory Pattern Regular Blood Pressure 188/73 H Blood Pressure Mean 111 Blood Pressure Position Lying Pulse Oximetry 96 Oxygen Delivery Method Room Air Room Air Sepsis Recent Fever Within 48 Hours No Sepsis New/Unexplained Change in Mental Status No Sepsis Action Taken by Nursing No Action Required Laboratory Data 01/17/25 21:40 01/17/25 22:10 Lab Results 01/17/25 01/17/25 Range/Units 21:40 22:10 WBC 13.28 H (4.8-10.8) K/ul RBC 3.51 L (4.20-5.40) M/uL Hgb 11.5 L (12.0-16.0) g/dl Hct 36.2 L (37.0-47.0) % MCV 103.1 H (80.0-100.0) fL MCH 32.8 (25.0-34.0) pg MCHC 31.8 L (32.0-36.0) g/dL RDW Std Deviation 62.1 H (36.4-46.3) fL RDW Coeff of Prudence 16.9 H (11.5-14.5) % Plt Count 206 (130-400) K/uL MPV 9.7 (9.4-12.4) fL Immature Gran % (Auto) 6.9 % Neut % (Auto) 57.3 % Lymph % (Auto) 22.1 % [place] % (Auto) 11.6 % Eos % (Auto) 1.5 % Baso % (Auto) 0.6 % Neut # (Auto) 7.62 H (1.40-6.50) K/uL Lymph # (Auto) 2.93 (1.20-3.40) K/uL [place] # (Auto) 1.54 H (0.11-0.59) K/uL Eos # (Auto) 0.20 (0.00-0.50) K/uL Baso # (Auto) 0.08 (0.00-0.20) K/uL Immature Gran # (Auto) 0.91 H (0.01-0.20) K/uL Sodium 137 (136-145) mmol/L Potassium 4.0 (3.5-5.1) mmol/L Chloride 99 (98-107) mmol/L Carbon Dioxide 30 (21-32) mmol/L Anion Gap 8 (3-11) BUN 22 (6-23) mg/dl Creatinine 1.33 H (0.6-1.2) mg/dl Est Cr Clr Drug Dosing 31.9 ml/min eGFR 38.48 BUN/Creatinine Ratio 16.5 (10-20) Glucose 196 H (70-99(Fasting)) mg/dl Lactate 3.1 H* (0.4-2.0) mmol/L Calcium 9.3 (8.6-10.3) mg/dl Total Bilirubin 0.3 (0.2-1.0) mg/dl AST 13 (13-39) U/L ALT 11 (7-52) U/L Alkaline Phosphatase 94 (34-104) U/L Troponin I High Sens 19.7 H (0-14) pg/ml B-Natriuretic Peptide 45 (0-100) pg/ml Total Protein 5.9 L (6.0-8.3) gm/dl Albumin 2.8 L (3.4-5.0) gm/dl Globulin 3.1 (2.5-4.0) gm/dl Albumin/Globulin Ratio 0.9 (0.9-2) Procalcitonin 3.65 H (0-0.5) ng/ml Administered Medications Discontinued Medications Piperacillin Sod/Tazobactam Sod (Zosyn) 4.5 gm in 100 mls @ 200 mls/hr IV NOW ONE; Protocol Stop: 01/17/25 22:32 Last Admin: 01/17/25 22:49 Dose: 200 mls/hr Documented By: JENNIFER Discharge Plan Visit Data Chief Complaint: Infection Stated Complaint: Cellulitis R Leg ED Provider: Danilo Stephen Discharge Problem: Cellulitis of right leg Patient Disposition: Being Evaluated by Hospitalist Condition: Fair Forms Stand Alone Forms: My [facility] Prescriptions Prescriptions: No Action metformin 500 mg tablet extended release 24 hr 500 mg PO DAILY methotrexate sodium 2.5 mg tablet 10 mg PO Q7D Rx Instructions: Takes on Fridays trospium 20 mg tablet 20 mg PO DAILY Rx Instructions: administer on an empty stomach aspirin 81 mg tablet,delayed release (DR/EC) 81 mg PO DAILY sennosides [Senokot] 8.6 mg Tablet 8.6 mg PO DAILY ferrous sulfate 325 mg (65 mg iron) Tablet 325 mg PO DAILY lidocaine 5 % Adhesive Patch,Medicated 1 patch TOPICAL DAILY Rx Instructions: leave on most painful area for up to 12 hrs Cranberry-Vit C (ascorbate ca) 400-30 mg Capsule 1 cap PO DAILY doxycycline hyclate 100 mg Capsule 100 mg PO BID Qty: 19 0RF Lactobacillus acidoph-L.bulgar [Floranex] 100 million cell Granules In Packet 1 packet PO TIDM Qty: 12 0RF miconazole nitrate [Desenex] 2 % Powder 1 applic EXT BID Qty: 85 0RF Rx Instructions: Apply under breasts and pannus twice a day until yeast infection resolves. furosemide 20 mg tablet 20 mg PO QAM Qty: 0 0RF Rx Instructions: 40mg MoWeFri and 20mg all other days cefpodoxime 200 mg tablet 400 mg PO QAM 9 Days Qty: 18 0RF Rx Instructions: must administer with a meal/food prednisone 5 mg tablet 5 mg PO QAM multivitamin Tablet 1 tab PO QAM 30 Days Qty: 30 0RF carvedilol 6.25 mg tablet 6.25 mg PO BID 30 Days Qty: 60 0RF Rx Instructions: Pt says she takes this medication, but showing last filled 09/2023 x90 day supply: Original Directions 6.25mg by mouth twice daily donepezil 5 mg tablet 5 mg PO QAM 30 Days Qty: 30 0RF folic acid 1 mg Tablet 1 mg PO QAM 30 Days Qty: 30 0RF Referrals Referrals: Vik Davies DO [Primary Care Provider] -
[2025-01-17 22:44] LABS: Alanine Aminotransferase 11.0 U/L (7-52); Albumin Globulin Ratio 0.9 (0.9-2); Albumin Level 2.8 gm/dl (3.4-5.0); Alkaline Phosphatase 94.0 U/L (34-104); Anion Gap 8.0 (3-11); Bilirubin,Total 0.3 mg/dl (0.2-1.0); Blood Urea Nitrogen 22.0 mg/dl (6-23); Calcium 9.3 mg/dl (8.6-10.3); Carbon Dioxide 30.0 mmol/L (21-32); Chloride 99.0 mmol/L (98-107); Creatinine Clr Calc Pharmacy 31.9 ml/min; Globulin 3.1 gm/dl (2.5-4.0); Glucose 196.0 mg/dl (70-99(Fasting)); Potassium 4.0 mmol/L (3.5-5.1); Sodium 137.0 mmol/L (136-145); Total Protein 5.9 gm/dl (6.0-8.3)
[2025-01-17] MEDS: PIPERACILLIN/TAZOBACTAM 4.5 GM/100 ML BAG IV ONE (22:49)
--- NOTE | 2025-01-17 23:19 | XRay Report ---
Exam(s): XR RIGHT FEMUR, 2 views EXAM: XR Right Elbow, 2 Views CLINICAL HISTORY: Reason for exam: reddness. TECHNIQUE: Frontal and lateral views of the right elbow. COMPARISON: Reference is made to prior CT dated 01/10/2025 FINDINGS: Bones/joints: ORIF right femoral fracture with periosteal new bone formation and callus about the proximal femoral diaphyseal fracture. No dislocation. Soft tissues: Unremarkable. IMPRESSION: Stable postoperative changes ORIF proximal femoral diaphyseal fracture with continued interval healing. Electronically signed by: Damien Fuentes MD 01/17/25 23:18 PM
[2025-01-17] MEDS: VANCOMYCIN HCL 2,000 MG in SODIUM CHLORIDE 0.9% 500 ML IV ONE (23:44)
--- NOTE | 2025-01-18 01:55 | History & Physical Report ---
Date of Service January 18, 2025 Assessment & Plan (1) Sepsis: Plan: 89-year-old female with past medical history significant for type 2 diabetes, dyslipidemia, CAD, hypertension, nonrheumatic mitral valve regurgitation, GERD, history of calculus of kidney, history of UTI, CKD stage IIIb, history of generalized osteoarthritis, rheumatoid arthritis involving multiple sites with positive rheumatoid factor, statin intolerance, mixed incontinence, history of COVID, history of localized edema presents with right leg cellulitis and sepsis. Patient was recently admitted on January 10, 2025 for severe sepsis and UTI and also wound on the right buttock and cellulitis of the right leg was initially on IV Vanco and Zosyn then transitioned to Rocephin and doxycycline and was changed on p.o. doxycycline and cefpodoxime to continue until 01/23/2025 for 14 days of antibiotics and was discharged on 01/14/2025. Patient is currently living at assisted living with her . Patient states that she is ambulating with walker. Because of worsening of the swelling and erythema of the right leg, patient came back to the hospital today. Denies any fever. Denies any pain. But says right leg is tender. Normal bowel and bladder movements. Denies abdominal pain. Denies any chest pain. No shortness of breath. No cough. No headache. No runny nose or sore throat. Currently resting comfortably and hemodynamically stable. Sepsis Extensive Right lower extremity cellulitis. Recently treated Lactic acid 3.1 repeat lactic acid 3.7 WBC 13. Procalcitonin 3.6 Received Vanco and Zosyn. will continue IV fluids Close monitoring hemodynamics Will follow-up on Doppler rule out DVT and also CT scan for any underlying abscess Will hold p.o. antibiotics Right lower extremity edema We will hold home Lasix for now Monitor for volume overload Mild elevation troponin Mostly demand ischemia Will follow serial enzymes History of CAD with RCA stent placement in 2007 Will continue aspirin. Coreg with holding parameters. Not on statin therapy due to intolerance. CKD stage IIIb Baseline creatinine around 1.5-1.8 Creatinine 1.3 today Will follow labs Rheumatoid arthritis On methotrexate and prednisone 5 mg daily Will hold methotrexate Will place on stress dose iv hydrocortisone 50 mg twice daily for now Type 2 diabetes Hold metformin Sliding scale Monitor DVT prophylaxis Heparin subcu Disposition Telemetry Full code History of Present Illness Chief Complaint: Right leg cellulitis and sepsis Primary Care Provider: Vik Davies DO 89-year-old female with past medical history significant for type 2 diabetes, dyslipidemia, CAD, hypertension, nonrheumatic mitral valve regurgitation, GERD, history of calculus of kidney, history of UTI, CKD stage IIIb, history of generalized osteoarthritis, rheumatoid arthritis involving multiple sites with positive rheumatoid factor, statin intolerance, mixed incontinence, history of COVID, history of localized edema presents with right leg cellulitis and sepsis. Patient was recently admitted on January 10, 2025 for severe sepsis and UTI and also wound on the right buttock and cellulitis of the right leg was initially on IV Vanco and Zosyn then transitioned to Rocephin and doxycycline and was changed on p.o. doxycycline and cefpodoxime to continue until 01/23/2025 for 14 days of antibiotics and was discharged on 01/14/2025. Patient is currently living at assisted living with her . Patient states that she is ambulating with walker. Because of worsening of the swelling and erythema of the right leg, patient came back to the hospital today. Denies any fever. Denies any pain. But says right leg is tender. Normal bowel and bladder movements. Denies abdominal pain. Denies any chest pain. No shortness of breath. No cough. No headache. No runny nose or sore throat. Currently resting comfortably and hemodynamically stable. Past medical history. As mentioned above. Past surgical history. Cardiac stent placement. Arthroscopy of shoulder. C- section. Colonoscopy. EGD. Injection of lumbosacral spine. Laparoscopic cholecystectomy.Neck spine fusion. Partial hysterectomy. Right long trochanteric nail. Lumbar spine fusion. Social history. . No smoking. No alcohol use. No drug use. Family history. Daughter has arthritis. Sister had breast cancer. Father had heart disease. Mother had brain bleed after fall. Allergies Allergy/AdvReac Type Severity Reaction Status Date / Time Sulfa (Sulfonamide Allergy Unknown CAN'T Verified 01/17/25 22:15 Antibiotics) REMEMBER adalimumab [From Humira] AdvReac Severe CELLULITIS Verified 01/17/25 22:15 IN FACE-HOSPITALIZED ciprofloxacin [From Cipro] AdvReac Intermediate NAUSEA/VOMI Verified 01/17/25 22:15 TING Home Medications Medication Instructions Recorded Confirmed Type prednisone 5 mg tablet 5 mg PO QAM 02/26/24 01/17/25 History carvedilol 6.25 mg tablet 6.25 mg PO BID 30 days #60 tabs 03/09/24 01/17/25 Rx donepezil 5 mg tablet 5 mg PO QAM 30 days #30 tabs 03/09/24 01/17/25 Rx folic acid 1 mg tablet 1 mg PO QAM 30 days #30 tabs 03/09/24 01/17/25 Rx multivitamin 1 tab PO QAM 30 days #30 tabs 03/09/24 01/17/25 Rx aspirin 81 mg tablet,delayed 81 mg PO DAILY 01/10/25 01/17/25 History release cranberry fruit concentrate 400 2 cap PO DAILY 01/10/25 01/17/25 History mg-ascorbate calcium 30 mg capsule (Cranberry-Vit C (ascorbate calcium)) ferrous sulfate 325 mg (65 mg 325 mg PO DAILY 01/10/25 01/17/25 History iron) tablet metformin 500 mg tablet,extended 500 mg PO BIDM 01/10/25 01/17/25 History release 24 hr methotrexate sodium 2.5 mg tablet 10 mg PO Q7D 01/10/25 01/17/25 History trospium 20 mg tablet 20 mg PO DAILY 01/10/25 01/17/25 History Lactobacillus acidophilus, 1 packet PO TIDM #12 ea 01/14/25 01/17/25 Rx bulgaricus 100 million cell granules packet (Floranex) cefpodoxime 200 mg tablet 400 mg (2 x 200 mg) PO QAM 9 days 01/14/25 01/17/25 Rx #18 tabs doxycycline hyclate 100 mg capsule 100 mg PO BID #19 caps 01/14/25 01/17/25 Rx miconazole nitrate 2 % topical 1 applic EXT BID #85 grams 01/14/25 01/17/25 Rx powder (Desenex) acetaminophen 500 mg tablet 500 mg PO HS 01/17/25 01/17/25 History (Tylenol Extra Strength) acetaminophen 500 mg tablet 500 mg PO Q6H PRN PAIN/FEVER 01/17/25 01/17/25 History (Tylenol Extra Strength) estradiol 0.01% (0.1 mg/gram) 1 applic vaginal WK 01/17/25 01/17/25 History vaginal cream fexofenadine 180 mg tablet 180 mg PO DAILY PRN Allergy 01/17/25 01/17/25 History Symptoms furosemide 20 mg tablet 20 mg PO QAM PRN INCREASED EDEMA 01/17/25 01/17/25 History furosemide 20 mg tablet (Lasix) 20 mg PO 4XWK 01/17/25 01/17/25 History furosemide 20 mg tablet (Lasix) 40 mg PO 3XWK 01/17/25 01/17/25 History mupirocin 2 % topical ointment 1 applic topical DAILY PRN OPEN 01/17/25 01/17/25 History WOUNDS Past Med/Surg History Problem List (Updated 01/17/25 @ 23:07 by Danilo Stephen M.D.) Acute kidney injury superimposed on CKD Localized edema Pulmonary embolism of right lung Acidosis, lactic (Acute) Elevated troponin I level (Acute) Cellulitis (Acute) Acute UTI (urinary tract infection) (Acute) Sepsis (Acute) Elevated troponin Wound of right buttock UTI (urinary tract infection) Cellulitis of right leg (Acute) Severe sepsis Status post open reduction with internal fixation of fracture Dyslipidemia, goal LDL below 70 Type 2 diabetes mellitus with stage 3 chronic kidney disease, without long-term current use of insulin Urgency incontinence Anemia HTN (hypertension) CAD (coronary artery disease) [facility] Cardiology Rheumatoid arthritis Medical History History of syncope admission [facility] 12/2022. DM type 2 (diabetes mellitus, type 2) HTN (hypertension) Surgical History History of umbilical hernia repair History of hysterectomy History of cervical spinal surgery History of back surgery hardware present History of bladder surgery History of cardiac catheterization "several years ago" -- [facility] -- 1 stent per son's report. H/O section x 3 Family History Other Coronary heart disease Diabetes Social History Smoking Status: Never smoker Tobacco Type: Cigarettes Second Hand Exposure: No; Do You Dip or Chew Tobacco: No; Hx Alcohol Use: No Hx Substance Use: No Preferred Language: Swedish Communication Ability: Effective Tube Skiver Required: No Beliefs That Will Affect Care: None Current Living Situation: [facility] Facility Current Living Situation Comment: [facility] Feels Safe at Home: Yes Assistive Devices: Glasses Review of Systems Review of Systems: All systems reviewed & are unremarkable except as noted in HPI & below Physical Exam Physical Exam: General- Not in distress Head- atraumatic Eyes- PERRL. ENT- oropharynx clear Neck- supple, no JVD. Lungs- clear to auscultation no wheezing or crackles Heart- regular rhythm; no murmur, no gallop. Abdomen- normal bowel sounds, soft, nontender, no distension Extremities- right leg swollen, erythematous and tender extending up to gluteal region Neuro- alert, oriented PERRL, no facial palsy; no dysarthria; moves extremities Results & Data Results & Data Vital Signs (Past 12 Hours) Vital Signs Temp Pulse Resp BP Pulse Ox O2 Del Method 01/17/25 21:46 86 01/17/25 21:41 Room Air 01/17/25 21:41 37.0 C 87 20 188/73 H 96 Room Air Diagnostic Findings Laboratory Results WBC 13.28 K/ul (4.8-10.8) H 01/17/25 21:40 RBC 3.51 M/uL (4.20-5.40) L 01/17/25 21:40 Hgb 11.5 g/dl (12.0-16.0) L 01/17/25 21:40 Hct 36.2 % (37.0-47.0) L 01/17/25 21:40 MCV 103.1 fL (80.0-100.0) H 01/17/25 21:40 MCH 32.8 pg (25.0-34.0) 01/17/25 21:40 MCHC 31.8 g/dL (32.0-36.0) L 01/17/25 21:40 RDW Std Deviation 62.1 fL (36.4-46.3) H 01/17/25 21:40 RDW Coeff of Prudence 16.9 % (11.5-14.5) H 01/17/25 21:40 Plt Count 206 K/uL (130-400) 01/17/25 21:40 MPV 9.7 fL (9.4-12.4) 01/17/25 21:40 Immature Gran % (Auto) 6.9 % 01/17/25 21:40 Neut % (Auto) 57.3 % 01/17/25 21:40 Lymph % (Auto) 22.1 % 01/17/25 21:40 [place] % (Auto) 11.6 % 01/17/25 21:40 Eos % (Auto) 1.5 % 01/17/25 21:40 Baso % (Auto) 0.6 % 01/17/25 21:40 Neut # (Auto) 7.62 K/uL (1.40-6.50) H 01/17/25 21:40 Lymph # (Auto) 2.93 K/uL (1.20-3.40) 01/17/25 21:40 [place] # (Auto) 1.54 K/uL (0.11-0.59) H 01/17/25 21:40 Eos # (Auto) 0.20 K/uL (0.00-0.50) 01/17/25 21:40 Baso # (Auto) 0.08 K/uL (0.00-0.20) 01/17/25 21:40 Immature Gran # (Auto) 0.91 K/uL (0.01-0.20) H 01/17/25 21:40 Sodium 137 mmol/L (136-145) 01/17/25 22:10 Potassium 4.0 mmol/L (3.5-5.1) 01/17/25 22:10 Chloride 99 mmol/L (98-107) 01/17/25 22:10 Carbon Dioxide 30 mmol/L (21-32) 01/17/25 22:10 Anion Gap 8 (3-11) 01/17/25 22:10 BUN 22 mg/dl (6-23) 01/17/25 22:10 Creatinine 1.33 mg/dl (0.6-1.2) H 01/17/25 22:10 Est Cr Clr Drug Dosing 31.9 ml/min 01/17/25 22:10 eGFR 38.48 01/17/25 22:10 BUN/Creatinine Ratio 16.5 (10-20) 01/17/25 22:10 Glucose 196 mg/dl (70-99(Fasting)) H 01/17/25 22:10 Lactate 3.7 mmol/L (0.4-2.0) H* 01/18/25 01:04 Calcium 9.3 mg/dl (8.6-10.3) 01/17/25 22:10 Total Bilirubin 0.3 mg/dl (0.2-1.0) 01/17/25 22:10 AST 13 U/L (13-39) 01/17/25 22:10 ALT 11 U/L (7-52) 01/17/25 22:10 Alkaline Phosphatase 94 U/L (34-104) 01/17/25 22:10 Troponin I High Sens 19.7 pg/ml (0-14) H 01/17/25 22:10 B-Natriuretic Peptide 45 pg/ml (0-100) 01/17/25 21:40 Total Protein 5.9 gm/dl (6.0-8.3) L 01/17/25 22:10 Albumin 2.8 gm/dl (3.4-5.0) L 01/17/25 22:10 Globulin 3.1 gm/dl (2.5-4.0) 01/17/25 22:10 Albumin/Globulin Ratio 0.9 (0.9-2) 01/17/25 22:10 Procalcitonin 3.65 ng/ml (0-0.5) H 01/17/25 21:40 Impressions Femur X-Ray 01/17/25 22:05 Exam(s): XR RIGHT FEMUR, 2 views EXAM: XR Right Elbow, 2 Views CLINICAL HISTORY: Reason for exam: reddness. TECHNIQUE: Frontal and lateral views of the right elbow. COMPARISON: Reference is made to prior CT dated 01/10/2025 FINDINGS: Bones/joints: ORIF right femoral fracture with periosteal new bone formation and callus about the proximal femoral diaphyseal fracture. No dislocation. Soft tissues: Unremarkable. IMPRESSION: Stable postoperative changes ORIF proximal femoral diaphyseal fracture with continued interval healing. Electronically signed by: Damien Fuentes MD 01/17/25 23:18 PM ECG Additional Comments: ECG.. Sinus rhythm with first-degree AV block rate of 86. QTc 461 Code Status & VTE Plan VTE Prophylaxis Plan VTE Prophylaxis will be ordered: Yes
[2025-01-18] MEDS: SODIUM CHLORIDE 0.9% 1,000 ML IV ONE (02:29)
[2025-01-18] MEDS ORDERED: GLUCOSE 10 TAB/TUBE PO PRN (03:15)
[2025-01-18] MEDS ORDERED: POLYETHYLENE (MIRALAX) 17 GM PACK PO PRN (03:15)
[2025-01-18] MEDS ORDERED: GLUCOSE 40% GEL 15 GM TUBE PO PRN (03:15)
[2025-01-18] MEDS ORDERED: CARBOHYDRATES FOR HYPOGLYCEMIA PO PRN (03:15)
[2025-01-18] MEDS ORDERED: DEXTROSE 50% 50 ML SYRINGE IV PRN (03:15)
[2025-01-18] MEDS ORDERED: NITROGLYCERIN SL 0.4 MG/TAB TAB SL PRN (03:15)
[2025-01-18] MEDS ORDERED: GLUCAGON FOR INJ 1 MG VIAL SQ PRN (03:15)
[2025-01-18] MEDS ORDERED: MUPIROCIN 2% OINT 22 GM TUBE TOP PRN (03:15)
--- NOTE | 2025-01-18 03:31 | CT Scan Report ---
EXAM: CT femur RT wo con CLINICAL HISTORY: right leg swollen, tender and erythematous TECHNIQUE: Contiguous axial CT images of the right femur were obtained without intravenous contrast. Coronal and sagittal reconstructions were also performed as indicated to increase the sensitivity for detecting clinically relevant pathology. The CT scan was performed according to ALARA (as low as reasonably achievable) principles. COMPARISON: None. FINDINGS: An old fracture with adjacent callus formation is noted involving the proximal femoral diaphysis. An intramedullary nail and fixation screws are seen involving the femur without obvious loosening. A well-corticated bony fragment is noted involving the lateral aspect of the head of the right femur. Mild periosteal thickening is noted involving the proximal mid diaphysis. Ill-defined subcutaneous fat stranding and soft tissue thickening is noted involving the thigh, predominantly the lateral aspect. Possibility of infective or inflammatory etiology is suggested. Post-contrast evaluation is recommended. No acute fracture or dislocation is seen. No destructive osseous lesion is identified. The visualized muscles and tendons appear grossly unremarkable. No cortical destruction is seen to suggest osteomyelitis. No abscess formation is identified. No significant joint effusion is present. There are no soft tissue masses. IMPRESSION: An old fracture with adjacent callus formation is noted involving the proximal femoral diaphysis. An intramedullary nail and fixation screws are seen involving the femur without obvious loosening. A well-corticated bony fragment is noted involving the lateral aspect of the head of the right femur. Mild periosteal thickening is noted involving the proximal mid diaphysis. Ill-defined subcutaneous fat stranding and soft tissue thickening is noted involving the thigh, predominantly the lateral aspect, with the possibility of infective or inflammatory etiology. Post-contrast evaluation or MRI correlation is suggested. Electronically signed by Iraj Barger 01-18-2025 03:30 AM
--- NOTE | 2025-01-18 03:31 | CT Scan Report ---
EXAM: CT tib/fib RT wo con CLINICAL HISTORY: right leg swollen, tender and erythematous TECHNIQUE: Contiguous axial CT images of the right tibia and fibula were obtained without intravenous contrast. Coronal and sagittal reconstructions were likewise performed and indicated to increase the sensitivity for detecting clinically relevant pathology. The CT scan was performed according to ALARA (as low as reasonably achievable). COMPARISON: None. FINDINGS: Diffuse subcutaneous thickening and edema are seen throughout the entire right leg, predominantly in the anterolateral aspect. There is reduced medial tibiofemoral joint space with periarticular osteophytes and subchondral erosions along the medial tibial and femoral condyles. No acute fracture or dislocation is identified. No destructive osseous lesion is seen. The visualized muscles and tendons appear grossly unremarkable. No cortical destruction to suggest osteomyelitis. No abscess formation is identified. No significant joint effusion is present. There are no soft tissue masses. IMPRESSION: 1. Diffuse subcutaneous thickening and edema seen throughout the entire right leg, predominantly in the anterolateral aspect?likely cellulitis. 2. Moderate knee osteoarthritis. Electronically signed by Iraj Barger 01-18-2025 03:30 AM
[2025-01-18 03:41] LABS: Appearance Urine Clear (Clear); Bacteria Urine Automated None Seen (None Seen); Cast Urine Automated 0-2 /lpf (0-2); Glucose Urine UA Negative (Negative); RBC Urine Automated 0-2 /hpf (0-2)
--- NOTE | 2025-01-18 03:52 | Ultrasound Report ---
EXAM: US venous doppler LE RT CLINICAL HISTORY: Right lower extremity swelling and erythema, and tenderness. TECHNIQUE: Ultrasound examination of the right lower extremity veins was performed in real time and with duplex imaging. One or more of the following were performed: spectral analysis, resistive index, waveform analysis, and pulsed Doppler. COMPARISON: US 01/10/2025. FINDINGS: Examination is limited by increased body habitus. Normal phasic, nonpulsatile, and spontaneous flow is noted in the right common femoral, superficial femoral, popliteal, posterior tibial, and peroneal veins. The visualized veins of the right lower extremity demonstrate normal compressibility. No sonographic evidence of acute deep vein thrombosis (DVT) is detected in the visualized veins of the lower extremity. All evaluated veins compress fully with applied transducer pressure. Diffuse lower limb edema is present. IMPRESSION: 1. No sonographic evidence of acute DVT was detected at the time of examination. 2. Diffuse lower limb edema; cellulitis should be ruled out. Clinical correlation is advised. 3. No significant interval changes. Disclaimer: DVT could be missed early in the disease when clot burden is minimal. For patients with moderate and high pretest probability of DVT and negative ultrasound, the [employer] clinical guidelines recommend testing with a D-dimer assay or repeat ultrasound in 5-7 days. If symptoms worsen, the Society of [employer] in Ultrasound recommends repeating ultrasound even earlier. Electronically signed by Fausto Sommers 01-18-2025 03:52 AM
[2025-01-18] MEDS: PIPERACILLIN/TAZOBACTAM 4.5 GM/100 ML BAG IV SCH (04:34)
[2025-01-18] MEDS: SODIUM CHLORIDE 0.9% 1,000 ML IV SCH (05:18)
[2025-01-18 06:38] LABS: Hematocrit (blood only) 31.4 % (37.0-47.0); Hemoglobin 10.5 g/dl (12.0-16.0); Mean Corpuscular Hemoglobin 34.5 pg (25.0-34.0); Mean Corpuscular Volume 103.3 fL (80.0-100.0); Platelet Count 154 K/uL (130-400); RDW Standard Deviation 61.8 fL (36.4-46.3); Red Blood Count 3.04 M/uL (4.20-5.40); White Blood Count 9.79 K/ul (4.8-10.8)
[2025-01-18 06:58] LABS: Immature Granulocytes # (auto) 0.69 K/uL (0.01-0.20); Immature Granulocytes % (auto) 7.0 %
[2025-01-18 07:00] LABS: Anion Gap 8.0 (3-11); Blood Urea Nitrogen 23.0 mg/dl (6-23); Calcium 8.3 mg/dl (8.6-10.3); Carbon Dioxide 27.0 mmol/L (21-32); Chloride 104.0 mmol/L (98-107); Creatinine Clr Calc Pharmacy 32.5 ml/min; Glucose 152.0 mg/dl (70-99(Fasting)); Magnesium 1.3 mg/dl (1.7-2.4); Potassium 4.0 mmol/L (3.5-5.1); Sodium 139.0 mmol/L (136-145)
[2025-01-18 07:33] LABS: Hemoglobin A1C 7.9 % (4.5-5.6)
[2025-01-18] MEDS: MAGNESIUM SULFATE / D5W 1 GM/100 ML BAG IV SCH (07:45)
[2025-01-18] MEDS: INSULIN ASPART PER UNIT CHARGE SC SCH (07:45)
--- NOTE | 2025-01-18 07:46 | Hospitalist Progress Note ---
Date of Service January 18, 2025 Assessment & Plan (1) Cellulitis of right leg: (2) CKD (chronic kidney disease): (3) Wound of right buttock: (4) Elevated troponin I level: (5) CAD (coronary artery disease): (6) Rheumatoid arthritis: (7) Type 2 diabetes mellitus with stage 3 chronic kidney disease, without long- term current use of insulin: Plan This is an 89-year-old female with a PMH of RA, DM II, CKD III, HLD, HTN, GERD, CAD s/p stent (2007), statin intolerance, localized edema, mixed incontinence who presented on 01/18/2025 from [facility] with worsening swelling and erythema of her RLE. Patient was recently admitted from 01/10-01/14/2025 for severe sepsis secondary to UTI and RLE cellulitis. Initially was on IV vanco and zosyn then transitioned to ceftriaxone and doxycycline then changed to PO cefpodoxime and doxycycline for 14 days. RLE cellulitis History of right femur fracture with hardware placed on repair 03/04 Patient does not meet sepsis criteria on presentation Initial leukocytosis resolved Elevated lactate and procalcitonin but improved compared to prior admission Femur x-ray shows stable postoperative changes with continued interval healing CT scan of right femur and lower extremity showed cellulitis Doppler negative for DVT Blood cultures pending MRSA swab pending Continue vanco and zosyn empirically until blood cultures result then consider de-escalation ID consulted: appreciate recs for antibiotics given failed treatment Continue lasix for edema Diarrhea Likely secondary to antibiotics Cdiff negative Stool PCR Immodium PRN Hypomagnesemia Mag 1.3 Repleted Recheck Mag in am Wound of right buttock Present prior to admission Wound culture from prior admission negative WOCN consulted Turn and reposition q2hr Elevated troponin Troponin slightly elevated but improved compared to prior admission Trend 19-> 17-> 17 CKD Baseline creat appears to be around 1.4 Avoid nephrotoxic agents as able Monitor BMP CAD s/p stent Continue baby aspirin and carvedilol, statin intolerant RA Immunosuppressed on methotrexate and prednisone Methotrexate on hold Continue prednisone DM 2 A1C 7.9% Home agents on hold BSG ACHS and SSI while inpatient DVT Prophylaxis: SQ Heparin Code Status: Full Code PCP: Vik Davies Disposition: discharge back to [facility] when medically stable Patient seen in collaboration with Dr. Mosley. Please see addendum. Admission and Anticipated Discharge Date Admission Date: January 18, 2025 Supervising Physician Co-Signing Physician Notes Attending addendum: The patient was seen and examined in the telemetry unit She has been complaining of increasing swelling of her right leg, redness and tenderness Denies any fever and chills Denies any other significant symptoms On examination Lying in bed without any acute distress Remains afebrile and hemodynamically stable Chest is clear to auscultation bilaterally HeartS1-S2, regular Abdomenbenign and bowel sound present Extremitiesbilateral leg swelling more on the right than the left with increasing redness and tenderness involving whole of the right lower extremity. There is no break in the skin CNSalert, awake and oriented x 3. No focal neurological deficit All labs, imaging studies, EKG and medications reviewed Presented with sepsis with significant right lower extremity cellulitishas been getting intravenous Zosyn and vancomycin. Will get MRSA screen and also blood culture. ID consult has been placed Her other significant medical conditions remained reasonably stable Agree with assessment plan as outlined above by Fern ZAVALA and take the full responsibility of care in the hospital Dr Marco Mosley Subjective Patient seen resting in bed Reports worsening redness of her RLE and notes tenderness Reports diarrhea 3x per day since being on antibiotics Denies chest pain, SOB, abdominal pain Review of Systems Review of Systems: All systems reviewed & are unremarkable except as noted in HPI & below Physical Exam Physical Exam: General/Psych: obese, laying in bed, NAD, conversing easily Head: normocephalic, atraumatic Eyes: normal inspection, PERRL, conjunctivae pink ENT: external ear and nose normal, oropharynx normal Neck: normal visual inspection, trachea midline Respiratory: normal respiratory effort, lungs clear to auscultation, no wheeze/rales/rhonchi, no accessory muscle use Cardiovascular: regular rate and rhythm, no murmur/rub/gallop Extremities: no cyanosis or clubbing, normal peripheral pulses, 2+ edema of RLE Abdomen/GI: normal bowel sounds, soft, nontender Neurologic/MSK: A+Ox3, motor strength 5/5, moves all extremities Skin: no rashes, normal color, warm and dry, erythema and warmth of RLE from hip down to top of right foot Results & Data Results & Data Vital Signs (Past 12 Hours) Vital Signs Temp Pulse Pulse Resp BP BP Pulse Ox 10/10/25 07:14 80 01/18/25 03:00 82 01/18/25 00:00 74 18 115/65 97 01/17/25 21:46 86 01/17/25 21:41 01/17/25 21:41 37.0 C 87 20 188/73 H 96 O2 Del Method 01/18/25 07:14 01/18/25 03:00 01/18/25 00:00 Room Air 01/17/25 21:46 01/17/25 21:41 Room Air 01/17/25 21:41 Room Air Laboratory Results Short CBC 01/17/25 01/18/25 Range/Units 21:40 05:58 WBC 13.28 H 9.79 (4.8-10.8) K/ul Hgb 11.5 L 10.5 L (12.0-16.0) g/dl Hct 36.2 L 31.4 L (37.0-47.0) % Plt Count 206 154 (130-400) K/uL BMP 01/17/25 01/18/25 22:10 05:58 Sodium 137 139 Potassium 4.0 4.0 Chloride 99 104 Carbon Dioxide 30 27 BUN 22 23 Creatinine 1.33 H 1.29 H Glucose 196 H 152 H Calcium 9.3 8.3 L Liver Function 01/17/25 Range/Units 22:10 Total Bilirubin 0.3 (0.2-1.0) mg/dl AST 13 (13-39) U/L ALT 11 (7-52) U/L Alkaline Phosphatase 94 (34-104) U/L Albumin 2.8 L (3.4-5.0) gm/dl Urine 01/18/25 Range/Units 03:05 Urine Color Yellow Urine Appearance Clear (Clear) Urine pH 5.5 (4.5-7.5) Ur Specific [place] 1.015 (1.000-1.030) Urine Protein Negative (Negative) Urine Glucose (UA) Negative (Negative) I have independently reviewed and interpreted patient's admitting labs including CBC, BMP, UA Medications Administered Current Inpatient Medications Acetaminophen (Acetaminophen 325 Mg Tab) 650 mg PO Q4H PRN PRN Reason: Pain or Fever Stop: 02/17/25 03:14 Acetaminophen (Acetaminophen 500 Mg Tab) 500 mg PO HS KRISTINE Stop: 02/17/25 20:59 Aspirin (Aspirin 81 Mg Ectab) 81 mg PO DAILY KRISTINE Stop: 02/17/25 08:59 Last Admin: 01/18/25 07:51 Dose: 81 mg Carvedilol (Carvedilol 6.25 Mg Tab) 6.25 mg PO BID KRISTINE Stop: 02/17/25 08:59 Last Admin: 01/18/25 07:57 Dose: 6.25 mg Dextrose (Dextrose 50% 50 Ml Syringe) 25 - 50 ml IV UD PRN; Protocol PRN Reason: Hypoglycemia Protocol Stop: 02/17/25 03:14 Donepezil HCl (Donepezil Hcl 5 Mg Tab) 5 mg PO QAM KRISTINE Stop: 02/17/25 08:59 Last Admin: 01/18/25 09:24 Dose: 5 mg Ferrous Sulfate (Ferrous Sulfate 325 Mg Tab) 325 mg PO DAILY KRISTINE Stop: 02/17/25 08:59 Last Admin: 01/18/25 07:53 Dose: 325 mg Fexofenadine HCl (Fexofenadine Hcl 180 Mg Tab) 180 mg PO DAILY PRN PRN Reason: Allergy Symptoms Stop: 02/17/25 03:14 Folic Acid (Folic Acid 1 Mg Tab) 1 mg PO QAM KRISTINE Stop: 02/17/25 08:59 Last Admin: 01/18/25 07:51 Dose: 1 mg Furosemide (Furosemide 20 Mg Tab) 20 mg PO QAM [facility] Stop: 02/17/25 12:14 Glucagon (Glucagon For Inj 1 Mg Vial) 1 mg SQ UD PRN; Protocol PRN Reason: Hypoglycemia Protocol Stop: 02/17/25 03:14 Glucose (Glucose 40% Gel 15 Gm Tube) 15 - 30 gm PO UD PRN; Protocol PRN Reason: Hypoglycemia Protocol Stop: 02/17/25 03:14 Glucose (Glucose 10 Tab/Tube) 4 - 8 tab PO UD PRN; Protocol PRN Reason: Hypoglycemia Protocol Stop: 02/17/25 03:14 Heparin Sodium (Porcine) (Heparin Sod 5,000 Unit/0.5 Ml Vial) 7,500 units SQ Q12 KRISTINE Stop: 02/17/25 08:59 Last Admin: 01/18/25 07:58 Dose: 7,500 units Sodium Chloride (Nss) 1,000 mls @ 80 mls/hr IV .[id number] KRISTINE Stop: 01/18/25 15:44 Last Admin: 01/18/25 05:18 Dose: 80 mls/hr Piperacillin Sod/Tazobactam Sod (Zosyn) 4.5 gm in 100 mls @ 25 mls/hr IV Q8H [facility]; Protocol Stop: 01/25/25 03:59 Last Admin: 01/18/25 11:37 Dose: 25 mls/hr Hydrocortisone Sodium (Succinate 50 mg/ Syringe) 1 mls @ 4 mls/min IV Q12H [facility] Stop: 02/17/25 08:59 Last Admin: 01/18/25 07:58 Dose: 4 mls/min Magnesium Sulfate/Dextrose (Magnesium Sulfate / D5w) 1 gm in 100 mls @ 50 mls/hr IV Q2H [facility] Stop: 01/18/25 13:14 Last Admin: 01/18/25 12:17 Dose: 50 mls/hr Vancomycin HCl 1,250 mg/ (Sodium Chloride) 275 mls @ 200 mls/hr IV Q24H [facility] Stop: 01/25/25 20:59 Insulin Aspart (Insulin Aspart Per Unit Charge) 0 units SC ACHS [facility] Stop: 02/17/25 07:29 Last Admin: 01/18/25 11:37 Dose: 3 units Lactobacillus Acidophilus (Lactobacillus Acidophilus 1 Gm Pack) 1 packet PO TIDM [facility] Stop: 02/17/25 07:59 Last Admin: 01/18/25 11:37 Dose: 1 packet Loperamide HCl (Loperamide Hcl 2 Mg Cap) 2 mg PO Q4H PRN PRN Reason: Diarrhea Stop: 02/17/25 10:42 Miconazole Nitrate (Miconazole Nitrate Powder 85 Gm) 1 appln EXT BID [facility] Stop: 02/17/25 08:59 Last Admin: 01/18/25 07:53 Dose: 1 appln Miscellaneous (Estradiol 0.01% Cream - Order Awaiting Action) 1 each N/A QS [facility] Stop: 02/19/25 00:00 Miscellaneous (Carbohydrates For Hypoglycemia ) 15 - 30 gm PO UD PRN PRN Reason: Hypoglycemia Protocol Stop: 02/17/25 03:14 Miscellaneous Information (Vancomycin Consult Active) 1 each N/A UD PRN PRN Reason: Consult Stop: 02/16/25 22:02 Multivitamins (Multivitamin Tab) 1 tab PO QAM [facility] Stop: 02/17/25 08:59 Last Admin: 01/18/25 07:52 Dose: 1 tab Mupirocin (Mupirocin 2% Oint 22 Gm Tube) 1 appln TOP DAILY PRN PRN Reason: OPEN WOUNDS Stop: 02/17/25 03:14 Nitroglycerin (Nitroglycerin Sl 0.4 Mg/Tab Tab) 0.4 mg SL Q5M PRN PRN Reason: Chest Pain Stop: 02/17/25 03:14 Oxybutynin Chloride (Oxybutynin Chloride Xl 5 Mg Tabcr) 5 mg PO DAILY KRISTINE Stop: 02/17/25 08:59 Last Admin: 01/18/25 07:57 Dose: 5 mg Polyethylene Glycol (Polyethylene (Miralax) 17 Gm Pack) 17 gm PO DAILY PRN PRN Reason: Constipation Stop: 02/17/25 03:14
[2025-01-18] MEDS: ASPIRIN 81 MG ECTAB PO SCH (07:51)
[2025-01-18] MEDS: FOLIC ACID 1 MG TAB PO SCH (07:51)
[2025-01-18] MEDS: MULTIVITAMIN TAB PO SCH (07:52)
[2025-01-18] MEDS: LACTOBACILLUS ACIDOPHILUS 1 GM PACK PO SCH (07:52)
[2025-01-18] MEDS: MICONAZOLE NITRATE POWDER 85 GM EXT SCH (07:53)
[2025-01-18] MEDS: FERROUS SULFATE 325 MG TAB PO SCH (07:53)
[2025-01-18] MEDS: OXYBUTYNIN CHLORIDE XL 5 MG TABCR PO SCH (07:57)
[2025-01-18] MEDS: HYDROCORTISONE SOD 50 MG in SYRINGE 0 ML IV SCH (07:58)
[2025-01-18] MEDS: HEPARIN SOD 5,000 UNIT/0.5 ML VIAL SQ SCH (07:58)
[2025-01-18] MEDS ORDERED: HYDROCORTISONE SOD SUCCINATE 100 MG/2 ML VIAL IV SCH (09:00)
[2025-01-18] MEDS ORDERED: [UNRECOGNIZED DRUG - OTHER] PO SCH (09:00)
[2025-01-18] MEDS: DONEPEZIL HCL 5 MG TAB PO SCH (09:24)
--- NOTE | 2025-01-18 11:05 | Pharmacy Report ---
Pharmacy PK ABX Note - Date of Service January 18, 2025 - Assessment and Plan Assessment 89 year old F receiving vancomycin and piperacillin/tazobactam for treatment of right leg cellulitis. Pertinent microbiologic data includes: blood cultures x2 pending. * Recently treated with vancomycin and piperacillin/tazobactam --> ceftriaxone --> PO doxycycline and cefpodoxime last week for right leg cellulitis * Presents with worsening swelling and erythema so returned to hospital * WBC 9.79 from 13.28 on 01/17 * SCr 1.29 from 1.33 on 01/17 (baseline around 1.5-1.8) * Lactate trending up to 3.9 today from 3.1 * Procalcitonin elevated on arrival to 3.65 Day # 2 of antimicrobial therapy. Plan Vancomycin * Loading dose: 2000 mg IV x 1 * Maintenance dose: 1250 mg IV every 24 hours * Regimen is predicted to achieve target AUC/PHAN of 400-600 mg/L.hr * Random level ordered for: 01/20/25 @0900 Pharmacy will continue to follow and will adjust dose/frequency as necessary. Thank you. Pharmacy has transitioned to AUC monitoring for vancomycin. AUC/PHAN is the preferred PK/PD target and is associated with decreased risk of nephrotoxicity compared to traditional trough targets.
[2025-01-18 12:14] LABS: Cdiff Toxin B Gene (2yr or >) Negative Cdiff Gene (Neg)
[2025-01-18 12:46] LABS: Adenovirus F 40/41 PCR Not Detected (NotDetected); Campylobacter PCR Not Detected (NotDetected); Enteroaggregative E.coli(EAEC) Not Detected (NotDetected); Shiga-like Toxin E.coli (STEC) Not Detected (NotDetected); Vibrio species PCR Not Detected (NotDetected)
[2025-01-18] MEDS: FUROSEMIDE 20 MG TAB PO SCH (13:01)
[2025-01-18] MEDS: LOPERAMIDE HCL 2 MG CAP PO PRN (13:01)
--- NOTE | 2025-01-18 13:38 | Electrocardiogram Report ---
Test Reason : Blood Pressure : */* mmHG Vent. Rate : 86 BPM Atrial Rate : 86 BPM P-R Int : 278 ms QRS Dur : 104 ms QT Int : 386 ms P-R-T Axes : 46 -21 68 degrees QTcB Int : 461 ms Sinus rhythm with 1st degree A-V block Minimal voltage criteria for LVH, may be normal variant Borderline ECG When compared with ECG of 11-Jan-2025 06:00, Nonspecific T wave abnormality no longer evident in Inferior leads QT has shortened Confirmed by Tato Montes ([id number]) on 01/18/2025 1:38:09 PM Referred By: REFERRED SELF Confirmed By: Tato Montes
--- NOTE | 2025-01-18 13:44 | Infectious Disease Consult ---
Date of Service January 18, 2025 Telehealth Information I performed this visit using a real-time telehealth connection between my location and the patients location ([facility]). After connecting through interactive tele-video, patient was identified by name and date of and/or wristband check.Patient (or authorized healthcare office machines sales representative) was informed that this was a telemedicine visit and it was being conducted confidentially over secure lines. My office door was closed and no one else was present in the room with me.Patient (or authorized healthcare office machines sales representative) provided consent to proceed with the visit, expressed an understanding of privacy and security of the telemedicine visit, and gave permission to have a hospital office machines sales representative in the room in order to assist with the visit and to conduct portions of the visit, as needed. I informed the patient (or authorized healthcare office machines sales representative) that I reviewed their record and presented the opportunity for them to ask any questions regarding the visit today. The patient agreed to participate. Assessment & Plan (1) CKD (chronic kidney disease): (2) Acute kidney injury superimposed on CKD: (3) Localized edema: (4) Cellulitis: (5) Sepsis: Plan Assessment: 89-year-old female with PMHx of type 2 diabetes, dyslipidemia, CAD, hypertension, nonrheumatic mitral valve regurgitation, GERD, history of calculus of kidney, history of UTI, CKD stage IIIb, history of generalized osteoarthritis, rheumatoid arthritis involving multiple sites with positive rheumatoid factor, statin intolerance, mixed incontinence, history of COVID, history of localized edema presented to [facility] on 01/18/2025 with right leg cellulitis and sepsis. At [facility], pt started on Zosyn IV and Vancomycin IV with improvement in WBC from 13 - 9. Pt failed outpt oral antibiotics management. Plan: - Recommend switching Zosyn IV to Cefepime IV. Recommend continuing Vancomycin IV for now. If patient continues to improve on IV antibiotics, would recommend discharge on IV antibiotics for a total of 2 weeks. - pt will need CBC with diff and CMP weekly for the full 2 week treatment if patient improves on current regimen. - we will not actively monitor patient, if additional recommendations are needed, please contact the ID physician confidential investigator for teledoc services via tiger text or call. History of Present Illness History of Present Illness Reason for consult: worsening cellulitis 89-year-old female with PMHx of type 2 diabetes, dyslipidemia, CAD, hypertension, nonrheumatic mitral valve regurgitation, GERD, history of calculus of kidney, history of UTI, CKD stage IIIb, history of generalized osteoarthritis, rheumatoid arthritis involving multiple sites with positive rheumatoid factor, statin intolerance, mixed incontinence, history of COVID, history of localized edema presented to [facility] on 01/18/2025 with right leg cellulitis and sepsis. Per notes and chart review, pt was recently admitted on January 10, 2025 for severe sepsis and UTI and also wound on the right buttock and cellulitis of the right leg was initially on IV Vanco and Zosyn then transitioned to Rocephin and doxycycline and was changed on p.o. doxycycline and cefpodoxime to continue until 01/23/2025 for 14 days of antibiotics and was discharged on 01/14/2025. Pt's RLE cellulitis worsened prompting this ED visit. At [facility], pt started on Zosyn IV and Vancomycin IV with improvement in WBC from 13 - 9. ID consulted for evaluation and management. Allergies Allergy/AdvReac Type Severity Reaction Status Date / Time Sulfa (Sulfonamide Allergy Unknown CAN'T Verified 01/17/25 22:15 Antibiotics) REMEMBER adalimumab [From Humira] AdvReac Severe CELLULITIS Verified 01/17/25 22:15 IN FACE-HOSPITALIZED ciprofloxacin [From Cipro] AdvReac Intermediate NAUSEA/VOMI Verified 01/17/25 22:15 TING Home Medications Medication Instructions Recorded Confirmed Type prednisone 5 mg tablet 5 mg PO QAM 02/26/24 01/17/25 History carvedilol 6.25 mg tablet 6.25 mg PO BID 30 days #60 tabs 03/09/24 01/17/25 Rx donepezil 5 mg tablet 5 mg PO QAM 30 days #30 tabs 03/09/24 01/17/25 Rx folic acid 1 mg tablet 1 mg PO QAM 30 days #30 tabs 03/09/24 01/17/25 Rx multivitamin 1 tab PO QAM 30 days #30 tabs 03/09/24 01/17/25 Rx aspirin 81 mg tablet,delayed 81 mg PO DAILY 01/10/25 01/17/25 History release cranberry fruit concentrate 400 2 cap PO DAILY 01/10/25 01/17/25 History mg-ascorbate calcium 30 mg capsule (Cranberry-Vit C (ascorbate calcium)) ferrous sulfate 325 mg (65 mg 325 mg PO DAILY 01/10/25 01/17/25 History iron) tablet metformin 500 mg tablet,extended 500 mg PO BIDM 01/10/25 01/17/25 History release 24 hr methotrexate sodium 2.5 mg tablet 10 mg PO Q7D 01/10/25 01/17/25 History trospium 20 mg tablet 20 mg PO DAILY 01/10/25 01/17/25 History Lactobacillus acidophilus, 1 packet PO TIDM #12 ea 01/14/25 01/17/25 Rx bulgaricus 100 million cell granules packet (Floranex) cefpodoxime 200 mg tablet 400 mg (2 x 200 mg) PO QAM 9 days 01/14/25 01/17/25 Rx #18 tabs doxycycline hyclate 100 mg capsule 100 mg PO BID #19 caps 01/14/25 01/17/25 Rx miconazole nitrate 2 % topical 1 applic EXT BID #85 grams 01/14/25 01/17/25 Rx powder (Desenex) acetaminophen 500 mg tablet 500 mg PO HS 01/17/25 01/17/25 History (Tylenol Extra Strength) acetaminophen 500 mg tablet 500 mg PO Q6H PRN PAIN/FEVER 01/17/25 01/17/25 History (Tylenol Extra Strength) estradiol 0.01% (0.1 mg/gram) 1 applic vaginal WK 01/17/25 01/17/25 History vaginal cream fexofenadine 180 mg tablet 180 mg PO DAILY PRN Allergy 01/17/25 01/17/25 History Symptoms furosemide 20 mg tablet 20 mg PO QAM PRN INCREASED EDEMA 01/17/25 01/17/25 History furosemide 20 mg tablet (Lasix) 20 mg PO 4XWK 01/17/25 01/17/25 History furosemide 20 mg tablet (Lasix) 40 mg PO 3XWK 01/17/25 01/17/25 History mupirocin 2 % topical ointment 1 applic topical DAILY PRN OPEN 01/17/25 01/17/25 History WOUNDS Patient History Medical History History of syncope admission [facility] 12/2022. DM type 2 (diabetes mellitus, type 2) HTN (hypertension) Surgical History History of umbilical hernia repair History of hysterectomy History of cervical spinal surgery History of back surgery hardware present History of bladder surgery History of cardiac catheterization "several years ago" -- [facility] -- 1 stent per son's report. H/O section x 3 Family History Other Coronary heart disease Diabetes Social History Smoking Status: Never smoker Tobacco Type: Cigarettes Second Hand Exposure: No; Do You Dip or Chew Tobacco: No; Hx Alcohol Use: No Hx Substance Use: No Preferred Language: [place] Communication Ability: Effective Professional Caster Required: No Beliefs That Will Affect Care: None [facility] Current Living Situation Comment: [facility] Feels Safe at Home: Yes Assistive Devices: Walker Review of Systems all ROS negative except for RLE pain, swelling, and redness Physical Exam NA Results & Data Vital Signs (Past 12 Hours) Vital Signs Temp Pulse Pulse Resp BP Pulse Ox O2 Del Method 01/18/25 11:18 36.8 C 82 16 116/75 97 Room Air 01/18/25 07:14 80 01/18/25 03:00 82 Laboratory Results 01/17/25 22:43 Aerobic Blood Culture - Pending Blood Anaerobic Blood Culture - Pending 01/17/25 22:10 Aerobic Blood Culture - Pending Blood Anaerobic Blood Culture - Pending 01/18/25 01/18/25 01/18/25 16:09 14:00 11:12 WBC RBC Hgb Hct MCV MCH MCHC RDW Std Deviation RDW Coeff of Prudence Plt Count MPV Immature Gran % (Auto) Neut % (Auto) Lymph % (Auto) Harlan % (Auto) Eos % (Auto) Baso % (Auto) Neut # (Auto) Lymph # (Auto) Harlan # (Auto) Eos # (Auto) Baso # (Auto) Immature Gran # (Auto) Sodium Potassium Chloride Carbon Dioxide Anion Gap BUN Creatinine Est Cr Clr Drug Dosing eGFR BUN/Creatinine Ratio Glucose POC Glucose 276 H 179 H Estimat Average Glucose Hemoglobin A1c Lactate Calcium Magnesium Total Bilirubin AST ALT Alkaline Phosphatase Troponin I High Sens B-Natriuretic Peptide Total Protein Albumin Globulin Albumin/Globulin Ratio Procalcitonin Urine Color Urine Appearance Urine pH Ur Specific [place] Urine Protein Urine Glucose (UA) Urine Ketones Urine Blood Urine Nitrite Urine Bilirubin Urine Urobilinogen Ur Leukocyte Esterase Urine WBC (Auto) Urine RBC (Auto) U Hyaline Cast (Auto) U Epithel Cells (Auto) Urine Bacteria (Auto) Urine Comment Nasal Screen MRSA (PCR) Negative Stl C. cayetanensis PCR Stool Rotavirus A PCR Stl Adenov F PCR Stool Astrovirus (PCR) Stool Campylobacter PCR Stl C. diff Tox B Gene Stl C. diff 027-NAP1-[id number] Stool Cryptosporidium PCR Stl E.coli Shiga Tox PCR Stl Enterotoxigenic E PCR Stool EPEC (PCR) Stool EAEC (PCR) Stl E. histolytica PCR Stool Giardia Lamblia PCR Stool Salmonella PCR Stool Sapovirus (PCR) Stl P. shigelloides PCR Stl Shigella/EIEC PCR St Y.enterocolitica PCR Stool Vibrio (PCR) Stl Vibrio cholerae PCR Stl Norovirus GI/GII PCR 01/18/25 01/18/25 01/18/25 10:52 08:43 07:35 WBC RBC Hgb Hct MCV MCH MCHC RDW Std Deviation RDW Coeff of Prudence Plt Count MPV Immature Gran % (Auto) Neut % (Auto) Lymph % (Auto) Harlan % (Auto) Eos % (Auto) Baso % (Auto) Neut # (Auto) Lymph # (Auto) [place]lan # (Auto) Eos # (Auto) Baso # (Auto) Immature Gran # (Auto) Sodium Potassium Chloride Carbon Dioxide Anion Gap BUN Creatinine Est Cr Clr Drug Dosing eGFR BUN/Creatinine Ratio Glucose POC Glucose 145 H Estimat Average Glucose Hemoglobin A1c Lactate 3.9 H* Calcium Magnesium Total Bilirubin AST ALT Alkaline Phosphatase Troponin I High Sens 17.7 H B-Natriuretic Peptide Total Protein Albumin Globulin Albumin/Globulin Ratio Procalcitonin Urine Color Urine Appearance Urine pH Ur Specific [place] Urine Protein Urine Glucose (UA) Urine Ketones Urine Blood Urine Nitrite Urine Bilirubin Urine Urobilinogen Ur Leukocyte Esterase Urine WBC (Auto) Urine RBC (Auto) U Hyaline Cast (Auto) U Epithel Cells (Auto) Urine Bacteria (Auto) Urine Comment Nasal Screen MRSA (PCR) Stl C. cayetanensis PCR Not Detected Stool Rotavirus A PCR Not Detected Stl Adenov F PCR Not Detected Stool Astrovirus (PCR) Not Detected Stool Campylobacter PCR Not Detected Stl C. diff Tox B Gene Negative Cdiff Gene Stl C. diff [id number]-[id number] NEGATIVE Stool Cryptosporidium PCR Not Detected Stl E.coli Shiga Tox PCR Not Detected Stl Enterotoxigenic E PCR Not Detected Stool EPEC (PCR) Not Detected Stool EAEC (PCR) Not Detected Stl E. histolytica PCR Not Detected Stool Giardia Lamblia PCR Not Detected Stool Salmonella PCR Not Detected Stool Sapovirus (PCR) Not Detected Stl P. shigelloides PCR Not Detected Stl Shigella/EIEC PCR Not Detected St Y.enterocolitica PCR Not Detected Stool Vibrio (PCR) Not Detected Stl Vibrio cholerae PCR Not Detected Stl Norovirus GI/GII PCR Not Detected 01/18/25 01/18/25 01/18/25 07:00 05:58 03:05 WBC 9.79 RBC 3.04 L Hgb 10.5 L Hct 31.4 L MCV 103.3 H MCH 34.5 H MCHC 33.4 RDW Std Deviation 61.8 H RDW Coeff of Prudence 16.5 H Plt Count 154 MPV 9.6 Immature Gran % (Auto) 7.0 Neut % (Auto) 60.1 Lymph % (Auto) 19.4 Harlan % (Auto) 10.1 Eos % (Auto) 2.6 Baso % (Auto) 0.8 Neut # (Auto) 5.88 Lymph # (Auto) 1.90 Harlan # (Auto) 0.99 H Eos # (Auto) 0.25 Baso # (Auto) 0.08 Immature Gran # (Auto) 0.69 H Sodium 139 Potassium 4.0 Chloride 104 Carbon Dioxide 27 Anion Gap 8 BUN 23 Creatinine 1.29 H Est Cr Clr Drug Dosing 32.5 eGFR 39.92 BUN/Creatinine Ratio 17.8 Glucose 152 H POC Glucose Estimat Average Glucose 180 Hemoglobin A1c 7.9 H Lactate 3.2 H* Calcium 8.3 L Magnesium 1.3 L Total Bilirubin AST ALT Alkaline Phosphatase Troponin I High Sens 17.0 H B-Natriuretic Peptide Total Protein Albumin Globulin Albumin/Globulin Ratio Procalcitonin Urine Color Yellow Urine Appearance Clear Urine pH 5.5 Ur Specific [place] 1.015 Urine Protein Negative Urine Glucose (UA) Negative Urine Ketones Negative Urine Blood Negative Urine Nitrite Negative Urine Bilirubin Negative Urine Urobilinogen Negative Ur Leukocyte Esterase Trace H Urine WBC (Auto) 6-10 H Urine RBC (Auto) 0-2 U Hyaline Cast (Auto) 0-2 U Epithel Cells (Auto) 6-10 H Urine Bacteria (Auto) None Seen Urine Comment Nasal Screen MRSA (PCR) Stl C. cayetanensis PCR Stool Rotavirus A PCR Stl Adenov F 40 PCR Stool Astrovirus (PCR) Stool Campylobacter PCR Stl C. diff Tox B Gene Stl C. diff [id number] Stool Cryptosporidium PCR Stl E.coli Shiga Tox PCR Stl Enterotoxigenic E PCR Stool EPEC (PCR) Stool EAEC (PCR) Stl E. histolytica PCR Stool Giardia Lamblia PCR Stool Salmonella PCR Stool Sapovirus (PCR) Stl P. shigelloides PCR Stl Shigella/EIEC PCR St Y.enterocolitica PCR Stool Vibrio (PCR) Stl Vibrio cholerae PCR Stl Norovirus GI/GII PCR 01/18/25 01/17/25 01/17/25 01:04 22:10 21:40 WBC 13.28 H RBC 3.51 L Hgb 11.5 L Hct 36.2 L MCV 103.1 H MCH 32.8 MCHC 31.8 L RDW Std Deviation 62.1 H RDW Coeff of Prudence 16.9 H Plt Count 206 MPV 9.7 Immature Gran % (Auto) 6.9 Neut % (Auto) 57.3 Lymph % (Auto) 22.1 Harlan % (Auto) 11.6 Eos % (Auto) 1.5 Baso % (Auto) 0.6 Neut # (Auto) 7.62 H Lymph # (Auto) 2.93 Harlan # (Auto) 1.54 H Eos # (Auto) 0.20 Baso # (Auto) 0.08 Immature Gran # (Auto) 0.91 H Sodium 137 Potassium 4.0 Chloride 99 Carbon Dioxide 30 Anion Gap 8 BUN 22 Creatinine 1.33 H Est Cr Clr Drug Dosing 31.9 eGFR 38.48 BUN/Creatinine Ratio 16.5 Glucose 196 H POC Glucose Estimat Average Glucose Hemoglobin A1c Lactate 3.7 H* 3.1 H* Calcium 9.3 Magnesium Total Bilirubin 0.3 AST 13 ALT 11 Alkaline Phosphatase 94 Troponin I High Sens 19.7 H B-Natriuretic Peptide 45 Total Protein 5.9 L Albumin 2.8 L Globulin 3.1 Albumin/Globulin Ratio 0.9 Procalcitonin 3.65 H Urine Color Urine Appearance Urine pH Ur Specific [place] Urine Protein Urine Glucose (UA) Urine Ketones Urine Blood Urine Nitrite Urine Bilirubin Urine Urobilinogen Ur Leukocyte Esterase Urine WBC (Auto) Urine RBC (Auto) U Hyaline Cast (Auto) U Epithel Cells (Auto) Urine Bacteria (Auto) Urine Comment Nasal Screen MRSA (PCR) Stl C. cayetanensis PCR Stool Rotavirus A PCR Stl Adenov F 40/41 PCR Stool Astrovirus (PCR) Stool Campylobacter PCR Stl C. diff Tox B Gene Stl C. diff [id number] Stool Cryptosporidium PCR Stl E.coli Shiga Tox PCR Stl Enterotoxigenic E PCR Stool EPEC (PCR) Stool EAEC (PCR) Stl E. histolytica PCR Stool Giardia Lamblia PCR Stool Salmonella PCR Stool Sapovirus (PCR) Stl P. shigelloides PCR Stl Shigella/EIEC PCR St Y.enterocolitica PCR Stool Vibrio (PCR) Stl Vibrio cholerae PCR Stl Norovirus GI/GII PCR Diagnostic Findings Femur X-Ray 01/17/25 22:05 Exam(s): XR RIGHT FEMUR, 2 views EXAM: XR Right Elbow, 2 Views CLINICAL HISTORY: Reason for exam: reddness. TECHNIQUE: Frontal and lateral views of the right elbow. COMPARISON: Reference is made to prior CT dated 01/10/2025 FINDINGS: Bones/joints: ORIF right femoral fracture with periosteal new bone formation and callus about the proximal femoral diaphyseal fracture. No dislocation. Soft tissues: Unremarkable. IMPRESSION: Stable postoperative changes ORIF proximal femoral diaphyseal fracture with continued interval healing. Electronically signed by: Damien Fuentes MD 01/17/25 23:[address] 01/18/25 01:38 EXAM: CT femur RT wo con CLINICAL HISTORY: right leg swollen, tender and erythematous TECHNIQUE: Contiguous axial CT images of the right femur were obtained without intravenous contrast. Coronal and sagittal reconstructions were also performed as indicated to increase the sensitivity for detecting clinically relevant pathology. The CT scan was performed according to ALARA (as low as reasonably achievable) principles. COMPARISON: None. FINDINGS: An old fracture with adjacent callus formation is noted involving the proximal femoral diaphysis. An intramedullary nail and fixation screws are seen involving the femur without obvious loosening. A well-corticated bony fragment is noted involving the lateral aspect of the head of the right femur. Mild periosteal thickening is noted involving the proximal mid diaphysis. Ill-defined subcutaneous fat stranding and soft tissue thickening is noted involving the thigh, predominantly the lateral aspect. Possibility of infective or inflammatory etiology is suggested. Post-contrast evaluation is recommended. No acute fracture or dislocation is seen. No destructive osseous lesion is identified. The visualized muscles and tendons appear grossly unremarkable. No cortical destruction is seen to suggest osteomyelitis. No abscess formation is identified. No significant joint effusion is present. There are no soft tissue masses. IMPRESSION: An old fracture with adjacent callus formation is noted involving the proximal femoral diaphysis. An intramedullary nail and fixation screws are seen involving the femur without obvious loosening. A well-corticated bony fragment is noted involving the lateral aspect of the head of the right femur. Mild periosteal thickening is noted involving the proximal mid diaphysis. Ill-defined subcutaneous fat stranding and soft tissue thickening is noted involving the thigh, predominantly the lateral aspect, with the possibility of infective or inflammatory etiology. Post-contrast evaluation or MRI correlation is suggested. Electronically signed by Iraj Barger 01-18-2025 03:[address] 01/18/25 01:38 EXAM: CT tib/fib RT wo con CLINICAL HISTORY: right leg swollen, tender and erythematous TECHNIQUE: Contiguous axial CT images of the right tibia and fibula were obtained without intravenous contrast. Coronal and sagittal reconstructions were likewise performed and indicated to increase the sensitivity for detecting clinically relevant pathology. The CT scan was performed according to ALARA (as low as reasonably achievable). COMPARISON: None. FINDINGS: Diffuse subcutaneous thickening and edema are seen throughout the entire right leg, predominantly in the anterolateral aspect. There is reduced medial tibiofemoral joint space with periarticular osteophytes and subchondral erosions along the medial tibial and femoral condyles. No acute fracture or dislocation is identified. No destructive osseous lesion is seen. The visualized muscles and tendons appear grossly unremarkable. No cortical destruction to suggest osteomyelitis. No abscess formation is identified. No significant joint effusion is present. There are no soft tissue masses. IMPRESSION: 1. Diffuse subcutaneous thickening and edema seen throughout the entire right leg, predominantly in the anterolateral aspect?likely cellulitis. 2. Moderate knee osteoarthritis. Electronically signed by Iraj Barger 01-18-2025 03:30 AM Venous Doppler Study 01/18/25 01:38 EXAM: US venous doppler LE RT CLINICAL HISTORY: Right lower extremity swelling and erythema, and tenderness. TECHNIQUE: Ultrasound examination of the right lower extremity veins was performed in real time and with duplex imaging. One or more of the following were performed: spectral analysis, resistive index, waveform analysis, and pulsed Doppler. COMPARISON: US 01/10/2025. FINDINGS: Examination is limited by increased body habitus. Normal phasic, nonpulsatile, and spontaneous flow is noted in the right common femoral, superficial femoral, popliteal, posterior tibial, and peroneal veins. The visualized veins of the right lower extremity demonstrate normal compressibility. No sonographic evidence of acute deep vein thrombosis (DVT) is detected in the visualized veins of the lower extremity. All evaluated veins compress fully with applied transducer pressure. Diffuse lower limb edema is present. IMPRESSION: 1. No sonographic evidence of acute DVT was detected at the time of examination. 2. Diffuse lower limb edema; cellulitis should be ruled out. Clinical correlation is advised. 3. No significant interval changes. Disclaimer: DVT could be missed early in the disease when clot burden is minimal. For patients with moderate and high pretest probability of DVT and negative ultrasound, the [place] clinical guidelines recommend testing with a D-dimer assay or repeat ultrasound in 5-7 days. If symptoms worsen, the Society of Radiologists in Ultrasound recommends repeating ultrasound even earlier. Electronically signed by Fausto Sommers 01-18-2025 03:52 AM Medications Administered Home Medications Medication Instructions Recorded Confirmed Last Taken prednisone 5 mg tablet 5 mg PO QAM 02/26/24 01/17/25 01/17/25 carvedilol 6.25 mg tablet 6.25 mg PO BID 30 days #60 tabs 03/09/24 01/17/25 01/17/25 donepezil 5 mg tablet 5 mg PO QAM 30 days #30 tabs 03/09/24 01/17/25 01/17/25 folic acid 1 mg tablet 1 mg PO QAM 30 days #30 tabs 03/09/24 01/17/25 01/17/25 multivitamin 1 tab PO QAM 30 days #30 tabs 03/09/24 01/17/25 01/17/25 aspirin 81 mg tablet,delayed 81 mg PO DAILY 01/10/25 01/17/25 01/17/25 release cranberry fruit concentrate 400 2 cap PO DAILY 01/10/25 01/17/25 01/17/25 mg-ascorbate calcium 30 mg capsule (Cranberry-Vit C (ascorbate calcium)) ferrous sulfate 325 mg (65 mg 325 mg PO DAILY 01/10/25 01/17/25 01/17/25 iron) tablet metformin 500 mg tablet,extended 500 mg PO BIDM 01/10/25 01/17/25 01/17/25 release 24 hr methotrexate sodium 2.5 mg tablet 10 mg PO Q7D 01/10/25 01/17/25 01/11/25 trospium 20 mg tablet 20 mg PO DAILY 01/10/25 01/17/25 01/17/25 Lactobacillus acidophilus, 1 packet PO TIDM #12 ea 01/14/25 01/17/25 01/17/25 bulgaricus 100 million cell granules packet (Floranex) cefpodoxime 200 mg tablet 400 mg (2 x 200 mg) PO QAM 9 days 01/14/25 01/17/25 01/17/25 #18 tabs doxycycline hyclate 100 mg capsule 100 mg PO BID #19 caps 01/14/25 01/17/25 01/17/25 miconazole nitrate 2 % topical 1 applic EXT BID #85 grams 01/14/25 01/17/25 01/17/25 powder (Desenex) acetaminophen 500 mg tablet 500 mg PO HS 01/17/25 01/17/25 01/17/25 (Tylenol Extra Strength) acetaminophen 500 mg tablet 500 mg PO Q6H PRN PAIN/FEVER 01/17/25 01/17/25 Unknown (Tylenol Extra Strength) estradiol 0.01% (0.1 mg/gram) 1 applic vaginal WK 01/17/25 01/17/25 01/14/25 vaginal cream fexofenadine 180 mg tablet 180 mg PO DAILY PRN Allergy 01/17/25 01/17/25 Unknown Symptoms furosemide 20 mg tablet 20 mg PO QAM PRN INCREASED EDEMA 01/17/25 01/17/25 Unknown furosemide 20 mg tablet (Lasix) 20 mg PO 4XWK 01/17/25 01/17/25 01/17/25 furosemide 20 mg tablet (Lasix) 40 mg PO 3XWK 01/17/25 01/17/25 01/16/25 mupirocin 2 % topical ointment 1 applic topical DAILY PRN OPEN 01/17/25 01/17/25 Unknown WOUNDS Active Medications Generic Name Dose Route Start Last Admin Trade Name Wilian PRN Reason Stop Dose Admin Aspirin 81 mg 01/18/25 09:00 01/18/25 07:51 Aspirin 81 Mg Ectab PO 02/17/25 08:59 81 mg DAILY KRISTINE Administration Carvedilol 6.25 mg 01/18/25 09:00 01/18/25 07:57 Carvedilol 6.25 Mg Tab PO 02/17/25 08:59 6.25 mg BID KRISTINE Administration Donepezil HCl 5 mg 01/18/25 09:00 01/18/25 09:24 Donepezil Hcl 5 Mg Tab PO 02/17/25 08:59 5 mg QAM KRISTINE Administration Ferrous Sulfate 325 mg 01/18/25 09:00 01/18/25 07:53 Ferrous Sulfate 325 Mg Tab PO 02/17/25 08:59 325 mg DAILY KRISTINE Administration Folic Acid 1 mg 01/18/25 09:00 01/18/25 07:51 Folic Acid 1 Mg Tab PO 02/17/25 08:59 1 mg QAM KRISTINE Administration Furosemide 20 mg 01/18/25 12:15 01/18/25 13:01 Furosemide 20 Mg Tab PO 02/17/25 12:14 20 mg QAM KRISTINE Administration Heparin Sodium (Porcine) 7,500 units 01/18/25 09:00 01/18/25 07:58 Heparin Sod 5,000 Unit/0.5 Ml Vial SQ 02/17/25 08:59 7,500 units Q12 KRISTINE Administration Piperacillin Sod/Tazobactam Sod 4.5 gm in 100 mls @ 25 mls/hr 01/18/25 04:00 01/18/25 15:21 Zosyn IV 01/25/25 03:59 Infused Q8H [facility] Infusion Protocol Insulin Aspart 0 units 01/18/25 07:30 01/18/25 16:39 Insulin Aspart Per Unit Charge SC 02/17/25 07:29 7 units ACHS KRISTINE Administration Lactobacillus Acidophilus 1 packet 01/18/25 08:00 01/18/25 16:39 Lactobacillus Acidophilus 1 Gm Pack PO 02/17/25 07:59 1 packet TIDM KRISTINE Administration Loperamide HCl 2 mg 01/18/25 10:43 01/18/25 13:01 Loperamide Hcl 2 Mg Cap PO 02/17/25 10:42 2 mg Q4H PRN Administration Diarrhea Miconazole Nitrate 1 appln 01/18/25 09:00 01/18/25 07:53 Miconazole Nitrate Powder 85 Gm EXT 02/17/25 08:59 1 appln BID KRISTINE Administration Multivitamins 1 tab 01/18/25 09:00 01/18/25 07:52 Multivitamin Tab PO 02/17/25 08:59 1 tab QAM KRISTINE Administration Oxybutynin Chloride 5 mg 01/18/25 09:00 01/18/25 07:57 Oxybutynin Chloride Xl 5 Mg Tabcr PO 02/17/25 08:59 5 mg DAILY KRISTINE Administration
[2025-01-18] MEDS: ACETAMINOPHEN 325 MG TAB PO PRN (17:55)
[2025-01-18] MEDS: LIDOCAINE 5% 1 PATCH TD STA (18:16)
[2025-01-18] MEDS: ACETAMINOPHEN 500 MG TAB PO SCH (20:32)
[2025-01-18] MEDS: VANCOMYCIN HCL 1,250 MG in SODIUM CHLORIDE 0.9% 250 ML IV SCH (20:35)
[2025-01-19 06:20] LABS: Hematocrit (blood only) 30.3 % (37.0-47.0); Hemoglobin 9.8 g/dl (12.0-16.0); Mean Corpuscular Hemoglobin 33.3 pg (25.0-34.0); Mean Corpuscular Volume 103.1 fL (80.0-100.0); Platelet Count 173 K/uL (130-400); RDW Standard Deviation 60.2 fL (36.4-46.3); Red Blood Count 2.94 M/uL (4.20-5.40); White Blood Count 10.22 K/ul (4.8-10.8)
[2025-01-19 07:58] LABS: Anion Gap 7.0 (3-11); Blood Urea Nitrogen 26.0 mg/dl (6-23); Calcium 8.2 mg/dl (8.6-10.3); Carbon Dioxide 27.0 mmol/L (21-32); Chloride 106.0 mmol/L (98-107); Creatinine Clr Calc Pharmacy 24.8 ml/min; Glucose 115.0 mg/dl (70-99(Fasting)); Magnesium 1.8 mg/dl (1.7-2.4); Potassium 3.7 mmol/L (3.5-5.1); Sodium 140.0 mmol/L (136-145)
[2025-01-19] MEDS: FEXOFENADINE HCL 180 MG TAB PO PRN (08:12)
[2025-01-19] MEDS: REMOVE LIDODERM PATCH SCH ×2 (08:14→20:19)
--- NOTE | 2025-01-19 10:44 | Hospitalist Progress Note ---
Date of Service January 19, 2025 Assessment & Plan (1) Cellulitis of right leg: (2) CKD (chronic kidney disease): (3) Wound of right buttock: (4) Elevated troponin I level: (5) CAD (coronary artery disease): (6) Rheumatoid arthritis: (7) Type 2 diabetes mellitus with stage 3 chronic kidney disease, without long- term current use of insulin: Plan This is an 89-year-old female with a PMH of RA, DM II, CKD III, HLD, HTN, GERD, CAD s/p stent (2007), statin intolerance, localized edema, mixed incontinence who presented on 01/18/2025 from [facility] with worsening swelling and erythema of her RLE. Patient was recently admitted from 01/10-01/14/2025 for severe sepsis secondary to UTI and RLE cellulitis. Initially was on IV vanco and zosyn then transitioned to PO abx with planned 14 day course but returned to [facility] ED with worsening cellulitis of RLE. RLE cellulitis History of right femur fracture with hardware placed on repair 03/04 Patient does not meet sepsis criteria on presentation Initial leukocytosis resolved Elevated lactate and procalcitonin but improved compared to prior admission Femur x-ray shows stable postoperative changes with continued interval healing CT scan of right femur and lower extremity showed cellulitis Doppler negative for DVT Blood cultures pending - negative to date MRSA swab negative Initially on vanco and zosyn * Per ID recs, transition from zosyn to cefepime, continue vanco. If patient continues to improve on IV abx, recommend discharge on IV abx for total of 2 weeks. Will need CBC w diff and CMP weekly for 2 weeks of treatment Holding lasix today due to PRISCA Diarrhea -> improved Likely secondary to antibiotics Cdiff negative, stool PCR negative Imodium PRN Hypomagnesemia Repleted, 1.8 today Recheck Mag in am Wound of right buttock Present prior to admission Wound culture from prior admission negative WOCN consulted Turn and reposition q2hr Elevated troponin Troponin slightly elevated but improved compared to prior admission Trend 19-> 17-> 17 PRISCA on CKD Baseline creat appears to be around 1.4 -> increased to 1.7 today Hold today's lasix Recheck BMP in AM CAD s/p stent Continue baby aspirin and carvedilol, statin intolerant RA Immunosuppressed on methotrexate and prednisone Methotrexate on hold Continue prednisone DM 2 A1C 7.9% Home agents on hold BSG ACHS and SSI while inpatient DVT Prophylaxis: SQ Heparin Code Status: Full Code PCP: Vik Davies Disposition: discharge back to [facility] when medically stable Patient seen in collaboration with Dr. Mosley. I spent a total of 50 minutes coordinating, documenting, and providing care for this patient excluding time spent in the performance of separately billed services or time spent by another provider/QHP. Admission and Anticipated Discharge Date Admission Date: January 18, 2025 Supervising Physician Co-Signing Physician Notes Attending addendum: The patient was seen and examined in the telemetry unit She has been complaining of increasing swelling of her right leg, redness and tenderness Denies any fever and chills Denies any other significant symptoms On examination Lying in bed without any acute distress Remains afebrile and hemodynamically stable Chest is clear to auscultation bilaterally HeartS1-S2, regular Abdomenbenign and bowel sound present Extremitiesbilateral leg swelling more on the right than the left with increasing redness and tenderness involving whole of the right lower extremity. There is no break in the skin CNSalert, awake and oriented x 3. No focal neurological deficit All labs, imaging studies, EKG and medications reviewed Presented with sepsis with significant right lower extremity cellulitishas been getting intravenous Zosyn and vancomycin. Will get MRSA screen and also blood culture. ID consult has been placed Her other significant medical conditions remained reasonably stable Agree with assessment plan as outlined above by Fern ZAVALA and take the full responsibility of care in the hospital Dr Marco Mosley 01/19/2025 The patient was seen and examined in telemetry unit She has been feeling much better and thinks that the right leg is improved Denies any significant symptoms On examination Remains hemodynamically stable and afebrile Right lower extremity looks much better with improvement of edema and also redness which is now a little dusky in color Appreciate ID input and recommendation Agree with assessment plan as outlined above by Roz Nuno PA-C and take the full responsibility of care in the hospital Total time taken to document all of this was [address] Marco Mosley Subjective Patient seen resting in bed, energy level is improving. Redness to RLE still significant but patient feels improving from yesterday No recurrent diarrhea since admission Denies chest pain, SOB, abdominal pain Review of Systems 2 Review of Systems: At least ten systems reviewed and negative except as noted in the HPI. Physical Exam 2 Physical Exam: General/Psych: obese, sitting in bedside chair watching TV, NAD, conversing easily Head: normocephalic, atraumatic Eyes: normal inspection ENT: oropharynx normal Neck: normal visual inspection Respiratory: normal respiratory effort, lungs clear to auscultation Cardiovascular: regular rate and rhythm Extremities: no cyanosis or clubbing, normal peripheral pulses, 2+ edema of RLE Abdomen/GI: normal bowel sounds, soft, nontender Neurologic/MSK: A+Ox3, motor strength 5/5, moves all extremities Skin: warm and dry, + RLE with erythema and warmth of RLE from groin down to top of right foot, starting to fade on lateral aspect near outlined area since yesterday Results & Data Results & Data Vital Signs (Past 12 Hours) Vital Signs Temp Pulse Pulse Resp BP Pulse Ox Pulse Ox 01/19/25 07:38 65 01/19/25 07:29 36.5 C 65 19 137/76 97 01/19/25 03:57 36.8 C 66 20 123/66 98 01/19/25 03:15 97 01/18/25 23:28 36.7 C 76 20 159/74 H 97 O2 Del Method O2 Del Method 01/19/25 07:38 01/19/25 07:29 Room Air 01/19/25 03:57 Room Air 01/19/25 03:15 Room Air 01/18/25 23:28 Room Air Laboratory Results Short CBC 01/19/25 Range/Units 05:46 WBC 10.22 (4.8-10.8) K/ul Hgb 9.8 L (12.0-16.0) g/dl Hct 30.3 L (37.0-47.0) % Plt Count 173 (130-400) K/uL BMP 01/19/25 05:46 Sodium 140 Potassium 3.7 Chloride 106 Carbon Dioxide 27 BUN 26 H Creatinine 1.70 H D Glucose 115 H Calcium 8.2 L Diagnostic Findings Femur X-Ray 01/17/25 22:05 Exam(s): XR RIGHT FEMUR, 2 views EXAM: XR Right Elbow, 2 Views CLINICAL HISTORY: Reason for exam: reddness. TECHNIQUE: Frontal and lateral views of the right elbow. COMPARISON: Reference is made to prior CT dated 01/10/2025 FINDINGS: Bones/joints: ORIF right femoral fracture with periosteal new bone formation and callus about the proximal femoral diaphyseal fracture. No dislocation. Soft tissues: Unremarkable. IMPRESSION: Stable postoperative changes ORIF proximal femoral diaphyseal fracture with continued interval healing. Electronically signed by: Damien Fuentes MD 01/17/25 23:[address] 01/18/25 01:38 EXAM: CT femur RT wo con CLINICAL HISTORY: right leg swollen, tender and erythematous TECHNIQUE: Contiguous axial CT images of the right femur were obtained without intravenous contrast. Coronal and sagittal reconstructions were also performed as indicated to increase the sensitivity for detecting clinically relevant pathology. The CT scan was performed according to ALARA (as low as reasonably achievable) principles. COMPARISON: None. FINDINGS: An old fracture with adjacent callus formation is noted involving the proximal femoral diaphysis. An intramedullary nail and fixation screws are seen involving the femur without obvious loosening. A well-corticated bony fragment is noted involving the lateral aspect of the head of the right femur. Mild periosteal thickening is noted involving the proximal mid diaphysis. Ill-defined subcutaneous fat stranding and soft tissue thickening is noted involving the thigh, predominantly the lateral aspect. Possibility of infective or inflammatory etiology is suggested. Post-contrast evaluation is recommended. No acute fracture or dislocation is seen. No destructive osseous lesion is identified. The visualized muscles and tendons appear grossly unremarkable. No cortical destruction is seen to suggest osteomyelitis. No abscess formation is identified. No significant joint effusion is present. There are no soft tissue masses. IMPRESSION: An old fracture with adjacent callus formation is noted involving the proximal femoral diaphysis. An intramedullary nail and fixation screws are seen involving the femur without obvious loosening. A well-corticated bony fragment is noted involving the lateral aspect of the head of the right femur. Mild periosteal thickening is noted involving the proximal mid diaphysis. Ill-defined subcutaneous fat stranding and soft tissue thickening is noted involving the thigh, predominantly the lateral aspect, with the possibility of infective or inflammatory etiology. Post-contrast evaluation or MRI correlation is suggested. Electronically signed by Iraj Barger 01-18-2025 03:[address] 01/18/25 01:38 EXAM: CT tib/fib RT wo con CLINICAL HISTORY: right leg swollen, tender and erythematous TECHNIQUE: Contiguous axial CT images of the right tibia and fibula were obtained without intravenous contrast. Coronal and sagittal reconstructions were likewise performed and indicated to increase the sensitivity for detecting clinically relevant pathology. The CT scan was performed according to ALARA (as low as reasonably achievable). COMPARISON: None. FINDINGS: Diffuse subcutaneous thickening and edema are seen throughout the entire right leg, predominantly in the anterolateral aspect. There is reduced medial tibiofemoral joint space with periarticular osteophytes and subchondral erosions along the medial tibial and femoral condyles. No acute fracture or dislocation is identified. No destructive osseous lesion is seen. The visualized muscles and tendons appear grossly unremarkable. No cortical destruction to suggest osteomyelitis. No abscess formation is identified. No significant joint effusion is present. There are no soft tissue masses. IMPRESSION: 1. Diffuse subcutaneous thickening and edema seen throughout the entire right leg, predominantly in the anterolateral aspect?likely cellulitis. 2. Moderate knee osteoarthritis. Electronically signed by Iraj Barger 01-18-2025 03:30 AM Venous Doppler Study 01/18/25 01:38 EXAM: US venous doppler LE RT CLINICAL HISTORY: Right lower extremity swelling and erythema, and tenderness. TECHNIQUE: Ultrasound examination of the right lower extremity veins was performed in real time and with duplex imaging. One or more of the following were performed: spectral analysis, resistive index, waveform analysis, and pulsed Doppler. COMPARISON: US 01/10/2025. FINDINGS: Examination is limited by increased body habitus. Normal phasic, nonpulsatile, and spontaneous flow is noted in the right common femoral, superficial femoral, popliteal, posterior tibial, and peroneal veins. The visualized veins of the right lower extremity demonstrate normal compressibility. No sonographic evidence of acute deep vein thrombosis (DVT) is detected in the visualized veins of the lower extremity. All evaluated veins compress fully with applied transducer pressure. Diffuse lower limb edema is present. IMPRESSION: 1. No sonographic evidence of acute DVT was detected at the time of examination. 2. Diffuse lower limb edema; cellulitis should be ruled out. Clinical correlation is advised. 3. No significant interval changes. Disclaimer: DVT could be missed early in the disease when clot burden is minimal. For patients with moderate and high pretest probability of DVT and negative ultrasound, the [place] [employer] clinical guidelines recommend testing with a D-dimer assay or repeat ultrasound in 5-7 days. If symptoms worsen, the Society of [employer] in Ultras[employer] recommends repeating ultrasound even earlier. Electronically signed by Fausto Sommers 01-18-2025 03:52 AM
[2025-01-19] MEDS: LIDOCAINE 5% 1 PATCH TD SCH (11:26)
[2025-01-19] MEDS: CEFEPIME 2000MG 2,000 MG/20 ML SYR IV ONE (11:39)
--- NOTE | 2025-01-19 11:59 | Pharmacy Report ---
Pharmacy PK ABX Note - Date of Service January 19, 2025 - Assessment and Plan Assessment * 89 year old F receiving vancomycin and cefepime for treatment of right leg cellulitis. * Pertinent microbiologic data includes: blood cultures x2 pending. * Recently treated with vancomycin and piperacillin/tazobactam --> ceftriaxone --> PO doxycycline and cefpodoxime last week for right leg cellulitis * Presents with worsening swelling and erythema so returned to hospital * SCr initially slightly below baseline but now back up to ~baseline Plan Vancomycin * Given acute change in SCr, will dose vanco via one-time levels. May schedule dose tomorrow if SCr is stable since it seems like the current SCr is at/near the patient's baseline * Vancomycin 1000 mg IV x1 today * Regimen is predicted to achieve target AUC/PHAN of 400-600 mg/L.hr * Random level ordered for: 01/20/25 @ 0444 Pharmacy will continue to follow and will adjust dose/frequency as necessary. Thank you. Pharmacy has transitioned to AUC monitoring for vancomycin. AUC/PHAN is the preferred PK/PD target and is associated with decreased risk of nephrotoxicity compared to traditional trough targets.
[2025-01-19] MEDS: VANCOMYCIN HCL / NSS 1,000 MG/270 ML BAG IV ONE (20:22)
[2025-01-19] MEDS: CEFEPIME 1000MG 1,000 MG/10 ML SYR IV SCH (23:33)
[2025-01-19] MEDS: ESTRADIOL 0.01% SCH (23:34)
[2025-01-20 06:01] LABS: Hematocrit (blood only) 32.6 % (37.0-47.0); Hemoglobin 10.8 g/dl (12.0-16.0); Mean Corpuscular Hemoglobin 33.9 pg (25.0-34.0); Mean Corpuscular Volume 102.2 fL (80.0-100.0); Platelet Count 204 K/uL (130-400); RDW Standard Deviation 61.2 fL (36.4-46.3); Red Blood Count 3.19 M/uL (4.20-5.40); White Blood Count 10.44 K/ul (4.8-10.8)
[2025-01-20 06:19] LABS: Anion Gap 6.0 (3-11); Blood Urea Nitrogen 28.0 mg/dl (6-23); Calcium 8.7 mg/dl (8.6-10.3); Carbon Dioxide 28.0 mmol/L (21-32); Chloride 107.0 mmol/L (98-107); Creatinine Clr Calc Pharmacy 24.8 ml/min; Glucose 119.0 mg/dl (70-99(Fasting)); Magnesium 2.0 mg/dl (1.7-2.4); Potassium 4.2 mmol/L (3.5-5.1); Sodium 141.0 mmol/L (136-145)
--- NOTE | 2025-01-20 10:22 | Hospitalist Progress Note ---
Date of Service January 20, 2025 Assessment & Plan (1) Cellulitis of right leg: (2) CKD (chronic kidney disease): (3) Wound of right buttock: (4) Elevated troponin I level: (5) CAD (coronary artery disease): (6) Rheumatoid arthritis: (7) Type 2 diabetes mellitus with stage 3 chronic kidney disease, without long- term current use of insulin: Plan This is an 89-year-old female with a PMH of RA, DM II, CKD III, HLD, HTN, GERD, CAD s/p stent (2007), statin intolerance, localized edema, mixed incontinence who presented on 01/18/2025 from [facility] with worsening swelling and erythema of her RLE. Patient was recently admitted from 01/10-01/14/2025 for severe sepsis secondary to UTI and RLE cellulitis. Initially was on IV vanco and zosyn then transitioned to PO abx with planned 14 day course but returned to [facility] ED with worsening cellulitis of RLE. RLE cellulitis History of right femur fracture with hardware placed on repair 03/04 Patient does not meet sepsis criteria on presentation Initial leukocytosis resolved Elevated lactate and procalcitonin but improved compared to prior admission Femur x-ray shows stable postoperative changes with continued interval healing CT scan of right femur and lower extremity showed cellulitis Doppler negative for DVT Blood cultures pending - preliminary culture negative MRSA swab negative Per ID recs, transitioned from zosyn to cefepime, continue vanco. If patient continues to improve on IV abx, recommend discharge on IV abx for total of 2 weeks. Will need CBC w diff and CMP weekly for 2 weeks of treatment Resumed lasix today given RLE swelling Diarrhea -> resolved Likely secondary to antibiotics Cdiff negative, stool PCR negative Imodium PRN Hypomagnesemia -> resolved Wound of right buttock Present prior to admission Wound culture from prior admission negative WOCN consulted Turn and reposition q2hr Elevated troponin Troponin slightly elevated but improved compared to prior admission Trend 19-> 17-> 17 CKD Baseline Cr around 1.5-1.8 upon outpatient review, increase to 1.7 yesterday doesn't qualify for PRISCA dx Recheck BMP in AM CAD s/p stent Continue baby aspirin and carvedilol, statin intolerant RA Immunosuppressed on methotrexate and prednisone Methotrexate on hold Continue prednisone DM 2 A1C 7.9% Home agents on hold BSG ACHS and SSI while inpatient DVT Prophylaxis: SQ Heparin Code Status: Full Code PCP: Vik Davies Disposition: Discharge back to [facility] with home nursing services - updated daughter Irene over the phone today - they have used [facility] for HH nursing in the past, will need wheelchair transport. Son Boy is available by phone tomorrow if further discussion needed Patient seen in collaboration with Dr. Mosley. I spent a total of 40 minutes coordinating, documenting, and providing care for this patient excluding time spent in the performance of separately billed services or time spent by another provider/QHP. Admission and Anticipated Discharge Date Admission Date: January 18, 2025 Supervising Physician Co-Signing Physician Notes Attending addendum: The patient was seen and examined in the telemetry unit She has been complaining of increasing swelling of her right leg, redness and tenderness Denies any fever and chills Denies any other significant symptoms On examination Lying in bed without any acute distress Remains afebrile and hemodynamically stable Chest is clear to auscultation bilaterally HeartS1-S2, regular Abdomenbenign and bowel sound present Extremitiesbilateral leg swelling more on the right than the left with increasing redness and tenderness involving whole of the right lower extremity. There is no break in the skin CNSalert, awake and oriented x 3. No focal neurological deficit All labs, imaging studies, EKG and medications reviewed Presented with sepsis with significant right lower extremity cellulitishas been getting intravenous Zosyn and vancomycin. Will get MRSA screen and also blood culture. ID consult has been placed Her other significant medical conditions remained reasonably stable Agree with assessment plan as outlined above by Fern ZAVALA and take the full responsibility of care in the hospital Dr Marco Mosley 01/19/2025 The patient was seen and examined in telemetry unit She has been feeling much better and thinks that the right leg is improved Denies any significant symptoms On examination Remains hemodynamically stable and afebrile Right lower extremity looks much better with improvement of edema and also redness which is now a little dusky in color Appreciate ID input and recommendation Agree with assessment plan as outlined above by Roz Nuno PA-C and take the full responsibility of care in the hospital Total time taken to document all of this was [address] Marco Mosley 01/20/2025 The patient was seen and examined in telemetry unit She has been feeling much better and her right leg is less swollen and redness is almost gone Denies any other significant symptoms On examination Remains afebrile and hemodynamically stable Systemic examination remained unremarkable Her medications and imaging studies and labs reviewed Has significant spreading cellulitis involving the right lower extremity which is showing much improvement with current antibiotic Her other significant medical conditions remained stable as above Agree with assessment and plan as outlined above by Roz Nuno PA-C and take the full responsibility of care in the hospital Total time taken to document all this was [address] Marco Mosley Subjective Patient seen sitting in bedside chair, continues to clinically improve gradually. Redness to RLE is decreasing. Patient without other acute issues overnight. Asking to get out of bed and ambulate today. No recurrent diarrhea since admission. Denies chest pain, SOB, abdominal pain Review of Systems Review of Systems: At least ten systems reviewed and negative except as noted in the HPI. Physical Exam Physical Exam: General/Psych: obese, sitting in bedside chair watching TV, NAD, conversing easily Head: normocephalic, atraumatic Eyes: normal inspection ENT: oropharynx normal Neck: normal visual inspection Respiratory: normal respiratory effort, lungs diminished at bases Cardiovascular: regular rate and rhythm Extremities: no cyanosis or clubbing, normal peripheral pulses, 2+ edema of RLE Abdomen/GI: normal bowel sounds, soft, nontender Neurologic/MSK: A+Ox3, motor strength 5/5, moves all extremities Skin: warm and dry, + RLE with erythema and warmth of RLE from groin down to top of right foot, continues to fade near outlined area Results & Data Results & Data Vital Signs (Past 12 Hours) Vital Signs Temp Pulse Pulse Resp BP Pulse Ox Pulse Ox 01/20/25 07:21 36.8 C 75 18 193/68 H 98 01/20/25 07:13 65 01/20/25 03:46 36.8 C 72 20 179/81 H 97 01/20/25 03:00 97 01/19/25 23:13 36.8 C 77 18 148/75 H 97 O2 Del Method O2 Del Method 01/20/25 07:21 Room Air 01/20/25 07:13 01/20/25 03:46 Room Air 01/20/25 03:00 Room Air 01/19/25 23:13 Room Air Laboratory Results Short CBC 01/20/25 Range/Units 05:39 WBC 10.44 (4.8-10.8) K/ul Hgb 10.8 L (12.0-16.0) g/dl Hct 32.6 L (37.0-47.0) % Plt Count 204 (130-400) K/uL BMP 01/20/25 05:39 Sodium 141 Potassium 4.2 Chloride 107 Carbon Dioxide 28 BUN 28 H Creatinine 1.69 H Glucose 119 H Calcium 8.7 Diagnostic Findings Femur X-Ray 01/17/25 22:05 Exam(s): XR RIGHT FEMUR, 2 views EXAM: XR Right Elbow, 2 Views CLINICAL HISTORY: Reason for exam: reddness. TECHNIQUE: Frontal and lateral views of the right elbow. COMPARISON: Reference is made to prior CT dated 01/10/2025 FINDINGS: Bones/joints: ORIF right femoral fracture with periosteal new bone formation and callus about the proximal femoral diaphyseal fracture. No dislocation. Soft tissues: Unremarkable. IMPRESSION: Stable postoperative changes ORIF proximal femoral diaphyseal fracture with continued interval healing. Electronically signed by: Damien Fuentes MD 01/17/25 23:[address] 01/18/25 01:38 EXAM: CT femur RT wo con CLINICAL HISTORY: right leg swollen, tender and erythematous TECHNIQUE: Contiguous axial CT images of the right femur were obtained without intravenous contrast. Coronal and sagittal reconstructions were also performed as indicated to increase the sensitivity for detecting clinically relevant pathology. The CT scan was performed according to ALARA (as low as reasonably achievable) principles. COMPARISON: None. FINDINGS: An old fracture with adjacent callus formation is noted involving the proximal femoral diaphysis. An intramedullary nail and fixation screws are seen involving the femur without obvious loosening. A well-corticated bony fragment is noted involving the lateral aspect of the head of the right femur. Mild periosteal thickening is noted involving the proximal mid diaphysis. Ill-defined subcutaneous fat stranding and soft tissue thickening is noted involving the thigh, predominantly the lateral aspect. Possibility of infective or inflammatory etiology is suggested. Post-contrast evaluation is recommended. No acute fracture or dislocation is seen. No destructive osseous lesion is identified. The visualized muscles and tendons appear grossly unremarkable. No cortical destruction is seen to suggest osteomyelitis. No abscess formation is identified. No significant joint effusion is present. There are no soft tissue masses. IMPRESSION: An old fracture with adjacent callus formation is noted involving the proximal femoral diaphysis. An intramedullary nail and fixation screws are seen involving the femur without obvious loosening. A well-corticated bony fragment is noted involving the lateral aspect of the head of the right femur. Mild periosteal thickening is noted involving the proximal mid diaphysis. Ill-defined subcutaneous fat stranding and soft tissue thickening is noted involving the thigh, predominantly the lateral aspect, with the possibility of infective or inflammatory etiology. Post-contrast evaluation or MRI correlation is suggested. Electronically signed by Iraj Barger 01-18-2025 03:[address] 01/18/25 01:38 EXAM: CT tib/fib RT wo con CLINICAL HISTORY: right leg swollen, tender and erythematous TECHNIQUE: Contiguous axial CT images of the right tibia and fibula were obtained without intravenous contrast. Coronal and sagittal reconstructions were likewise performed and indicated to increase the sensitivity for detecting clinically relevant pathology. The CT scan was performed according to ALARA (as low as reasonably achievable). COMPARISON: None. FINDINGS: Diffuse subcutaneous thickening and edema are seen throughout the entire right leg, predominantly in the anterolateral aspect. There is reduced medial tibiofemoral joint space with periarticular osteophytes and subchondral erosions along the medial tibial and femoral condyles. No acute fracture or dislocation is identified. No destructive osseous lesion is seen. The visualized muscles and tendons appear grossly unremarkable. No cortical destruction to suggest osteomyelitis. No abscess formation is identified. No significant joint effusion is present. There are no soft tissue masses. IMPRESSION: 1. Diffuse subcutaneous thickening and edema seen throughout the entire right leg, predominantly in the anterolateral aspect?likely cellulitis. 2. Moderate knee osteoarthritis. Electronically signed by Iraj Barger 01-18-2025 03:30 AM Venous Doppler Study 01/18/25 01:38 EXAM: US venous doppler LE RT CLINICAL HISTORY: Right lower extremity swelling and erythema, and tenderness. TECHNIQUE: Ultrasound examination of the right lower extremity veins was performed in real time and with duplex imaging. One or more of the following were performed: spectral analysis, resistive index, waveform analysis, and pulsed Doppler. COMPARISON: US 01/10/2025. FINDINGS: Examination is limited by increased body habitus. Normal phasic, nonpulsatile, and spontaneous flow is noted in the right common femoral, superficial femoral, popliteal, posterior tibial, and peroneal veins. The visualized veins of the right lower extremity demonstrate normal compressibility. No sonographic evidence of acute deep vein thrombosis (DVT) is detected in the visualized veins of the lower extremity. All evaluated veins compress fully with applied transducer pressure. Diffuse lower limb edema is present. IMPRESSION: 1. No sonographic evidence of acute DVT was detected at the time of examination. 2. Diffuse lower limb edema; cellulitis should be ruled out. Clinical correlation is advised. 3. No significant interval changes. Disclaimer: DVT could be missed early in the disease when clot burden is minimal. For patients with moderate and high pretest probability of DVT and negative ultrasound, the [employer] clinical guidelines recommend testing with a D-dimer assay or repeat ultrasound in 5-7 days. If symptoms worsen, the Society of Radiologists in Ultrasound recommends repeating ultrasound even earlier. Electronically signed by Fausto Sommers 01-18-2025 03:52 AM
--- NOTE | 2025-01-20 11:33 | Pharmacy Report ---
Pharmacy PK ABX Note - Date of Service January 20, 2025 - Assessment and Plan Assessment * 89 year old F receiving vancomycin and cefepime for treatment of right leg cellulitis. * Pertinent microbiologic data includes: blood cultures x2 NGTD. * Recently treated with vancomycin and piperacillin/tazobactam --> ceftriaxone --> PO doxycycline and cefpodoxime last week for right leg cellulitis * Presents with worsening swelling and erythema so returned to hospital * SCr initially slightly below baseline but now back up to ~baseline and stable since yesterday. OK to schedule vancomycin Plan Vancomycin * Vancomycin 1000 mg IV q24h * Regimen is predicted to achieve target AUC/PHAN of 400-600 mg/L.hr * Random level ordered for: 01/22/25 @ 8281 Pharmacy will continue to follow and will adjust dose/frequency as necessary. Thank you. Pharmacy has transitioned to AUC monitoring for vancomycin. AUC/PHAN is the preferred PK/PD target and is associated with decreased risk of nephrotoxicity compared to traditional trough targets.
[2025-01-20] MEDS: VANCOMYCIN HCL / NSS 1,000 MG/270 ML BAG IV SCH (20:23)
[2025-01-21 06:04] LABS: Hematocrit (blood only) 32.5 % (37.0-47.0); Hemoglobin 10.2 g/dl (12.0-16.0); Mean Corpuscular Hemoglobin 32.6 pg (25.0-34.0); Mean Corpuscular Volume 103.8 fL (80.0-100.0); Platelet Count 207 K/uL (130-400); RDW Standard Deviation 62.1 fL (36.4-46.3); Red Blood Count 3.13 M/uL (4.20-5.40); White Blood Count 11.02 K/ul (4.8-10.8)
[2025-01-21 06:23] LABS: Anion Gap 7.0 (3-11); Blood Urea Nitrogen 28.0 mg/dl (6-23); Calcium 8.7 mg/dl (8.6-10.3); Carbon Dioxide 27.0 mmol/L (21-32); Chloride 105.0 mmol/L (98-107); Creatinine Clr Calc Pharmacy 25.9 ml/min; Glucose 129.0 mg/dl (70-99(Fasting)); Potassium 4.0 mmol/L (3.5-5.1); Sodium 139.0 mmol/L (136-145)
[2025-01-21 07:26] VITALS: O2SAT 97
[2025-01-21 07:47] LABS: Magnesium 1.9 mg/dl (1.7-2.4)
--- NOTE | 2025-01-21 07:49 | Hospitalist Progress Note ---
Date of Service January 21, 2025 Assessment & Plan (1) Cellulitis of right leg: (2) CKD (chronic kidney disease): (3) Wound of right buttock: (4) Elevated troponin I level: (5) CAD (coronary artery disease): (6) Rheumatoid arthritis: (7) Type 2 diabetes mellitus with stage 3 chronic kidney disease, without long- term current use of insulin: (8) Morbid obesity: Plan This is an 89-year-old female with a PMH of RA, DM II, CKD III, HLD, HTN, GERD, CAD s/p stent (2007), statin intolerance, localized edema, mixed incontinence who presented on 01/18/2025 from [facility] with worsening swelling and erythema of her RLE. Patient was recently admitted from 01/10-01/14/2025 for severe sepsis secondary to UTI and RLE cellulitis. Initially was on IV vanco and zosyn then transitioned to PO abx with planned 14 day course but returned to [facility] ED on 01/18/2025 with worsening cellulitis of RLE. RLE cellulitis History of right femur fracture with hardware placed on repair 03/04 Patient does not meet sepsis criteria on presentation Initial leukocytosis resolved; elevated lactate and procalcitonin but improved compared to prior admission Femur x-ray shows stable postoperative changes with continued interval healing CT scan of right femur and lower extremity showed cellulitis Doppler negative for DVT Blood cultures prelim negative MRSA swab negative Per ID recs, transitioned from zosyn to cefepime, continue vanco. If patient c ontinues to improve on IV abx, recommend discharge on IV abx for total of 2 weeks. Will need CBC w diff and CMP weekly for 2 weeks of treatment Continue daily lasix for RLE swelling PICC consent obtained and placement ordered Diarrhea -> improving Likely secondary to antibiotics Cdiff negative, stool PCR negative Imodium PRN Hypomagnesemia Mag 1.9 today Started daily magnesium Wound of right buttock-> resolved Present prior to admission Wound culture from prior admission negative WOCN notes wound is healed Turn and reposition q2hr Elevated troponin Troponin slightly elevated but improved compared to prior admission Downtrended x2 CKD Baseline Cr around 1.5-1.8 upon outpatient review CAD s/p stent Continue baby aspirin and carvedilol, statin intolerant RA Immunosuppressed on methotrexate and prednisone Methotrexate on hold Continue prednisone DM 2 A1C 7.9% Home agents on hold BSG ACHS and SSI while inpatient Morbid obesity Counseled on weight management DVT Prophylaxis: SQ Heparin Code Status: Full Code PCP: Vik Davies Disposition: CM following for SNF placement as patient needs two weeks of IV antibiotics - son Boy updated via the phone today Patient seen in collaboration with Dr. Mosley. Please see addendum. I spent a total of 50 minutes coordinating, documenting, and providing care for this patient excluding time spent in the performance of separately billed services or time spent by another provider/QHP. Admission and Anticipated Discharge Date Admission Date: January 18, 2025 Subjective Patient seen resting in chair Reports cellulitis is improving - notes less redness overall Ambulating with walker Denies chest pain, SOB, abdominal pain, N/V Review of Systems Review of Systems: All systems reviewed & are unremarkable except as noted in HPI & below Physical Exam Physical Exam: General/Psych: obese, sitting in chair, NAD, conversing easily Head: normocephalic, atraumatic Eyes: normal inspection, PERRL, conjunctivae pink ENT: external ear and nose normal, oropharynx normal Neck: normal visual inspection, trachea midline Respiratory: normal respiratory effort, lungs clear to auscultation, no wheeze/rales/rhonchi, no accessory muscle use Cardiovascular: regular rate and rhythm, no murmur/rub/gallop Extremities: no cyanosis or clubbing, normal peripheral pulses, 2+ edema of RLE Abdomen/GI: normal bowel sounds, soft, nontender Neurologic/MSK: A+Ox3, motor strength 5/5, moves all extremities Skin: no rashes, normal color, warm and dry, erythema and warmth of RLE from hip down to top of right foot - reamins within marked area Results & Data Results & Data Vital Signs (Past 12 Hours) Vital Signs Temp Pulse Pulse Resp BP Pulse Ox Pulse Ox 01/21/25 07:24 36.6 C 64 23 159/64 H 97 01/21/25 03:03 37.0 C 65 18 165/76 H 97 01/21/25 03:00 96 01/20/25 23:32 36.7 C 78 17 150/69 H 96 01/20/25 21:51 74 O2 Del Method O2 Del Method 01/21/25 07:24 Room Air 01/21/25 03:03 Room Air 01/21/25 03:00 Room Air 01/20/25 23:32 Room Air 01/20/25 21:51 Laboratory Results Short CBC 01/21/25 Range/Units 05:27 WBC 11.02 H (4.8-10.8) K/ul Hgb 10.2 L (12.0-16.0) g/dl Hct 32.5 L (37.0-47.0) % Plt Count 207 (130-400) K/uL BMP 01/21/25 05:27 Sodium 139 Potassium 4.0 Chloride 105 Carbon Dioxide 27 BUN 28 H Creatinine 1.62 H Glucose 129 H Calcium 8.7 I have independently reviewed and interpreted patient's labs including CBC, BMP, Mag Medications Administered Current Inpatient Medications Acetaminophen (Acetaminophen 325 Mg Tab) 650 mg PO Q4H PRN PRN Reason: Pain or Fever Stop: 02/17/25 03:14 Last Admin: 01/21/25 03:13 Dose: 650 mg Acetaminophen (Acetaminophen 500 Mg Tab) 500 mg PO HS KRISTINE Stop: 02/17/25 20:59 Last Admin: 01/20/25 20:24 Dose: 500 mg Aspirin (Aspirin 81 Mg Ectab) 81 mg PO DAILY KRISTINE Stop: 02/17/25 08:59 Last Admin: 01/20/25 07:59 Dose: 81 mg Carvedilol (Carvedilol 6.25 Mg Tab) 6.25 mg PO BID KRISTINE Stop: 02/17/25 08:59 Last Admin: 01/20/25 20:28 Dose: 6.25 mg Dextrose (Dextrose 50% 50 Ml Syringe) 25 - 50 ml IV UD PRN; Protocol PRN Reason: Hypoglycemia Protocol Stop: 02/17/25 03:14 Donepezil HCl (Donepezil Hcl 5 Mg Tab) 5 mg PO QAM KRISTINE Stop: 02/17/25 08:59 Last Admin: 01/20/25 07:58 Dose: 5 mg Ferrous Sulfate (Ferrous Sulfate 325 Mg Tab) 325 mg PO DAILY KRISTINE Stop: 02/17/25 08:59 Last Admin: 01/20/25 07:58 Dose: 325 mg Fexofenadine HCl (Fexofenadine Hcl 180 Mg Tab) 180 mg PO DAILY PRN PRN Reason: Allergy Symptoms Stop: 02/17/25 03:14 Last Admin: 01/19/25 08:12 Dose: 180 mg Folic Acid (Folic Acid 1 Mg Tab) 1 mg PO QAM KRISTINE Stop: 02/17/25 08:59 Last Admin: 01/20/25 07:58 Dose: 1 mg Furosemide (Furosemide 20 Mg Tab) 20 mg PO QAM KRISTINE Stop: 02/17/25 12:14 Last Admin: 01/18/25 13:01 Dose: 20 mg Glucagon (Glucagon For Inj 1 Mg Vial) 1 mg SQ UD PRN; Protocol PRN Reason: Hypoglycemia Protocol Stop: 02/17/25 03:14 Glucose (Glucose 40% Gel 15 Gm Tube) 15 - 30 gm PO UD PRN; Protocol PRN Reason: Hypoglycemia Protocol Stop: 02/17/25 03:14 Glucose (Glucose 10 Tab/Tube) 4 - 8 tab PO UD PRN; Protocol PRN Reason: Hypoglycemia Protocol Stop: 02/17/25 03:14 Heparin Sodium (Porcine) (Heparin Sod 5,000 Unit/0.5 Ml Vial) 7,500 units SQ Q12 KRISTINE Stop: 02/17/25 08:59 Last Admin: 01/20/25 20:23 Dose: 7,500 units Cefepime HCl (Maxipime 2000mg) 1,000 mg in 10 mls @ 5 mls/min IV Q12H KRISTINE Stop: 01/26/25 22:59 Last Admin: 01/20/25 22:37 Dose: 5 mls/min Vancomycin HCl (Vancomycin Hcl / Nss) 1,000 mg in 270 mls @ 200 mls/hr IV Q24H KRISTINE Stop: 01/24/25 20:59 Last Infusion: 01/20/25 21:45 Dose: Infused Insulin Aspart (Insulin Aspart Per Unit Charge) 0 units SC ACHS KRISTINE Stop: 02/17/25 07:29 Last Admin: 01/20/25 20:26 Dose: Not Given Lactobacillus Acidophilus (Lactobacillus Acidophilus 1 Gm Pack) 1 packet PO TIDM KRISTINE Stop: 02/17/25 07:59 Last Admin: 01/20/25 16:40 Dose: 1 packet Lidocaine (Lidocaine 5% 1 Patch) 1 patch TD QAM KRISTINE Stop: 02/18/25 10:29 Last Admin: 01/20/25 07:57 Dose: 1 patch Loperamide HCl (Loperamide Hcl 2 Mg Cap) 2 mg PO Q4H PRN PRN Reason: Diarrhea Stop: 02/17/25 10:42 Last Admin: 01/18/25 20:39 Dose: 2 mg Miconazole Nitrate (Miconazole Nitrate Powder 85 Gm) 1 appln EXT BID [facility] Stop: 02/17/25 08:59 Last Admin: 01/20/25 20:23 Dose: 1 appln Miscellaneous (Estradiol 0.01% Cream - Order Awaiting Action) 1 each N/A QS [facility] Stop: 02/19/25 00:00 Last Admin: 01/21/25 00:46 Dose: Not Given Miscellaneous (Carbohydrates For Hypoglycemia ) 15 - 30 gm PO UD PRN PRN Reason: Hypoglycemia Protocol Stop: 02/17/25 03:14 Miscellaneous (Remove Lidoderm Patch) 1 each N/A DAILY@2100 [facility] Stop: 02/18/25 20:59 Last Admin: 01/20/25 20:28 Dose: 1 each Miscellaneous Information (Vancomycin Consult Active) 1 each N/A UD PRN PRN Reason: Consult Stop: 02/16/25 22:02 Multivitamins (Multivitamin Tab) 1 tab PO QAM [facility] Stop: 02/17/25 08:59 Last Admin: 01/20/25 07:58 Dose: 1 tab Mupirocin (Mupirocin 2% Oint 22 Gm Tube) 1 appln TOP DAILY PRN PRN Reason: OPEN WOUNDS Stop: 02/17/25 03:14 Nitroglycerin (Nitroglycerin Sl 0.4 Mg/Tab Tab) 0.4 mg SL Q5M PRN PRN Reason: Chest Pain Stop: 02/17/25 03:14 Oxybutynin Chloride (Oxybutynin Chloride Xl 5 Mg Tabcr) 5 mg PO DAILY [facility] Stop: 02/17/25 08:59 Last Admin: 01/20/25 07:59 Dose: 5 mg Polyethylene Glycol (Polyethylene (Miralax) 17 Gm Pack) 17 gm PO DAILY PRN PRN Reason: Constipation Stop: 02/17/25 03:14 Prednisone (Prednisone 5 Mg Tab) 5 mg PO QAM [facility] Stop: 02/18/25 08:59 Last Admin: 01/20/25 07:59 Dose: 5 mg
[2025-01-21] MEDS: MAGNESIUM OXIDE 400 MG TAB PO SCH (08:42)
[2025-01-21 12:05] VITALS: BP 147/70; RESP 22; TEMP 98.6
--- NOTE | 2025-01-21 15:08 | Discharge Summary ---
Discharge Summary Date of Service January 21, 2025 Principal Dx & Hospital Course #1 = Principal Diagnosis (1) Cellulitis of right leg: (2) CKD (chronic kidney disease): (3) Wound of right buttock: (4) Elevated troponin I level: (5) CAD (coronary artery disease): (6) Rheumatoid arthritis: (7) Type 2 diabetes mellitus with stage 3 chronic kidney disease, without long- term current use of insulin: (8) Morbid obesity: Plan This is an 89-year-old female with a PMH of RA, DM II, CKD III, HLD, HTN, GERD, CAD s/p stent (2007), statin intolerance, localized edema, mixed incontinence who presented on 01/18/2025 from [facility] with worsening swelling and erythema of her RLE. Patient was recently admitted from 01/10-01/14/2025 for severe sepsis secondary to UTI and RLE cellulitis. Initially was on IV vanco and zosyn then transitioned to PO abx with planned 14 day course but returned to [facility] ED on 01/18/2025 with worsening cellulitis of RLE. RLE cellulitis History of right femur fracture with hardware placed on repair 03/04 Patient did not meet sepsis criteria on presentation Initial leukocytosis resolved; elevated lactate and procalcitonin but improved compared to prior admission Femur x-ray shows stable postoperative changes with continued interval healing CT scan of right femur and lower extremity showed cellulitis Doppler negative for DVT Blood cultures prelim negative - final results still pending MRSA swab negative Per ID consult: recommend discharge on IV cefepime 1g q12hr and vancomycin 1g q24hr for total of 2 weeks (end date 02/02/2024) with CBC w diff and CMP weekly for 2 weeks of treatment Continue daily lasix for RLE swelling PICC line placed today Diarrhea -> improving Likely secondary to antibiotics Cdiff negative, stool PCR negative Imodium PRN Hypomagnesemia Mag 1.3 on admission today Repleted IV while inpatient Started daily magnesium supplementation Wound of right buttock-> resolved WOCN notes wound is healed Turn and reposition q2hr Elevated troponin Troponin slightly elevated but improved compared to prior admission Downtrended x2 CKD Cr at baseline around 1.5-1.8 CAD s/p stent Continue baby aspirin and carvedilol, statin intolerant RA Immunosuppressed on methotrexate and prednisone DM 2 A1C 7.9% Continue metformin Morbid obesity Counseled on weight management Patient seen in collaboration with Dr. Mosley. Please see addendum. Notes For Next Care Provider 89 year old female with recent admission for RLE cellulitis who was admitted at [facility] from 01/18-01/21/2025 with worsening RLE cellulitis. ID consulted and recommended two weeks of IV antibiotics. PICC line placed for antibiotics and labs. Patient discharged to [facility] and can return to [facility] after completion of IV antibiotics. Medication Changes From Visit IV cefepime and vancomycin x2 weeks with weekly labs Started on magnesium supplement Admission HPI Per Admitting Provider 89-year-old female with past medical history significant for type 2 diabetes, dyslipidemia, CAD, hypertension, nonrheumatic mitral valve regurgitation, GERD, history of calculus of kidney, history of UTI, CKD stage IIIb, history of generalized osteoarthritis, rheumatoid arthritis involving multiple sites with positive rheumatoid factor, statin intolerance, mixed incontinence, history of COVID, history of localized edema presents with right leg cellulitis and sepsis. Patient was recently admitted on January 10, 2025 for severe sepsis and UTI and also wound on the right buttock and cellulitis of the right leg was initially on IV Vanco and Zosyn then transitioned to Rocephin and doxycycline and was changed on p.o. doxycycline and cefpodoxime to continue until 01/23/2025 for 14 days of antibiotics and was discharged on 01/14/2025. Patient is currently living at assisted living with her . Patient states that she is ambulating with walker. Because of worsening of the swelling and erythema of the right leg, patient came back to the hospital today. Denies any fever. Denies any pain. But says right leg is tender. Normal bowel and bladder movements. Denies abdominal pain. Denies any chest pain. No shortness of breath. No cough. No headache. No runny nose or sore throat. Currently resting comfortably and hemodynamically stable. Past medical history. As mentioned above. Past surgical history. Cardiac stent placement. Arthroscopy of shoulder. C- section. Colonoscopy. EGD. Injection of lumbosacral spine. Laparoscopic cholecystectomy.Neck spine fusion. Partial hysterectomy. Right long trochanteric nail. Lumbar spine fusion. Social history. . No smoking. No alcohol use. No drug use. Family history. Daughter has arthritis. Sister had breast cancer. Father had heart disease. Mother had brain bleed after fall. Discharge Exam General/Psych: obese, laying in bed, NAD, conversing easily Head: normocephalic, atraumatic Eyes: normal inspection, PERRL, conjunctivae pink ENT: external ear and nose normal, oropharynx normal Neck: normal visual inspection, trachea midline Respiratory: normal respiratory effort, lungs clear to auscultation, no wheeze/rales/rhonchi, no accessory muscle use Cardiovascular: regular rate and rhythm, no murmur/rub/gallop Extremities: no cyanosis or clubbing, normal peripheral pulses, 2+ edema of RLE Abdomen/GI: normal bowel sounds, soft, nontender Neurologic/MSK: A+Ox3, motor strength 5/5, moves all extremities Skin: no rashes, normal color, warm and dry, erythema and warmth of RLE from hip down to top of right foot - remains within markings Updated Medication List Medication Instructions Recorded Confirmed Type prednisone 5 mg tablet 5 mg PO QAM 02/26/24 01/17/25 History carvedilol 6.25 mg tablet 6.25 mg PO BID 30 days #60 tabs 03/09/24 01/17/25 Rx donepezil 5 mg tablet 5 mg PO QAM 30 days #30 tabs 03/09/24 01/17/25 Rx folic acid 1 mg tablet 1 mg PO QAM 30 days #30 tabs 03/09/24 01/17/25 Rx multivitamin 1 tab PO QAM 30 days #30 tabs 03/09/24 01/17/25 Rx aspirin 81 mg tablet,delayed 81 mg PO DAILY 01/10/25 01/17/25 History release cranberry fruit concentrate 400 2 cap PO DAILY 01/10/25 01/17/25 History mg-ascorbate calcium 30 mg capsule (Cranberry-Vit C (ascorbate calcium)) ferrous sulfate 325 mg (65 mg 325 mg PO DAILY 01/10/25 01/17/25 History iron) tablet metformin 500 mg tablet,extended 500 mg PO BIDM 01/10/25 01/17/25 History release 24 hr methotrexate sodium 2.5 mg tablet 10 mg PO Q7D 01/10/25 01/17/25 History trospium 20 mg tablet 20 mg PO DAILY 01/10/25 01/17/25 History Lactobacillus acidophilus, 1 packet PO TIDM #12 ea 01/14/25 01/17/25 Rx bulgaricus 100 million cell granules packet (Floranex) miconazole nitrate 2 % topical 1 applic EXT BID #85 grams 01/14/25 01/17/25 Rx powder (Desenex) acetaminophen 500 mg tablet 500 mg PO HS 01/17/25 01/17/25 History (Tylenol Extra Strength) acetaminophen 500 mg tablet 500 mg PO Q6H PRN PAIN/FEVER 01/17/25 01/17/25 History (Tylenol Extra Strength) estradiol 0.01% (0.1 mg/gram) 1 applic vaginal WK 01/17/25 01/17/25 History vaginal cream fexofenadine 180 mg tablet 180 mg PO DAILY PRN Allergy 01/17/25 01/17/25 History Symptoms furosemide 20 mg tablet 20 mg PO QAM PRN INCREASED EDEMA 01/17/25 01/17/25 History furosemide 20 mg tablet (Lasix) 20 mg PO 4XWK 01/17/25 01/17/25 History furosemide 20 mg tablet (Lasix) 40 mg PO 3XWK 01/17/25 01/17/25 History mupirocin 2 % topical ointment 1 applic topical DAILY PRN OPEN 01/17/25 01/17/25 History WOUNDS lidocaine 5 % topical patch 1 patch transdermal QAM #1 ea 01/21/25 Rx magnesium oxide 400 mg (241.3 mg 400 mg PO QAM #1 tab 01/21/25 Rx magnesium) tablet Hospital Stay Data Consultations 01/17/25 23:03 ED Decision to Admit Stat 01/18/25 12:14 Consult Infectious Diseases Routine Diagnostic Imagining Performed Femur X-Ray 01/17/25 22:05 Exam(s): XR RIGHT FEMUR, 2 views EXAM: XR Right Elbow, 2 Views CLINICAL HISTORY: Reason for exam: reddness. TECHNIQUE: Frontal and lateral views of the right elbow. COMPARISON: Reference is made to prior CT dated 01/10/2025 FINDINGS: Bones/joints: ORIF right femoral fracture with periosteal new bone formation and callus about the proximal femoral diaphyseal fracture. No dislocation. Soft tissues: Unremarkable. IMPRESSION: Stable postoperative changes ORIF proximal femoral diaphyseal fracture with continued interval healing. Electronically signed by: Damien Fuentes MD 01/17/25 23:[address] 01/18/25 01:38 EXAM: CT femur RT wo con CLINICAL HISTORY: right leg swollen, tender and erythematous TECHNIQUE: Contiguous axial CT images of the right femur were obtained without intravenous contrast. Coronal and sagittal reconstructions were also performed as indicated to increase the sensitivity for detecting clinically relevant pathology. The CT scan was performed according to ALARA (as low as reasonably achievable) principles. COMPARISON: None. FINDINGS: An old fracture with adjacent callus formation is noted involving the proximal femoral diaphysis. An intramedullary nail and fixation screws are seen involving the femur without obvious loosening. A well-corticated bony fragment is noted involving the lateral aspect of the head of the right femur. Mild periosteal thickening is noted involving the proximal mid diaphysis. Ill-defined subcutaneous fat stranding and soft tissue thickening is noted involving the thigh, predominantly the lateral aspect. Possibility of infective or inflammatory etiology is suggested. Post-contrast evaluation is recommended. No acute fracture or dislocation is seen. No destructive osseous lesion is identified. The visualized muscles and tendons appear grossly unremarkable. No cortical destruction is seen to suggest osteomyelitis. No abscess formation is identified. No significant joint effusion is present. There are no soft tissue masses. IMPRESSION: An old fracture with adjacent callus formation is noted involving the proximal femoral diaphysis. An intramedullary nail and fixation screws are seen involving the femur without obvious loosening. A well-corticated bony fragment is noted involving the lateral aspect of the head of the right femur. Mild periosteal thickening is noted involving the proximal mid diaphysis. Ill-defined subcutaneous fat stranding and soft tissue thickening is noted involving the thigh, predominantly the lateral aspect, with the possibility of infective or inflammatory etiology. Post-contrast evaluation or MRI correlation is suggested. Electronically signed by Iraj Barger 01-18-2025 03:[address] 01/18/25 01:38 EXAM: CT tib/fib RT wo con CLINICAL HISTORY: right leg swollen, tender and erythematous TECHNIQUE: Contiguous axial CT images of the right tibia and fibula were obtained without intravenous contrast. Coronal and sagittal reconstructions were likewise performed and indicated to increase the sensitivity for detecting clinically relevant pathology. The CT scan was performed according to ALARA (as low as reasonably achievable). COMPARISON: None. FINDINGS: Diffuse subcutaneous thickening and edema are seen throughout the entire right leg, predominantly in the anterolateral aspect. There is reduced medial tibiofemoral joint space with periarticular osteophytes and subchondral erosions along the medial tibial and femoral condyles. No acute fracture or dislocation is identified. No destructive osseous lesion is seen. The visualized muscles and tendons appear grossly unremarkable. No cortical destruction to suggest osteomyelitis. No abscess formation is identified. No significant joint effusion is present. There are no soft tissue masses. IMPRESSION: 1. Diffuse subcutaneous thickening and edema seen throughout the entire right leg, predominantly in the anterolateral aspect?likely cellulitis. 2. Moderate knee osteoarthritis. Electronically signed by Iraj Barger 01-18-2025 03:30 AM Venous Doppler Study 01/18/25 01:38 EXAM: US venous doppler LE RT CLINICAL HISTORY: Right lower extremity swelling and erythema, and tenderness. TECHNIQUE: Ultrasound examination of the right lower extremity veins was performed in real time and with duplex imaging. One or more of the following were performed: spectral analysis, resistive index, waveform analysis, and pulsed Doppler. COMPARISON: US 01/10/2025. FINDINGS: Examination is limited by increased body habitus. Normal phasic, nonpulsatile, and spontaneous flow is noted in the right common femoral, superficial femoral, popliteal, posterior tibial, and peroneal veins. The visualized veins of the right lower extremity demonstrate normal compressibility. No sonographic evidence of acute deep vein thrombosis (DVT) is detected in the visualized veins of the lower extremity. All evaluated veins compress fully with applied transducer pressure. Diffuse lower limb edema is present. IMPRESSION: 1. No sonographic evidence of acute DVT was detected at the time of examination. 2. Diffuse lower limb edema; cellulitis should be ruled out. Clinical correlation is advised. 3. No significant interval changes. Disclaimer: DVT could be missed early in the disease when clot burden is minimal. For patients with moderate and high pretest probability of DVT and negative ultrasound, the [employer] clinical guidelines recommend testing with a D-dimer assay or repeat ultrasound in 5-7 days. If symptoms worsen, the Society of Radiologists in Ultrasound recommends repeating ultrasound even earlier. Electronically signed by Fausto Sommers 01-18-2025 03:52 AM Pending Results Patient Have Any Pending Studies at Discharge: Yes Discharge Instructions Given to Patient (Per Discharging Provider) You presented to the hospital with worsening cellulitis of your right leg. You were seen by our infectious disease team who recommended two weeks of IV antibiotics to help clear up the infection. A special IV was placed so that you can receive IV antibiotics and have labs checked. You are being transferred to the shelter portion [facility] to complete your antibiotics and then will be able to return to the personal care portion. MEDICATION CHANGES: Cefepime 1g q12hr and Vancomycin 1g q24hr until 02/01/2025 with weekly CBC with diff and CMP SUMMARY OF TEST RESULTS: Femur x-ray showed stable post operative changes Femur and lower leg CT scan showed cellulitis Leg ultrasound negative for blood clot PENDING TEST RESULTS: Blood culture final result - preliminary is negative RECOMMENDATIONS FOR FOLLOW-UP: Please follow up with your PCP after hospitalization and make sure your cellulitis improves on the IV antibiotics OTHER INSTRUCTIONS: Seek medical attention if you have: * temperature above 101 * chest pain or trouble breathing * abdominal pain, nausea, vomiting * diarrhea, dark stools or bloody stools * any unanswered questions or concerns Call 911 if symptoms are severe. It has been a pleasure taking care of you. Please take care of yourself. If you have any questions regarding your recent hospitalization please contact [facility] and request [facility] @ [phone]. Total Time Total Time Spent Total Time Spent (In Minutes): I spent a total of 35 minutes coordinating, documenting and providing care for this patient excluding time spent in the performance of separately billed services or time spent by another provider/QHP. Supervising Physician Co-Signing Physician Notes Attending addendum: The patient was seen and examined in the telemetry unit She has been complaining of increasing swelling of her right leg, redness and tenderness Denies any fever and chills Denies any other significant symptoms On examination Lying in bed without any acute distress Remains afebrile and hemodynamically stable Chest is clear to auscultation bilaterally HeartS1-S2, regular Abdomenbenign and bowel sound present Extremitiesbilateral leg swelling more on the right than the left with increasing redness and tenderness involving whole of the right lower extremity. There is no break in the skin CNSalert, awake and oriented x 3. No focal neurological deficit All labs, imaging studies, EKG and medications reviewed Presented with sepsis with significant right lower extremity cellulitishas been getting intravenous Zosyn and vancomycin. Will get MRSA screen and also blood culture. ID consult has been placed Her other significant medical conditions remained reasonably stable Agree with assessment plan as outlined above by Fern ZAVALA and take the full responsibility of care in the hospital Dr Marco Mosley 01/19/2025 The patient was seen and examined in telemetry unit She has been feeling much better and thinks that the right leg is improved Denies any significant symptoms On examination Remains hemodynamically stable and afebrile Right lower extremity looks much better with improvement of edema and also redness which is now a little dusky in color Appreciate ID input and recommendation Agree with assessment plan as outlined above by Roz Nuno PA-C and take the full responsibility of care in the hospital Total time taken to document all of this was [address] Marco Mosley 01/20/2025 The patient was seen and examined in telemetry unit She has been feeling much better and her right leg is less swollen and redness is almost gone Denies any other significant symptoms On examination Remains afebrile and hemodynamically stable Systemic examination remained unremarkable Her medications and imaging studies and labs reviewed Has significant spreading cellulitis involving the right lower extremity which is showing much improvement with current antibiotic Her other significant medical conditions remained stable as above Agree with assessment and plan as outlined above by Roz Nuno PA-C and take the full responsibility of care in the hospital Total time taken to document all this was [address] Marco Mosley 01/21/2025 The patient was seen and examined in telemetry unit She has been much better with decreasing right leg swelling and redness She has had physical therapy and recommended home She remains free from any other symptoms and she has been ambulating in the room without any difficulties On examination Sitting on a chair without any acute distress Remains afebrile with blood pressure on the upper side at 147/70 Chest was clear to auscultate bilaterally HeartS1-S2, regular Abdomenbenign Extremitiesbilateral leg swelling, right more than the left and has dusky discoloration with minimal tenderness on palpation Her labs and medications reviewed Right lower extremity cellulitis with increasing edemaimproved with current intravenous antibiotic She will have IV antibiotic as advised by the infectious disease specialist Her other medical conditions remained stable as mentioned above Agree with assessment and plan as outlined above by SALLY Carl and take the full responsibility of care in the hospital Total time taken to discuss this with the patient, examining the patient and reviewed the medications and labs was [address] Marco Mosley
[2025-01-21 18:05] VITALS: PULSE 66
--- NOTE | 2025-01-23 06:09 | Coding Query ---
CODING QUERY To promote full compliance with coding requirements relating to patient care, provider participation is requested in all cases of residence leasing agent uncertainty. Please assist us with the question(s) below: Coding Question(s): A diagnosis of sepsis is present in the H&P, however in the hospitalist progress note from 01/18 the documentation states "Patient does not meet sepsis criteria on presentation." Could you please clarify the status of sepsis by placing an x in the parenthesis below? SEPSIS: Diagnosed and POA ( + ) Diagnosed and not POA ( ) Ruled out ( ) Other, please specify ( ) Physician's Response(s): Thank you Holli Morris Principal Diagnosis: "that condition established after study, to be chiefly responsible for occasioning the admission of the patient to the hospital for care." Co-Existing Principal Diagnosis: "when two or more diagnoses equally meet the criteria for principal diagnosis as determined by the circumstances of admission, diagnostic work up, and/or therapy provided, and the Alphabetic Index, Tabular List, or another coding guideline does not provide sequencing direction, any one of the diagnoses may be sequenced first." "When the physician has documented what appears to be a current diagnosis in the body of the record, but has not included the diagnosis in the final diagnostic statement, the physician should be asked whether the diagnosis should be added." (Source [facility]oding [facility] 2 QTR90. p3-4) EVER
== END 2025-01-21 18:05 | DRG 872 ==
LOC: ED 21:25 → 2E 01-18 01:00